=== PATIENT | male | born 1960 | race Caucasian/White ===

== ENCOUNTER 2021-02-23 13:30 | Inpatient (IN) ==
[2021-02-23] MEDS ORDERED: ONDANSETRON INJ 2 MG/ML 2 ML VIAL IV STA (16:53)
[2021-02-23] MEDS ORDERED: SODIUM CHLORIDE 0.9% 1000ML 2,000 ML IV ONE (16:53)
[2021-02-23] MEDS ORDERED: SODIUM CHLORIDE 0.9% 1000ML 1,000 ML IV STA (16:53)
--- NOTE | 2021-02-23 17:09 | Emergency Department Note ---
Impression & Plan SOB (shortness of breath), Acute dehydration, Metastatic renal cell carcinoma ED Provider Note INFORMANT: Patient and family ED PROVIDER(S): Enrike Longo MD CHIEF COMPLAINT: Back pain and shortness of breath PLAN: Disposition: Admitted Condition: Good Outpatient prescription management: none Referral: None MEDICAL DECISION MAKING: Patient presented because of back pain, feeling short of breath, and feeling dehydrated. He has had poor p.o. intake and no urine output for the last 2 days. Clinically he looks ill. He had his port accessed and an IV established. He was given saline fluid boluses as he was mildly hypotensive. He was placed on supplemental oxygen. His pain which he rated an 8 out of 10 was treated with Dilaudid and Zofran. Chest imaging was concerning for metastatic disease in the ribs. The patient had a CT scan of the chest abdomen and pelvis performed. This revealed findings concerning for possible metastatic disease versus cavitary lesion versus pulmonary infarct versus fungal infection. I did discuss this with the radiologist. The patient was started on cefepime and vancomycin. We did make attempts to get imaging from his outside facility. Unfortunately imaging is not available this evening but the reports were received. It appears that the mass seen especially in the right lower lobe is increased. Radiology recommended a CT PE study. The patient's creatinine is stable. He was hydrated. CT PE study was performed. No pulmonary midline were noted however it is still difficult to assess the exact etiology of the findings. The patient will need further management in the hospital. Consultation was made with the [facility] service. Patient was evaluated in the ER for further management. Triage Nursing notes reviewed and agree them. Vital Signs: reviewed and remarkable for mild hypotension Differential diagnosis: Metastatic cancer, infection, dehydration, metabolic abnormality, hypo/hyperglycemia, electrolyte disturbance, anemia, hypoxia, cardiac sources, intracerebral event, toxicologic, neurologic, as well as other pathologies. Diagnostics interpreted by me: ECG: Sinus rhythm with occasional PVCs at 99 bpm. Poor baseline data. Septal Q waves. No ST elevation. Nonspecific ST. Cardiac Monitoring: Cardiac monitoring ordered by me: The patient was placed on continuous cardiac monitoring and observed. It revealed a sinus rhythm at 76 beats per minute with PVCs noted. Imaging studies: Chest x-ray and CT scans as above. HPI: The patient is a 60 year old male who presents to the Emergency Room with complaints of mid back pain and shortness of breath. This started over the last 2 days and is worsening. The patient also notes the following associated symptoms, feeling dehydrated, poor p.o. intake, no urine output in 2 days, 20 pound weight loss this month. The patient has found no relieving factors. Current pain is rated as 8/10. Patient states that he has metastatic renal cell carcinoma. His primary doctor and oncologist are located in [place]. He is staying with family in [place] and came to the hospital here for evaluation. Pt denies LOC, headache, fevers, chills, diaphoresis, visual changes, neck pain, chest pain, nausea, vomiting, abdominal pain,melena, hematochezia, numbness, focal weakness, lymphadenopathy, rash, or other complaints. ROS: See above HPI for pertinent positives & negatives. A total of 10 systems reviewed and were otherwise negative. PAST MEDICAL HISTORY:See Below , laryngeal cancer. Metastatic renal cell cancer PAST SURGICAL HISTORY:See Below, Mediport, tumor resection of mets to the brain FAMILY HISTORY:See Below SOCIAL HISTORY:See Below, former smoker. Uses medical marijuana. HOME MEDICATIONS:See Below ALLERGIES:See Below VITALS:See Below PHYSICAL EXAMINATION: GENERAL: Awake, alert, dyspneic and very uncomfortable-appearing, in mild distress HENT: Normocephalic, atraumatic. Oropharynx unremarkable except for dry mucous membranes. Cyanotic appearance to the nose. EYES: Normal conjunctiva. Sclera non-icteric. NECK: Inspection normal. Non-tender. Supple. No nuchal rigidity. FROM. No m asses. RESPIRATORY: Sounds diminished but equal bilaterally. Clear to auscultation. No wheezes. No rales. Mildly increased respiratory effort. CARDIAC: Normal rate. Normal rhythm. No murmurs. No rubs. Extremities warm and well perfused. Pulses equal. No JVD. GI: Soft, non-distended. No tenderness to palpation. No rebound or guarding. No masses. RECTAL: Deferred. MUSCULOSKELETAL: Atraumatic. Generalized muscular atrophy. Chest examination reveals no tenderness. The back is symmetrical on inspection without obvious abnormality. There is no CVA tenderness to palpation. There is midline low thoracic tenderness. No joint edema. LOWER EXTREMITIES: Calves are equal size bilaterally and non-tender. No edema. No discoloration. NEURO: Normal sensorium. No focal sensory or motor deficits noted. SKIN: No rash or jaundice noted. Enrike Longo MD Past Med/Surg History Social History Smoking Status: Never smoker Feels Safe at Home: Yes Allergies Allergies Allergy/AdvReac Type Severity Reaction Status Date / Time No Known Allergies Allergy Verified 02/23/21 17:06 Home Meds Home Medications Medication Instructions Recorded Confirmed Magic Mouth 1 dose PO DIRECTED PRN 02/23/21 02/23/21 apixaban 5 mg tablet (Eliquis) 5 mg PO BID 02/23/21 02/23/21 cabozantinib 40 mg tablet 40 mg PO .HS @ 2230 02/23/21 02/23/21 (Cabometyx) colchicine 0.6 mg tablet 0.6 mg PO DIRECTED PRN 02/23/21 02/23/21 diphenhydramine HCl 25 mg capsule 25 mg PO DIRECTED PRN 02/23/21 02/23/21 (Benadryl) famotidine 20 mg tablet (Pepcid) 20 mg PO DIRECTED PRN 02/23/21 02/23/21 famotidine 40 mg tablet 40 mg PO DAILYBB 02/23/21 02/23/21 levothyroxine 100 mcg tablet See Rx Instructions .ROUTE .COMPLEX 02/23/21 02/23/21 (Synthroid) prednisone 10 mg tablet 0 mg PO DIRECTED 02/23/21 02/23/21 propranolol 20 mg tablet 20 mg PO BID 02/23/21 02/23/21 Results & Data (ED) Vital Signs Vital Signs - 24 hr 02/23/21 13:39 02/23/21 18:30 02/23/21 19:00 Temperature 37.0 C 36.8 C Temperature Source Skin Oral Pulse Rate 76 72 Pulse Rate [Finger] 73 Pulse Rate from SpO2 Sensor 70 Pulse Rhythm [Finger] Regular Pulse Strength [Finger] Normal Respiratory Rate 18 20 16 Respiratory Depth Normal Blood Pressure 95/70 L 96/67 L Blood Pressure [Left Arm] 103/67 Blood Pressure Mean 78 76 Blood Pressure Mean [Left Arm] 79 Pulse Oximetry 100 97 100 Oxygen Delivery Method Room Air Nasal Cannula Oxygen Flow Rate 4 Sepsis Recent Fever Within 48 Hours No Sepsis New/Unexplained Change in Mental Status No Sepsis Action Taken by Nursing No Action Required 02/23/21 19:30 02/23/21 20:00 02/23/21 21:01 Temperature Temperature Source Pulse Rate 73 72 Pulse Rate [Finger] 73 Pulse Rate from SpO2 Sensor 76 73 Pulse Rhythm [Finger] Pulse Strength [Finger] Respiratory Rate 12 17 19 Respiratory Depth Blood Pressure 103/71 Blood Pressure [Left Arm] 93/63 L Blood Pressure Mean 81 Blood Pressure Mean [Left Arm] 73 Pulse Oximetry 89 L 100 100 Oxygen Delivery Method Nasal Cannula Oxygen Flow Rate 4 Sepsis Recent Fever Within 48 Hours Sepsis New/Unexplained Change in Mental Status Sepsis Action Taken by Nursing 02/23/21 21:30 02/23/21 22:00 Temperature Temperature Source Pulse Rate 75 68 Pulse Rate [Finger] Pulse Rate from SpO2 Sensor 74 68 Pulse Rhythm [Finger] Pulse Strength [Finger] Respiratory Rate 18 14 Respiratory Depth Blood Pressure 121/80 98/69 L Blood Pressure [Left Arm] Blood Pressure Mean 93 78 Blood Pressure Mean [Left Arm] Pulse Oximetry 93 99 Oxygen Delivery Method Oxygen Flow Rate Sepsis Recent Fever Within 48 Hours Sepsis New/Unexplained Change in Mental Status Sepsis Action Taken by Nursing Laboratory Data Result diagrams: 02/23/21 17:08 02/23/21 17:08 Lab Results 02/23/21 02/23/21 02/23/21 Range/Units 17:08 17:08 17:08 WBC 9.43 (4.8-10.8) K/uL RBC 4.14 L (4.7-6.1) M/uL Hgb 13.3 L (14.0-18.0) g/dL Hct 40.0 L (42-52) % MCV 96.6 (80-100) fL MCH 32.1 (25-34) pg MCHC 33.3 (32-36) g/dL RDW Std Deviation 55.1 H (36.4-46.3) fL RDW Coeff of Delphine 15.6 H (11.5-14.5) % Plt Count 107 L (130-400) K/uL MPV 10.1 (7.4-10.4) fL Immature Gran % (Auto) 0.2 % Neut % (Auto) 88.0 % Lymph % (Auto) 5.2 % Gaines % (Auto) 6.2 % Eos % (Auto) 0.3 % Baso % (Auto) 0.1 % Neut # (Auto) 8.30 H (1.4-6.5) K/uL Lymph # (Auto) 0.49 L (1.2-3.4) K/uL Gaines # (Auto) 0.58 (0.11-0.59) K/uL Eos # (Auto) 0.03 (0-0.5) K/uL Baso # (Auto) 0.01 (0-0.2) K/uL Immature Gran # (Auto) 0.02 (0.00-0.02) K/uL ESR 47 H (0-20) mm/hr Sodium 135 L (136-145) mmol/L Potassium 3.4 L (3.5-5.1) mmol/L Chloride 101 (98-107) mmol/L Carbon Dioxide 22 (21-32) mmol/L Anion Gap 12.0 H (3-11) BUN 18 (7-18) mg/dl Creatinine 1.02 (0.6-1.4) mg/dl Est Cr Clr Drug Dosing Not Reportable Est GFR ( Amer) 91.5 ml/min Est GFR (Non-Af Amer) 79.0 ml/min BUN/Creatinine Ratio 17.3 (10-20) Glucose 101 H (70-99) mg/dl Lactate (0.4-2.0) mmol/L Calcium 8.4 L (8.5-10.1) mg/dl Total Bilirubin 1.6 H (0.2-1) mg/dl AST 20 (15-37) U/L ALT 25 (12-78) U/L Alkaline Phosphatase 104 (45-117) U/L Troponin I < 0.015 (0-0.045) ng/ml C-Reactive Protein 17.30 H (0-0.29) mg/dl Total Protein 6.6 (6.4-8.2) gm/dl Albumin 3.2 L (3.4-5.0) gm/dl Globulin 3.4 (2.5-4.0) gm/dl Albumin/Globulin Ratio 0.9 (0.9-2) Lipase 107 (73-393) U/L COVID-19 Eval Order Blood Type Antibody Screen 02/23/21 02/23/21 02/23/21 Range/Units 17:08 17:22 22:19 WBC (4.8-10.8) K/uL RBC (4.7-6.1) M/uL Hgb (14.0-18.0) g/dL Hct (42-52) % MCV (80-100) fL MCH (25-34) pg MCHC (32-36) g/dL RDW Std Deviation (36.4-46.3) fL RDW Coeff of Delphine (11.5-14.5) % Plt Count (130-400) K/uL MPV (7.4-10.4) fL Immature Gran % (Auto) % Neut % (Auto) % Lymph % (Auto) % Gaines % (Auto) % Eos % (Auto) % Baso % (Auto) % Neut # (Auto) (1.4-6.5) K/uL Lymph # (Auto) (1.2-3.4) K/uL Gaines # (Auto) (0.11-0.59) K/uL Eos # (Auto) (0-0.5) K/uL Baso # (Auto) (0-0.2) K/uL Immature Gran # (Auto) (0.00-0.02) K/uL ESR (0-20) mm/hr Sodium (136-145) mmol/L Potassium (3.5-5.1) mmol/L Chloride (98-107) mmol/L Carbon Dioxide (21-32) mmol/L Anion Gap (3-11) BUN (7-18) mg/dl Creatinine (0.6-1.4) mg/dl Est Cr Clr Drug Dosing Est GFR ( Amer) ml/min Est GFR (Non-Af Amer) ml/min BUN/Creatinine Ratio (10-20) Glucose (70-99) mg/dl Lactate 1.5 (0.4-2.0) mmol/L Calcium (8.5-10.1) mg/dl Total Bilirubin (0.2-1) mg/dl AST (15-37) U/L ALT (12-78) U/L Alkaline Phosphatase (45-117) U/L Troponin I (0-0.045) ng/ml C-Reactive Protein (0-0.29) mg/dl Total Protein (6.4-8.2) gm/dl Albumin (3.4-5.0) gm/dl Globulin (2.5-4.0) gm/dl Albumin/Globulin Ratio (0.9-2) Lipase (73-393) U/L COVID-19 Eval Order Covid19 at [facility] Blood Type A Positive Antibody Screen NEGATIVE Administered Medications Hydromorphone HCl (Hydromorphone Inj 0.5 Mg/0.5 Ml Syr) 0.5 mg IV Q15M PRN PRN Reason: Pain Stop: 03/09/21 16:52 Last Admin: 02/23/21 17:21 Dose: 0.5 mg Documented by: [id number] Sodium Chloride (Nss 1000ml) 1,000 mls @ 125 mls/hr IV .Q8H STA Stop: 02/24/21 00:52 Last Admin: 02/23/21 19:18 Dose: 125 mls/hr Documented by: [id number] Discontinued Medications Sodium Chloride (Nss 1000ml) 2,000 mls @ 999 mls/hr IV .Q2H1M ONE Stop: 02/23/21 18:53 Last Infusion: 02/23/21 19:19 Dose: 0 mls/hr Documented by: [id number] Admin: 02/23/21 17:23 Dose: 999 mls/hr Documented by: [id number] Cefepime HCl (Maxipime) 2,000 mg in 20 mls @ 5 mls/min IV NOW STA; Protocol Stop: 02/23/21 18:46 Last Admin: 02/23/21 18:50 Dose: 5 mls/min Documented by: [id number] Vancomycin HCl 1,500 mg/ (Sodium Chloride) 530 mls @ 200 mls/hr IV NOW ONE Stop: 02/23/21 21:21 Last Infusion: 02/23/21 22:21 Dose: 0 mls/hr Documented by: [id number] Admin: 02/23/21 19:19 Dose: 200 mls/hr Documented by: [id number] Ioversol (Optiray 320 125ml) 116 ml IV ONCE ONE Stop: 02/23/21 19:54 Last Admin: 02/23/21 19:53 Dose: 116 ml Documented by: [id number] Ondansetron HCl (Ondansetron Inj 2 Mg/Ml 2 Ml Vial) 4 mg IV NOW STA Stop: 02/23/21 16:54 Last Admin: 02/23/21 17:18 Dose: 4 mg Documented by: [id number] Imaging Data Radiologist's Impression: Abdomen/Pelvis CT 02/23/21 16:56 CT OF THE ABDOMEN AND PELVIS WITHOUT CONTRAST CLINICAL HISTORY: mid back pain, SOB, renal cell CA COMPARISON STUDY: No previous studies for comparison. TECHNIQUE: Axial images of the abdomen and pelvis were obtained without IV contrast. Images were reviewed in the axial, sagittal, and coronal planes. Automated exposure control was utilized for the study. A dose lowering technique was utilized adhering to the principles of ALARA. FINDINGS: Please note that the chest CT will be reported separately. Evaluation of the abdomen and pelvis is suboptimal on this unenhanced examination. No pneumatosis, free air or portal venous gas is present. Unenhanced images of liver, spleen, right adrenal gland and pancreas are unremarkable. Left adrenal gland may have been resected. There is no abnormality within the left nephrectomy bed. There is no right hydronephrosis. There is no evidence for bowel obstruction. No lymphadenopathy is present. There may be trace fluid within the pelvis. There is moderate plaque of the abdominal aorta. No suspicious lesions are identified within visualized skeletal structures. Appendix is normal. The small large bowel are mildly fluid-filled. IMPRESSION: 1. No bowel obstruction. Mildly fluid-filled small and large bowel. Trace fluid within the pelvis. 2. No evidence for metastatic disease within the abdomen or pelvis on unenhanced exam. 3. Status post left nephrectomy. ACT 112: Negative or not required by law. Electronically signed by: Yogesh Cabrera M.D. 02/23/2021 6:[address] 02/23/21 16:56 CT OF THE CHEST WITHOUT IV CONTRAST CLINICAL HISTORY: mid back pain, SOB, renal cell CA COMPARISON STUDY: Chest radiograph performed earlier today. TECHNIQUE: Axial images of the chest were obtained without IV contrast. Images were reviewed in the axial, sagittal, and coronal planes. IV contrast was not administered for this examination. Automated exposure control was utilized for the study. A dose lowering technique was utilized adhering to the principles of ALARA. FINDINGS: Right internal jugular Crwplq-b-Pgmy is in place. No enlarged axillary, mediastinal or hilar lymph nodes are present. The size the heart is normal. There is no pericardial effusion. There is a trace right pleural effusion. There is no pneumothorax. Note is made of multiple ill-defined pulmonary nodules. The largest is a 2.7 cm subpleural right lower lobe lesion on image 170 of 306. This has central groundglass opacity and a few foci of cavitation (reverse halo). Multiple healing left-sided rib fractures are noted. These do not appear to be pathologic. Multiple right rib fractures are noted. Note is made of mild shaped scoliosis of the thoracic spine with multilevel disc space narrowing and osteophytosis. No suspicious lesions within the thoracic spine are noted by CT. Abdomen and pelvis will be reported separately. IMPRESSION: 1. Multiple ill-defined pulmonary nodules, the largest of which is a 2.7 cm subpleural right lower lobe lesion with central groundglass opacity and a few foci of cavitation. The appearance is nonspecific although this may reflect metastatic disease, possibly treated, given the clinical history. An infectious process, such as fungal infection or septic emboli, could appear similar. Correlation with prior chest CT, if available, is recommended. 2. Trace right pleural effusion. 3. Multiple healing left-sided rib fractures. These do not appear to be pathologic. 4. Mild S-shaped scoliosis of the thoracic spine with multilevel disc space narrowing and osteophytosis. No suspicious lesions within the thoracic spine by CT. ACT 112: Negative or not required by law. Electronically signed by: Yogesh Cabrera M.D. 02/23/2021 5:56 PM Chest X-Ray 02/23/21 16:56 XR chest 1V portable CLINICAL HISTORY: SOB, dehydration, metastatic renal cell COMPARISON STUDY: No previous studies for comparison. FINDINGS: Right internal jugular Wnamhp-v-Jvsp is in place. There is no p neumothorax or pleural effusion. Cardiac size is normal. Mediastinal contours are normal. Several healing left-sided rib fractures are present. There is also deformity of the left 11th rib with abnormal lucency. There is no evidence for pulmonary edema. No consolidation is present. IMPRESSION: 1. Lucency and cortical irregularity of several left-sided ribs with at least one associated healing fracture. These could reflect lytic lesions. 2. No consolidation to suggest pneumonia. 3. No pneumothorax. ACT 112: Negative or not required by law. Electronically signed by: Yogesh Cabrera M.D. 02/23/2021 5:27 PM Chest CTA 02/23/21 18:43 CT ANGIOGRAPHY OF THE CHEST, PULMONARY EMBOLUS PROTOCOL CLINICAL HISTORY: ?PE. Shortness of breath. Metastatic renal cell carcinoma. COMPARISON STUDY: Chest CT performed earlier today. TECHNIQUE: Following IV administration of 116 mL of Optiray, helical axial images of the chest were obtained utilizing the pulmonary embolus protocol. Maximal intensity projections and sagittal and coronal reformats were viewed on an independent 3D workstation. IV contrast was administered without complication. Automated exposure control was utilized for the study. A dose lowering technique was utilized adhering to the principles of ALARA. CT DOSE: 278.31 mGy.cm FINDINGS: No pulmonary emboli are identified. There is no thoracic aortic dissection. Right internal jugular Ornpcf-y-Asia is in place. There is no pericardial effusion. A trace right pleural effusion is noted. There is no pneumothorax. Mild emphysema is present. Note is made of multiple ill-defined pulmonary nodules, including a 3 cm subpleural right lower lobe lesion which contains central groundglass opacity and a few cavitary foci. A 7 mm left lower lobe nodule on image 98 of 278 also appears cavitary. Right lower lobe subpleural opacity favors atelectasis. There is mucus at the level of the jai. No central obstructing mass is present. Multiple healing left-sided rib fractures are noted. There are multiple additional old bilateral rib fractures. IMPRESSION: 1. No pulmonary emboli identified. 2. Multiple ill-defined pulmonary nodules, including a 3 cm subpleural right lower lobe lesion which contains central groundglass opacity in a few cavitary foci. This remains indeterminate. Given the clinical history, metastatic disease, possibly treated, is within the differential. However, an infectious process, including fungal infection or septic emboli could also have this imaging appearance. Although less likely, a resolving pulmonary infarct cannot be excluded. Correlation with prior outside CT, if available, is recommended. 3. Trace right pleural effusion. 4. Mild emphysema. ACT 112: Negative or not required by law. Electronically signed by: Yogesh Cabrera M.D. 02/23/2021 8:17 PM Discharge Plan Visit Data Chief Complaint: Back Injury/Pain Stated Complaint: BACK PAIN ED Provider: nErike Longo Discharge Problem: SOB (shortness of breath), Acute dehydration, Metastatic renal cell carcinoma Forms Stand Alone Forms: My [facility] Prescriptions Prescriptions: No Action prednisone 10 mg tablet 0 mg PO DIRECTED RF: 0 famotidine 40 mg tablet 40 mg PO DAILYBB RF: 0 levothyroxine [Synthroid] 100 mcg tablet See Rx Instructions .ROUTE .COMPLEX RF: 0 famotidine [Pepcid] 20 mg Tablet 20 mg PO DIRECTED PRN (Reason: HEARTBURN/INDIGESTION) RF: 0 diphenhydramine HCl [Benadryl] 25 mg Capsule 25 mg PO DIRECTED PRN (Reason: Sleep) RF: 0 colchicine 0.6 mg Tablet 0.6 mg PO DIRECTED PRN (Reason: FLARE UPS) RF: 0 propranolol 20 mg tablet 20 mg PO BID RF: 0 Eliquis 5 mg tablet 5 mg PO BID RF: 0 Cabometyx 40 mg tablet 40 mg PO .HS @ 2230 RF: 0 Magic Mouth 1 dose PO DIRECTED PRN (Reason: THRUSH) RF: 0 Referrals Referrals: Pineda Heck DO [Primary Care Provider] -
[2021-02-23 17:19] LABS: Basophils # (auto) 0.01 K/uL (0-0.2); Basophils % (auto) 0.1 %; Eosinophils # (auto) 0.03 K/uL (0-0.5); Eosinophils % (auto) 0.3 %; Hemoglobin 13.3 g/dL (14.0-18.0); Immature Granulocytes # (auto) 0.02 K/uL (0.00-0.02); Immature Granulocytes % (auto) 0.2 %; Lymphocytes # (auto) 0.49 K/uL (1.2-3.4); Lymphocytes % (auto) 5.2 %; Mean Corpuscular Hemoglobin 32.1 pg (25-34); Mean Corpuscular Hgb Conc 33.3 g/dL (32-36); Mean Corpuscular Volume 96.6 fL (80-100); Mean Platelet Volume 10.1 fL (7.4-10.4); Monocytes # (auto) 0.58 K/uL (0.11-0.59); Monocytes % (auto) 6.2 %; Platelet Count 107 K/uL (130-400); RDW Coefficient of Variation 15.6 % (11.5-14.5); RDW Standard Deviation 55.1 fL (36.4-46.3); Red Blood Count 4.14 M/uL (4.7-6.1); White Blood Count 9.43 K/uL (4.8-10.8)
[2021-02-23] MEDS: HYDROmorphone INJ 0.5 MG/0.5 ML SYR IV PRN (17:21)
--- NOTE | 2021-02-23 17:28 | XRay Report ---
XR chest 1V portable CLINICAL HISTORY: SOB, dehydration, metastatic renal cell COMPARISON STUDY: No previous studies for comparison. FINDINGS: Right internal jugular Sshyfz-r-Cbza is in place. There is no pneumothorax or pleural effus ion. Cardiac size is normal. Mediastinal contours are normal. Several healing left-sided rib fracture s are present. There is also deformity of the left 11th rib with abnormal lucency. There is no eviden ce for pulmonary edema. No consolidation is present. IMPRESSION: 1. Lucency and cortical irregularity of several left-sided ribs with at least one associated healing fracture. These could reflect lytic lesions. 2. No consolidation to suggest pneumonia. 3. No pneumothorax. ACT 112: Negative or not required by law. Electronically signed by: Yogesh Cabrera M.D. 02/23/2021 5:27 PM
[2021-02-23 17:35] LABS: Alanine Aminotransferase 25 U/L (12-78); Albumin Level 3.2 gm/dl (3.4-5.0); Aspartate Aminotransferase 20 U/L (15-37); BUN Creatinine Ratio 17.3 (10-20); Blood Urea Nitrogen 18 mg/dl (7-18); Calcium 8.4 mg/dl (8.5-10.1); Carbon Dioxide 22 mmol/L (21-32); Chloride 101 mmol/L (98-107); Est GFR (African American) 91.5 ml/min; Glucose 101 mg/dl (70-99); Lipase 107 U/L (73-393); Potassium 3.4 mmol/L (3.5-5.1); Sodium 135 mmol/L (136-145)
[2021-02-23 17:40] LABS: Albumin Globulin Ratio 0.9 (0.9-2); Alkaline Phosphatase 104 U/L (45-117); Bilirubin,Total 1.6 mg/dl (0.2-1); Globulin 3.4 gm/dl (2.5-4.0); Total Protein 6.6 gm/dl (6.4-8.2); Troponin I < 0.015 ng/ml (0-0.045)
--- NOTE | 2021-02-23 17:57 | CT Scan Report ---
CT OF THE CHEST WITHOUT IV CONTRAST CLINICAL HISTORY: mid back pain, SOB, renal cell CA COMPARISON STUDY: Chest radiograph performed earlier today. TECHNIQUE: Axial images of the chest were obtained without IV contrast. Images were reviewed in the axial, sagittal, and coronal planes. IV contrast was not administered for this examination. Automat ed exposure control was utilized for the study. A dose lowering technique was utilized adhering to t he principles of ALARA. FINDINGS: Right internal jugular Zffqku-a-Cach is in place. No enlarged axillary, mediastinal or hil ar lymph nodes are present. The size the heart is normal. There is no pericardial effusion. There is a trace right pleural effusion. There is no pneumothorax. Note is made of multiple ill-defined pulmon yonis nodules. The largest is a 2.7 cm subpleural right lower lobe lesion on image 170 of 306. This has central groundglass opacity and a few foci of cavitation (reverse halo). Multiple healing left-sided rib fractures are noted. These do not appear to be pathologic. Multiple right rib fractures are note d. Note is made of mild shaped scoliosis of the thoracic spine with multilevel disc space narrowing a nd osteophytosis. No suspicious lesions within the thoracic spine are noted by CT. Abdomen and pelvis will be reported separately. IMPRESSION: 1. Multiple ill-defined pulmonary nodules, the largest of which is a 2.7 cm subpleural right lower lo be lesion with central groundglass opacity and a few foci of cavitation. The appearance is nonspecifi c although this may reflect metastatic disease, possibly treated, given the clinical history. An infe ctious process, such as fungal infection or septic emboli, could appear similar. Correlation with caitlin or chest CT, if available, is recommended. 2. Trace right pleural effusion. 3. Multiple healing left-sided rib fractures. These do not appear to be pathologic. 4. Mild S-shaped scoliosis of the thoracic spine with multilevel disc space narrowing and osteophytos is. No suspicious lesions within the thoracic spine by CT. ACT 112: Negative or not required by law. Electronically signed by: Yogesh Cabrera M.D. 02/23/2021 5:56 PM
--- NOTE | 2021-02-23 18:08 | CT Scan Report ---
CT OF THE ABDOMEN AND PELVIS WITHOUT CONTRAST CLINICAL HISTORY: mid back pain, SOB, renal cell CA COMPARISON STUDY: No previous studies for comparison. TECHNIQUE: Axial images of the abdomen and pelvis were obtained without IV contrast. Images were revi ewed in the axial, sagittal, and coronal planes. Automated exposure control was utilized for the luis dy. A dose lowering technique was utilized adhering to the principles of ALARA. FINDINGS: Please note that the chest CT will be reported separately. Evaluation of the abdomen and pe lvis is suboptimal on this unenhanced examination. No pneumatosis, free air or portal venous gas is p resent. Unenhanced images of liver, spleen, right adrenal gland and pancreas are unremarkable. Left a drenal gland may have been resected. There is no abnormality within the left nephrectomy bed. There i s no right hydronephrosis. There is no evidence for bowel obstruction. No lymphadenopathy is present. There may be trace fluid within the pelvis. There is moderate plaque of the abdominal aorta. No susp icious lesions are identified within visualized skeletal structures. Appendix is normal. The small la rge bowel are mildly fluid-filled. IMPRESSION: 1. No bowel obstruction. Mildly fluid-filled small and large bowel. Trace fluid within the pelvis. 2. No evidence for metastatic disease within the abdomen or pelvis on unenhanced exam. 3. Status post left nephrectomy. ACT 112: Negative or not required by law. Electronically signed by: Yogesh Cabrera M.D. 02/23/2021 6:06 PM
[2021-02-23] MEDS ORDERED: VANCOMYCIN CONSULT ACTIVE PRN (18:43)
[2021-02-23] MEDS ORDERED: CEFEPIME 2,000 MG/20 ML VIAL IV STA (18:43)
[2021-02-23] MEDS ORDERED: VANCOMYCIN HCL 1,500 MG in SODIUM CHLORIDE 0.9% 500 ML IV ONE (18:43)
[2021-02-23] MEDS ORDERED: OPTIRAY 320 125ml IV ONE (19:53)
--- NOTE | 2021-02-23 20:18 | CT Scan Report ---
CT ANGIOGRAPHY OF THE CHEST, PULMONARY EMBOLUS PROTOCOL CLINICAL HISTORY: ?PE. Shortness of breath. Metastatic renal cell carcinoma. COMPARISON STUDY: Chest CT performed earlier today. TECHNIQUE: Following IV administration of 116 mL of Optiray, helical axial images of the chest were o btained utilizing the pulmonary embolus protocol. Maximal intensity projections and sagittal and cor onal reformats were viewed on an independent 3D workstation. IV contrast was administered without co mplication. Automated exposure control was utilized for the study. A dose lowering technique was ut ilized adhering to the principles of ALARA. CT DOSE: 278.31 mGy.cm FINDINGS: No pulmonary emboli are identified. There is no thoracic aortic dissection. Right internal jugular [id number]-f-[id number] is in place. There is no pericardial effusion. A trace right pleural effusion is noted. There is no pneumothorax. Mild emphysema is present. Note is made of multiple ill-defined p ulmonary nodules, including a 3 cm subpleural right lower lobe lesion which contains central groundgl ass opacity and a few cavitary foci. A 7 mm left lower lobe nodule on image 98 of 278 also appears ca vitary. Right lower lobe subpleural opacity favors atelectasis. There is mucus at the level of the ca nicholas. No central obstructing mass is present. Multiple healing left-sided rib fractures are noted. Th ere are multiple additional old bilateral rib fractures. IMPRESSION: 1. No pulmonary emboli identified. 2. Multiple ill-defined pulmonary nodules, including a 3 cm subpleural right lower lobe lesion which contains central groundglass opacity in a few cavitary foci. This remains indeterminate. Given the cl inical history, metastatic disease, possibly treated, is within the differential. However, an infecti ous process, including fungal infection or septic emboli could also have this imaging appearance. Alt shirin less likely, a resolving pulmonary infarct cannot be excluded. Correlation with prior outside C T, if available, is recommended. 3. Trace right pleural effusion. 4. Mild emphysema. ACT 112: Negative or not required by law. Electronically signed by: Yogesh Cabrera M.D. 02/23/2021 8:17 PM
[2021-02-23] MEDS ORDERED: HYDROCODONE/ACETAMOPHEN 5/325MG TAB PO PRN (22:04)
[2021-02-23] MEDS ORDERED: HYDROmorphone INJ 0.5 MG/0.5 ML SYR IV PRN (22:04)
--- NOTE | 2021-02-23 22:09 | History & Physical Report ---
Date of Service February 23, 2021 Assessment & Plan (1) Metastatic renal cell carcinoma: Plan: Metastatic renal cell carcinoma/laryngeal cancer- Following with oncology in [place]. Her multiple ill-defined pulmonary nodules, with apparent increase in size of a right lower lobe lesion from 1.9 to 3 cm as noted from printout of most recent CT scan performed in [place] Will work with his cancer doctors in [place] tomorrow, to determine an appropriate course of action (2) Laryngeal cancer: Plan: See above Family reports that he is able to drink liquids and food should be pured, and that will be his diet ordered (3) SOB (shortness of breath): Plan: CT angiography negative for PE No signs of active infection History of smoking Duonebs every 4 hours while awake and every 2 hours when necessary. Nasal cannula oxygen, titrate to keep pulse ox around 95% Patient did receive vancomycin IV and cefepime IV from the ED, and will hold on any further antibiotics at this time until reassessed in the a.m. (4) Left rib fracture: Plan: Most of these are healed or healing. Patient has history of falling in the bathtub in August, which is the likely time interval of initial fracture. He denies any left-sided rib cage pain at this time (5) Acute dehydration: Plan: Continue IV fluid rehydration NSS + KCl 20 mEq at 100 mils per hour History of Present Illness Chief Complaint: The patient presents to the emergency department with complaint of low back pain, shortness of breath and decreased oral intake over the past several days Primary Care Provider: Pineda Heck DO The patient is a 60-year-old male with a past medical history including met astatic renal cell carcinoma, laryngeal cancer, pulmonary embolism, gout, GERD, hypothyroidism and hypertension. He presents with symptoms as noted above, in addition reports a 30 pound weight loss since his diagnosis of cancer. Allergies Allergy/AdvReac Type Severity Reaction Status Date / Time No Known Allergies Allergy Verified 02/23/21 17:06 Home Medications Medication Instructions Recorded Confirmed Type Magic Mouth 1 dose PO DIRECTED PRN 02/23/21 02/23/21 History apixaban 5 mg tablet (Eliquis) 5 mg PO BID 02/23/21 02/23/21 History cabozantinib 40 mg tablet 40 mg PO .HS @ 2230 02/23/21 02/23/21 History (Cabometyx) colchicine 0.6 mg tablet 0.6 mg PO DIRECTED PRN 02/23/21 02/23/21 History diphenhydramine HCl 25 mg capsule 25 mg PO DIRECTED PRN 02/23/21 02/23/21 History (Benadryl) famotidine 20 mg tablet (Pepcid) 20 mg PO DIRECTED PRN 02/23/21 02/23/21 History famotidine 40 mg tablet 40 mg PO DAILYBB 02/23/21 02/23/21 History levothyroxine 100 mcg tablet See Rx Instructions .ROUTE .COMPLEX 02/23/21 02/23/21 History (Synthroid) prednisone 10 mg tablet 0 mg PO DIRECTED 02/23/21 02/23/21 History propranolol 20 mg tablet 20 mg PO BID 02/23/21 02/23/21 History Past Med/Surg History Social History Smoking Status: Never smoker Feels Safe at Home: Yes Review of Systems Review of Systems: The patient denies chest pain, palpitations, cough, lower extremity swelling, fevers, chills, sweats, nausea, vomiting, diarrhea , constipation, abdominal pain, pelvic pain, blood in urine or stool, dysuria, urinary frequency or urgency, lightheadedness, dizziness, headache, memory loss, loss of consciousness, focal weakness, numbness or tingling in arms or legs, generalized arthralgias or myalgias, back or neck pain, or night sweats. The review of systems is otherwise negative other than for that already noted above, and at least 10 systems have been reviewed. Physical Exam Physical Exam: The patient is awake, alert and oriented 3, looks emaciated, normocephalic and atraumatic, lying in bed and in no acute distress. HEENT--PERRL, EOMI, mucous membranes and oropharynx dry. Neck--supple. No JVD. No bruits. Thyroid normal, trachea midline, no adenopathy. Heart--normal S1 and S2. No murmurs, rubs or gallops. Lungs--clear bilaterally, no respiratory distress, no accessory muscle use. Abdomen--normal bowel sounds and soft. Nontender. Nondistended, no hernias or masses, no organomegaly. Extremities--no cyanosis or clubbing. No edema. Dermatologic--scattered ecchymoses upper and lower extremities Neurologic--cranial nerves II through XII grossly intact. Rheumatologic--normal range of motion. Psychiatric--normal affect. Results & Data Results & Data ([facility]) Vital Signs (Past 12 Hours) Vital Signs Temp Pulse Pulse Resp BP BP Pulse Ox 02/23/21 22:00 68 14 98/69 L 99 02/23/21 21:30 75 18 121/80 93 02/23/21 21:01 73 19 93/63 L 100 02/23/21 20:00 72 17 103/71 100 02/23/21 19:30 73 12 89 L 02/23/21 19:00 72 16 96/67 L 100 02/23/21 18:30 98.2 F 73 20 103/67 97 02/23/21 13:39 98.6 F 76 18 95/70 L 100 Laboratory Results Laboratory Results WBC 9.43 K/uL (4.8-10.8) 02/23/21 17:08 RBC 4.14 M/uL (4.7-6.1) L 02/23/21 17:08 Hgb 13.3 g/dL (14.0-18.0) L 02/23/21 17:08 Hct 40.0 % (42-52) L 02/23/21 17:08 MCV 96.6 fL (80-100) 02/23/21 17:08 MCH 32.1 pg (25-34) 02/23/21 17:08 MCHC 33.3 g/dL (32-36) 02/23/21 17:08 RDW Std Deviation 55.1 fL (36.4-46.3) H 02/23/21 17:08 RDW Coeff of Delphine 15.6 % (11.5-14.5) H 02/23/21 17:08 Plt Count 107 K/uL (130-400) L 02/23/21 17:08 MPV 10.1 fL (7.4-10.4) 02/23/21 17:08 Immature Gran % (Auto) 0.2 % 02/23/21 17:08 Neut % (Auto) 88.0 % 02/23/21 17:08 Lymph % (Auto) 5.2 % 02/23/21 17:08 Daggett % (Auto) 6.2 % 02/23/21 17:08 Eos % (Auto) 0.3 % 02/23/21 17:08 Baso % (Auto) 0.1 % 02/23/21 17:08 Neut # (Auto) 8.30 K/uL (1.4-6.5) H 02/23/21 17:08 Lymph # (Auto) 0.49 K/uL (1.2-3.4) L 02/23/21 17:08 Daggett # (Auto) 0.58 K/uL (0.11-0.59) 02/23/21 17:08 Eos # (Auto) 0.03 K/uL (0-0.5) 02/23/21 17:08 Baso # (Auto) 0.01 K/uL (0-0.2) 02/23/21 17:08 Immature Gran # (Auto) 0.02 K/uL (0.00-0.02) 02/23/21 17:08 ESR 47 mm/hr (0-20) H 02/23/21 17:08 Sodium 135 mmol/L (136-145) L 02/23/21 17:08 Potassium 3.4 mmol/L (3.5-5.1) L 02/23/21 17:08 Chloride 101 mmol/L (98-107) 02/23/21 17:08 Carbon Dioxide 22 mmol/L (21-32) 02/23/21 17:08 Anion Gap 12.0 (3-11) H 02/23/21 17:08 BUN 18 mg/dl (7-18) 02/23/21 17:08 Creatinine 1.02 mg/dl (0.6-1.4) 02/23/21 17:08 Est Cr Clr Drug Dosing Not Reportable 02/23/21 17:08 Est GFR ( Amer) 91.5 ml/min 02/23/21 17:08 Est GFR (Non-Af Amer) 79.0 ml/min 02/23/21 17:08 BUN/Creatinine Ratio 17.3 (10-20) 02/23/21 17:08 Glucose 101 mg/dl (70-99) H 02/23/21 17:08 Lactate 1.5 mmol/L (0.4-2.0) 02/23/21 17:08 Calcium 8.4 mg/dl (8.5-10.1) L 02/23/21 17:08 Total Bilirubin 1.6 mg/dl (0.2-1) H 02/23/21 17:08 AST 20 U/L (15-37) 02/23/21 17:08 ALT 25 U/L (12-78) 02/23/21 17:08 Alkaline Phosphatase 104 U/L (45-117) 02/23/21 17:08 Troponin I < 0.015 ng/ml (0-0.045) 02/23/21 17:08 C-Reactive Protein 17.30 mg/dl (0-0.29) H 02/23/21 17:08 Total Protein 6.6 gm/dl (6.4-8.2) 02/23/21 17:08 Albumin 3.2 gm/dl (3.4-5.0) L 02/23/21 17:08 Globulin 3.4 gm/dl (2.5-4.0) 02/23/21 17:08 Albumin/Globulin Ratio 0.9 (0.9-2) 02/23/21 17:08 Lipase 107 U/L (73-393) 02/23/21 17:08 COVID-19 Eval Order Covid19 at [facility] 02/23/21 22:19 SARS-CoV-2 (PCR) NEGATIVE (Negative) 02/23/21 22:19 Blood Type A Positive 02/23/21 17:22 Antibody Screen NEGATIVE 02/23/21 17:22 Impressions Abdomen/Pelvis CT 02/23/21 16:56 CT OF THE ABDOMEN AND PELVIS WITHOUT CONTRAST CLINICAL HISTORY: mid back pain, SOB, renal cell CA COMPARISON STUDY: No previous studies for comparison. TECHNIQUE: Axial images of the abdomen and pelvis were obtained without IV contrast. Images were reviewed in the axial, sagittal, and coronal planes. Automated exposure control was utilized for the study. A dose lowering technique was utilized adhering to the principles of ALARA. FINDINGS: Please note that the chest CT will be reported separately. Evaluation of the abdomen and pelvis is suboptimal on this unenhanced examination. No pneumatosis, free air or portal venous gas is present. Unenhanced images of liver, spleen, right adrenal gland and pancreas are unremarkable. Left adrenal gland may have been resected. There is no abnormality within the left nephrectomy bed. There is no right hydronephrosis. There is no evidence for bowel obstruction. No lymphadenopathy is present. There may be trace fluid within the pelvis. There is moderate plaque of the abdominal aorta. No suspicious lesions are identified within visualized skeletal structures. Appendix is normal. The small large bowel are mildly fluid-filled. IMPRESSION: 1. No bowel obstruction. Mildly fluid-filled small and large bowel. Trace fluid within the pelvis. 2. No evidence for metastatic disease within the abdomen or pelvis on unenhanced exam. 3. Status post left nephrectomy. ACT 112: Negative or not required by law. Electronically signed by: Yogesh Cabrera M.D. 02/23/2021 6:[address] 02/23/21 16:56 CT OF THE CHEST WITHOUT IV CONTRAST CLINICAL HISTORY: mid back pain, SOB, renal cell CA COMPARISON STUDY: Chest radiograph performed earlier today. TECHNIQUE: Axial images of the chest were obtained without IV contrast. Images were reviewed in the axial, sagittal, and coronal planes. IV contrast was not administered for this examination. Automated exposure control was utilized for the study. A dose lowering technique was utilized adhering to the principles of ALARA. FINDINGS: Right internal jugular [id number] is in place. No enlarged axillary, mediastinal or hilar lymph nodes are present. The size the heart is normal. There is no pericardial effusion. There is a trace right pleural effusion. There is no pneumothorax. Note is made of multiple ill-defined pulmonary nodules. The largest is a 2.7 cm subpleural right lower lobe lesion on image 170 of 306. This has central groundglass opacity and a few foci of cavitation (reverse halo). Multiple healing left-sided rib fractures are noted. These do not appear to be pathologic. Multiple right rib fractures are noted. Note is made of mild shaped scoliosis of the thoracic spine with multilevel disc space narrowing and osteophytosis. No suspicious lesions within the thoracic spine are noted by CT. Abdomen and pelvis will be reported separately. IMPRESSION: 1. Multiple ill-defined pulmonary nodules, the largest of which is a 2.7 cm subpleural right lower lobe lesion with central groundglass opacity and a few foci of cavitation. The appearance is nonspecific although this may reflect metastatic disease, possibly treated, given the clinical history. An infectious process, such as fungal infection or septic emboli, could appear similar. Correlation with prior chest CT, if available, is recommended. 2. Trace right pleural effusion. 3. Multiple healing left-sided rib fractures. These do not appear to be pathologic. 4. Mild S-shaped scoliosis of the thoracic spine with multilevel disc space narrowing and osteophytosis. No suspicious lesions within the thoracic spine by CT. ACT 112: Negative or not required by law. Electronically signed by: Yogesh Caberra M.D. 02/23/2021 5:56 PM Chest X-Ray 02/23/21 16:56 XR chest 1V portable CLINICAL HISTORY: SOB, dehydration, metastatic renal cell COMPARISON STUDY: No previous studies for comparison. FINDINGS: Right internal jugular [id number]-[id number] is in place. There is no pneumothorax or pleural effusion. Cardiac size is normal. Mediastinal contours are normal. Several healing left-sided rib fractures are present. There is also deformity of the left 11th rib with abnormal lucency. There is no evidence for pulmonary edema. No consolidation is present. IMPRESSION: 1. Lucency and cortical irregularity of several left-sided ribs with at least o ne associated healing fracture. These could reflect lytic lesions. 2. No consolidation to suggest pneumonia. 3. No pneumothorax. ACT 112: Negative or not required by law. Electronically signed by: Yogesh Cabrera M.D. 02/23/2021 5:27 PM Chest CTA 02/23/21 18:43 CT ANGIOGRAPHY OF THE CHEST, PULMONARY EMBOLUS PROTOCOL CLINICAL HISTORY: ?PE. Shortness of breath. Metastatic renal cell carcinoma. COMPARISON STUDY: Chest CT performed earlier today. TECHNIQUE: Following IV administration of 116 mL of Optiray, helical axial images of the chest were obtained utilizing the pulmonary embolus protocol. Maximal intensity projections and sagittal and coronal reformats were viewed on an independent 3D workstation. IV contrast was administered without complication. Automated exposure control was utilized for the study. A dose lowering technique was utilized adhering to the principles of ALARA. CT DOSE: 278.31 mGy.cm FINDINGS: No pulmonary emboli are identified. There is no thoracic aortic dissection. Right internal jugular Dcrahx-o-Xayf is in place. There is no pericardial effusion. A trace right pleural effusion is noted. There is no pneumothorax. Mild emphysema is present. Note is made of multiple ill-defined pulmonary nodules, including a 3 cm subpleural right lower lobe lesion which contains central groundglass opacity and a few cavitary foci. A 7 mm left lower lobe nodule on image 98 of 278 also appears cavitary. Right lower lobe subpleural opacity favors atelectasis. There is mucus at the level of the jai. No central obstructing mass is present. Multiple healing left-sided rib fractures are noted. There are multiple additional old bilateral rib fractures. IMPRESSION: 1. No pulmonary emboli identified. 2. Multiple ill-defined pulmonary nodules, including a 3 cm subpleural right lower lobe lesion which contains central groundglass opacity in a few cavitary foci. This remains indeterminate. Given the clinical history, metastatic disease, possibly treated, is within the differential. However, an infectious process, including fungal infection or septic emboli could also have this imaging appearance. Although less likely, a resolving pulmonary infarct cannot be excluded. Correlation with prior outside CT, if available, is recommended. 3. Trace right pleural effusion. 4. Mild emphysema. ACT 112: Negative or not required by law. Electronically signed by: Yogesh Cabrera M.D. 02/23/2021 8:17 PM Code Status & VTE Plan Code Status Full code VTE Prophylaxis Plan VTE Prophylaxis will be ordered: Yes PG Care Time/CCT Total # of Minutes Spent Total Time Spent with Patient: Total time spent is greater than 50% in coordination of care (as documented) at patient's floor/unit and/or counseling patient: Coding Level of Care Code INT OBSERVATION CARE 70M LVL 3 Diagnoses Laryngeal cancer C32.9 Metastatic renal cell carcinoma C64.9 Left rib fracture S22.32XA SOB (shortness of breath) R06.02 Acute dehydration E86.0
[2021-02-24] MEDS: HYDROmorphone INJ 0.5 MG/0.5 ML SYR IV PRN (00:08)
[2021-02-24] MEDS ORDERED: diphenhydrAMINE Capsule 25 MG CAP PO PRN (03:13)
[2021-02-24] MEDS ORDERED: ONDANSETRON INJ 2 MG/ML 2 ML VIAL IV PRN (03:13)
[2021-02-24] MEDS ORDERED: ACETAMINOPHEN 325 MG TAB PO PRN (03:13)
[2021-02-24] MEDS ORDERED: NSS + 20MEQ KCL 20 MEQ/1,000 ML BAG IV SCH (03:30)
[2021-02-24] MEDS: HYDROCODONE/ACETAMOPHEN 5/325MG TAB PO PRN (03:41)
[2021-02-24] MEDS: APIXABAN 5 MG TABLET PO SCH ×3 (03:43→22:50)
[2021-02-24] MEDS: FAMOTIDINE 20 MG TAB PO SCH ×3 (03:44→22:00)
[2021-02-24] MEDS: LEVOTHYROXINE SODIUM 100 MCG TABLET PO SCH (05:12)
[2021-02-24 06:35] LABS: BUN Creatinine Ratio 17.9 (10-20); Calcium 7.4 mg/dl (8.5-10.1); Creatinine Clr Calc Pharmacy 100.9 ml/min; Est GFR (African American) 113.5 ml/min; Est GFR (Non-African American) 97.9 ml/min; Magnesium 1.7 mg/dl (1.8-2.4); Potassium 3.4 mmol/L (3.5-5.1)
[2021-02-24 06:39] LABS: Albumin Globulin Ratio 0.7 (0.9-2); Bilirubin,Total 0.9 mg/dl (0.2-1); Globulin 2.7 gm/dl (2.5-4.0); Total Protein 4.7 gm/dl (6.4-8.2)
[2021-02-24 06:45] LABS: Hemoglobin 9.4 g/dL (14.0-18.0); Mean Corpuscular Hemoglobin 31.2 pg (25-34); Mean Corpuscular Hgb Conc 32.4 g/dL (32-36); Mean Corpuscular Volume 96.3 fL (80-100); Mean Platelet Volume 10.2 fL (7.4-10.4); Platelet Count 75 K/uL (130-400); RDW Coefficient of Variation 15.9 % (11.5-14.5); RDW Standard Deviation 55.6 fL (36.4-46.3); Red Blood Count 3.01 M/uL (4.7-6.1); White Blood Count 4.24 K/uL (4.8-10.8)
[2021-02-24 06:46] LABS: Echinocytes 1+; Eosinophils # (auto) 0.02 K/uL (0-0.5); Eosinophils % (auto) 0.5 %; Lymphocytes # (auto) 0.32 K/uL (1.2-3.4); Lymphocytes % (auto) 7.5 %; Monocytes % (auto) 7.1 %; Neutrophils % (auto) 84.9 %; Ovalocytes 1+; Platelet Estimate Decreased (Normal)
[2021-02-24] MEDS: ALBUT/IPRATROP 3MG/0.5MG NEB 3 ML VIAL NEB SCH ×4 (07:20→19:16)
[2021-02-24] MEDS: PROPRANOLOL HCL 20 MG TAB PO SCH ×2 (08:25→22:00)
--- NOTE | 2021-02-24 09:01 | Ultrasound Report ---
ULTRASOUND BILATERAL LOWER EXTREMITY VENOUS CLINICAL HISTORY: Leg pain and swelling. Possible pulmonary embolus. COMPARISON STUDY: No priors. TECHNIQUE: Real-time, grayscale, and color Doppler sonography of the deep veins of the right and left lower extremity was performed from the inguinal crease to the calf. Compression and augmentation wer e utilized. FINDINGS: There is no sonographic evidence of deep venous thrombosis identified in the right or left lower extremity. The common femoral, superficial femoral, and popliteal veins are patent and normally compressible bilaterally. The greater saphenous vein and the profunda femoris vein at the junction w ith the common femoral vein are clear in both legs. The visualized calf veins are patent bilaterally. IMPRESSION: There is no sonographic evidence of deep venous thrombosis identified in the right or lef t lower extremity. ACT 112: Negative or not required by law. Electronically signed by: Jakob Hay M.D. 02/24/2021 9:00 AM
[2021-02-24] MEDS ORDERED: FLUARIX QUADRIVALENT 0.5 ML SYR IM ONE (12:00)
--- NOTE | 2021-02-24 15:14 | Electrocardiogram Report ---
Test Reason : Blood Pressure : / mmHG Vent. Rate : 099 BPM Atrial Rate : 099 BPM P-R Int : 164 ms QRS Dur : 072 ms QT Int : 528 ms P-R-T Axes : 075 034 071 degrees QTc Int : 677 ms Poor data quality, interpretation may be adversely affected Sinus rhythm with occasional Premature ventricular complexes Septal infarct , age undetermined Abnormal ECG No previous ECGs available Confirmed by Fitz Ibarra ([id number]) on 02/24/2021 3:13:47 PM Referred By: REFERRED SELF Confirmed By:Fitz Ibarra
[2021-02-24] MEDS ORDERED: PIPERACILLIN/TAZOBACTAM 3.375 GM in DEXTROSE 5% 100 ML IV ONE (16:00)
[2021-02-24] MEDS ORDERED: PIPERACILL/TAZOBAC CONSULT ACTIVE PRN (16:00)
[2021-02-24] MEDS ORDERED: AZITHROMYCIN 500 MG in DEXTROSE 5% 250 ML IV ONE (17:30)
--- NOTE | 2021-02-24 18:27 | Hospitalist Progress Note ---
Date of Service February 24, 2021 Assessment & Plan (1) Metastatic renal cell carcinoma: Plan: Metastatic renal cell carcinoma/laryngeal cancer - undergoing active oral chemotherapy Following with oncology in [place] - Follows with Dr. Machuca -- Sister was able to obtain a CD with imaging from [place] - will make sure this gets to radiology for upload and possible review between previous imaging and CT performed here - CT - multiple ill-defined pulmonary nodules, with apparent increase in size of a right lower lobe lesion from 1.9 to 3 cm as noted from printout of most recent CT scan performed in [place] -- Lesion contains central groundglass in a few cavitary foci - metastatic disease vs infectious vs fungal vs septic emboli vs resolving pulmonary infarct - Will cover with Zosyn and Zithro currently; MRSA swab to determine need for coverage (2) Laryngeal cancer: Plan: See above Family reports that he is able to drink liquids and food should be pured, and that will be his diet ordered (3) SOB (shortness of breath): Plan: - CT angiography negative for PE - No signs of active infection; mild emphysema (history of smoking) - Duonebs every 4 hours while awake and every 2 hours when necessary. - Abx as above - given immunocompromised may need broader coverage - Procalcitonin in AM (4) Left rib fracture: Plan: - Most of these are healed or healing. - Patient has history of falling in the bathtub in August, which is the likely time interval of initial fracture. - He denies any left-sided rib cage pain at this time (5) Acute dehydration: Plan: - Continue gentle IV hydration (6) Pulmonary embolism: Plan: - Continue Eliquis 5 mg BID Plan: - Will ask radiology to see if they can compare imaging to help determine etiology of this CT finding; will cover as infectious currently Admission and Anticipated Discharge Date Admission Date: February 23, 2021 Subjective Reports his back pain is completely resolved at this time and feels his breathing is back to baseline. Pulse ox reading intermittently was low on O2 but may be inaccurate at times but will monitor. Was able to get CD rom and documents from [place] for comparison with imaging completed here. Patient follows with Dr. Machuca from [facility]. Review of Systems Review of Systems: REVIEW OF SYSTEMS General/Constitutional: Denies fever/chills, fatigue, weakness, weight gain/loss ENT: Denies sore throat, trouble swallowing Cardiovascular: Denies chest pain, palpitations, edema Respiratory: Denies cough, sputum, SOB, wheezing, orthopnea GI: Denies nausea, vomiting, abdominal pain, constipation, diarrhea : Denies dysuria Musculoskeletal: Denies joint/muscle aches, weakness, swelling Neurologic: Denies dizziness/lightheadedness Skin: Denies rash, itch Physical Exam Physical Exam: PHYSICAL EXAM General Appearance: WDWN in NAD who is A&O x 3 HEENT: Head is normocephalic/atraumatic; Hearing grossly intact; Mucous membranes moist; voice is hoarse Neck: Supple; Trachea midline; Neg JVD Heart: RRR with no M/G/R Lungs: CTA in all lung solorzano bilaterally; Respirations unlabored; Neg accessory muscle use Abdomen: Soft, non-tender, non-distended; Positive BS x 4 quadrants Extremities: Neg cyanosis or edema Neurological: Speech clear but soft hoarse voice; Gross motor/sensory function intact; Neg focal neurologic deficits Psychiatric: Appropriate mood/affect Skin: Normal Color; Warm/Dry Results & Data Results & Data ([facility]) Vital Signs (Past 12 Hours) Vital Signs Temp Pulse Pulse Resp BP BP Pulse Ox 02/24/21 18:12 84 02/24/21 17:54 36.9 C 89 18 132/85 98 02/24/21 15:00 68 10 L 100 02/24/21 14:44 64 18 98 02/24/21 14:30 68 14 100 02/24/21 14:00 75 18 100 02/24/21 13:30 72 15 100 02/24/21 13:00 61 15 100 02/24/21 12:30 61 5 L 98/65 L 100 02/24/21 12:00 67 15 99 02/24/21 11:30 64 13 100 02/24/21 11:00 65 13 100 02/24/21 10:30 56 L 11 L 100 02/24/21 10:17 56 L 16 100 02/24/21 10:00 52 L 12 100 02/24/21 09:30 55 L 12 100 02/24/21 09:05 74 16 96 02/24/21 08:00 63 9 L 100 02/24/21 07:30 53 L 11 L 100 02/24/21 07:20 55 L 18 99 02/24/21 07:00 53 L 8 L 98 02/24/21 06:30 55 L 10 L 100 PG Care Time/CCT Total # of Minutes Spent Total Time Spent with Patient: Total time spent is greater than 50% in coordination of care (as documented) at patient's floor/unit and/or counseling patient: Coding Level of Care Code 94022 Subseq Hosp Care Lvl 3 Diagnoses Metastatic renal cell carcinoma C64.9 Laryngeal cancer C32.9 SOB (shortness of breath) R06.02 Left rib fracture S22.32XA Acute dehydration E86.0 Pulmonary embolism I26.99
[2021-02-24] MEDS: [UNRECOGNIZED DRUG - OTHER] PO SCH (22:00)
[2021-02-24] MEDS: PIPERACILLIN/TAZOBACTAM 3.375 GM in DEXTROSE 5% 100 ML IV SCH (22:16)
[2021-02-25] MEDS: HYDROCODONE/ACETAMOPHEN 5/325MG TAB PO PRN (02:26)
[2021-02-25] MEDS: PIPERACILLIN/TAZOBACTAM 3.375 GM in DEXTROSE 5% 100 ML IV SCH ×3 (06:03→22:05)
[2021-02-25] MEDS: LEVOTHYROXINE SODIUM 100 MCG TABLET PO SCH (06:04)
[2021-02-25 07:21] LABS: Hematocrit (blood only) 28.8 % (42-52); Hemoglobin 9.4 g/dL (14.0-18.0); Mean Corpuscular Hemoglobin 31.3 pg (25-34); Mean Corpuscular Hgb Conc 32.6 g/dL (32-36); RDW Coefficient of Variation 15.7 % (11.5-14.5); RDW Standard Deviation 54.7 fL (36.4-46.3); White Blood Count 3.74 K/uL (4.8-10.8)
[2021-02-25 07:22] LABS: Mean Platelet Volume 9.6 fL (7.4-10.4); Platelet Count 80 K/uL (130-400)
[2021-02-25] MEDS: ALBUT/IPRATROP 3MG/0.5MG NEB 3 ML VIAL NEB SCH (07:28)
[2021-02-25 07:49] LABS: Albumin Level 1.9 gm/dl (3.4-5.0); BUN Creatinine Ratio 10.2 (10-20); Calcium 7.9 mg/dl (8.5-10.1); Creatinine Clr Calc Pharmacy 76.1 ml/min; Est GFR (African American) 105.1 ml/min; Est GFR (Non-African American) 90.6 ml/min; Magnesium 1.8 mg/dl (1.8-2.4); Potassium 3.2 mmol/L (3.5-5.1)
[2021-02-25 07:51] LABS: Eosinophils # (auto) 0.02 K/uL (0-0.5); Eosinophils % (auto) 0.5 %; Immature Granulocytes # (auto) 0.01 K/uL (0.00-0.02); Immature Granulocytes % (auto) 0.3 %; Lymphocytes # (auto) 0.33 K/uL (1.2-3.4); Lymphocytes % (auto) 8.8 %; Monocytes # (auto) 0.27 K/uL (0.11-0.59); Monocytes % (auto) 7.2 %; Neutrophils # (auto) 3.11 K/uL (1.4-6.5); Neutrophils % (auto) 83.2 %
[2021-02-25 07:52] LABS: Albumin Globulin Ratio 0.7 (0.9-2); Bilirubin,Total 0.6 mg/dl (0.2-1); Globulin 2.8 gm/dl (2.5-4.0); Total Protein 4.7 gm/dl (6.4-8.2)
[2021-02-25] MEDS ORDERED: ALBUT/IPRATROP 3MG/0.5MG NEB 3 ML VIAL NEB PRN (08:02)
[2021-02-25] MEDS: PROPRANOLOL HCL 20 MG TAB PO SCH ×2 (08:48→22:01)
[2021-02-25] MEDS: FAMOTIDINE 20 MG TAB PO SCH ×2 (08:48→22:02)
[2021-02-25] MEDS: HEPARIN 100 UNIT/ML 5ML FLUSH FLUSH PRN ×2 (10:36→12:04)
[2021-02-25] MEDS: HYDROmorphone INJ 0.5 MG/0.5 ML SYR IV PRN ×2 (12:00→22:04)
[2021-02-25] MEDS: APIXABAN 5 MG TABLET PO SCH ×2 (12:04→22:01)
[2021-02-25] MEDS: AZITHROMYCIN 250 MG in DEXTROSE 5% 250 ML IV SCH (12:59)
--- NOTE | 2021-02-25 16:48 | Hospitalist Progress Note ---
Date of Service February 25, 2021 Assessment & Plan (1) Metastatic renal cell carcinoma: Plan: Metastatic renal cell carcinoma/laryngeal cancer - undergoing active oral chemotherapy Following with oncology in [place] - Follows with Dr. Machuca -- Sister was able to obtain a CD with imaging from [place] - and discussed with radiology for comparison. There was a metastatic lesion that could be possibly treated in that area but it has significantly grown in-size so unlikely this is resolving pulmonary infarct. Possibly this is infectious and will treat with Abx. Discussed with patient the consideration for possibly bronchoscopy to obtain sampling as it looks like their may be a branch they can utilize to access this but he would prefer going through his oncologist/typical providers which seems reasonable - Procalcitonin is negative; will need F/U CT to assess for changes/reduction - CT - multiple ill-defined pulmonary nodules, with apparent increase in size of a right lower lobe lesion from 1.9 to 3 cm as noted from printout of most recent CT scan performed in [place] -- Lesion contains central groundglass in a few cavitary foci - metastatic disease vs infectious vs fungal vs septic emboli vs resolving pulmonary infarct - Will cover with Zosyn and Zithro currently; MRSA swab to determine need for coverage (2) Laryngeal cancer: Plan: See above Family reports that he is able to drink liquids and food should be pured, and that will be his diet ordered (3) SOB (shortness of breath): Plan: - CT angiography negative for PE - Possibly this area is infectious; mild emphysema (history of smoking) - Duonebs every 4 hours while awake and every 2 hours when necessary. - Abx as above - Procalcitonin WNL (4) Left rib fracture: Plan: - Most of these are healed or healing. - Patient has history of falling in the bathtub in August, which is the likely time interval of initial fracture. - He denies any left-sided rib cage pain at this time (5) Acute dehydration: Plan: - Continue gentle IV hydration (6) Pulmonary embolism: Plan: - Continue Eliquis 5 mg BID Plan: - Continue IV Abx; do not anticipate home needs; will need PCP follow-up and oncology F/U with repeat imaging in near future - believes he has an appointment next week with Oncologist Admission and Anticipated Discharge Date Admission Date: February 23, 2021 Subjective Reports feeling okay today. Still with back pain. It is reproducible and just right of the spine. No spiney tenderness. Possibly the mass is causing some inflammatory pain? Reports the pain medicaiton is helping. Tolerating a diet for his baseline as he has chronic issues with swallowing and painful swallowing. Review of Systems Review of Systems: REVIEW OF SYSTEMS General/Constitutional: +fatigue; Denies fever/chills ENT: +chronic difficulty swallowing Cardiovascular: Denies chest pain, palpitations, edema Respiratory: Denies cough, sputum, SOB, wheezing, orthopnea GI: Denies nausea, vomiting, abdominal pain, constipation, diarrhea : Denies dysuria Musculoskeletal: pinpoint pain justright of spine at base of lung Neurologic: Denies dizziness/lightheadedness Skin: Denies rash, itch Physical Exam Physical Exam: PHYSICAL EXAM General Appearance: WDWN in NAD who is A&O x 3 HEENT: Head is normocephalic/atraumatic; Hearing grossly intact; Mucous membranes moist; voice is hoarse Neck: Supple; Trachea midline; Neg JVD Heart: RRR with no M/G/R Lungs: CTA in all lung solorzano bilaterally; Respirations unlabored; Neg accessory muscle use Abdomen: Soft, non-tender, non-distended; Positive BS x 4 quadrants Extremities: Neg cyanosis or edema Neurological: Speech clear but soft hoarse voice; Gross motor/sensory function intact; Neg focal neurologic deficits MS: pinpoint tenderness just right to the spine around the base of the lungs; no bony tenderness along ribs/spine Psychiatric: Appropriate mood/affect Skin: Normal Color; Warm/Dry Results & Data Results & Data ([facility]) Vital Signs (Past 12 Hours) Vital Signs Temp Pulse Pulse Resp BP BP Pulse Ox 02/25/21 15:13 36.3 C L 64 16 110/75 96 02/25/21 14:18 58 L 02/25/21 11:24 36.6 C 64 16 96/61 L 95 02/25/21 07:41 58 L 18 99/64 L 98 02/25/21 07:28 58 L 16 96 02/25/21 06:16 75 PG Care Time/CCT Total # of Minutes Spent Total Time Spent with Patient: Total time spent is greater than 50% in coordination of care (as documented) at patient's floor/unit and/or counseling patient: Coding Level of Care Code 38890 Subseq Hosp Care Lvl 3 Diagnoses Metastatic renal cell carcinoma C64.9 Laryngeal cancer C32.9 SOB (shortness of breath) R06.02 Left rib fracture S22.32XA Acute dehydration E86.0 Pulmonary embolism I26.99
[2021-02-25] MEDS: [UNRECOGNIZED DRUG - OTHER] PO SCH (22:03)
[2021-02-26] MEDS: HYDROmorphone INJ 0.5 MG/0.5 ML SYR IV PRN ×2 (02:34→11:20)
[2021-02-26] MEDS: PIPERACILLIN/TAZOBACTAM 3.375 GM in DEXTROSE 5% 100 ML IV SCH ×3 (05:42→21:41)
[2021-02-26] MEDS: LEVOTHYROXINE SODIUM 100 MCG TABLET PO SCH (05:44)
[2021-02-26 05:56] LABS: Hematocrit (blood only) 28.3 % (42-52); Hemoglobin 9.5 g/dL (14.0-18.0); Mean Corpuscular Hemoglobin 31.8 pg (25-34); Mean Corpuscular Hgb Conc 33.6 g/dL (32-36); Mean Corpuscular Volume 94.6 fL (80-100); RDW Coefficient of Variation 15.3 % (11.5-14.5); Red Blood Count 2.99 M/uL (4.7-6.1); White Blood Count 2.72 K/uL (4.8-10.8)
[2021-02-26 06:06] LABS: Mean Platelet Volume 9.3 fL (7.4-10.4); Platelet Count 77 K/uL (130-400)
[2021-02-26 06:22] LABS: Albumin Level 1.9 gm/dl (3.4-5.0); BUN Creatinine Ratio 10.4 (10-20); Calcium 7.7 mg/dl (8.5-10.1); Creatinine Clr Calc Pharmacy 96.2 ml/min; Est GFR (African American) 116.7 ml/min; Est GFR (Non-African American) 100.7 ml/min; Magnesium 1.7 mg/dl (1.8-2.4); Potassium 2.9 mmol/L (3.5-5.1)
[2021-02-26 06:24] LABS: Albumin Globulin Ratio 0.7 (0.9-2); Bilirubin,Total 0.7 mg/dl (0.2-1); Globulin 2.9 gm/dl (2.5-4.0); Total Protein 4.8 gm/dl (6.4-8.2)
[2021-02-26 06:40] LABS: Eosinophils # (auto) 0.04 K/uL (0-0.5); Eosinophils % (auto) 1.5 %; Lymphocytes # (auto) 0.36 K/uL (1.2-3.4); Lymphocytes % (auto) 13.2 %; Monocytes # (auto) 0.29 K/uL (0.11-0.59); Monocytes % (auto) 10.7 %; Neutrophils # (auto) 2.03 K/uL (1.4-6.5); Neutrophils % (auto) 74.6 %; RBC Morphology Unremarkable
[2021-02-26] MEDS: APIXABAN 5 MG TABLET PO SCH ×2 (09:14→21:39)
[2021-02-26] MEDS: FAMOTIDINE 20 MG TAB PO SCH ×2 (09:14→21:39)
[2021-02-26] MEDS: POTASSIUM CHLORIDE / WTR 10 MEQ/100 ML PLCT IV SCH ×4 (09:15→12:46)
[2021-02-26] MEDS: PROPRANOLOL HCL 20 MG TAB PO SCH ×2 (09:15→21:40)
[2021-02-26] MEDS ORDERED: MAGIC MOUTH PO PRN (09:43)
[2021-02-26] MEDS ORDERED: Magic Mouthwash 240mL PO PRN (10:05)
[2021-02-26] MEDS: AZITHROMYCIN 250 MG in DEXTROSE 5% 250 ML IV SCH (10:16)
[2021-02-26] MEDS: ALUMINUM/MAGNESIUM SUSP 50 ML, diphenhydrAMINE Syrup 125 MG, LIDOCAINE VISCOUS 2% SOLN ... PO PRN ×3 (12:47→21:41)
[2021-02-26] MEDS: HEPARIN 100 UNIT/ML 5ML FLUSH FLUSH PRN (18:30)
--- NOTE | 2021-02-26 19:34 | Hospitalist Progress Note ---
Date of Service February 26, 2021 Assessment & Plan (1) Metastatic renal cell carcinoma: Plan: Metastatic renal cell carcinoma/laryngeal cancer - undergoing active oral chemotherapy; * renal cell carcinoma with possible mets to the lungs Following with oncology in [place] - Follows with Dr. Machuca -- Sister was able to obtain a CD with imaging from [place] - and discussed with radiology for comparison. There was a metastatic lesion that could be possibly treated in that area but it has significantly grown in-size so unlikely this is resolving pulmonary infarct. Possibly this is infectious and will treat with Abx. Discussed with patient the consideration for possibly bronchoscopy to obtain sampling as it looks like there may be a branch they can utilize to access this but he would prefer going through his oncologist/typical providers which seems reasonable - Procalcitonin is negative; will need F/U CT to assess for changes/reduction - CT - multiple ill-defined pulmonary nodules, with apparent increase in size of a right lower lobe lesion from 1.9 to 3 cm as noted from printout of most recent CT scan performed in [place] -- Lesion contains central groundglass in a few cavitary foci - metastatic disease vs infectious vs fungal vs septic emboli vs resolving pulmonary infarct (2) Laryngeal cancer: Plan: See above Family reports that he is able to drink liquids and food should be pured, and that will be his diet ordered (3) SOB (shortness of breath): Plan: - * Possible Pneumonia - CT angiography negative for PE - Possibly this area is infectious; mild emphysema (history of smoking) - Will cover with Zosyn and Zithro currently; MRSA swab negative - Duonebs every 4 hours while awake and every 2 hours when necessary. - Procalcitonin WNL (4) Left rib fracture: Plan: - Most of these are healed or healing. - Patient has history of falling in the bathtub in August, which is the likely time interval of initial fracture. - He denies any left-sided rib cage pain at this time (5) Acute dehydration: Plan: - Given gentle IVF - no D/Cd (6) Pulmonary embolism: Plan: - Continue Eliquis 5 mg BID (7) Antineoplastic chemotherapy induced pancytopenia: Plan: - STABLE - Undergoing active chemotherapy Plan: - Continue IV Abx; do not anticipate home needs; will need PCP follow-up and oncology F/U with repeat imaging in near future - believes he has an appointment next week with Oncologist Admission and Anticipated Discharge Date Admission Date: February 25, 2021 Subjective Reports having severe pain last night that did respond to pain medication. States his back pain feels more like a pinch during my visit and thinks its from laying in bed for the past few days. He does reporting mouth and throat soreness and will trial some lidocaine mouthwash to see if this will help. Review of Systems Review of Systems: REVIEW OF SYSTEMS General/Constitutional: +fatigue; Denies fever/chills ENT: +chronic difficulty swallowing; + mouth and throat soreness Cardiovascular: Denies chest pain, palpitations, edema Respiratory: Denies cough, sputum, SOB, wheezing, orthopnea GI: Denies nausea, vomiting, abdominal pain, constipation, diarrhea : Denies dysuria Musculoskeletal: pinpoint pain just right of spine at base of lung Neurologic: Denies dizziness/lightheadedness Skin: Denies rash, itch Physical Exam Physical Exam: PHYSICAL EXAM General Appearance: WDWN in NAD who is A&O x 3 HEENT: Head is normocephalic/atraumatic; Hearing grossly intact; Mucous membranes moist; voice is hoarse; two small sores of the right side of tongue Neck: Supple; Trachea midline; Neg JVD Heart: RRR with no M/G/R Lungs: CTA in all lung solorzano bilaterally; Respirations unlabored; Neg accessory muscle use Abdomen: Soft, non-tender, non-distended; Positive BS x 4 quadrants Extremities: Neg cyanosis or edema Neurological: Speech clear but soft hoarse voice; Gross motor/sensory function intact; Neg focal neurologic deficits MS: pinpoint tenderness just right to the spine around the base of the lungs; no bony tenderness along ribs/spine Psychiatric: Appropriate mood/affect Skin: Normal Color; Warm/Dry Results & Data Results & Data ([facility]) Vital Signs (Past 12 Hours) Vital Signs Temp Pulse Pulse Resp BP BP Pulse Ox 02/26/21 15:43 36.6 C 69 16 118/76 96 02/26/21 14:20 52 L 02/26/21 11:23 36.6 C 67 18 121/80 94 02/26/21 07:41 36.7 C 63 18 124/74 97 PG Care Time/CCT Total # of Minutes Spent Total Time Spent with Patient: Total time spent is greater than 50% in coordination of care (as documented) at patient's floor/unit and/or counseling patient: Coding Level of Care Code 98335 Subseq Hosp Care Lvl 3 Diagnoses Metastatic renal cell carcinoma C64.9 Laryngeal cancer C32.9 SOB (shortness of breath) R06.02 Left rib fracture S22.32XA Acute dehydration E86.0 Pulmonary embolism I26.99 Antineoplastic chemotherapy induced pancytopenia D61.810; T45.1X5A
[2021-02-26] MEDS: [UNRECOGNIZED DRUG - OTHER] PO SCH (22:54)
[2021-02-27] MEDS: HEPARIN 100 UNIT/ML 5ML FLUSH FLUSH PRN ×3 (02:33→17:42)
[2021-02-27] MEDS: ALUMINUM/MAGNESIUM SUSP 50 ML, diphenhydrAMINE Syrup 125 MG, LIDOCAINE VISCOUS 2% SOLN ... PO PRN (05:28)
[2021-02-27] MEDS: LEVOTHYROXINE SODIUM 100 MCG TABLET PO SCH (05:29)
[2021-02-27] MEDS: PIPERACILLIN/TAZOBACTAM 3.375 GM in DEXTROSE 5% 100 ML IV SCH ×3 (05:29→22:14)
[2021-02-27] MEDS: APIXABAN 5 MG TABLET PO SCH ×2 (09:01→20:00)
[2021-02-27] MEDS: PROPRANOLOL HCL 20 MG TAB PO SCH ×2 (09:02→20:00)
[2021-02-27] MEDS: FAMOTIDINE 20 MG TAB PO SCH ×2 (09:02→20:00)
[2021-02-27] MEDS: AZITHROMYCIN 250 MG in DEXTROSE 5% 250 ML IV SCH (09:04)
[2021-02-27 09:30] LABS: BUN Creatinine Ratio 10.6 (10-20); Creatinine Clr Calc Pharmacy 100.2 ml/min; Est GFR (African American) 118.8 ml/min; Est GFR (Non-African American) 102.5 ml/min; Potassium 3.1 mmol/L (3.5-5.1)
[2021-02-27] MEDS: HYDROCODONE/ACETAMOPHEN 5/325MG TAB PO PRN ×2 (12:05→19:59)
--- NOTE | 2021-02-27 17:08 | Hospitalist Progress Note ---
Date of Service February 27, 2021 Assessment & Plan (1) Metastatic renal cell carcinoma: Plan: - Metastatic renal cell carcinoma/laryngeal cancer - undergoing active oral chemotherapy; * renal cell carcinoma with possible mets to the lungs - Following with oncology in [place] - Follows with Dr. Machuca -- Sister was able to obtain a CD with imaging from [place] - and discussed with radiology for comparison. There was a metastatic lesion that could be possibly treated in that area but this structure has significantly grown in-size so unlikely this is resolving pulmonary infarct. Possibly this is infectious and will treat with Abx. Discussed with patient the consideration for possibly bronchoscopy to obtain sampling as it looks like there may be a branch they can utilize to access this but he would prefer going through his oncologist/typical providers which seems reasonable -- Could consider fungal coverage as well but seems to be clinically improving - Procalcitonin is negative; will need F/U CT to assess for changes/reduction - CT - multiple ill-defined pulmonary nodules, with apparent increase in size of a right lower lobe lesion from 1.9 to 3 cm as noted from printout of most recent CT scan performed in [place] -- Lesion contains central groundglass in a few cavitary foci - metastatic disease vs infectious vs fungal vs septic emboli vs resolving pulmonary infarct (2) Laryngeal cancer: Plan: - See above - Family reports that he is able to drink liquids and food should be pured, and this is diet ordered - Has some sores on R side of tongue - magic swizzle seems to help (3) SOB (shortness of breath): Plan: - * Possible Pneumonia - CT angiography negative for PE - Possibly this area is infectious; mild emphysema (history of smoking) - Will cover with Zosyn and Zithro currently; MRSA swab negative -- Can convert to Augmentin and finish Zithro - will need F/U CT in maybe 4-6 weeks to see if improvement or sooner if worsening - Duonebs PRN - Procalcitonin WNL (4) Left rib fracture: Plan: - Most of these are healed or healing. - Patient has history of falling in the bathtub in August, which is the likely time interval of initial fracture. - He denies any left-sided rib cage pain at this time (5) Acute dehydration: Plan: - Given gentle IVF - now D/Cd (6) Pulmonary embolism: Plan: - Continue Eliquis 5 mg BID (7) Antineoplastic chemotherapy induced pancytopenia: Plan: - STABLE - Undergoing active chemotherapy Plan: - Can convert to oral Abx tomorrow; do not anticipate home needs; will need PCP follow-up and oncology F/U with repeat imaging in near future - believes he has an appointment next week with Oncologist - Recommend Augmentin/Zithro; MRSA neg so may be able to hold on MRSA coverage; will need F/U CT in 4-6 weeks to monitor lesion - Reports the [place] does cover his pain just doesnt like to use narcs - can prescribe on D/C Admission and Anticipated Discharge Date Admission Date: February 25, 2021 Review of Systems Review of Systems: REVIEW OF SYSTEMS General/Constitutional: +fatigue; Denies fever/chills ENT: +chronic difficulty swallowing; + mouth and throat soreness Cardiovascular: Denies chest pain, palpitations, edema Respiratory: Denies cough, sputum, SOB, wheezing, orthopnea GI: Denies nausea, vomiting, abdominal pain, constipation, diarrhea : Denies dysuria Musculoskeletal: pinpoint pain just right of spine at base of lung Neurologic: Denies dizziness/lightheadedness Skin: Denies rash, itch Physical Exam Physical Exam: PHYSICAL EXAM General Appearance: WDWN in NAD who is A&O x 3 HEENT: Head is normocephalic/atraumatic; Hearing grossly intact; Mucous membranes moist; voice is hoarse; two small sores of the right side of tongue Neck: Supple; Trachea midline; Neg JVD Heart: RRR with no M/G/R Lungs: CTA in all lung solorzano bilaterally; Respirations unlabored; Neg accessory muscle use Abdomen: Soft, non-tender, non-distended; Positive BS x 4 quadrants Extremities: Neg cyanosis or edema Neurological: Speech clear but soft hoarse voice; Gross motor/sensory function intact; Neg focal neurologic deficits MS: pinpoint tenderness just right to the spine around the base of the lungs; no bony tenderness along ribs/spine Psychiatric: Appropriate mood/affect Skin: Normal Color; Warm/Dry Results & Data Results & Data ([facility]) Vital Signs (Past 12 Hours) Vital Signs Temp Pulse Pulse Resp BP BP Pulse Ox 02/27/21 15:54 64 02/27/21 15:53 36.7 C 76 16 96/69 L 93 02/27/21 11:15 60 10/15/21 10:56 36.6 C 63 18 132/90 95 02/27/21 07:00 36.7 C 62 18 132/82 93 PG Care Time/CCT Total # of Minutes Spent Total Time Spent with Patient: Total time spent is greater than 50% in coordination of care (as documented) at patient's floor/unit and/or counseling patient: Coding Level of Care Code 97433 Subseq Hosp Care Lvl 3 Diagnoses Metastatic renal cell carcinoma C64.9 Laryngeal cancer C32.9 SOB (shortness of breath) R06.02 Left rib fracture S22.32XA Acute dehydration E86.0 Pulmonary embolism I26.99 Antineoplastic chemotherapy induced pancytopenia D61.810; T45.1X5A
[2021-02-27] MEDS: [UNRECOGNIZED DRUG - OTHER] PO SCH (22:17)
[2021-02-28] MEDS: HYDROCODONE/ACETAMOPHEN 5/325MG TAB PO PRN ×2 (06:27→14:22)
[2021-02-28] MEDS: LEVOTHYROXINE SODIUM 100 MCG TABLET PO SCH (06:27)
[2021-02-28] MEDS: PIPERACILLIN/TAZOBACTAM 3.375 GM in DEXTROSE 5% 100 ML IV SCH ×2 (06:28→14:21)
[2021-02-28] MEDS: ALUMINUM/MAGNESIUM SUSP 50 ML, diphenhydrAMINE Syrup 125 MG, LIDOCAINE VISCOUS 2% SOLN ... PO PRN ×2 (06:36→14:56)
[2021-02-28] MEDS: APIXABAN 5 MG TABLET PO SCH (08:15)
[2021-02-28] MEDS: FAMOTIDINE 20 MG TAB PO SCH (08:15)
[2021-02-28] MEDS: PROPRANOLOL HCL 20 MG TAB PO SCH (08:15)
[2021-02-28] MEDS: AZITHROMYCIN 250 MG in DEXTROSE 5% 250 ML IV SCH (09:31)
--- NOTE | 2021-02-28 14:51 | Discharge Summary ---
Date of Service February 28, 2021 Admission HPI Per Admitting Provider The patient is a 60-year-old male with a past medical history including metastatic renal cell carcinoma, laryngeal cancer, pulmonary embolism, gout, GERD, hypothyroidism and hypertension. He presents with symptoms as noted above, in addition reports a 30 pound weight loss since his diagnosis of cancer. Principal Diagnosis Posterior chest pain, metastatic disease to the lung Possible pulmonary infection Discharge Exam General: well developed, thin, frail appearing, no acute distress, comfortable Neck: supple, trachea midline, normal thyroid Lungs: clear to auscultation bilaterally, normal respiratory effort, no accessory muscle use, no distress Heart: regular S1 and S2, no murmur, peripheral pulses normal, capillary refill normal, no edema Abdomen: soft, NT, ND, + BS, no hepatomegaly, normal to percussion Extremities: some degree of muscle atrophy, no cyanosis, no petechiae, strength about 4/5 bilaterally, can stand up independently Neuro: awake, cooperative, moves all extremities, no focal motor deficits, CN II-XII intact, sensation in extremities intact, normal speech Skin: warm, dry, no rash, normal turgor Psych: Awake, alert oriented x 3, euthymic affect Discharge Data Allergies Allergy/AdvReac Type Severity Reaction Status Date / Time No Known Allergies Allergy Verified 02/23/21 17:06 Consultations 02/23/21 18:43 ED Decision to Admit Stat Ordered Studies 02/23/21 16:56 CT abd pelvis wo con Stat CT chest diagnostic wo con Stat 02/23/21 18:43 CT angio chest PE protocol Stat 02/24/21 07:55 US venous doppler [facility] Urgent Hospital Course (1) Metastatic renal cell carcinoma: - Metastatic renal cell carcinoma/laryngeal cancer - undergoing active oral chemotherapy; * renal cell carcinoma with possible mets to the lungs - Following with oncology in [place] - Follows with Dr. Machuca -- Sister was able to obtain a CD with imaging from [place] - and discussed with radiology for comparison. There was a metastatic lesion that could be possibly treated in that area but this structure has significantly grown in-size so unlikely this is resolving pulmonary infarct. Possibly this is infectious and will treat with Abx. Discussed with patient the consideration for possibly bronchoscopy to obtain sampling as it looks like there may be a branch they can utilize to access this but he would prefer going through his oncologist/typical providers which seems reasonable -- Could consider fungal coverage as well but seems to be clinically improving - Procalcitonin is negative; will need F/U CT to assess for changes/reduction - CT - multiple ill-defined pulmonary nodules, with apparent increase in size of a right lower lobe lesion from 1.9 to 3 cm as noted from printout of most recent CT scan performed in [place] -- Lesion contains central ground glass in a few cavitary foci - metastatic disease vs infectious vs fungal vs septic emboli vs resolving pulmonary infarct finish course of Augmentin at home (2) Laryngeal cancer: - See above - Family reports that he is able to drink liquids and food should be pured, and this is diet ordered - Has some sores on R side of tongue - magic swizzle seems to help, no longer complaining of discomfort follow up with oncology (3) SOB (shortness of breath): - * Possible Pneumonia - CT angiography negative for PE - Possibly this area is infectious; mild emphysema (history of smoking) - Will cover with Zosyn and Zithro currently; MRSA swab negative -- Can convert to Augmentin and finish Zithro - will need F/U CT in maybe 4-6 weeks to see if improvement or sooner if worsening - Duonebs PRN - Procalcitonin WNL (4) Left rib fracture: - Most of these are healed or healing. - Patient has history of falling in the bathtub in August, which is the likely time interval of initial fracture. - He denies any left-sided rib cage pain at this time (5) Acute dehydration: - Given gentle IVF - now D/Cd (6) Pulmonary embolism: - Continue Eliquis 5 mg BID (7) Antineoplastic chemotherapy induced pancytopenia: - STABLE - Undergoing active chemotherapy Total Time Total Time Spent Total Time Spent (In Minutes): 31 minutes Discharge Plan Discharge Items Patient Disposition: Home - Home Health Services Reason For Visit: HYPOXIA, BACK PAIN Discharge Diagnosis: Pain due to metastatic lesion Possible pulmonary infection Condition on Discharge: Fair Goals: complete course of Augmentin improve strength and mobility follow up with PCP and with oncologist Activity: Resume your previous activity Weightbearing: Full weightbearing Non-emergency contact: Primary Care Provider and Oncologist Call non-emergency contact if: you have any medication questions, your symptoms worsen and you have a fever Follow-up/Referrals: Umang,Pineda B., DO [Primary Care Provider] - (one week) Diet: Regular Addtl Attending Provider Instructions: Medications: - HYDROCODONE: take 1-2 tablets every 6 hours as needed for pain, do not take more than prescribed - AUGMENTIN: take twice a day, next dose due this evening Chest wall and back pain: likely related to site of metastatic lesion, could have infection in that area compared to prior CT chest the area is a little larger recommend follow up with oncologist and get a repeat CT chest in 4-6 weeks started on Zosyn IV while here, change to Augmentin on discharge, this is twice a day for 8 doses use Hydrocodone as needed for pain continue to try to eat and drink what you can, gradually increase activity and improve strength Pending Studies at Discharge: No Stand-Alone Forms: My [employer] - Smartphone RFID, Smoking Cessation Medications and DC Order Prescriptions: New hydrocodone-acetaminophen 5-325 mg Tablet 1 - 2 tab PO Q6H PRN (Reason: pain) Qty: 30 RF: 0 amoxicillin-pot clavulanate [Augmentin] 875-125 mg tablet 1 tab PO BID Qty: 8 RF: 0 Continued prednisone 10 mg tablet 0 mg PO DIRECTED RF: 0 famotidine 40 mg tablet 40 mg PO DAILYBB RF: 0 levothyroxine [Synthroid] 100 mcg tablet See Rx Instructions .ROUTE .COMPLEX RF: 0 famotidine [Pepcid] 20 mg Tablet 20 mg PO DIRECTED PRN (Reason: HEARTBURN/INDIGESTION) RF: 0 diphenhydramine HCl [Benadryl] 25 mg Capsule 25 mg PO DIRECTED PRN (Reason: Sleep) RF: 0 colchicine 0.6 mg Tablet 0.6 mg PO DIRECTED PRN (Reason: FLARE UPS) RF: 0 propranolol 20 mg tablet 20 mg PO BID RF: 0 Eliquis 5 mg tablet 5 mg PO BID RF: 0 Cabometyx 40 mg tablet 40 mg PO .HS @ 2230 RF: 0 Magic Mouth 1 dose PO DIRECTED PRN (Reason: THRUSH) RF: 0 Discharge Orders: Discharge Order (Routine); Ordered 02/28/21 Ordered By: Sascha Galicia Admission Data Admit Date/Time: 02/25/21 11:56 Attending Provider: Sascha Galicia Admit Provider: Miguel A Barnes Primary Care Provider: Pineda Heck Other Providers: Manoj Paniagua ; [facility] Other Interventions: Discharge Summary Assessment (RN) Last Done: 02/28/21 14:50 Coding Level of Care Code D/C DAY MANAGEMENT >30 MINS Diagnoses Metastatic renal cell carcinoma C64.9 Laryngeal cancer C32.9 SOB (shortness of breath) R06.02 Left rib fracture S22.32XA Acute dehydration E86.0 Pulmonary embolism I26.99 Antineoplastic chemotherapy induced pancytopenia D61.810; T45.1X5A
[2021-03-03 08:01] LABS: Quantiferon NIL 0.04 IU/mL; Quantiferon TB Gold Plus NEGATIVE (NEGATIVE); Quantiferon TB1-NIL 0.01 IU/mL; Quantiferon TB2-NIL 0.02 IU/mL
== END 2021-02-28 15:36 | disposition home health service (06) | DRG 193 ==
LOC: ED 13:30 → EDINP 13:30 → SUATTDRO 22:03 → EDINP 02-24 00:45 → 2W 02-24 17:50

== ENCOUNTER 2021-03-11 17:58 | Inpatient (IN) ==
[2021-03-11] MEDS ORDERED: SODIUM CHLORIDE 0.9% 1000ML 1,000 ML IV STA (18:29)
--- NOTE | 2021-03-11 18:34 | Emergency Department Note ---
Impression & Plan SOB (shortness of breath), Acute dehydration, Metastatic renal cell carcinoma, Pneumonia, Hypoxia ED Provider Note NAME: ARIAN VERNON AGE: 60 SEX: M : 1960 ARRIVES VIA: Walk-In INFORMANT: Patient and sister ED PROVIDER(S): Trung Garcia DO CHIEF COMPLAINT: Weak HPI: Patient is a 60-year-old male with metastatic renal cell carcinoma, laryngeal cancer, pulmonary embolism, no longer on chemo or radiation who had hospice present to their house for the first time today to possibly establish care. He has not been able to eat or drink anything for the past 4 days. He is barely able to get up and move around. He has persistent coughing. He admits to no headache or change in vision. No new chest pain or shortness of breath. No belly pain, nausea, vomiting, or diarrhea. No dysuria, urgency, or frequency. He would like to proceed with hospice and be made comfortable. He does not feel comfortable or stable at home. He does admit to a slightly worsening cough and mucus which is been present for the past week. He cannot drink anything as this starts causing him to cough. ROS: See above HPI for pertinent positives & negatives. A total of 10 systems reviewed and were otherwise negative. PAST MEDICAL HISTORY:See Below PAST SURGICAL HISTORY:See Below FAMILY HISTORY:See Below SOCIAL HISTORY:See Below HOME MEDICATIONS:See Below ALLERGIES:See Below VITALS:See Below PHYSICAL EXAMINATION: GENERAL: Sitting up in bed, alert, ill-appearing, malnourished and disheveled EYE EXAM: normal conjunctiva. OROPHARYNX: dry NECK: supple, no nuchal rigidity, no adenopathy, non-tender LUNGS: Clear to auscultation. Normal chest wall mechanics HEART: no murmurs, S1 normal and S2 normal ABDOMEN: abdomen soft, non-tender, normo-active bowel sounds, no masses, no rebound or guarding. BACK: Back is symmetrical on inspection and there is no deformity, no midline tenderness, no CVA tenderness. UPPER EXTREMITIES: upper extremities are grossly normal. LOWER EXTREMITIES: No pitting edema. NEURO EXAM: Normal sensorium, cranial nerves II-XII grossly intact, normal speech, no gross weakness of arms, no gross weakness of legs. MEDICAL DECISION MAKING: Patient is a 60-year-old male who presents the ER with a past medical history of metastatic renal carcinoma as well as laryngeal carcinoma. IV was established blood was obtained. Patient was hypoxic at 86% on room air. Placed on nasal cannula 2 L throughout the entire stay in the ER. Labs show leukopenia 3.7 thousand. Mild anemia 10. INR 1.2. BMP with potassium 3.2. LFTs bilirubin and lipase was unremarkable. Covid was negative. Chest x-ray shows a right lower lobe infiltrate. Prolonged procedure with patient and sister at bedside. They do not want any treatment at this time and he wants to be placed on hospice. Agreeable to nasal cannula. Held on antibiotics. Discussed with hospitalist and after their discussion did elect to place on antibiotics. Patient was admitted for further work-up and palliative care. Triage Nursing notes reviewed. Limited review of prior medical records performed Vital Signs: reviewed and remarkable for hypotensive, tachycardic and hypoxic Differential diagnosis: Infection, dehydration, metabolic abnormality, hypo/hyperglycemia, electrolyte disturbance, anemia, hypoxia, cardiac sources, intracerebral event, toxicologic, neurologic, as well as other pathologies. ER treatment provided: See below Diagnostics interpreted by me: ECG: Sinus rhythm rate 69 Low voltage Normal axis No PVCs Nonspecific ST wave changes in the lateral leads Cardiac Monitoring: An order was placed for continuous cardiac monitoring. The monitor shows a rate of 70 with sinus rhythm. Laboratory studies: As stated above and show below. Imaging studies: Portable AP upright 1 view of the chest shows right lower lobe infiltrate Consultation(s): Discussed with Miguel A Barnes for further evaluation Procedures: none Critical Care: I have personally spent 31 minutes of critical care time in the direct management of this patient. This includes bedside care, interpretation of diagnostic studies, and testing, discussion with consultants, patient, and family members, and other required patient management activities. This 31 minutes is in excess of all separately billable procedures. Past Med/Surg History Social History Smoking Status: Former smoker Smoking End Date: 09/09/20 (pt states quit 6 months ago); Hx Alcohol Use: Yes Alcohol type: beer and wine Hx Substance Use: Yes Preferred Language: Kyrgyz Communication Ability: Effective News Broadcaster Required: No Beliefs That Will Affect Care: None marital status: Current Living Situation: Alone Current Living Situation Comment: Home alone in [place], sister in [place] Feels Safe at Home: Yes Assistive Devices: Oxygen - at Night and Walker Assistive Devices Comment: 2L O2 HS Allergies Allergies Allergy/AdvReac Type Severity Reaction Status Date / Time No Known Allergies Allergy Verified 03/11/21 20:58 Home Meds Home Medications Medication Instructions Recorded Confirmed Magic Mouth 1 dose PO DIRECTED PRN 02/23/21 03/11/21 apixaban 5 mg tablet (Eliquis) 5 mg PO BID 02/23/21 03/11/21 cabozantinib 40 mg tablet 40 mg PO .HS @ 2230 02/23/21 03/11/21 (Cabometyx) colchicine 0.6 mg tablet 0.6 mg PO DIRECTED PRN 02/23/21 03/11/21 diphenhydramine HCl 25 mg capsule 25 mg PO DIRECTED PRN 02/23/21 03/11/21 (Benadryl) famotidine 20 mg tablet (Pepcid) 20 mg PO DIRECTED PRN 02/23/21 03/11/21 famotidine 40 mg tablet 40 mg PO DAILYBB 02/23/21 03/11/21 levothyroxine 100 mcg tablet See Rx Instructions .ROUTE .COMPLEX 02/23/21 03/11/21 (Synthroid) propranolol 20 mg tablet 20 mg PO BID 02/23/21 03/11/21 Previous Rx's Medication Instructions Recorded amoxicillin 875 mg-potassium 1 tab PO BID #8 tab 02/28/21 clavulanate 125 mg tablet (Augmentin) hydrocodone 5 mg-acetaminophen 325 1 - 2 tab PO Q6H PRN #30 tab 02/28/21 mg tablet Results & Data (ED) Vital Signs Vital Signs - 24 hr 03/11/21 18:12 03/11/21 18:18 03/11/21 18:29 Temperature 36.2 C L Temperature Source Temporal Artery Scan Pulse Rate 97 H Respiratory Rate 22 Respiratory Effort / Characteristics Non-Labored Spontaneous Respiratory Depth Normal Respiratory Pattern Regular Blood Pressure 94/64 L Blood Pressure Mean 74 Blood Pressure Position Sitting Pulse Oximetry 91 89 L 86 L Oxygen Delivery Method Room Air Room Air Room Air Oxygen Flow Rate Sepsis Recent Fever Within 48 Hours No Sepsis New/Unexplained Change in Mental Status No Sepsis Action Taken by Nursing No Action Required 03/11/21 19:00 03/11/21 19:30 03/11/21 20:00 Temperature Temperature Source Pulse Rate 73 73 67 Respiratory Rate 20 18 20 Respiratory Effort / Characteristics Respiratory Depth Respiratory Pattern Blood Pressure 136/81 130/78 123/79 Blood Pressure Mean 99 95 93 Blood Pressure Position Pulse Oximetry 94 Oxygen Delivery Method Nasal Cannula Nasal Cannula Oxygen Flow Rate 2 2 Sepsis Recent Fever Within 48 Hours Sepsis New/Unexplained Change in Mental Status Sepsis Action Taken by Nursing 03/11/21 20:30 03/11/21 21:00 03/11/21 21:30 Temperature Temperature Source Pulse Rate 66 76 70 Respiratory Rate 20 16 16 Respiratory Effort / Characteristics Respiratory Depth Respiratory Pattern Blood Pressure 124/82 115/78 Blood Pressure Mean 96 90 Blood Pressure Position Pulse Oximetry Oxygen Delivery Method Nasal Cannula Oxygen Flow Rate 2 Sepsis Recent Fever Within 48 Hours Sepsis New/Unexplained Change in Mental Status Sepsis Action Taken by Nursing Laboratory Data Result diagrams: 03/11/21 18:47 03/11/21 18:47 Lab Results 03/11/21 03/11/21 03/11/21 Range/Units 18:47 18:47 19:04 WBC 3.75 L (4.8-10.8) K/uL RBC 3.47 L (4.7-6.1) M/uL Hgb 10.7 L (14.0-18.0) g/dL Hct 32.1 L (42-52) % MCV 92.5 (80-100) fL MCH 30.8 (25-34) pg MCHC 33.3 (32-36) g/dL RDW Std Deviation 53.0 H (36.4-46.3) fL RDW Coeff of Delphine 15.6 H (11.5-14.5) % Plt Count 155 (130-400) K/uL MPV 8.9 (7.4-10.4) fL Immature Gran % (Auto) 0.0 % Neut % (Auto) 82.4 % Lymph % (Auto) 10.4 % Charlotte % (Auto) 6.1 % Eos % (Auto) 0.8 % Baso % (Auto) 0.3 % Neut # (Auto) 3.09 (1.4-6.5) K/uL Lymph # (Auto) 0.39 L (1.2-3.4) K/uL Charlotte # (Auto) 0.23 (0.11-0.59) K/uL Eos # (Auto) 0.03 (0-0.5) K/uL Baso # (Auto) 0.01 (0-0.2) K/uL Immature Gran # (Auto) 0.00 (0.00-0.02) K/uL PT (9.0-12.0) Seconds INR (0.9-1.1) APTT (21.0-31.0) Seconds PTT Ratio Sodium 132 L (136-145) mmol/L Potassium 3.2 L (3.5-5.1) mmol/L Chloride 100 (98-107) mmol/L Carbon Dioxide 22 (21-32) mmol/L Anion Gap 10.0 (3-11) BUN 10 (7-18) mg/dl Creatinine 0.92 (0.6-1.4) mg/dl Est Cr Clr Drug Dosing Not Reportable Est GFR ( Amer) 103.7 ml/min Est GFR (Non-Af Amer) 89.5 ml/min BUN/Creatinine Ratio 10.4 (10-20) Glucose 91 (70-99) mg/dl Calcium 8.4 L (8.5-10.1) mg/dl Total Bilirubin 0.9 (0.2-1) mg/dl AST 24 (15-37) U/L ALT 10 L (12-78) U/L Alkaline Phosphatase 123 H (45-117) U/L Troponin I < 0.015 (0-0.045) ng/ml Total Protein 5.6 L (6.4-8.2) gm/dl Albumin 1.9 L (3.4-5.0) gm/dl Globulin 3.7 (2.5-4.0) gm/dl Albumin/Globulin Ratio 0.5 L (0.9-2) Lipase 92 (73-393) U/L COVID-19 Eval Order Covid19 at [facility] SARS-CoV-2 (PCR) (Negative) 03/11/21 03/11/21 Range/Units 19:04 19:11 WBC (4.8-10.8) K/uL RBC (4.7-6.1) M/uL Hgb (14.0-18.0) g/dL Hct (42-52) % MCV (80-100) fL MCH (25-34) pg MCHC (32-36) g/dL RDW Std Deviation (36.4-46.3) fL RDW Coeff of Delphine (11.5-14.5) % Plt Count (130-400) K/uL MPV (7.4-10.4) fL Immature Gran % (Auto) % Neut % (Auto) % Lymph % (Auto) % Charlotte % (Auto) % Eos % (Auto) % Baso % (Auto) % Neut # (Auto) (1.4-6.5) K/uL Lymph # (Auto) (1.2-3.4) K/uL Charlotte # (Auto) (0.11-0.59) K/uL Eos # (Auto) (0-0.5) K/uL Baso # (Auto) (0-0.2) K/uL Immature Gran # (Auto) (0.00-0.02) K/uL PT 12.1 H (9.0-12.0) Seconds INR 1.2 H (0.9-1.1) APTT 41.9 H (21.0-31.0) Seconds PTT Ratio 1.6 Sodium (136-145) mmol/L Potassium (3.5-5.1) mmol/L Chloride (98-107) mmol/L Carbon Dioxide (21-32) mmol/L Anion Gap (3-11) BUN (7-18) mg/dl Creatinine (0.6-1.4) mg/dl Est Cr Clr Drug Dosing Est GFR ( Amer) ml/min Est GFR (Non-Af Amer) ml/min BUN/Creatinine Ratio (10-20) Glucose (70-99) mg/dl Calcium (8.5-10.1) mg/dl Total Bilirubin (0.2-1) mg/dl AST (15-37) U/L ALT (12-78) U/L Alkaline Phosphatase (45-117) U/L Troponin I (0-0.045) ng/ml Total Protein (6.4-8.2) gm/dl Albumin (3.4-5.0) gm/dl Globulin (2.5-4.0) gm/dl Albumin/Globulin Ratio (0.9-2) Lipase (73-393) U/L COVID-19 Eval Order SARS-CoV-2 (PCR) NEGATIVE (Negative) Administered Medications Discontinued Medications Sodium Chloride (Nss 1000ml) 1,000 mls @ 999 mls/hr IV .Q1H1M STA Stop: 03/11/21 19:29 Last Infusion: 03/11/21 20:35 Dose: 0 mls/hr Documented by: [id number] Admin: 03/11/21 18:55 Dose: 999 mls/hr Documented by: [id number] Morphine Sulfate (Morphine Sulfate 4 Mg/Ml 1 Ml Carp\Vial) 3 mg IV NOW STA Stop: 03/11/21 20:27 Last Admin: 03/11/21 21:09 Dose: Not Given Documented by: [id number] Imaging Data Radiologist's Impression: Chest X-Ray 03/11/21 18:29 XR chest 1V portable HISTORY: Atypical Chest Pain COMPARISON: Chest 02/23/2021. FINDINGS: No pneumothorax. There is a small right pleural effusion and right basilar airspace opacity which have developed in the interval. The heart is normal in size. A right jugular Port-A-Cath terminates at the right atrium. This remains unchanged. Old, healed left-sided rib fractures. IMPRESSION: Progressive right lower lobe consolidation with a small right pleural effusion. ACT 112: Negative or not required by law. Electronically signed by: Brant Mendiola M.D. 03/11/2021 7:39 PM Discharge Plan Visit Data Chief Complaint: Respiratory Problems Stated Complaint: TROUBLE BREATHING, PAIN ALL OVER BODY, WEAKNESS ED Provider: Trung Garcia Discharge Problem: SOB (shortness of breath), Acute dehydration, Metastatic renal cell carcinoma, Pneumonia, Hypoxia Patient Disposition: Admitted As Inpatient Discharge Instructions Interventions: ED Discharge Assessment Last Done: 03/11/21 22:18
[2021-03-11 18:56] LABS: Basophils # (auto) 0.01 K/uL (0-0.2); Basophils % (auto) 0.3 %; Eosinophils # (auto) 0.03 K/uL (0-0.5); Eosinophils % (auto) 0.8 %; Hematocrit (blood only) 32.1 % (42-52); Hemoglobin 10.7 g/dL (14.0-18.0); Lymphocytes # (auto) 0.39 K/uL (1.2-3.4); Lymphocytes % (auto) 10.4 %; Mean Corpuscular Hemoglobin 30.8 pg (25-34); Mean Corpuscular Hgb Conc 33.3 g/dL (32-36); Mean Corpuscular Volume 92.5 fL (80-100); Mean Platelet Volume 8.9 fL (7.4-10.4); Monocytes # (auto) 0.23 K/uL (0.11-0.59); Monocytes % (auto) 6.1 %; Neutrophils # (auto) 3.09 K/uL (1.4-6.5); Neutrophils % (auto) 82.4 %; Platelet Count 155 K/uL (130-400); RDW Coefficient of Variation 15.6 % (11.5-14.5); Red Blood Count 3.47 M/uL (4.7-6.1); White Blood Count 3.75 K/uL (4.8-10.8)
[2021-03-11 19:18] LABS: Alanine Aminotransferase 10 U/L (12-78); Albumin Level 1.9 gm/dl (3.4-5.0); Aspartate Aminotransferase 24 U/L (15-37); BUN Creatinine Ratio 10.4 (10-20); Blood Urea Nitrogen 10 mg/dl (7-18); Calcium 8.4 mg/dl (8.5-10.1); Carbon Dioxide 22 mmol/L (21-32); Chloride 100 mmol/L (98-107); Est GFR (African American) 103.7 ml/min; Est GFR (Non-African American) 89.5 ml/min; Glucose 91 mg/dl (70-99); Lipase 92 U/L (73-393); Potassium 3.2 mmol/L (3.5-5.1); Sodium 132 mmol/L (136-145)
[2021-03-11 19:22] LABS: Albumin Globulin Ratio 0.5 (0.9-2); Alkaline Phosphatase 123 U/L (45-117); Bilirubin,Total 0.9 mg/dl (0.2-1); Globulin 3.7 gm/dl (2.5-4.0); Total Protein 5.6 gm/dl (6.4-8.2); Troponin I < 0.015 ng/ml (0-0.045)
[2021-03-11 19:33] LABS: INR 1.2 (0.9-1.1); Partial Thromboplastin Ratio 1.6; Partial Thromboplastin Time 41.9 Seconds (21.0-31.0); Prothrombin Time 12.1 Seconds (9.0-12.0)
--- NOTE | 2021-03-11 19:40 | XRay Report ---
XR chest 1V portable HISTORY: Atypical Chest Pain COMPARISON: Chest 02/23/2021. FINDINGS: No pneumothorax. There is a small right pleural effusion and right basilar airspace opacity which have developed in the interval. The heart is normal in size. A right jugular Port-A-Cath termi nates at the right atrium. This remains unchanged. Old, healed left-sided rib fractures. IMPRESSION: Progressive right lower lobe consolidation with a small right pleural effusion. ACT 112: Negative or not required by law. Electronically signed by: Brant Mendiola M.D. 03/11/2021 7:39 PM
[2021-03-11] MEDS ORDERED: MoRPHine SULFATE 4 MG/ML 1 ML CARP\\VIAL IV STA (20:26)
[2021-03-11] MEDS ORDERED: VANCOMYCIN CONSULT ACTIVE PRN (21:29)
[2021-03-11] MEDS ORDERED: PIPERACILL/TAZOBAC CONSULT ACTIVE PRN (21:29)
--- NOTE | 2021-03-11 21:31 | History & Physical Report ---
Date of Service March 11, 2021 Assessment & Plan (1) Pneumonia: Plan: likely due to aspiration Vancomycin IV and Zosyn IV Robitussin-DM liquid as needed Duonebs every 4 hours while awake and every 2 hours when necessary. Full liquid diet with aspiration precautions (2) Hypoxia: Plan: NC O2. titrate to keep pulse ox > or = to 94% (3) Antineoplastic chemotherapy induced pancytopenia: Plan: Laboratories in acceptable range (4) Pulmonary embolism: Plan: Continue Eliquis (5) Metastatic renal cell carcinoma: Plan: Will discuss with palliative care short and long-term goals and plans of care Patient this evening, after discussion, would like to be treated for his right lower lobe pneumonia, and will discuss any further care options tomorrow (6) Acute dehydration: Plan: Gentle rehydration with IV fluids (7) Debilitated patient: Plan: Palliative care consult as discussion above Patient is DNR/DNI (8) Hypokalemia: Plan: Placed on NSS + KCl 20 mEq at 80 mils per hour Repeat laboratories in a.m. History of Present Illness Chief Complaint: The patient presents to the emergency department with complaint of worsening shortness of breath, decreased oral intake for liquids and solids over the past 4 days, increased lethargy and ambulatory dysfunction due to severe fatigue and weakness Primary Care Provider: Pineda Heck DO The patient is a 60-year-old male with a past medical history including antineoplastic chemotherapy induced pancytopenia, pulmonary embolism, laryngeal cancer, metastatic renal cell carcinoma, gout, GERD, hypothyroidism and hypertension. He presents to the emergency department with symptoms as noted above. The subject of comfort care was brought up by the ED physician with the patient, and I continued this discussion on a palliative basis. The patient was given the option of treating his right lower lobe pneumonia as if it were related to aspiration, which is likely the cause, and will consult palliative care to talk with them tomorrow about long-term directions. He has opted to be treated for his right lower lobe pneumonia, and will see palliative care tomorrow. Allergies Allergy/AdvReac Type Severity Reaction Status Date / Time No Known Allergies Allergy Verified 03/11/21 20:58 Home Medications Medication Instructions Recorded Confirmed Type Magic Mouth 1 dose PO DIRECTED PRN 02/23/21 03/11/21 History apixaban 5 mg tablet (Eliquis) 5 mg PO BID 02/23/21 03/11/21 History cabozantinib 40 mg tablet 40 mg PO .HS @ 2230 02/23/21 03/11/21 History (Cabometyx) colchicine 0.6 mg tablet 0.6 mg PO DIRECTED PRN 02/23/21 03/11/21 History diphenhydramine HCl 25 mg capsule 25 mg PO DIRECTED PRN 02/23/21 03/11/21 History (Benadryl) famotidine 20 mg tablet (Pepcid) 20 mg PO DIRECTED PRN 02/23/21 03/11/21 History famotidine 40 mg tablet 40 mg PO DAILYBB 02/23/21 03/11/21 History levothyroxine 100 mcg tablet See Rx Instructions .ROUTE .COMPLEX 02/23/21 03/11/21 History (Synthroid) propranolol 20 mg tablet 20 mg PO BID 02/23/21 03/11/21 History amoxicillin 875 mg-potassium 1 tab PO BID #8 tab 02/28/21 03/11/21 Rx clavulanate 125 mg tablet (Augmentin) hydrocodone 5 mg-acetaminophen 325 1 - 2 tab PO Q6H PRN #30 tab 02/28/21 03/11/21 Rx mg tablet Past Med/Surg History Social History Smoking Status: Former smoker Smoking End Date: 09/09/20 (pt states quit 6 months ago); Hx Alcohol Use: Yes Alcohol type: beer and wine Hx Substance Use: Yes Preferred Language: Czech Communication Ability: Effective Incubator Machine Operator Required: No Beliefs That Will Affect Care: None marital status: Current Living Situation: Alone Current Living Situation Comment: Home alone in [place], sister in [place] Feels Safe at Home: Yes Assistive Devices: Oxygen - at Night and Walker Assistive Devices Comment: 2L O2 HS Review of Systems Review of Systems: The patient denies palpitations, lower extremity swelling, sore throat, fevers, chills, sweats, vomiting, diarrhea , constipation, abdominal pain, pelvic pain, blood in urine or stool, dysuria, urinary frequency or urgency, loss of consciousness, rash, abnormal bruising or bleeding, imbalance, focal weakness, numbness or tingling in arms or legs, generalized arthralgias or myalgias, back or neck pain, or night sweats. The review of systems is otherwise negative other than for that already noted above, and at least 10 systems have been reviewed. Physical Exam Physical Exam: The patient is awake, alert and oriented 3, looks fatigued, has a hoarse voice, normocephalic and atraumatic, lying in bed and in no acute distress. HEENT--PERRL, EOMI, mucous membranes and oropharynx dry. Few scattered mucosal lesions on tongue primarily Neck--supple. No JVD. No bruits. Thyroid normal, trachea midline, no adeno pooja. Heart--normal S1 and S2. No murmurs, rubs or gallops. Lungs--decreased breath sounds right base. No respiratory distress, no accessory muscle use. Abdomen--normal bowel sounds and soft. Nontender. Nondistended. Extremities--no cyanosis or clubbing. No edema. Dermatologic--normal skin turgor, normal color, no abnormal lymph nodes, no rash. Neurologic--cranial nerves II through XII grossly intact. Rheumatologic--normal range of motion. Psychiatric--normal affect. Results & Data Results & Data ([facility]) Vital Signs (Past 12 Hours) Vital Signs Temp Pulse Resp BP Pulse Ox 03/11/21 18:29 86 L 03/11/21 18:18 89 L 03/11/21 18:12 97.2 F L 97 H 22 94/64 L 91 Laboratory Results Laboratory Results WBC 3.75 K/uL (4.8-10.8) L 03/11/21 18:47 RBC 3.47 M/uL (4.7-6.1) L 03/11/21 18:47 Hgb 10.7 g/dL (14.0-18.0) L 03/11/21 18:47 Hct 32.1 % (42-52) L 03/11/21 18:47 MCV 92.5 fL (80-100) 03/11/21 18:47 MCH 30.8 pg (25-34) 03/11/21 18:47 MCHC 33.3 g/dL (32-36) 03/11/21 18:47 RDW Std Deviation 53.0 fL (36.4-46.3) H 03/11/21 18:47 RDW Coeff of Delphine 15.6 % (11.5-14.5) H 03/11/21 18:47 Plt Count 155 K/uL (130-400) 03/11/21 18:47 MPV 8.9 fL (7.4-10.4) 03/11/21 18:47 Immature Gran % (Auto) 0.0 % 03/11/21 18:47 Neut % (Auto) 82.4 % 03/11/21 18:47 Lymph % (Auto) 10.4 % 03/11/21 18:47 [place] % (Auto) 6.1 % 03/11/21 18:47 Eos % (Auto) 0.8 % 03/11/21 18:47 Baso % (Auto) 0.3 % 03/11/21 18:47 Neut # (Auto) 3.09 K/uL (1.4-6.5) 03/11/21 18:47 Lymph # (Auto) 0.39 K/uL (1.2-3.4) L 03/11/21 18:47 [place] # (Auto) 0.23 K/uL (0.11-0.59) 03/11/21 18:47 Eos # (Auto) 0.03 K/uL (0-0.5) 03/11/21 18:47 Baso # (Auto) 0.01 K/uL (0-0.2) 03/11/21 18:47 Immature Gran # (Auto) 0.00 K/uL (0.00-0.02) 03/11/21 18:47 PT 12.1 Seconds (9.0-12.0) H 03/11/21 19:11 INR 1.2 (0.9-1.1) H 03/11/21 19:11 APTT 41.9 Seconds (21.0-31.0) H 03/11/21 19:11 PTT Ratio 1.6 03/11/21 19:11 Sodium 132 mmol/L (136-145) L 03/11/21 18:47 Potassium 3.2 mmol/L (3.5-5.1) L 03/11/21 18:47 Chloride 100 mmol/L (98-107) 03/11/21 18:47 Carbon Dioxide 22 mmol/L (21-32) 03/11/21 18:47 Anion Gap 10.0 (3-11) 03/11/21 18:47 BUN 10 mg/dl (7-18) 03/11/21 18:47 Creatinine 0.92 mg/dl (0.6-1.4) 03/11/21 18:47 Est Cr Clr Drug Dosing Not Reportable 03/11/21 18:47 Est GFR ( Amer) 103.7 ml/min 03/11/21 18:47 Est GFR (Non-Af Amer) 89.5 ml/min 03/11/21 18:47 BUN/Creatinine Ratio 10.4 (10-20) 03/11/21 18:47 Glucose 91 mg/dl (70-99) 03/11/21 18:47 Calcium 8.4 mg/dl (8.5-10.1) L 03/11/21 18:47 Total Bilirubin 0.9 mg/dl (0.2-1) 03/11/21 18:47 AST 24 U/L (15-37) 03/11/21 18:47 ALT 10 U/L (12-78) L 03/11/21 18:47 Alkaline Phosphatase 123 U/L (45-117) H 03/11/21 18:47 Troponin I < 0.015 ng/ml (0-0.045) 03/11/21 18:47 Total Protein 5.6 gm/dl (6.4-8.2) L 03/11/21 18:47 Albumin 1.9 gm/dl (3.4-5.0) L 03/11/21 18:47 Globulin 3.7 gm/dl (2.5-4.0) 03/11/21 18:47 Albumin/Globulin Ratio 0.5 (0.9-2) L 03/11/21 18:47 Lipase 92 U/L (73-393) 03/11/21 18:47 COVID-19 Eval Order Covid19 at [facility] 03/11/21 19:04 SARS-CoV-2 (PCR) NEGATIVE (Negative) 03/11/21 19:04 Impressions Chest X-Ray 03/11/21 18:29 XR chest 1V portable HISTORY: Atypical Chest Pain COMPARISON: Chest 02/23/2021. FINDINGS: No pneumothorax. There is a small right pleural effusion and right basilar airspace opacity which have developed in the interval. The heart is normal in size. A right jugular Port-A-Cath terminates at the right atrium. This remains unchanged. Old, healed left-sided rib fractures. IMPRESSION: Progressive right lower lobe consolidation with a small right pleural effusion. ACT 112: Negative or not required by law. Electronically signed by: Brant Mendiola M.D. 03/11/2021 7:39 PM Code Status & VTE Plan Code Status full code VTE Prophylaxis Plan VTE Prophylaxis will be ordered: Yes PG Care Time/CCT Total # of Minutes Spent Total Time Spent with Patient: Total time spent is greater than 50% in coordination of care (as documented) at patient's floor/unit and/or counseling patient: Coding Level of Care Code 76701 Initial Inpt Care Lvl 3 Diagnoses Pneumonia J18.9 Laterality: right Lung location: lower lobe of lung Pneumonia type: due to unspecified organism Hypoxia R09.02 Antineoplastic chemotherapy induced pancytopenia D61.810; T45.1X5A Pulmonary embolism I26.99 Metastatic renal cell carcinoma C64.9 Laterality: unspecified laterality Acute dehydration E86.0 Debilitated patient R53.81 Hypokalemia E87.6 (1) Pneumonia Laterality: right Lung location: lower lobe of lung Pneumonia type: due to unspecified organism Qualified Code(s): J18.9 - Pneumonia, unspecified organism (2) Metastatic renal cell carcinoma Laterality: unspecified laterality Qualified Code(s): C64.9 - Malignant neoplasm of unspecified kidney, except renal pelvis
[2021-03-11] MEDS ORDERED: PATIENT'S HEIGHT AND/OR WEIGHT NEEDED STA (22:24)
[2021-03-11] MEDS ORDERED: ACETAMINOPHEN 325 MG TAB PO PRN (22:46)
[2021-03-11] MEDS ORDERED: guaiFENesin/DEXTROM SYRUP 200MG/20MG 10ML UDC PO PRN (22:46)
[2021-03-12] MEDS ORDERED: VANCOMYCIN HCL 1,250 MG in SODIUM CHLORIDE 0.9% 250 ML IV ONE
[2021-03-12] MEDS ORDERED: PIPERACILLIN/TAZOBACTAM 3.375 GM in DEXTROSE 5% 100 ML IV ONE
[2021-03-12] MEDS: NSS + 20MEQ KCL 20 MEQ/1,000 ML BAG IV SCH ×2 (00:10→16:55)
[2021-03-12] MEDS: PIPERACILLIN/TAZOBACTAM 3.375 GM in DEXTROSE 5% 100 ML IV SCH ×3 (05:42→22:13)
[2021-03-12 07:48] LABS: Eosinophils # (auto) 0.04 K/uL (0-0.5); Immature Granulocytes # (auto) 0.01 K/uL (0.00-0.02); Immature Granulocytes % (auto) 0.3 %; Lymphocytes # (auto) 0.36 K/uL (1.2-3.4); Mean Corpuscular Hemoglobin 30.5 pg (25-34); Mean Corpuscular Hgb Conc 33.3 g/dL (32-36); Mean Corpuscular Volume 91.5 fL (80-100); Mean Platelet Volume 8.8 fL (7.4-10.4); Monocytes % (auto) 7.5 %; Neutrophils # (auto) 3.28 K/uL (1.4-6.5); Neutrophils % (auto) 82.2 %; Platelet Count 126 K/uL (130-400); RDW Coefficient of Variation 15.9 % (11.5-14.5); RDW Standard Deviation 53.1 fL (36.4-46.3); Red Blood Count 2.95 M/uL (4.7-6.1); White Blood Count 3.99 K/uL (4.8-10.8)
[2021-03-12] MEDS: ALBUT/IPRATROP 3MG/0.5MG NEB 3 ML VIAL NEB SCH ×4 (07:48→19:13)
[2021-03-12 08:16] LABS: Albumin Level 1.6 gm/dl (3.4-5.0); BUN Creatinine Ratio 10.4 (10-20); Calcium 7.7 mg/dl (8.5-10.1); Creatinine Clr Calc Pharmacy 82.1 ml/min; Est GFR (African American) 110.1 ml/min; Potassium 3.4 mmol/L (3.5-5.1)
[2021-03-12 08:19] LABS: Albumin Globulin Ratio 0.5 (0.9-2); Bilirubin,Total 0.9 mg/dl (0.2-1); Globulin 3.3 gm/dl (2.5-4.0); Total Protein 4.9 gm/dl (6.4-8.2)
--- NOTE | 2021-03-12 09:16 | Pharmacy Report ---
Pharmacy Vanc AUC Short Note - Date of Service March 12, 2021 - Assessment & Plan Assessment 60 year old M with PMHx of laryngeal cancer, metastatic renal carcinoma presenting to ER with possible RL lobe pneumonia/aspiration. Started empirically on vancomycin and zosyn. Palliative consult ordered. Plan Vancomycin * AUC/BERNARDO is the preferred PK/PD target for vancomycin * AUC guided dosing is effective and associated with decreased risk of nephrotoxicity compared to traditional trough targets * Patient given loading dose of 1250 mg x 1 last evening and started on maintenance dose of vancomycin 750 mg iv q 12 hr * Trough level of ~15 mcg/mL is predicted to achieve target AUC/BERNARDO of 400-600 mg/L.hr and may be associated with a 9 % risk of nephrotoxicity * Plan to order trough if vancomycin is to be continued >48 hrs Zosyn * 3.375 gm iv q 8 hr - appropriate for CrCl >20 ml/min Pharmacy will continue to follow and will adjust dose/frequency as necessary. Thank you.
[2021-03-12] MEDS: APIXABAN 5 MG TABLET PO SCH ×2 (09:56→19:57)
[2021-03-12] MEDS ORDERED: VANCOMYCIN HCL 750 MG in SODIUM CHLORIDE 0.9% 250 ML IV SCH (10:00)
--- NOTE | 2021-03-12 10:14 | Palliative Care Consultation ---
Date of Consultation March 12, 2021 Assessment & Plan (1) Dyspnea: He appears short of breath but denies feeling air hunger. He does express concern about feeling short of breath and asked about what we would do to help him with that. We discussed opioids for relief of air hunger. Order placed for IV morphine prn. (2) Odynophagia: Per report from RN. Advised that morphine would be effective for this. Will also add magic mouthwash. (3) Anxiety: with worries of dying process. Reassured him that we can control symptoms and help him focus on comfort for his dying time. (4) Palliative care encounter: After discussion with Mr. Carreno, it is not clear to me that he truly wants to focus on comfort care at this time. He has agreed to antibiotics and talks more about not being able to be at home anymore that actually shifting focus of care. His voice is weak and sometimes difficult to hear and he gets frustrated with difficulty in conversation. He asked to defer conversation and discuss with his sister. I did call her twice with no answer. Will continue to reach out to her and establish goals of care. (5) Pneumonia: Laterality: right Lung location: lower lobe of lung Pneumonia type: due to unspecified organism Qualified Code(s): J18.9 - Pneumonia, unspecified organism (6) Metastatic renal cell carcinoma: Laterality: unspecified laterality Qualified Code(s): C64.9 - Malignant neoplasm of unspecified kidney, except renal pelvis (7) Laryngeal cancer: (8) Pulmonary embolism: History of Present Illness Reason for Consultation: goals of care Requesting Physician: Dr. Barnes Attending Physician: Connor Beard MD History of Present Illness 60 yo gentleman with laryngeal cancer and renal cell carcinoma metastatic to the lung. He lives at home with is sister and tells me that he has been having falls at home. He has had rib fractures from a fall in August of this year. He was hospitalized earlier this month with shortness of breath and chest pain and was treated for pneumonia. He is also on eliquis for PE. He contines to have shortness of breath with RLL pneumonia on chest xray, presumably aspiration pneumonia. He tells me that he has difficulty talking and eating. He is visibly uncomfortable with labored breathing. Allergies Allergy/AdvReac Type Severity Reaction Status Date / Time No Known Allergies Allergy Verified 03/11/21 20:58 Home Medications Medication Instructions Recorded Confirmed Type Magic Mouth 1 dose PO DIRECTED PRN 02/23/21 03/11/21 History apixaban 5 mg tablet (Eliquis) 5 mg PO BID 02/23/21 03/11/21 History cabozantinib 40 mg tablet 40 mg PO .HS @ 2230 02/23/21 03/11/21 History (Cabometyx) colchicine 0.6 mg tablet 0.6 mg PO DIRECTED PRN 02/23/21 03/11/21 History diphenhydramine HCl 25 mg capsule 25 mg PO DIRECTED PRN 02/23/21 03/11/21 History (Benadryl) famotidine 20 mg tablet (Pepcid) 20 mg PO DIRECTED PRN 02/23/21 03/11/21 History famotidine 40 mg tablet 40 mg PO DAILYBB 02/23/21 03/11/21 History levothyroxine 100 mcg tablet See Rx Instructions .ROUTE .COMPLEX 02/23/21 03/11/21 History (Synthroid) propranolol 20 mg tablet 20 mg PO BID 02/23/21 03/11/21 History amoxicillin 875 mg-potassium 1 tab PO BID #8 tab 02/28/21 03/11/21 Rx clavulanate 125 mg tablet (Augmentin) hydrocodone 5 mg-acetaminophen 325 1 - 2 tab PO Q6H PRN #30 tab 02/28/21 03/11/21 Rx mg tablet Patient History Social History Smoking Status: Former smoker Smoking End Date: 09/09/20 (pt states quit 6 months ago); Hx Alcohol Use: Yes Alcohol type: beer and wine Hx Substance Use: Yes Preferred Language: Hong [place]er Communication Ability: Effective Nailer Operator Required: No Beliefs That Will Affect Care: None marital status: Current Living Situation: Alone Current Living Situation Comment: Home alone in [place], sister in [place] Feels Safe at Home: Yes Assistive Devices: Oxygen - at Night and Walker Assistive Devices Comment: 2L O2 HS Review of Systems Review of Systems: [place] Symptom Assessment Scale Pain 0/3 Dyspnea 2/3 Nausea 0/3 Anxiety 2/3 Fatigue 2/3 Drowsiness 0/3 Palliative Performance Score 50% Physical Exam Constitutional: + ill appearing; + uncomfortable Respiratory: + labored breathing; does not use accessory muscles Cardiovascular: Rate/Rhythm: regular rate and regular rhythm Extremities: no edema Gastrointestinal (Abdomen): nontender Musculoskeletal: Extremities: + muscle atrophy Skin: warm and dry Neurologic: moves all extremities and awake Results & Data ([facility]) Vital Signs (Past 12 Hours) Vital Signs Temp Pulse Pulse Resp BP BP Pulse Ox 03/12/21 07:49 70 71 18 91 03/12/21 07:27 98.2 F 68 18 116/76 93 03/12/21 03:35 98.1 F 67 16 105/72 92 03/12/21 00:38 68 03/11/21 23:28 97.3 F L 90 24 126/88 94 PG Care Time/CCT Total # of Minutes Spent Total Time Spent: 603 Total Time Spent with Patient: Total time spent is greater than 50% in coordination of care (as documented) at patient's floor/unit and/or counseling patient: symptom management, goals of care Coding Level of Care Code 42749 Initial Inpt Care Lvl 2 Diagnoses Dyspnea R06.00 Anxiety F41.9 Palliative care encounter Z51.5 Pneumonia J18.9 Laterality: right Lung location: lower lobe of lung Pneumonia type: due to unspecified organism Metastatic renal cell carcinoma C64.9 Laterality: unspecified laterality Laryngeal cancer C32.9 Pulmonary embolism I26.99 Odynophagia R13.10
--- NOTE | 2021-03-12 11:59 | CT Scan Report ---
CT chest diagnostic wo con CT DOSE: 233.55 mGy.cm CLINICAL HISTORY: 60 years-old Male with Cancer, progressive PNA. Acute shortness of breath with pne umonia and history of renal cell carcinoma. TECHNIQUE: Multiaxial CT images of the chest were performed without contrast. A dose lowering techni que was utilized adhering to the principles of ALARA. COMPARISON: CTA chest 02/23/2021, chest radiograph 03/11/2021, outside chest CT 12/28/2020. FINDINGS: No thyroid nodule. The heart is mildly enlarged. Moderate coronary artery calcifications. A therosclerotic plaque of the thoracic aorta without aneurysm. Right IJ central venous catheter distal tip terminates within the right atrium. Trace left and small right pleural effusions have increased in size from comparison. There is no pneu mothorax. Emphysema. Numerous bilateral pulmonary nodules, many of which are cavitary redemonstrated. This includes a 7 mm cavitary nodule of the superior segment left lower lobe on image 142 and a 7 mm cavitary nodule of the right upper lobe on image 121. Thick-walled cavitary nodule of the right lowe r lobe on image 184 measures 2.6 cm which previously measured 3.0 cm with peripheral groundglass and consolidative opacities. There is decreased adjacent bronchial wall thickening. Progressive consolida tion of the right greater than left basal lower lobes. Mild tracheobronchial secretions. Abnormal carlos earance of the larynx is unchanged. Left nephrectomy changes. Distended gallbladder. Unremarkable soft tissues. No acute fracture. No ricardo picious bone lesion. Numerous chronic bilateral rib fractures. IMPRESSION: 1. Progressive right greater than left bibasilar consolidative opacities are suggestive of pneumonia versus aspiration pneumonitis. 2. Trace left and small right pleural effusions have increased in size from comparison. 3. Numerous bilateral pulmonary nodules are redemonstrated, several of which are cavitary and are sug gestive of pulmonary metastasis. 4. 2.6 cm thick-walled cavitary nodule of the right lower lobe has decreased in size from 02/23/2021 and demonstrates decreased amount of surrounding groundglass and consolidative opacity suggestive of resolving superimposed infection versus pulmonary infarct. 5. Additional findings as above. ACT 112: Negative or not required by law. Dictated: 03/12/2021 11:00 AM Transcribed: 03/12/2021 11:53 AM Fani [id number] Dago Electronically signed by: Basilio Sandoval M.D. 03/12/2021 11:57 AM
--- NOTE | 2021-03-12 13:54 | Hospitalist Progress Note ---
Date of Service March 12, 2021 Assessment & Plan (1) Pneumonia: Plan: Likely due to aspiration. Per prior note, family reports "drink liquids and food should be pured." - Continue vancomycin IV and Zosyn IV - Robitussin-DM liquid as needed - Duonebs - Full liquid diet with aspiration precautions - Will repeat MRSA swab (2) Metastatic renal cell carcinoma: Plan: Patient presently requesting treatment for his right lower lobe pneumonia. Per CM, he had hospice nurses visit him on 03/10/2021, and at that time had switched his mind and refused hospice. - Palliative and CM following (3) Hypoxia: Plan: Acute hypoxic respiratory failure. NC O2. titrate to keep pulse ox > or = to 94%. - Resolving. (4) Antineoplastic chemotherapy induced pancytopenia: Plan: Patient is unclear on whether he is undergoing treatment in [place] or not. - Laboratories in acceptable range. (5) Pulmonary embolism: Plan: CTA chest on 02/23 showed possible small PE. Not his initial diagnosis of PE to my understanding, so I don't think it was acute then. - Continue Eliquis Admission and Anticipated Discharge Date Admission Date: March 11, 2021 Subjective Reports sore throat. Otherwise, quite gruff and short with me. Reports he does not know if he is pursuing further treatment or not. Reports no fevers/chills, chest pain, shortness of breath, abdominal pain, nausea, or vomiting. Physical Exam Constitutional: + malnourished; + uncooperative and not in distress Eyes: EOM intact bilaterally; no conjunctival abnormality ENMT: external ear and nose normal, oropharynx normal Neck: trachea midline, no thyromegaly normal visual inspection Respiratory: normal respiratory effort, lungs clear to auscultation no respiratory distress Cardiovascular: RRR, no murmur, no edema Gastrointestinal (Abdomen): Inspection/Auscultation: abdomen normal to inspection; abdomen not distended Musculoskeletal: no cyanosis or clubbing, extremities motor strength 5/5 Skin: no rashes, warm and dry Neurologic: moves all extremities and awake Psychiatric: Orientation: alert and oriented to person Results & Data Results & Data ([facility]) Vital Signs (Past 12 Hours) Vital Signs Temp Pulse Pulse Resp BP Pulse Ox 03/12/21 11:15 36.6 C 71 17 101/70 96 03/12/21 10:59 81 18 95 03/12/21 07:49 70 71 18 91 03/12/21 07:27 36.8 C 68 18 116/76 93 03/12/21 03:35 36.7 C 67 16 105/72 92 PG Care Time/CCT Total # of Minutes Spent Total Time Spent with Patient: Total time spent is greater than 50% in coordination of care (as documented) at patient's floor/unit and/or counseling patient: Coding Level of Care Code 58907 Subseq Hosp Care Lvl 2 Diagnoses Pneumonia J18.9 Laterality: right Lung location: lower lobe of lung Pneumonia type: due to unspecified organism Hypoxia R09.02 Antineoplastic chemotherapy induced pancytopenia D61.810; T45.1X5A Pulmonary embolism I26.99 Metastatic renal cell carcinoma C64.9 Laterality: unspecified laterality (1) Pneumonia Laterality: right Lung location: lower lobe of lung Pneumonia type: due to unspecified organism Qualified Code(s): J18.9 - Pneumonia, unspecified organism (2) Metastatic renal cell carcinoma Laterality: unspecified laterality Qualified Code(s): C64.9 - Malignant neoplasm of unspecified kidney, except renal pelvis
[2021-03-12] MEDS: ORA SWEET PO PRN ×2 (14:00→19:55)
[2021-03-12] MEDS: DEXAMETHASONE PO PRN ×2 (14:00→19:55)
[2021-03-12] MEDS: DIPHENHYDRAMINE PO PRN ×2 (14:00→19:55)
[2021-03-12] MEDS: [UNRECOGNIZED DRUG - OTHER] PO PRN ×2 (14:00→19:55)
[2021-03-12] MEDS: MoRPHine SULFATE 2 MG/ML CARP IV PRN (19:56)
--- NOTE | 2021-03-13 05:54 | Electrocardiogram Report ---
Test Reason : Blood Pressure : / mmHG Vent. Rate : 069 BPM Atrial Rate : 069 BPM P-R Int : 168 ms QRS Dur : 100 ms QT Int : 442 ms P-R-T Axes : 050 031 062 degrees QTc Int : 473 ms Poor data quality, interpretation may be adversely affected Normal sinus rhythm Low voltage QRS Nonspecific ST and T wave abnormality Abnormal ECG When compared with ECG of 23-FEB-2021 16:44, Premature ventricular complexes are no longer Present Criteria for Septal infarct are no longer Present Nonspecific T wave abnormality, worse in Lateral leads QT has shortened Confirmed by Rick Way ([id number]) on 03/13/2021 5:54:11 AM Referred By: REFERRED SELF Confirmed By:Rick Way
[2021-03-13 06:09] LABS: Eosinophils # (auto) 0.02 K/uL (0-0.5); Eosinophils % (auto) 0.6 %; Hematocrit (blood only) 25.4 % (42-52); Hemoglobin 8.5 g/dL (14.0-18.0); Immature Granulocytes # (auto) 0.02 K/uL (0.00-0.02); Immature Granulocytes % (auto) 0.6 %; Lymphocytes # (auto) 0.42 K/uL (1.2-3.4); Lymphocytes % (auto) 12.4 %; Mean Corpuscular Hemoglobin 31.1 pg (25-34); Mean Corpuscular Hgb Conc 33.5 g/dL (32-36); Mean Platelet Volume 9.2 fL (7.4-10.4); Monocytes # (auto) 0.23 K/uL (0.11-0.59); Monocytes % (auto) 6.8 %; Neutrophils % (auto) 79.6 %; Platelet Count 112 K/uL (130-400); RDW Coefficient of Variation 16.2 % (11.5-14.5); RDW Standard Deviation 55.4 fL (36.4-46.3); Red Blood Count 2.73 M/uL (4.7-6.1); White Blood Count 3.39 K/uL (4.8-10.8)
[2021-03-13] MEDS: PIPERACILLIN/TAZOBACTAM 3.375 GM in DEXTROSE 5% 100 ML IV SCH ×3 (06:11→22:28)
[2021-03-13 06:49] LABS: Albumin Level 1.7 gm/dl (3.4-5.0); BUN Creatinine Ratio 8.7 (10-20); Calcium 7.9 mg/dl (8.5-10.1); Creatinine Clr Calc Pharmacy 86.4 ml/min; Est GFR (African American) 111.7 ml/min; Est GFR (Non-African American) 96.4 ml/min; Magnesium 1.7 mg/dl (1.8-2.4); Potassium 3.7 mmol/L (3.5-5.1)
[2021-03-13 06:51] LABS: Albumin Globulin Ratio 0.5 (0.9-2); Bilirubin,Total 0.8 mg/dl (0.2-1); Globulin 3.1 gm/dl (2.5-4.0); Phosphorus 2.5 mg/dl (2.5-4.9); Total Protein 4.8 gm/dl (6.4-8.2)
[2021-03-13] MEDS: ALBUT/IPRATROP 3MG/0.5MG NEB 3 ML VIAL NEB SCH (07:35)
[2021-03-13] MEDS: APIXABAN 5 MG TABLET PO SCH ×2 (09:03→21:15)
[2021-03-13] MEDS: ORA SWEET PO PRN ×2 (09:05→15:19)
[2021-03-13] MEDS: DEXAMETHASONE PO PRN ×2 (09:05→15:19)
[2021-03-13] MEDS: [UNRECOGNIZED DRUG - OTHER] PO PRN ×2 (09:05→15:19)
[2021-03-13] MEDS: DIPHENHYDRAMINE PO PRN ×2 (09:05→15:19)
[2021-03-13] MEDS: MAGNESIUM SULFATE / D5W 1 GM/100 ML BAG IV SCH ×3 (10:13→14:57)
[2021-03-13] MEDS ORDERED: ALBUT/IPRATROP 3MG/0.5MG NEB 3 ML VIAL NEB PRN (10:41)
--- NOTE | 2021-03-13 13:25 | Hospitalist Progress Note ---
Date of Service March 13, 2021 Assessment & Plan (1) Pneumonia: Plan: Likely due to aspiration. Per prior note, family reports "drink liquids and food should be pured." MRSA swab negative on 03/12. - Continue Zosyn IV - Robitussin-DM liquid as needed - Duonebs - Full liquid diet with aspiration precautions (2) Metastatic renal cell carcinoma: Plan: Patient presently requesting treatment for his right lower lobe pneumonia. Per CM, he had hospice nurses visit him on 03/10/2021, and at that time had switched his mind and refused hospice. - Palliative and CM following -> Patient and sister both indicate he would like hospice. However, his symptoms he reported to me that brought him to the hospital were cough, memory issues, and discoordination which I explained were unlikely to be fixed. (3) Hypoxia: Plan: Acute hypoxic respiratory failure. NC O2. titrate to keep pulse ox > or = to 94%. - Resolved. (4) Antineoplastic chemotherapy induced pancytopenia: Plan: Patient is unclear on whether he is undergoing treatment in [place] or not. - Laboratories in acceptable range. (5) Pulmonary embolism: Plan: CTA chest on 02/23 showed possible small PE. Not his initial diagnosis of PE to my understanding, so I don't think it was acute then. - Continue Eliquis Admission and Anticipated Discharge Date Admission Date: March 11, 2021 Subjective Much better mood today. Reports the sore throat is improved. However, he reports that he came to the hospital for his cough, memory issues, and some dyscoordination. Physical Exam Constitutional: + malnourished; + uncooperative and not in distress Eyes: EOM intact bilaterally; no conjunctival abnormality ENMT: external ear and nose normal, oropharynx normal Neck: trachea midline, no thyromegaly normal visual inspection Respiratory: normal respiratory effort, lungs clear to auscultation no respiratory distress Cardiovascular: RRR, no murmur, no edema Gastrointestinal (Abdomen): Inspection/Auscultation: abdomen normal to inspection; abdomen not distended Musculoskeletal: no cyanosis or clubbing, extremities motor strength 5/5 Skin: no rashes, warm and dry Neurologic: moves all extremities and awake Psychiatric: Orientation: alert and oriented to person Results & Data Results & Data ([facility]) Vital Signs (Past 12 Hours) Vital Signs Temp Pulse Pulse Resp BP Pulse Ox 03/13/21 11:08 36.5 C 66 15 141/84 H 94 03/13/21 10:38 84 03/13/21 08:30 36.4 C L 66 16 136/82 95 03/13/21 04:00 36.8 C 70 18 149/86 H 96 PG Care Time/CCT Total # of Minutes Spent Total Time Spent with Patient: Total time spent is greater than 50% in coordination of care (as documented) at patient's floor/unit and/or counseling patient: Coding Level of Care Code 58032 Subseq Hosp Care Lvl 2 Diagnoses Pneumonia J18.9 Laterality: right Lung location: lower lobe of lung Pneumonia type: due to unspecified organism Metastatic renal cell carcinoma C64.9 Laterality: unspecified laterality Hypoxia R09.02 Antineoplastic chemotherapy induced pancytopenia D61.810; T45.1X5A Pulmonary embolism I26.99 (1) Pneumonia Laterality: right Lung location: lower lobe of lung Pneumonia type: due to unspecified organism Qualified Code(s): J18.9 - Pneumonia, unspecified organism (2) Metastatic renal cell carcinoma Laterality: unspecified laterality Qualified Code(s): C64.9 - Malignant neoplasm of unspecified kidney, except renal pelvis
--- NOTE | 2021-03-13 16:11 | Palliative Care Progress Note ---
Date of Service March 13, 2021 Assessment & Plan (1) Odynophagia: Plan: Improved. Continue magic mouthwash and prn morphine (2) Palliative care encounter: Plan: I met with Mr. Carreno and his sister, Christine, at bedside. They had been asking about hospice and had been planning to speak with hospice prior to admission. We talked about his goals for care. He tells me that his hope is to move to a new apartment and live independently. He would want to consider additional treatment if able and has a f/u appointment with Dr. Machuca in about two weeks. He is not wanting to pursue comfort directed care at this time. While I do not think that he has full insight into the severity of his illness, his sister is aware that his prognosis is poor. She supports his current decision to pursue treatment here at the hospital with a goal toward SNF for rehab after discharge. His hope is to return to his apartment and we did discuss being cautious in expectation to return to his prior functional status. She feels strongly that he would not be safe to return home alone and he does not want to stay with her so she would consider longwall headgate operator placement depending on how he progresses. (3) Pneumonia: (4) Hypoxia: (5) Pulmonary embolism: (6) Laryngeal cancer: (7) Metastatic renal cell carcinoma: Admission and Anticipated Discharge Date Admission Date: March 11, 2021 Subjective Denies pain today, getting relief with magic mouthwash and has had one dose of morphine. Continues to have cough. Review of Systems Review of Systems: [place] Symptom Assessment Scale Pain 0/3 Dyspnea 0/3 Anxiety 1/3 Nausea 0/3 Fatigue 2/3 Palliative Performance Score 40% Physical Exam Constitutional: no acute distress Respiratory: normal respiratory effort; no labored breathing Neurologic: awake; not confused Results & Data ([facility]) Vital Signs (Past 12 Hours) Vital Signs Temp Pulse Pulse Resp BP BP Pulse Ox 03/13/21 15:55 97.5 F L 64 16 144/81 H 97 03/13/21 11:08 97.7 F 66 15 141/84 H 94 03/13/21 10:38 84 03/13/21 08:30 97.5 F L 66 16 136/82 95 PG Care Time/CCT Total # of Minutes Spent Total Time Spent: 27 Total Time Spent with Patient: Total time spent is greater than 50% in coordination of care (as documented) at patient's floor/unit and/or counseling patient: symptom management, goals of care, family and patient education and support Coding Level of Care Code 51985 Subseq Hosp Care Lvl 2 Diagnoses Palliative care encounter Z51.5 Odynophagia R13.10 Pneumonia J18.9 Laterality: right Lung location: lower lobe of lung Pneumonia type: due to unspecified organism Hypoxia R09.02 Pulmonary embolism I26.99 Laryngeal cancer C32.9 Metastatic renal cell carcinoma C64.9 Laterality: unspecified laterality (1) Pneumonia Laterality: right Lung location: lower lobe of lung Pneumonia type: due to unspecified organism Qualified Code(s): J18.9 - Pneumonia, unspecified organism (2) Metastatic renal cell carcinoma Laterality: unspecified laterality Qualified Code(s): C64.9 - Malignant neoplasm of unspecified kidney, except renal pelvis
[2021-03-14] MEDS: PIPERACILLIN/TAZOBACTAM 3.375 GM in DEXTROSE 5% 100 ML IV SCH ×3 (06:14→21:07)
[2021-03-14] MEDS: APIXABAN 5 MG TABLET PO SCH ×2 (07:44→21:07)
[2021-03-14 08:10] LABS: Basophils # (auto) 0.01 K/uL (0-0.2); Basophils % (auto) 0.3 %; Eosinophils # (auto) 0.07 K/uL (0-0.5); Eosinophils % (auto) 1.8 %; Hematocrit (blood only) 27.6 % (42-52); Hemoglobin 9.2 g/dL (14.0-18.0); Immature Granulocytes # (auto) 0.03 K/uL (0.00-0.02); Immature Granulocytes % (auto) 0.8 %; Lymphocytes # (auto) 0.54 K/uL (1.2-3.4); Lymphocytes % (auto) 13.8 %; Mean Corpuscular Hemoglobin 31.2 pg (25-34); Mean Corpuscular Hgb Conc 33.3 g/dL (32-36); Mean Corpuscular Volume 93.6 fL (80-100); Mean Platelet Volume 8.9 fL (7.4-10.4); Monocytes # (auto) 0.25 K/uL (0.11-0.59); Monocytes % (auto) 6.4 %; Neutrophils # (auto) 3.01 K/uL (1.4-6.5); Neutrophils % (auto) 76.9 %; Platelet Count 144 K/uL (130-400); RDW Coefficient of Variation 16.2 % (11.5-14.5); RDW Standard Deviation 54.9 fL (36.4-46.3); Red Blood Count 2.95 M/uL (4.7-6.1); White Blood Count 3.91 K/uL (4.8-10.8)
[2021-03-14 08:31] LABS: Est GFR (African American) 110.6 ml/min; Est GFR (Non-African American) 95.4 ml/min; Potassium 3.6 mmol/L (3.5-5.1)
[2021-03-14 08:32] LABS: Albumin Level 1.9 gm/dl (3.4-5.0); BUN Creatinine Ratio 5.4 (10-20); Calcium 8.3 mg/dl (8.5-10.1); Creatinine Clr Calc Pharmacy 82.2 ml/min; Magnesium 2.1 mg/dl (1.8-2.4)
[2021-03-14 08:34] LABS: Albumin Globulin Ratio 0.6 (0.9-2); Bilirubin,Total 0.8 mg/dl (0.2-1); Globulin 3.4 gm/dl (2.5-4.0); Total Protein 5.3 gm/dl (6.4-8.2)
--- NOTE | 2021-03-14 17:07 | Hospitalist Progress Note ---
Date of Service March 14, 2021 Assessment & Plan (1) Pneumonia: Plan: Likely due to aspiration. Per prior note, family reports "drink liquids and food should be pured." MRSA swab negative on 03/12. - Robitussin-DM liquid as needed - Duonebs - Full liquid diet with aspiration precautions - On 03/14, switched Zosyn to Augmentin. - Given desire to continue with treatment; will get [facility] involved for official recs. (2) Metastatic renal cell carcinoma: Plan: Patient presently requesting treatment for his right lower lobe pneumonia. Per CM, he had hospice nurses visit him on 03/10/2021, and at that time had switched his mind and refused hospice. - Palliative and CM following -> Patient and sister both indicated he would like hospice on admission. However, he now wants rehab as he has a new apartment he would like to move into. - PT/OT consulted. (3) Hypoxia: Plan: Acute hypoxic respiratory failure. NC O2. titrate to keep pulse ox > or = to 94%. - Resolved. (4) Hypothyroid: Plan: TSH of 26 in 01/2021. Unclear if he has been taking his levothyroxine or not. Dose instructions from med rec are 100 mcg every day but Tuesday when he takes 15 mcg? - Repeat TSH/FT4 in AM - Will ask patient in AM about his regimen. (5) Antineoplastic chemotherapy induced pancytopenia: Plan: Patient is unclear on whether he is undergoing treatment in [place] or not. - Laboratories in acceptable range. (6) Pulmonary embolism: Plan: CTA chest on 02/23 showed possible small PE. Not his initial diagnosis of PE to my understanding, so I don't think it was acute then. - Continue [facility] Admission and Anticipated Discharge Date Admission Date: March 11, 2021 Subjective Better spirits today. No major issues. No more sore throat. Is having some coughing still. Reports no fevers/chills, chest pain, shortness of breath, abdominal pain, nausea, or vomiting. Physical Exam Constitutional: cooperative and + malnourished; not in distress Eyes: EOM intact bilaterally; no conjunctival abnormality ENMT: external ear and nose normal, oropharynx normal Neck: trachea midline, no thyromegaly normal visual inspection Respiratory: normal respiratory effort, lungs clear to auscultation no respiratory distress Cardiovascular: RRR, no murmur, no edema Chest (Breasts): Chest: + vascular access device or port Gastrointestinal (Abdomen): Inspection/Auscultation: abdomen normal to inspection; abdomen not distended Musculoskeletal: no cyanosis or clubbing, extremities motor strength 5/5 Skin: no rashes, warm and dry Neurologic: moves all extremities and awake Psychiatric: Orientation: alert and oriented to person Results & Data Results & Data ([facility]) Vital Signs (Past 12 Hours) Vital Signs Temp Pulse Resp BP Pulse Ox 03/14/21 08:09 36.8 C 93 H 19 121/84 93 PG Care Time/CCT Total # of Minutes Spent Total Time Spent with Patient: Total time spent is greater than 50% in coordination of care (as documented) at patient's floor/unit and/or counseling patient: Coding Level of Care Code 03997 Subseq Hosp Care Lvl 2 Diagnoses Pneumonia J18.9 Laterality: right Lung location: lower lobe of lung Pneumonia type: due to unspecified organism Metastatic renal cell carcinoma C64.9 Laterality: unspecified laterality Hypoxia R09.02 Antineoplastic chemotherapy induced pancytopenia D61.810; T45.1X5A Pulmonary embolism I26.99 Hypothyroid E03.9 (1) Pneumonia Laterality: right Lung location: lower lobe of lung Pneumonia type: due to unspecified organism Qualified Code(s): J18.9 - Pneumonia, unspecified organism (2) Metastatic renal cell carcinoma Laterality: unspecified laterality Qualified Code(s): C64.9 - Malignant neoplasm of unspecified kidney, except renal pelvis
[2021-03-14] MEDS: MoRPHine SULFATE 2 MG/ML CARP IV PRN (22:43)
[2021-03-15] MEDS: [UNRECOGNIZED DRUG - OTHER] PO PRN ×3 (03:28→16:08)
[2021-03-15] MEDS: DIPHENHYDRAMINE PO PRN ×3 (03:28→16:08)
[2021-03-15] MEDS: ORA SWEET PO PRN ×3 (03:28→16:08)
[2021-03-15] MEDS: DEXAMETHASONE PO PRN ×3 (03:28→16:08)
[2021-03-15] MEDS: MoRPHine SULFATE 2 MG/ML CARP IV PRN ×4 (03:28→20:00)
[2021-03-15] MEDS: PIPERACILLIN/TAZOBACTAM 3.375 GM in DEXTROSE 5% 100 ML IV SCH (06:21)
[2021-03-15 08:05] LABS: Hematocrit (blood only) 28.9 % (42-52); Hemoglobin 9.4 g/dL (14.0-18.0); Mean Corpuscular Hemoglobin 30.6 pg (25-34); Mean Corpuscular Hgb Conc 32.5 g/dL (32-36); Mean Corpuscular Volume 94.1 fL (80-100); Mean Platelet Volume 8.5 fL (7.4-10.4); Platelet Count 131 K/uL (130-400); RDW Coefficient of Variation 16.2 % (11.5-14.5); RDW Standard Deviation 55.4 fL (36.4-46.3); Red Blood Count 3.07 M/uL (4.7-6.1); White Blood Count 3.29 K/uL (4.8-10.8)
[2021-03-15 08:44] LABS: BUN Creatinine Ratio 6.9 (10-20); Calcium 8.2 mg/dl (8.5-10.1); Creatinine Clr Calc Pharmacy 75.3 ml/min; Est GFR (Non-African American) 93.2 ml/min; Potassium 3.6 mmol/L (3.5-5.1)
[2021-03-15 08:48] LABS: Phosphorus 3.1 mg/dl (2.5-4.9)
[2021-03-15] MEDS: APIXABAN 5 MG TABLET PO SCH ×2 (09:09→20:46)
[2021-03-15] MEDS: HEPARIN 100 UNIT/ML 5ML FLUSH FLUSH PRN ×2 (10:36→16:09)
[2021-03-15] MEDS: AMOXICILLIN/CLAVULANATE 875 MG TAB PO SCH ×2 (13:58→20:46)
--- NOTE | 2021-03-15 15:07 | Hospitalist Progress Note ---
Date of Service March 15, 2021 Assessment & Plan (1) Pneumonia: Plan: Pneumonia vs. chronic cough from cancer. Leaning toward this just being from his cancer given he has been on/off abx for weeks per sister. If infectious likely due to aspiration. Per prior note, family reports "drink liquids and food should be pured." MRSA swab negative on 03/12. - Robitussin-DM liquid as needed - Duonebs - Full liquid diet with aspiration precautions - On 03/15, switched Zosyn to Augmentin. - Given desire to continue with treatment; VENDING MACHINE MECHANIC ordered. Plan for instrumental assessment with VENDING MACHINE MECHANIC tomorrow. - Will get sputum cx & procalcitonin to see if this provides any additional insight. (2) Metastatic renal cell carcinoma: Plan: Patient presently requesting treatment for his right lower lobe pneumonia. Per CM, he had hospice nurses visit him on 03/10/2021, and at that time had switched his mind and refused hospice. - Palliative and CM following -> Patient and sister both indicated he would like hospice on admission. However, he now wants rehab as he has a new apartment he would like to move into. - PT/OT consulted. (3) Hypoxia: Plan: Acute hypoxic respiratory failure. NC O2. titrate to keep pulse ox > or = to 94%. - Resolved. (4) Hypothyroid: Plan: TSH of 26 in 01/2021. Unclear if he has been taking his levothyroxine or not. Dose instructions from med rec are 100 mcg every day but Tuesday when he takes 15 mcg? - Repeat TSH/FT4 in AM (5) Antineoplastic chemotherapy induced pancytopenia: Plan: Patient is unclear on whether he is undergoing treatment in [place] or not. - Laboratories in acceptable range. (6) Pulmonary embolism: Plan: CTA chest on 02/23 showed possible small PE. Not his initial diagnosis of PE to my understanding, so I don't think it was acute then. - Continue [facility] Admission and Anticipated Discharge Date Admission Date: March 11, 2021 Subjective Good spirits today. He asked me questions about when he could restart his cancer treatments which I frankly told him I did not know, but did emphasize that his functional status may likely play a role. No other major issues. No more sore throat. Is having some productive coughing still. Reports no fevers/chills, chest pain, shortness of breath, abdominal pain, nausea, or vomiting. Physical Exam Constitutional: cooperative and + malnourished; not in distress Eyes: EOM intact bilaterally; no conjunctival abnormality ENMT: external ear and nose normal, oropharynx normal Neck: trachea midline, no thyromegaly normal visual inspection Respiratory: normal respiratory effort and + cough (Productive); no respiratory distress Cardiovascular: RRR, no murmur, no edema Chest (Breasts): Chest: + vascular access device or port Gastrointestinal (Abdomen): Inspection/Auscultation: abdomen normal to inspection; abdomen not distended Musculoskeletal: no cyanosis or clubbing, extremities motor strength 5/5 Skin: no rashes, warm and dry Neurologic: moves all extremities and awake Psychiatric: Orientation: alert and oriented to person Results & Data Results & Data ([facility]) Vital Signs (Past 12 Hours) Vital Signs Temp Pulse Pulse Resp BP BP Pulse Ox 03/15/21 11:07 36.7 C 64 20 122/83 95 03/15/21 10:44 60 03/15/21 07:41 36.5 C 75 18 138/85 97 03/15/21 03:21 36.8 C 76 18 113/82 92 PG Care Time/CCT Total # of Minutes Spent Total Time Spent with Patient: Total time spent is greater than 50% in coordination of care (as documented) at patient's floor/unit and/or counseling patient: Coding Level of Care Code 57639 Subseq Hosp Care Lvl 2 Diagnoses Pneumonia J18.9 Laterality: right Lung location: lower lobe of lung Pneumonia type: due to unspecified organism Metastatic renal cell carcinoma C64.9 Laterality: unspecified laterality Hypoxia R09.02 Hypothyroid E03.9 Antineoplastic chemotherapy induced pancytopenia D61.810; T45.1X5A Pulmonary embolism I26.99 (1) Pneumonia Laterality: right Lung location: lower lobe of lung Pneumonia type: due to unspecified organism Qualified Code(s): J18.9 - Pneumonia, unspecified organism (2) Metastatic renal cell carcinoma Laterality: unspecified laterality Qualified Code(s): C64.9 - Malignant neoplasm of unspecified kidney, except renal pelvis
[2021-03-16] MEDS: MoRPHine SULFATE 2 MG/ML CARP IV PRN ×3 (01:03→14:04)
[2021-03-16] MEDS: DIPHENHYDRAMINE PO PRN ×3 (01:07→23:59)
[2021-03-16] MEDS: DEXAMETHASONE PO PRN ×3 (01:07→23:59)
[2021-03-16] MEDS: [UNRECOGNIZED DRUG - OTHER] PO PRN ×3 (01:07→23:59)
[2021-03-16] MEDS: ORA SWEET PO PRN ×3 (01:07→23:59)
[2021-03-16 05:56] LABS: Hematocrit (blood only) 30.4 % (42-52); Hemoglobin 9.8 g/dL (14.0-18.0); Mean Corpuscular Hemoglobin 30.6 pg (25-34); Mean Corpuscular Hgb Conc 32.2 g/dL (32-36); Mean Platelet Volume 9.1 fL (7.4-10.4); Platelet Count 148 K/uL (130-400); RDW Coefficient of Variation 16.3 % (11.5-14.5); RDW Standard Deviation 55.8 fL (36.4-46.3); White Blood Count 5.61 K/uL (4.8-10.8)
[2021-03-16 06:28] LABS: BUN Creatinine Ratio 9.6 (10-20); Calcium 8.4 mg/dl (8.5-10.1); Creatinine Clr Calc Pharmacy 76.2 ml/min
[2021-03-16 06:38] LABS: Thyroid Stimulating Hormone 41.9 uIu/ml (0.300-4.500)
[2021-03-16 06:53] LABS: T4 Free Thyroxine 0.9 ng/dl (0.8-1.6)
[2021-03-16] MEDS: APIXABAN 5 MG TABLET PO SCH (08:28)
[2021-03-16] MEDS: AMOXICILLIN/CLAVULANATE 875 MG TAB PO SCH (08:28)
[2021-03-16] MEDS ORDERED: LEVOTHYROXINE SODIUM 100 MCG TABLET PO SCH (09:15)
--- NOTE | 2021-03-16 13:58 | Fluoroscopy Report ---
FL video swallow CLINICAL HISTORY: 60 years-old Male with r/o aspiration; laryngeal CA. Dysphasia with aspiration TECHNIQUE: Video fluoroscopic evaluation of swallowing was performed in the AP and lateral projection s by the speech pathology staff. The patient is fed thin liquid barium. FLUOROSCOPY TIME: 0.6 minutes. COMPARISON STUDY: Chest CT 03/12/2021 FINDINGS: There is decreased hyoid excursion and epiglottic deflection. There is a significant amount of aspiration with thin liquid barium. The study was then terminated. IMPRESSION: 1. Significant aspiration with thin liquid barium. 2. Please see the speech pathologist report for detailed findings and recommendations. ACT 112: Negative or not required by law. Electronically signed by: Basilio Sandoval M.D. 03/16/2021 1:55 PM
[2021-03-16] MEDS: HEPARIN 100 UNIT/ML 5ML FLUSH FLUSH PRN ×2 (14:04→17:28)
--- NOTE | 2021-03-16 14:26 | Gastrointestinal Consultation ---
Date of Consultation March 16, 2021 Assessment & Plan (1) Aspiration into airway: 60 year old male with history of head and neck cancer, metastatic renal cell CA admitted w/ suspected aspiration PNA, failed video swallow Hold anticoagulation in anticipation of PEG placement on .Thank you for allowing us to participate in the care of this patient. Please call with any acute changes, questions or concerns. Please see addendum below with additional recommendation from my supervising physician. Supervising Physician Co-Signing Physician Notes I performed a history and physical examination of the patient today, including specifically on physical exam - soft abdomen. I have discussed the patient's management with the advanced practitioner. Please refer to the nurse practitioner's note for the documented findings and plan of care. Currently on Eliquis. Plan for PEG on if we hold Eliquis today. History of Present Illness Reason for Consultation: PEG Requesting Physician: Nimo Attending Physician: Conchis Suero MD History of Present Illness 60 year old male with history of laryngeal cancer and renal cell carcinoma metastatic to the lung admitted w/ suspected aspiration PNA GI asked to discuss PEG tube with pt due to failed video swallow w/ significant aspiration. Pt was seen and evaluated, chart reviewed. Notes significant issues with coughing after PO intake over the past 1-2 months. He had PEG tube placed about 2/3 years ago, removed about 1 year ago. Tract is healed. No leaking from PEG tract for about 6 or so months. Video swallow 2020: Significant aspiration with thin liquid barium. Allergies Allergy/AdvReac Type Severity Reaction Status Date / Time No Known Allergies Allergy Verified 03/11/21 20:58 Home Medications Medication Instructions Recorded Confirmed Type Magic Mouth 1 dose PO DIRECTED PRN 02/23/21 03/11/21 History apixaban 5 mg tablet (Eliquis) 5 mg PO BID 02/23/21 03/11/21 History cabozantinib 40 mg tablet 40 mg PO .HS @ 2230 02/23/21 03/11/21 History (Cabometyx) colchicine 0.6 mg tablet 0.6 mg PO DIRECTED PRN 02/23/21 03/11/21 History diphenhydramine HCl 25 mg capsule 25 mg PO DIRECTED PRN 02/23/21 03/11/21 History (Benadryl) famotidine 20 mg tablet (Pepcid) 20 mg PO DIRECTED PRN 02/23/21 03/11/21 History famotidine 40 mg tablet 40 mg PO DAILYBB 02/23/21 03/11/21 History levothyroxine 100 mcg tablet See Rx Instructions .ROUTE .COMPLEX 02/23/21 03/11/21 History (Synthroid) propranolol 20 mg tablet 20 mg PO BID 02/23/21 03/11/21 History amoxicillin 875 mg-potassium 1 tab PO BID #8 tab 02/28/21 03/11/21 Rx clavulanate 125 mg tablet (Augmentin) hydrocodone 5 mg-acetaminophen 325 1 - 2 tab PO Q6H PRN #30 tab 02/28/21 03/11/21 Rx mg tablet Patient History Medical History (Updated 03/16/21 @ 14:24 by PAMELA Vitale) Hypothyroid Social History Smoking Status: Former smoker Smoking End Date: 09/09/20 (pt states quit 6 months ago); Hx Alcohol Use: Yes Alcohol type: beer and wine Hx Substance Use: Yes Preferred Language: Bengali Communication Ability: Impaired Fruit Distributor Required: No Beliefs That Will Affect Care: None marital status: Single Current Living Situation: Alone Current Living Situation Comment: Home alone in [place], sister in [place] How many Children do You have: 0 Feels Safe at Home: Yes Assistive Devices: Oxygen - Continuous Assistive Devices Comment: 2L O2 HS Review of Systems Review of Systems: All systems reviewed & are unremarkable except as noted in HPI & below Physical Exam Constitutional: WD/WN, vitals as above Eyes: PERRL, conjunctivae normal, anicteric sclerae Neck: trachea midline Respiratory: normal respiratory effort; no respiratory distress and no labored breathing Cardiovascular: Rate/Rhythm: regular rate and regular rhythm Gastrointestinal (Abdomen): normal bowel sounds, soft, nontender, no hepatosplenomegaly + healed PEG tract Skin: no rashes, warm and dry Results & Data ([facility]) Vital Signs (Past 12 Hours) Vital Signs Temp Pulse Pulse Resp BP Pulse Ox 03/16/21 11:20 36.7 C 78 18 117/81 97 03/16/21 08:16 36.6 C 70 18 100/71 96 03/16/21 08:00 66 03/16/21 03:06 78 03/16/21 02:59 36.8 C 79 18 116/80 95 Laboratory Results 03/16/21 03/16/21 03/16/21 Range/Units 05:26 05:26 05:26 WBC 5.61 (4.8-10.8) K/uL RBC 3.20 L (4.7-6.1) M/uL Hgb 9.8 L (14.0-18.0) g/dL Hct 30.4 L (42-52) % MCV 95.0 (80-100) fL MCH 30.6 (25-34) pg MCHC 32.2 (32-36) g/dL RDW Std Deviation 55.8 H (36.4-46.3) fL RDW Coeff of Delphine 16.3 H (11.5-14.5) % Plt Count 148 (130-400) K/uL MPV 9.1 (7.4-10.4) fL Sodium 131 L (136-145) mmol/L Potassium 4.0 (3.5-5.1) mmol/L Chloride 100 (98-107) mmol/L Carbon Dioxide 24 (21-32) mmol/L Anion Gap 7.0 (3-11) BUN 8 (7-18) mg/dl Creatinine 0.85 (0.6-1.4) mg/dl Est Cr Clr Drug Dosing 76.2 ml/min Est GFR ( Amer) 109.0 ml/min Est GFR (Non-Af Amer) 94.0 ml/min BUN/Creatinine Ratio 9.6 L (10-20) Glucose 88 (70-99) mg/dl Calcium 8.4 L (8.5-10.1) mg/dl Procalcitonin 0.17 (0-0.5) ng/ml TSH 41.900 H (0.300-4.500) uIu/ml Free T4 0.90 (0.8-1.6) ng/dl
--- NOTE | 2021-03-16 14:32 | XRay Report ---
XR chest 1V portable HISTORY: 60 years-old Male aspiration acute shortness of breath with aspiration COMPARISON: Chest CT 03/12/2021, as well as study 03/16/2021, chest radiograph 03/11/2021 TECHNIQUE: Portable AP view the chest FINDINGS: Cardiac mediastinal and hilar silhouettes are unchanged. Right IJ central venous catheter distal tip overlies the superior aspect of the right atrium. Mild right hemidiaphragmatic elevation. Emphysema. Ill-defined nodular densities of the right upper lung redemonstrated. Small right pleural effusion wi th persistent right lung base consolidation, which appears generally stable. Degenerative changes of the shoulders and spine. IMPRESSION: 1. Small right pleural effusion with persistent right lung base consolidation compatible with pneumon ia versus aspiration pneumonitis. 2. Ill-defined bilateral nodular densities are better characterized on the comparison chest CT. ACT 112: Negative or not required by law. The above report was generated using voice recognition software. It may contain grammatical, syntax o r spelling errors. Electronically signed by: Basilio Sandoval M.D. 03/16/2021 2:30 PM
--- NOTE | 2021-03-16 17:16 | Hospitalist Progress Note ---
Date of Service March 16, 2021 Assessment & Plan (1) Pneumonia: Plan: Secondary to aspiration pneumonia CT chest with progressive right greater than left bibasilar consolidative opacities also with trace left and small right pleural effusions CT chest also with numerous bilateral pulmonary nodules redemonstrated, several which are cavitary and suggestive of pulmonary metastases. Also with 2.6 cm thick-walled cavitary nodule the right lower lobe which has decreased in size from 02/23/2021 suggestive of resolving superimposed infection versus pulmonary infarct Appreciate speech therapy consultation-had video swallow study on 03/16 which showed severe aspiration with all consistencies-patient was presented with options for moving forward and he would like to have a PEG tube placed. He understands that this will not necessarily prevent all aspiration but is hopeful that it will provide him with nutrition as he has had significant weight loss and has very poor nutritional status. Wean off oxygen to keep pulse ox greater than 90% -Continue Duonebs as needed -Made n.p.o. -Now that he is n.p.o., discontinue all p.o. meds and transition IV when necessary-DC Augmentin and convert to IV Unasyn to complete 7-day course of aspiration pneumonia -Given multiple pulmonary nodules that could be metastases versus infection recommend repeat imaging and follow-up with pulmonology as an outpatient-he is already established with pulmonology in [place] (2) Back pain: Plan: With some tenderness to palpation-question if this is from recent falls with pain from rib fractures versus muscle spasm? Doubtful that this is from his pulmonary nodules -Add lidocaine patch -Increase morphine to 4 mg IV every 2 hours as needed -Appreciate palliative care consultation (3) Aspiration into respiratory tract: Plan: As above Plan for PEG tube placement on after holding Eliquis Appreciate GI consultation -We will then need dietary consultation for tube feed recommendations -Start maintenance fluids of D5 LR at 80 mL's per hour until has adequate tube feeds (4) Metastatic renal cell carcinoma: Plan: Patient presently requesting treatment for his right lower lobe pneumonia. Per CM, he had hospice nurses visit him on 03/10/2021, and at that time had switched his mind and refused hospice. - Palliative and CM following -> Patient and sister both indicated he would like hospice on admission. However, he now wants rehab as he has a new apartment he would like to move into. - PT/OT consulted. -Follow-up with oncology in the near future as scheduled -Reports that he has been receiving oral chemotherapy With possible metastases to the lungs (5) Hyponatremia: Plan: Sodium lower today at 131 Could be secondary to pulmonary process with pneumonia and pulmonary nodules/SIADH Could also be some component of dehydration is really not had much p.o. intake -Start D5 LR at 80 mL's per hour Follow BMP in the morning (6) Severe protein-calorie malnutrition: Plan: BMI low at 18.1, albumin severely low at 1.6 Has had weight loss over the last several months due to cancer treatments With significant aspiration and no longer can take p.o. Plan for PEG tube (7) Pulmonary nodules: Plan: As above Follow-up with pulmonary and with repeat imaging as an outpatient (8) Hypoxia: Plan: Acute hypoxic respiratory failure. NC O2. titrate to keep pulse ox > or = to 94%. - Resolved. (9) Hypothyroid: Plan: TSH of 26 in 01/2021. Unclear if he has been taking his levothyroxine or not. Dose instructions from med [employer] are 100 mcg every day but Tuesday when he takes 15 mcg? - Repeat TSH here now even worse with TSH being 41 -Continue levothyroxine 50 mcg IV once daily until PEG tube placed and then restart levothyroxine at 100 mcg-suspect there is some component of either noncompliance or poor absorption Repeat TSH in 4 weeks (10) Antineoplastic chemotherapy induced pancytopenia: Plan: With WBC count and platelets borderline low and with anemia as below Unclear what baseline is or what chemotherapy agents he is receiving to see if this could be causing this Follow CBC Follow-up with oncology (11) Pulmonary embolism: Plan: CTA chest on 02/23 showed possible small PE. He reports his first VTE was 4 years ago after having his nephrectomy He has been on Eliquis for 4 years Hold Eliquis for PEG tube placement and restart when okay with GI (12) Anemia: Plan: Hemoglobin low at 9.8, MCV normal at 95 Likely anemia of chronic disease and possibly from chemotherapy Follow CBC Plan: Disposition-continued stay for PEG tube placement Admission and Anticipated Discharge Date Admission Date: March 11, 2021 Subjective Patient reports that he is trying to work on coughing things out but not really able to yet. He had sathish aspiration that was significant and severe during his video swallow study today as per my discussion with speech therapy. He would like to pursue PEG tube placement. I discussed his care with the patient and his [id number] at the bedside. He does tend to be confused at times, initially telling me that he has had his first blood clot in 1997 but his nvliffz-[id number] corrected him and said it was 2007. He has been on Eliquis for the last 4 years which his aioipuh-[id number] did confirm. When I asked him about his thyroid medication, the patient started telling me that everything checked out with his gallbladder and its fine. His [id number] clarified that initially, the patient's mid back pain was thought to possibly be due to gallbladder issue. It is still not clear if the patient is taking his levothyroxine separate from other medications. He was unable to answer this. The patient's biggest complaint is continued mid back pain which is off to the left of his spine not relieved with 2 mg of IV morphine. Telemetry with normal sinus rhythm with rates in the 60s 80s and PVCs Review of Systems Review of Systems: All systems reviewed & are unremarkable except as noted in HPI & below Physical Exam Constitutional: + thin, + cachectic, + frail appearing and cooperative; no acute distress and not lethargic Eyes: + anicteric sclerae ENMT: external ear and nose normal, oropharynx normal Neck: trachea midline, no thyromegaly Respiratory: normal respiratory effort and + cough Auscultation: + crackles (At right base) and + rhonchi (Right middle and lower lung solorzano); no wheezes Cardiovascular: RRR, no murmur, no edema Chest (Breasts): Chest: normal inspection of chest Gastrointestinal (Abdomen): normal bowel sounds, soft, nontender, no hepatosplenomegaly Musculoskeletal: Extremities: extremities normal to inspection; no cyanosis and no clubbing Positive tenderness to palpation of the thoracic ribs posteriorly on the left side in the thoracic paraspinous muscles on the left, no masses or crepitus Skin: no rashes, warm and dry Neurologic: moves all extremities and awake; no focal motor deficits Psychiatric: Orientation: alert, oriented x 3 and cooperative Lymphatic: no lymphedema Results & Data Results & Data ([facility]) Vital Signs (Past 12 Hours) Vital Signs Temp Pulse Pulse Resp BP Pulse Ox 03/16/21 16:00 36.4 C L 87 18 116/84 92 03/16/21 11:20 36.7 C 78 18 117/81 97 03/16/21 08:16 36.6 C 70 18 100/71 96 03/16/21 08:00 66 Laboratory Results 03/16/21 03/16/21 03/16/21 Range/Units 05:26 05:26 05:26 WBC 5.61 (4.8-10.8) K/uL RBC 3.20 L (4.7-6.1) M/uL Hgb 9.8 L (14.0-18.0) g/dL Hct 30.4 L (42-52) % MCV 95.0 (80-100) fL MCH 30.6 (25-34) pg MCHC 32.2 (32-36) g/dL RDW Std Deviation 55.8 H (36.4-46.3) fL RDW Coeff of Delphine 16.3 H (11.5-14.5) % Plt Count 148 (130-400) K/uL MPV 9.1 (7.4-10.4) fL Sodium 131 L (136-145) mmol/L Potassium 4.0 (3.5-5.1) mmol/L Chloride 100 (98-107) mmol/L Carbon Dioxide 24 (21-32) mmol/L Anion Gap 7.0 (3-11) BUN 8 (7-18) mg/dl Creatinine 0.85 (0.6-1.4) mg/dl Est Cr Clr Drug Dosing 76.2 ml/min Est GFR ( Amer) 109.0 ml/min Est GFR (Non-Af Amer) 94.0 ml/min BUN/Creatinine Ratio 9.6 L (10-20) Glucose 88 (70-99) mg/dl Calcium 8.4 L (8.5-10.1) mg/dl Procalcitonin 0.17 (0-0.5) ng/ml TSH 41.900 H (0.300-4.500) uIu/ml Free T4 0.90 (0.8-1.6) ng/dl PG Care Time/CCT Total # of Minutes Spent Total Time Spent with Patient: Total time spent is greater than 50% in coordination of care (as documented) at patient's floor/unit and/or counseling patient: Coding Level of Care Code 38962 Subseq Hosp Care Lvl 3 Diagnoses Pneumonia J18.9 Laterality: right Lung location: lower lobe of lung Pneumonia type: due to unspecified organism Metastatic renal cell carcinoma C64.9 Laterality: unspecified laterality Hypoxia R09.02 Hypothyroid E03.9 Antineoplastic chemotherapy induced pancytopenia D61.810; T45.1X5A Pulmonary embolism I26.99 Aspiration into respiratory tract T17.908A Anemia D64.9 Severe protein-calorie malnutrition E43 Hyponatremia E87.1 Pulmonary nodules R91.8 Back pain M54.9 (1) Metastatic renal cell carcinoma Laterality: unspecified laterality Qualified Code(s): C64.9 - Malignant neoplasm of unspecified kidney, except renal pelvis (2) Pneumonia Laterality: right Lung location: lower lobe of lung Pneumonia type: due to unspecified organism Qualified Code(s): J18.9 - Pneumonia, unspecified organism
[2021-03-16] MEDS: MoRPHine SULFATE 4 MG/ML 1 ML CARP\\VIAL IV PRN (17:28)
[2021-03-16] MEDS: LIDOCAINE 5% 1 PATCH TD SCH (18:15)
[2021-03-16] MEDS: AMPICILLIN/SULBACTAM SOD 1,500 MG in 0.9 % SODIUM CHLORIDE 100 ML IV SCH ×2 (18:43→23:59)
[2021-03-16] MEDS ORDERED: ENOXAPARIN INJ 60 MG/0.6 ML SYR SQ SCH (21:00)
[2021-03-17] MEDS: D5W AND LACTATED RINGERS 1,000 ML IV SCH ×2 (00:09→14:11)
[2021-03-17] MEDS: MoRPHine SULFATE 4 MG/ML 1 ML CARP\\VIAL IV PRN ×2 (03:04→08:52)
[2021-03-17] MEDS: AMPICILLIN/SULBACTAM SOD 1,500 MG in 0.9 % SODIUM CHLORIDE 100 ML IV SCH ×3 (05:57→17:49)
[2021-03-17 08:11] LABS: Basophils # (auto) 0.01 K/uL (0-0.2); Basophils % (auto) 0.3 %; Eosinophils # (auto) 0.04 K/uL (0-0.5); Eosinophils % (auto) 1.1 %; Hematocrit (blood only) 27.5 % (42-52); Hemoglobin 9.2 g/dL (14.0-18.0); Immature Granulocytes # (auto) 0.01 K/uL (0.00-0.02); Immature Granulocytes % (auto) 0.3 %; Lymphocytes # (auto) 0.45 K/uL (1.2-3.4); Lymphocytes % (auto) 12.7 %; Mean Corpuscular Hemoglobin 31.4 pg (25-34); Mean Corpuscular Hgb Conc 33.5 g/dL (32-36); Mean Corpuscular Volume 93.9 fL (80-100); Mean Platelet Volume 8.7 fL (7.4-10.4); Monocytes # (auto) 0.33 K/uL (0.11-0.59); Monocytes % (auto) 9.3 %; Neutrophils # (auto) 2.71 K/uL (1.4-6.5); Neutrophils % (auto) 76.3 %; Platelet Count 131 K/uL (130-400); RDW Coefficient of Variation 16.7 % (11.5-14.5); Red Blood Count 2.93 M/uL (4.7-6.1); White Blood Count 3.55 K/uL (4.8-10.8)
[2021-03-17 08:42] LABS: BUN Creatinine Ratio 13.8 (10-20); Calcium 8.6 mg/dl (8.5-10.1); Creatinine Clr Calc Pharmacy 92.8 ml/min; Est GFR (African American) 119.5 ml/min; Est GFR (Non-African American) 103.1 ml/min; Magnesium 1.9 mg/dl (1.8-2.4); Phosphorus 2.7 mg/dl (2.5-4.9); Potassium 3.7 mmol/L (3.5-5.1)
[2021-03-17] MEDS: LIDOCAINE 5% 1 PATCH TD SCH (08:52)
[2021-03-17] MEDS: LEVOTHYROXINE SODIUM 50 MCG in SYRINGE 0 ML IV SCH (08:52)
--- NOTE | 2021-03-17 15:13 | Hospitalist Progress Note ---
Date of Service March 17, 2021 Assessment & Plan (1) Pneumonia: Plan: Secondary to aspiration pneumonia CT chest with progressive right greater than left bibasilar consolidative opacities also with trace left and small right pleural effusions CT chest also with numerous bilateral pulmonary nodules re-demonstrated, several which are cavitary and suggestive of pulmonary metastases. Also with 2.6 cm thick-walled cavitary nodule the right lower lobe which has decreased in size from 02/23/2021 suggestive of resolving superimposed infection versus pulmonary infarct Appreciate speech therapy consultation-had video swallow study on 03/16 which showed severe aspiration with all consistencies-patient was presented with options for moving forward and he would like to have a PEG tube placed. He understands that this will not necessarily prevent all aspiration but is hopeful that it will provide him with nutrition as he has had significant weight loss and has very poor nutritional status. Wean off oxygen to keep pulse ox greater than 90% -Continue Duonebs as needed -Made n.p.o. -Now that he is n.p.o., discontinued all p.o. meds and transitioned to IV -continue IV Unasyn to complete 7-day course of aspiration pneumonia -Given multiple pulmonary nodules that could be metastases versus infection recommend repeat imaging and follow-up with pulmonology as an outpatient-he is already established with pulmonology in [place] (2) Back pain: Plan: With some tenderness to palpation-question if this is from recent falls with pain from rib fractures versus muscle spasm? Doubtful that this is from his pulmonary nodules Improved somewhat with increased dose of morphine -continue lidocaine patch -continue morphine 4 mg IV every 2 hours as needed -can convert to enteral pain meds once PEG placed -Appreciate palliative care consultation (3) Aspiration into respiratory tract: Plan: As above Plan for PEG tube placement on after holding Eliquis Appreciate GI consultation - dietary consultation for tube feed recommendations appreciated -cont maintenance fluids of D5 LR at 80 mL's per hour until has adequate tube feeds (4) Metastatic renal cell carcinoma: Plan: Initially was considering hospice per CM, he had hospice nurses visit him on 03/10/2021, and at that time had switched his mind and refused hospice. - Palliative and CM following -> Patient and sister both indicated he would like hospice on admission. However, he now wants rehab as he has a new apartment he would like to move into. - PT/OT consulted. -Follow-up with oncology in the near future as scheduled -Reports that he has been receiving oral chemotherapy With possible metastases to the lungs (5) Hyponatremia: Plan: Sodium improved today at 134 after starting IVF hydration Could be secondary to pulmonary process with pneumonia and pulmonary nodules/SIADH Could also be some component of dehydration is really not had much p.o. intake- has improved with IVFs -continue D5 LR at 80 mL's per hour Follow BMP in the morning (6) Severe protein-calorie malnutrition: Plan: BMI low at 18.1, albumin severely low at 1.6 Has had weight loss over the last several months due to cancer treatments With significant aspiration and no longer can take p.o. Plan for PEG tube lytes are replete at this time, follow CMP, Mag, Phos (7) Pulmonary nodules: Plan: As above Follow-up with pulmonary and with repeat imaging as an outpatient (8) Hypoxia: Plan: Acute hypoxic respiratory failure. NC O2. titrate to keep pulse ox > or = to 94%. continues intermittently (9) Hypothyroid: Plan: TSH of 26 in 01/2021. Unclear if he has been taking his levothyroxine or not. Dose instructions from med rec are 100 mcg every day but Tuesday when he takes 15 mcg? - Repeat TSH here now even worse with TSH being 41 -Continue levothyroxine 50 mcg IV once daily until PEG tube placed and then restart levothyroxine at 100 mcg-suspect there is some component of either noncompliance or poor absorption Repeat TSH in 4 weeks (10) Antineoplastic chemotherapy induced pancytopenia: Plan: With WBC count and platelets borderline low and with anemia as below Unclear what baseline is or what chemotherapy agents he is receiving to see if this could be causing this Follow CBC Follow-up with oncology (11) Pulmonary embolism: Plan: CTA chest on 02/23 showed possible small PE. He reports his first VTE was 4 years ago after having his nephrectomy He has been on Eliquis for 4 years Hold Eliquis for PEG tube placement and restart when okay with GI (12) Anemia: Plan: Hemoglobin low at 9.2, MCV normal at 95 Likely anemia of chronic disease and possibly from chemotherapy Follow CBC Plan: Disposition-continued stay for PEG tube placement Admission and Anticipated Discharge Date Admission Date: March 11, 2021 Subjective Pt feels well, has been ambulating in the halls at times. Jokes that he is ready to get his PEG tube and "start my false diet." Pain in back is a little better, says the morphine helps more than the lidocaine patch. Also had some pain in right ribs as well. Tele with NSR, normal rates Review of Systems Review of Systems: All systems reviewed & are unremarkable except as noted in HPI & below Physical Exam Constitutional: + thin, + cachectic, + frail appearing and cooperative; no acute distress and not lethargic Eyes: + anicteric sclerae Neck: trachea midline, no thyromegaly Respiratory: normal respiratory effort and + cough Auscultation: + crackles (At right base) and + rhonchi (Right middle and lower lung solorzano); no wheezes Cardiovascular: RRR, no murmur, no edema Chest (Breasts): Chest: normal inspection of chest Gastrointestinal (Abdomen): normal bowel sounds, soft, nontender, no hepatosplenomegaly Musculoskeletal: Extremities: extremities normal to inspection; no cyanosis and no clubbing Skin: no rashes, warm and dry Neurologic: moves all extremities and awake; no focal motor deficits Psychiatric: Orientation: alert, oriented x 3 and cooperative Lymphatic: no lymphedema Results & Data Results & Data ([facility]) Vital Signs (Past 12 Hours) Vital Signs Temp Pulse Resp BP BP Pulse Ox 03/17/21 09:31 36.7 C 82 12 108/74 98 03/17/21 07:28 36.8 C 76 11 L 100/71 97 03/17/21 04:18 36.7 C 84 16 104/73 93 Laboratory Results 03/17/21 03/17/21 Range/Units 07:36 07:36 WBC 3.55 L (4.8-10.8) K/uL RBC 2.93 L (4.7-6.1) M/uL Hgb 9.2 L (14.0-18.0) g/dL Hct 27.5 L (42-52) % MCV 93.9 (80-100) fL MCH 31.4 (25-34) pg MCHC 33.5 (32-36) g/dL RDW Std Deviation 57.0 H (36.4-46.3) fL RDW Coeff of Delphine 16.7 H (11.5-14.5) % Plt Count 131 (130-400) K/uL MPV 8.7 (7.4-10.4) fL Immature Gran % (Auto) 0.3 % Neut % (Auto) 76.3 % Lymph % (Auto) 12.7 % Teller % (Auto) 9.3 % Eos % (Auto) 1.1 % Baso % (Auto) 0.3 % Neut # (Auto) 2.71 (1.4-6.5) K/uL Lymph # (Auto) 0.45 L (1.2-3.4) K/uL Teller # (Auto) 0.33 (0.11-0.59) K/uL Eos # (Auto) 0.04 (0-0.5) K/uL Baso # (Auto) 0.01 (0-0.2) K/uL Immature Gran # (Auto) 0.01 (0.00-0.02) K/uL Sodium 134 L (136-145) mmol/L Potassium 3.7 (3.5-5.1) mmol/L Chloride 102 (98-107) mmol/L Carbon Dioxide 23 (21-32) mmol/L Anion Gap 9.0 (3-11) BUN 9 (7-18) mg/dl Creatinine 0.68 (0.6-1.4) mg/dl Est Cr Clr Drug Dosing 92.8 ml/min Est GFR ( Amer) 119.5 ml/min Est GFR (Non-Af Amer) 103.1 ml/min BUN/Creatinine Ratio 13.8 (10-20) Glucose 102 H (70-99) mg/dl Calcium 8.6 (8.5-10.1) mg/dl Phosphorus 2.7 (2.5-4.9) mg/dl Magnesium 1.9 (1.8-2.4) mg/dl PG Care Time/CCT Total # of Minutes Spent Total Time Spent with Patient: Total time spent is greater than 50% in coordination of care (as documented) at patient's floor/unit and/or counseling patient: Coding Level of Care Code 55181 Subseq Hosp Care Lvl 2 Diagnoses Pneumonia J18.9 Laterality: right Lung location: lower lobe of lung Pneumonia type: due to unspecified organism Back pain M54.9 Aspiration into respiratory tract T17.908A Metastatic renal cell carcinoma C64.9 Laterality: unspecified laterality Hyponatremia E87.1 Severe protein-calorie malnutrition E43 Pulmonary nodules R91.8 Hypoxia R09.02 Hypothyroid E03.9 Antineoplastic chemotherapy induced pancytopenia D61.810; T45.1X5A Pulmonary embolism I26.99 Anemia D64.9 (1) Pneumonia Laterality: right Lung location: lower lobe of lung Pneumonia type: due to unspecified organism Qualified Code(s): J18.9 - Pneumonia, unspecified organism (2) Metastatic renal cell carcinoma Laterality: unspecified laterality Qualified Code(s): C64.9 - Malignant neoplasm of unspecified kidney, except renal pelvis
[2021-03-17] MEDS: DIPHENHYDRAMINE PO PRN (16:05)
[2021-03-17] MEDS: ORA SWEET PO PRN (16:05)
[2021-03-17] MEDS: DEXAMETHASONE PO PRN (16:05)
[2021-03-17] MEDS: [UNRECOGNIZED DRUG - OTHER] PO PRN (16:05)
[2021-03-18] MEDS: D5W AND LACTATED RINGERS 1,000 ML IV SCH ×2 (00:02→14:38)
[2021-03-18] MEDS: AMPICILLIN/SULBACTAM SOD 1,500 MG in 0.9 % SODIUM CHLORIDE 100 ML IV SCH ×5 (05:59→23:45)
[2021-03-18] MEDS: MoRPHine SULFATE 4 MG/ML 1 ML CARP\\VIAL IV PRN ×4 (06:16→23:45)
[2021-03-18] MEDS: LIDOCAINE 5% 1 PATCH TD SCH (07:18)
[2021-03-18] MEDS: LEVOTHYROXINE SODIUM 50 MCG in SYRINGE 0 ML IV SCH (08:30)
--- NOTE | 2021-03-18 09:44 | Communication Note ---
Date of Service: March 18, 2021 Pt was seen and evaluated, no change clinically. AC held in anticipation of PEG tomorrow. Please arrange 1 gram IV ancef to be given one hour before PEG. NPO aftern midnight.
[2021-03-18] MEDS: DEXAMETHASONE PO PRN ×3 (10:04→23:45)
[2021-03-18] MEDS: ORA SWEET PO PRN ×3 (10:04→23:45)
[2021-03-18] MEDS: [UNRECOGNIZED DRUG - OTHER] PO PRN ×3 (10:04→23:45)
[2021-03-18] MEDS: DIPHENHYDRAMINE PO PRN ×3 (10:04→23:45)
--- NOTE | 2021-03-18 11:59 | Hospitalist Progress Note ---
Date of Service March 18, 2021 Assessment & Plan (1) Pneumonia: Plan: Secondary to aspiration pneumonia CT chest with progressive right greater than left bibasilar consolidative opacities also with trace left and small right pleural effusions CT chest also with numerous bilateral pulmonary nodules re-demonstrated, several which are cavitary and suggestive of pulmonary metastases. Also with 2.6 cm thick-walled cavitary nodule the right lower lobe which has decreased in size from 02/23/2021 suggestive of resolving superimposed infection versus pulmonary infarct Appreciate speech therapy consultation-had video swallow study on 03/16 which showed severe aspiration with all consistencies-patient was presented with options for moving forward and he would like to have a PEG tube placed. He understands that this will not necessarily prevent all aspiration but is hopeful that it will provide him with nutrition as he has had significant weight loss and has very poor nutritional status. Wean off oxygen to keep pulse ox greater than 90% -Continue Duonebs as needed -Made n.p.o. -Now that he is n.p.o., discontinued all p.o. meds and transitioned to IV -continue IV Unasyn to complete 7-day course of aspiration pneumonia-today last day -Given multiple pulmonary nodules that could be metastases versus infection recommend repeat imaging and follow-up with pulmonology as an outpatient-he is already established with pulmonology in [place] -plan for PEG tube (2) Back pain: Plan: With some tenderness to palpation-question if this is from recent falls with pain from rib fractures versus muscle spasm? Doubtful that this is from his pulmonary nodules Improved with increased dose of morphine -continue lidocaine patch -continue morphine 4 mg IV every 2 hours as needed -can convert to enteral pain meds once PEG placed-plan for liquid morphine per PEG -Appreciate palliative care consultation (3) Aspiration into respiratory tract: Plan: As above Plan for PEG tube placement on after holding Eliquis Appreciate GI consultation - dietary consultation for tube feed recommendations appreciated-plan to start Fibersource HN 120mL 6x/day x 1 day then increase to 180mL 6x/day x 1 day then 250mL 6x/day bolus feeds with 60mL H2O flushes before and after -cont maintenance fluids of D5 LR at 80 mL's per hour until has adequate tube feeds -child welfare caseworker setting up home tube feeds (4) Metastatic renal cell carcinoma: Plan: Initially was considering hospice per CM, he had hospice nurses visit him on 03/10/2021, and at that time had switched his mind and refused hospice. - Palliative and CM following -> Patient and sister both indicated he would like hospice on admission. However, he now wants rehab as he has a new apartment he would like to move into. - PT/OT consulted. -Follow-up with oncology in the near future as scheduled -Reports that he has been receiving oral chemotherapy With possible metastases to the lungs (5) Hyponatremia: Plan: Sodium improved to 134 after starting IVF hydration Could be secondary to pulmonary process with pneumonia and pulmonary nodules/SIADH Could also be some component of dehydration is really not had much p.o. intake- has improved with IVFs -continue D5 LR at 80 mL's per hour Follow BMP in the morning (6) Severe protein-calorie malnutrition: Plan: BMI low at 18.1, albumin severely low at 1.6 Has had weight loss over the last several months due to cancer treatments With significant aspiration and no longer can take p.o. Plan for PEG tube lytes are replete at this time, follow CMP, Mag, Phos (7) Pulmonary nodules: Plan: As above Follow-up with pulmonary and with repeat imaging as an outpatient (8) Hypoxia: Plan: Acute hypoxic respiratory failure. NC O2. titrate to keep pulse ox > or = to 94%. continues intermittently (9) Hypothyroid: Plan: TSH of 26 in 01/2021. Unclear if he has been taking his levothyroxine or not. Dose instructions from med rec are 100 mcg every day but Tuesday when he takes 15 mcg? - Repeat TSH here now even worse with TSH being 41 -Continue levothyroxine 50 mcg IV once daily until PEG tube placed and then restart levothyroxine at 100 mcg-suspect there is some component of either noncompliance or poor absorption Repeat TSH in 4 weeks (10) Antineoplastic chemotherapy induced pancytopenia: Plan: With WBC count and platelets borderline low and with anemia as below Unclear what baseline is or what chemotherapy agents he is receiving to see if this could be causing this Follow CBC Follow-up with oncology (11) Pulmonary embolism: Plan: CTA chest on 02/23 showed possible small PE. He reports his first VTE was 4 years ago after having his nephrectomy He has been on Eliquis for 4 years Hold Eliquis for PEG tube placement and restart when okay with GI (12) Anemia: Plan: Hemoglobin low at 9.2, MCV normal at 95 Likely anemia of chronic disease and possibly from chemotherapy Follow CBC Plan: Disposition-continued stay for PEG tube placement and then likely dc to home the day after that Admission and Anticipated Discharge Date Admission Date: March 11, 2021 Subjective Pt has no complaints, back pain is better controlled. Awaiting PEG tube tomorrow Review of Systems Review of Systems: All systems reviewed & are unremarkable except as noted in HPI & below Physical Exam Constitutional: + thin, + cachectic, + frail appearing and cooperative; no acute distress Eyes: + anicteric sclerae Neck: trachea midline, no thyromegaly Respiratory: normal respiratory effort and + cough Auscultation: + crackles (At right base) and + rhonchi (Right middle and lower lung solorzano); no wheezes Cardiovascular: RRR, no murmur, no edema Chest (Breasts): Chest: normal inspection of chest Gastrointestinal (Abdomen): normal bowel sounds, soft, nontender, no hepatosplenomegaly Musculoskeletal: Extremities: extremities normal to inspection; no cyanosis and no clubbing Skin: no rashes, warm and dry Neurologic: moves all extremities and awake; no focal motor deficits Psychiatric: Orientation: alert, oriented x 3 and cooperative Lymphatic: no lymphedema Results & Data Results & Data ([facility]) Vital Signs (Past 12 Hours) Vital Signs Temp Pulse Resp BP Pulse Ox 03/18/21 11:00 36.8 C 73 18 106/72 99 03/18/21 07:56 36.7 C 74 18 114/74 94 PG Care Time/CCT Total # of Minutes Spent Total Time Spent with Patient: Total time spent is greater than 50% in coordination of care (as documented) at patient's floor/unit and/or counseling patient: Coding Level of Care Code 50639 Subseq Hosp Care Lvl 2 Diagnoses Pneumonia J18.9 Laterality: right Lung location: lower lobe of lung Pneumonia type: due to unspecified organism Back pain M54.9 Aspiration into respiratory tract T17.908A Metastatic renal cell carcinoma C64.9 Laterality: unspecified laterality Hyponatremia E87.1 Severe protein-calorie malnutrition E43 Pulmonary nodules R91.8 Hypoxia R09.02 Hypothyroid E03.9 Antineoplastic chemotherapy induced pancytopenia D61.810; T45.1X5A Pulmonary embolism I26.99 Anemia D64.9 (1) Pneumonia Laterality: right Lung location: lower lobe of lung Pneumonia type: due to unspecified organism Qualified Code(s): J18.9 - Pneumonia, unspecified organism (2) Metastatic renal cell carcinoma Laterality: unspecified laterality Qualified Code(s): C64.9 - Malignant neoplasm of unspecified kidney, except renal pelvis
[2021-03-19] MEDS: D5W AND LACTATED RINGERS 1,000 ML IV SCH ×2 (03:27→17:20)
[2021-03-19] MEDS: AMPICILLIN/SULBACTAM SOD 1,500 MG in 0.9 % SODIUM CHLORIDE 100 ML IV SCH ×2 (06:00→12:37)
[2021-03-19 06:06] LABS: Basophils # (auto) 0.01 K/uL (0-0.2); Basophils % (auto) 0.3 %; Eosinophils # (auto) 0.03 K/uL (0-0.5); Eosinophils % (auto) 0.9 %; Hematocrit (blood only) 26.3 % (42-52); Hemoglobin 8.4 g/dL (14.0-18.0); Immature Granulocytes # (auto) 0.01 K/uL (0.00-0.02); Immature Granulocytes % (auto) 0.3 %; Lymphocytes # (auto) 0.45 K/uL (1.2-3.4); Mean Corpuscular Hemoglobin 30.7 pg (25-34); Mean Corpuscular Hgb Conc 31.9 g/dL (32-36); Monocytes # (auto) 0.25 K/uL (0.11-0.59); Monocytes % (auto) 7.8 %; Neutrophils # (auto) 2.46 K/uL (1.4-6.5); Neutrophils % (auto) 76.7 %; Platelet Count 138 K/uL (130-400); RDW Coefficient of Variation 16.4 % (11.5-14.5); RDW Standard Deviation 57.1 fL (36.4-46.3); Red Blood Count 2.74 M/uL (4.7-6.1); White Blood Count 3.21 K/uL (4.8-10.8)
[2021-03-19 06:45] LABS: Albumin Globulin Ratio 0.5 (0.9-2); Albumin Level 1.7 gm/dl (3.4-5.0); BUN Creatinine Ratio 4.3 (10-20); Bilirubin,Total 0.4 mg/dl (0.2-1); Calcium 8.1 mg/dl (8.5-10.1); Creatinine Clr Calc Pharmacy 108.8 ml/min; Est GFR (African American) 127.5 ml/min; Globulin 3.3 gm/dl (2.5-4.0); Magnesium 1.7 mg/dl (1.8-2.4); Phosphorus 2.5 mg/dl (2.5-4.9); Potassium 3.6 mmol/L (3.5-5.1)
--- NOTE | 2021-03-19 09:30 | Palliative Care Progress Note ---
Date of Service March 19, 2021 Assessment & Plan (1) Back pain: Plan: Current dosing of IV morphine is effective for his pain. The oral equivalent would be 10mg which can be given by PEG. However, given high concentration, low volume, careful flushing will be important for med delivery. Would dose prn as with IV morphine and monitor. He may need routine dosing at some point. (2) Palliative care encounter: Plan: Plan for PEG tube today due to severe aspiration. His hope is to improve nutrition and get rehab to get stronger and possibly return to his apartment. His sister has been very supportive and respects his wishes. (3) Severe protein-calorie malnutrition: (4) Aspiration into respiratory tract: (5) Metastatic renal cell carcinoma: Admission and Anticipated Discharge Date Admission Date: March 11, 2021 Subjective Going for PEG this morning. Continues to have pain in midback which he rates as 5/10. It is relieved to 2-3/10 with IV morphine which he considers to be a tolerable level. He has had three doses in last 24 hours. Review of Systems Review of Systems: [place] Symptom Assessment Scale Pain 2/3 Dyspnea 0/3 at rest Nausea 0/3 Fatigue 2/3 Drowsiness 0/3 Palliative Performance Score 50% Physical Exam Constitutional: no acute distress Respiratory: normal respiratory effort; no labored breathing Gastrointestinal (Abdomen): Inspection/Auscultation: abdomen not distended Percussion/Palpation: abdomen soft; abdomen nontender Skin: warm and dry Neurologic: awake; not confused Speech / Cognition: normal cognition Results & [facility] ([facility]) Vital Signs (Past 12 Hours) Vital Signs Temp Pulse Resp BP Pulse Ox 03/19/21 08:07 98.2 F 65 18 122/79 96 03/19/21 06:22 98.4 F 67 18 109/71 96 03/18/21 22:25 98.6 F 72 18 107/74 95 PG Care Time/CCT Total # of Minutes Spent Total Time Spent with Patient: Total time spent is greater than 50% in coordination of care (as documented) at patient's floor/unit and/or counseling patient: Coding Level of Care Code 92113 Subseq Hosp Care Lvl 2 Diagnoses Back pain M54.9 Palliative care encounter Z51.5 Severe protein-calorie malnutrition E43 Aspiration into respiratory tract T17.908A Metastatic renal cell carcinoma C64.9 Laterality: unspecified laterality (1) Metastatic renal cell carcinoma Laterality: unspecified laterality Qualified Code(s): C64.9 - Malignant neoplasm of unspecified kidney, except renal pelvis
--- NOTE | 2021-03-19 09:58 | Anesthesiology Consultation ---
Date of Service March 19, 2021 Assessment & Plan Chart Review Chart Review: Acceptable Risk for Surgery and Patient NOT seen in Pre Admission Testing Consults Requested none ASA ASA5 Proposed Anesthesia Anesthesia Type: MAC Risk / Benefits Reviewed With: PT / POA / Parent / Guardian, Accepts Plan and Informed Consent Obtained Additional Comments: covid test negative History Surgery Operation Date: 03/19/21 16:30 Proposed Procedures p EGD Gastric Tube Placement - Wing Canada MD Height/Weight Height: 5 ft 11 in Weight: 57.5 kg Allergies Allergy/AdvReac Type Severity Reaction Status Date / Time No Known Allergies Allergy Verified 03/11/21 20:58 Medications Home Medications Medication Instructions Recorded Confirmed Last Taken Magic Mouth 1 dose PO DIRECTED PRN 02/23/21 03/11/21 Unknown apixaban 5 mg tablet (Eliquis) 5 mg PO BID 02/23/21 03/11/21 02/23/21 cabozantinib 40 mg tablet 40 mg PO .HS @ 2230 02/23/21 03/11/21 02/22/21 22:30 (Cabometyx) colchicine 0.6 mg tablet 0.6 mg PO DIRECTED PRN 02/23/21 03/11/21 Unknown diphenhydramine HCl 25 mg capsule 25 mg PO DIRECTED PRN 02/23/21 03/11/21 Unknown (Benadryl) famotidine 20 mg tablet (Pepcid) 20 mg PO DIRECTED PRN 02/23/21 03/11/21 Unknown famotidine 40 mg tablet 40 mg PO DAILYBB 02/23/21 03/11/21 02/23/21 levothyroxine 100 mcg tablet See Rx Instructions .ROUTE .COMPLEX 02/23/2102/23/21 (Synthroid) propranolol 20 mg tablet 20 mg PO BID 02/23/21 03/11/21 02/23/21 amoxicillin 875 mg-potassium 1 tab PO BID #8 tab 02/28/21 03/11/21 Unknown clavulanate 125 mg tablet (Augmentin) hydrocodone 5 mg-acetaminophen 325 1 - 2 tab PO Q6H PRN #30 tab 02/28/21 03/11/21 Unknown mg tablet Active Medications Generic Name Dose Route Start Last Admin Trade Name Freq PRN Reason Stop Dose Admin Apixaban 5 mg 03/12/21 09:00 03/16/21 08:28 Apixaban 5 Mg Tablet PO 04/11/21 08:59 5 mg BID MIGNON Administration Dexamethasone 3.75 mg/ 0 mg 03/12/21 12:20 03/18/21 23:45 Diphenhydramine HCl 300 mg/ PO 04/11/21 12:19 5 ml Sucrose 45 ml/ Q4H PRN Administration Microcrystalline Cellulose 45 Pain ml/ BARCODE IDENTIFIER 1 ea/ Lidocaine HCl 45 ml Heparin Sodium (Porcine) 5 ml 03/14/21 03:28 03/16/21 17:28 Heparin 100 Unit/Ml 5ml Flush FLUSH 04/13/21 03:27 5 ml PRN PRN Administration Flush Ampicillin Sodium/Sulbactam 104 mls @ 200 mls/hr 03/16/21 18:00 03/19/21 06: 32 Sodium 1,500 mg/ Sodium IV 03/23/21 17:59 Infused Chloride Q6H MIGNON Infusion Protocol Levothyroxine Sodium 50 mcg/ 2.5 mls @ 2 mls/min 03/17/21 09:00 03/18/21 08:30 Syringe IV 04/16/21 08:59 2 mls/min DAILY@0900 MIGNON Administration Protocol Dextrose/Lactated Ringer's 1,000 mls @ 80 mls/hr 03/16/21 22:00 03/19/21 03:27 D5w And Lactated Ringers IV 04/15/21 21:59 80 mls/hr .[id number] MIGNON Administration Lidocaine 1 patch 03/16/21 17:15 03/18/21 07:18 Lidocaine 5% 1 Patch TD 04/15/21 17:14 1 patch QAM MIGNON Administration Miscellaneous 1 ea 03/16/21 21:00 03/18/21 21:31 Remove Lidoderm Patch N/A 04/15/21 20:59 1 ea DAILY@2100 MIGNON Administration Morphine Sulfate 4 mg 03/16/21 16:45 03/18/21 23:45 Morphine Sulfate 4 Mg/Ml 1 Ml Carp\Vial IV 03/26/21 10:30 4 mg Q2H PRN Administration Pain or dyspnea NPO Date Last Intake of Fluids: 03/17/21 Time Last Intake of Fluids: 20:00 Date Last Intake of Solids: 03/16/21 Time Last Intake of Solids: 18:00 Past Medical History Medical History (Updated 03/16/21 @ 21:39 by Conchis Suero MD) Aspiration into respiratory tract Hypothyroid Exercise / Class Metabolic Activity IV < 2 Limit ADL/Bedbound Past Anesthesia History No Hx of Anesthesia Complications and No Family Hx of Anesthesia Complications History of PONV No Hx of PONV and No Hx of Motion Sickness Social History Smoking Status: Former smoker tobacco type: cigarettes Smoking End Date: 09/09/20 (pt states quit 6 months ago) Hx Alcohol Use: Yes Alcohol type: beer and wine alcohol intake frequency: a few times a week Alcohol Intake Frequency Comment: 3-5 drinks Hx Substance Use: Yes substance use type: marijuana Physical Exam Vital Signs Last Vital Signs Temp 36.6 C 03/19/21 09:47 Pulse 67 03/19/21 09:47 Resp 18 03/19/21 09:47 BP 130/82 03/19/21 09:47 Pulse Ox 93 03/19/21 09:47 Constitutional + cachectic ENMT Mouth: no dentition abnormality Thyromental Distance: > or= 3.5 Finger Breadths Mallampati Class: II Neck normal visual inspection, trachea midline and + facial hair Respiratory + uses accessory muscles Auscultation: + diminished lung sounds and + crackles Cardiovascular Rate/Rhythm: regular rate and regular rhythm Heart Sounds: no murmur Vessels: no carotid bruit Chest (Breasts) Chest: + vascular access device or port (right chest) Musculoskeletal Spine: normal cervical ROM Extremities: extremities normal to inspection Neurologic moves all extremities Motor/Sensory: no sensory deficit Psychiatric Orientation: alert and oriented x 3 Testing Laboratory Results 03/19/21 05:22 03/19/21 05:22 PT 12.1 Seconds (9.0-12.0) H 03/11/21 19:11 INR 1.2 (0.9-1.1) H 03/11/21 19:11 APTT 41.9 Seconds (21.0-31.0) H 03/11/21 19:11 Electrocardiogram Date: 03/11/21 Findings: + NSR @ (at 67;low voltage QRS) and + NSST changes Chest X-Ray Date: 03/11/21 Findings: + infiltrate (right lung base), + pleural effusion (small right), + atherosclerosis of thoracic aorta and + other (emphysema)
[2021-03-19] MEDS ORDERED: ePHEDrine sulfate 50 MG/ML AMP IV PRN (10:06)
[2021-03-19] MEDS ORDERED: ATROPINE SULFATE 0.1 MG/ML 10ML SYR IV PRN (10:06)
[2021-03-19] MEDS ORDERED: LIDOCAINE 2% 2 ML VIAL/AMP(20MG/ML) INFIL ONE (10:10)
[2021-03-19] MEDS ORDERED: PROPOFOL IV EMULSION 10 MG/ML 20 ML VIAL IV ONE (10:10)
[2021-03-19] MEDS ORDERED: KETAMINE 50 MG/5 ML SYRINGE ONE (10:10)
--- NOTE | 2021-03-19 10:10 | History & Physical Bridge Note ---
Date of Service March 19, 2021 History & Physical Bridge Note I have examined the patient, reviewed the History & Physical and in the interval since the performance of the History & Physical I have noted the following changes of clinical significance: no changes noted EGD with PEG tube today. Patient was explained in detail regarding risks, benefits, limitations and alternatives of the above endoscopic procedure. Risks of intravenous sedation used for procedure were also explained. Risks include, but not limited to perforation, bleeding, infection, respiratory distress, cardiac arrest and . Patient is also aware about the possibility of missed lesion. Patient's questions were answered. The patient verbalized understanding the information and agreed to undergo the procedure.
[2021-03-19] MEDS ORDERED: ceFAZolin 1000MG 1,000 MG/7.5 ML SYR IV ONE (10:11)
[2021-03-19] MEDS ORDERED: PHENYLEPHRINE 100MCG/ML 5ML SYR ONE (10:55)
[2021-03-19] MEDS ORDERED: GLYCOPYRROLATE 0.2 MG/ML VIAL ONE (10:55)
--- NOTE | 2021-03-19 11:26 | GI REPORT ---
Patient Name: Bean Carreno Procedure Date: 03/19/2021 10:14 AM Date of : 1960 Admit Type: Inpatient Age: 60 Gender: Male Attending MD: Wing Canada MD Procedure: Upper GI endoscopy Providers: Wing Canada MD Referring MD: Conchis Suero Md Indications: Place PEG due to impaired swallowing Medicines: Propofol per Anesthesia, Ancef 1000 mg IV Complications: No immediate complications. Estimated Blood Loss: Estimated blood loss: none. Procedure: Pre-Anesthesia Assessment: - Prior to the procedure, a History and Physical was performed, and patient medications, allergies and sensitivities were reviewed. The patient's tolerance of previous anesthesia was reviewed. - The risks and benefits of the procedure and the sedation options and risks were discussed with the patient. All questions were answered and informed consent was obtained. - Patient identification and proposed procedure were verified prior to the procedure by the physician and the nurse. The procedure was verified in the procedure room. - Pre-procedure physical examination revealed no contraindications to sedation. After obtaining informed consent, the endoscope was passed under direct vision. Throughout the procedure, the patient's blood pressure, pulse, and oxygen saturations were monitored continuously. The Endoscope was introduced through the mouth, and advanced to the second part of duodenum. The upper GI endoscopy was accomplished without difficulty. The patient tolerated the procedure well. Findings: The examined esophagus was normal. There was evidence of a closed previous gastrostomy present in the gastric body. This was characterized by healthy appearing mucosa. The patient was placed in the supine position for PEG placement. The stomach was insufflated to appose gastric and abdominal chen. A site was located in the body of the stomach with excellent transillumination and manual external pressure for placement. The abdominal wall was marked and prepped in a sterile manner. The area was anesthetized with 2 mL of 1% lidocaine. The trocar needle was introduced through the abdominal wall and into the stomach under direct endoscopic view. A snare was introduced through the endoscope and opened in the gastric lumen. The guide wire was passed through the trocar and into the open snare. The snare was closed around the guide wire. The endoscope and snare were removed, pulling the wire out through the mouth. A skin incision was made at the site of needle insertion. The externally removable 20 Fr [employer] gastrostomy tube was lubricated. The G-tube was tied to the guide wire and pulled through the mouth and into the stomach. The trocar needle was removed, and the gastrostomy tube was pulled out from the stomach through the skin. The external bumper was attached to the gastrostomy tube, and the tube was cut to remove the guide wire. The final position of the gastrostomy tube was confirmed by relook endoscopy, and skin marking noted to be 1.5 cm at the external bumper. The final tension and compression of the abdominal wall by the PEG tube and external bumper were checked and revealed that the bumper was moderately tight and mildly deforming the skin. The feeding tube was capped, and the tube site cleaned and dressed. The duodenal bulb and second portion of the duodenum were normal. Impression: - Normal esophagus. - Closed previous gastrostomy. - Normal duodenal bulb and second portion of the duodenum. - An externally removable PEG placement was successfully completed. - No specimens collected. Recommendation: - [facility]. - Please follow the post-PEG recommendations including: Nutrition consult for formula and volume, dry dressing only, NPO x4 hrs then water today and may use PEG tomorrow for feedings. Wing Canada MD 03/19/2021 11:26:18 AM This report has been signed electronically. Note Initiated On: 03/19/2021 10:14 AM Number of Addenda: 0 I attest to the content of the Intraoperative Record and orders documented therein, exceptions below {[id number]}
--- NOTE | 2021-03-19 11:47 | Communication Note ---
Date of Service: March 19, 2021 PEG placed. Can use PEG tomorrow. Hold AC 48 additional hours. Consult nutrition.
[2021-03-19] MEDS: LEVOTHYROXINE SODIUM 50 MCG in SYRINGE 0 ML IV SCH (11:49)
[2021-03-19] MEDS: LIDOCAINE 5% 1 PATCH TD SCH (11:50)
--- NOTE | 2021-03-19 12:51 | Hospitalist Progress Note ---
Date of Service March 19, 2021 Assessment & Plan (1) Pneumonia: Plan: Secondary to aspiration pneumonia CT chest with progressive right greater than left bibasilar consolidative opacities also with trace left and small right pleural effusions CT chest also with numerous bilateral pulmonary nodules re-demonstrated, several which are cavitary and suggestive of pulmonary metastases. Also with 2.6 cm thick-walled cavitary nodule the right lower lobe which has decreased in size from 02/23/2021 suggestive of resolving superimposed infection versus pulmonary infarct Appreciate speech therapy consultation-had video swallow study on 03/16 which showed severe aspiration with all consistencies-patient was presented with options for moving forward and he would like to have a PEG tube placed. He understands that this will not necessarily prevent all aspiration but is hopeful that it will provide him with nutrition as he has had significant weight loss and has very poor nutritional status. Weaned off oxygen -Continue Duonebs as needed -continue strict n.p.o. -Now that he is n.p.o., discontinued all p.o. meds and transitioned to IV until can use PEG -compelted 8 days of antibiotics for aspiration pneumonia -Given multiple pulmonary nodules that could be metastases versus infection recommend repeat imaging and follow-up with pulmonology as an outpatient-he is already established with pulmonology in [place] -now s/p PEG tube on 03/19 (2) Back pain: Plan: With some tenderness to palpation-question if this is from recent falls with pain from rib fractures versus muscle spasm? Doubtful that this is from his pulmonary nodules Improved with increased dose of morphine -continue lidocaine patch -continue morphine 4 mg IV every 2 hours as needed -can convert to enteral pain meds once PEG placed-plan for liquid morphine per PEG -Appreciate palliative care consultation (3) Aspiration into respiratory tract: Plan: now s/p PEG tube placement 03/19 Appreciate GI consultation - dietary consultation for tube feed recommendations appreciated-plan to start Fibersource HN 120mL 6x/day x 1 day then increase to 180mL 6x/day x 1 day then 250mL 6x/day bolus feeds with 60mL H2O flushes before and after -cont maintenance fluids of D5 LR at 80 mL's per hour until has adequate tube feeds -case resolution specialist setting up home tube feeds -GI says ok to start using PEG on 03/20-tube feeds ordered for then -continue to HOLD Eliquis s/p PEG until 03/21 (4) Metastatic renal cell carcinoma: Plan: Initially was considering hospice per CM, he had hospice nurses visit him on 03/10/2021, and at that time had switched his mind and refused hospice. - Palliative and CM following -> Patient and sister both indicated he would like hospice on admission. However, he now wants rehab as he has a new apartment he would like to move into. - PT/OT consulted. -Follow-up with oncology in the near future as scheduled -Reports that he has been receiving oral chemotherapy With possible metastases to the lungs (5) Hyponatremia: Plan: Sodium improved to 135 after starting IVF hydration Could be secondary to pulmonary process with pneumonia and pulmonary nodules/SIADH Could also be some component of dehydration is really not had much p.o. intake- has improved with IVFs -continue D5 LR at 80 mL's per hour Follow BMP in the morning (6) Severe protein-calorie malnutrition: Plan: BMI low at 18.1, albumin severely low at 1.6 Has had weight loss over the last several months due to cancer treatments With significant aspiration and no longer can take p.o. Plan for PEG tube lytes are replete at this time except mildly low K+--> give 20meq KCl IV - follow CMP, Mag, Phos (7) Pulmonary nodules: Plan: As above Follow-up with pulmonary and with repeat imaging as an outpatient (8) Hypoxia: Plan: Acute hypoxic respiratory failure. NC O2. titrate to keep pulse ox > or = to 94%. continues intermittently (9) Hypothyroid: Plan: TSH of 26 in 01/2021. Unclear if he has been taking his levothyroxine or not. Dose instructions from med rec are 100 mcg every day but Tuesday when he takes 15 mcg? - Repeat TSH here now even worse with TSH being 41 -Continue levothyroxine 50 mcg IV once daily until PEG tube placed and then restart levothyroxine at 100 mcg-suspect there is some component of either noncompliance or poor absorption Repeat TSH in 4 weeks (10) Antineoplastic chemotherapy induced pancytopenia: Plan: With WBC count and platelets borderline low and with anemia as below Unclear what baseline is or what chemotherapy agents he is receiving to see if this could be causing this Follow CBC Follow-up with oncology (11) Pulmonary embolism: Plan: CTA chest on 02/23 showed possible small PE. He reports his first VTE was 4 years ago after having his nephrectomy He has been on Eliquis for 4 years Hold Eliquis for PEG tube placement and restart 03/21 as per GI (12) Anemia: Plan: Hemoglobin lower slightly today due to hemodilution at 8.4, MCV normal at 95 Likely anemia of chronic disease and possibly from chemotherapy Follow CBC Plan: Disposition-continued stay until can start tube feeds and ensure tolerating, make sure pain controlled with Roxanol per GT, likely discharge on Sat to home with home health Admission and Anticipated Discharge Date Admission Date: March 11, 2021 Subjective Pt sleepy as just returned from EGD with anesthesia. Has some mild discomfort at PEG tube site. Otherwise doing ok. Review of Systems Review of Systems: All systems reviewed & are unremarkable except as noted in HPI & below Physical Exam Constitutional: + thin, + cachectic, + frail appearing and cooperative; no acute distress Eyes: + anicteric sclerae Neck: trachea midline, no thyromegaly Respiratory: normal respiratory effort Auscultation: + crackles (At right base) and + rhonchi (Right middle and lower lung solorzano); no wheezes Cardiovascular: RRR, no murmur, no edema Chest (Breasts): Chest: normal inspection of chest Gastrointestinal (Abdomen): normal bowel sounds, soft, nontender, no hepatosplenomegaly (with dressing over PEG c/d/i) Musculoskeletal: Extremities: extremities normal to inspection; no cyanosis and no clubbing Skin: no rashes, warm and dry Neurologic: moves all extremities and awake; no focal motor deficits Psychiatric: Orientation: alert, oriented x 3 and cooperative Lymphatic: no lymphedema Results & Data Results & Data ([facility]) Vital Signs (Past 12 Hours) Vital Signs Temp Pulse Resp BP Pulse Ox 03/19/21 11:28 80 18 114/81 98 03/19/21 11:15 87 18 105/76 98 03/19/21 11:00 95 H 18 111/82 97 03/19/21 09:47 36.6 C 67 18 130/82 93 03/19/21 08:07 36.8 C 65 18 122/79 96 03/19/21 06:22 36.9 C 67 18 109/71 96 Laboratory Results 03/19/21 05:22 03/19/21 05:22 PG Care Time/CCT Total # of Minutes Spent Total Time Spent with Patient: Total time spent is greater than 50% in coordination of care (as documented) at patient's floor/unit and/or counseling patient: Coding Level of Care Code 08637 Subseq Hosp Care Lvl 3 Diagnoses Pneumonia J18.9 Laterality: right Lung location: lower lobe of lung Pneumonia type: due to unspecified organism Back pain M54.9 Aspiration into respiratory tract T17.908A Metastatic renal cell carcinoma C64.9 Laterality: unspecified laterality Hyponatremia E87.1 Severe protein-calorie malnutrition E43 Pulmonary nodules R91.8 Hypoxia R09.02 Hypothyroid E03.9 Antineoplastic chemotherapy induced pancytopenia D61.810; T45.1X5A Pulmonary embolism I26.99 Anemia D64.9 (1) Pneumonia Laterality: right Lung location: lower lobe of lung Pneumonia type: due to unspecified organism Qualified Code(s): J18.9 - Pneumonia, unspecified organism (2) Metastatic renal cell carcinoma Laterality: unspecified laterality Qualified Code(s): C64.9 - Malignant neoplasm of unspecified kidney, except renal pelvis
[2021-03-19] MEDS ORDERED: POTASSIUM CHLORIDE / WTR 20 MEQ/100 ML PLCT IV ONE (13:30)
--- NOTE | 2021-03-19 15:10 | Anesthesiology Progress Note ---
Date of Service March 19, 2021 Anesthesia Post Procedure Vital Signs Vital Signs: Temp Pulse Resp BP BP Pulse Ox 03/19/21 14:49 36.7 C 71 16 116/84 94 03/19/21 11:28 80 18 114/81 98 03/19/21 11:15 87 18 105/76 98 03/19/21 11:00 95 H 18 111/82 97 03/19/21 09:47 36.6 C 67 18 130/82 93 03/19/21 08:07 36.8 C 65 18 122/79 96 03/19/21 06:22 36.9 C 67 18 109/71 96 03/18/21 22:25 37.0 C 72 18 107/74 95 03/18/21 15:13 37.0 C 74 18 108/72 95 Pain Intensity Throat: Pain Intensity: 7 Transfer of Care Handoff Completed per policy Notes Mental Status: alert / awake / arousable Patient Amnestic to Procedure: Yes Nausea / Vomiting: adequately controlled Pain: adequately controlled Airway Patency, RR, SpO2: stable & adequate BP & HR: stable & adequate Hydration State: stable & adequate Anesthetic Complications: no major complications apparent
[2021-03-19] MEDS: MoRPHine SULFATE 4 MG/ML 1 ML CARP\\VIAL IV PRN ×3 (17:19→23:42)
[2021-03-19] MEDS: HEPARIN 100 UNIT/ML 5ML FLUSH FLUSH PRN (17:19)
[2021-03-19] MEDS: ORA SWEET PO PRN (23:42)
[2021-03-19] MEDS: [UNRECOGNIZED DRUG - OTHER] PO PRN (23:42)
[2021-03-19] MEDS: DIPHENHYDRAMINE PO PRN (23:42)
[2021-03-19] MEDS: DEXAMETHASONE PO PRN (23:42)
[2021-03-20] MEDS: D5W AND LACTATED RINGERS 1,000 ML IV SCH ×2 (01:42→13:48)
[2021-03-20] MEDS: MoRPHine SULFATE 4 MG/ML 1 ML CARP\\VIAL IV PRN ×2 (05:47→08:09)
[2021-03-20 05:49] LABS: Basophils # (auto) 0.01 K/uL (0-0.2); Basophils % (auto) 0.3 %; Eosinophils # (auto) 0.05 K/uL (0-0.5); Eosinophils % (auto) 1.5 %; Hematocrit (blood only) 26.1 % (42-52); Hemoglobin 8.4 g/dL (14.0-18.0); Lymphocytes # (auto) 0.45 K/uL (1.2-3.4); Lymphocytes % (auto) 13.2 %; Mean Corpuscular Hemoglobin 30.9 pg (25-34); Mean Corpuscular Hgb Conc 32.2 g/dL (32-36); Mean Platelet Volume 8.5 fL (7.4-10.4); Monocytes # (auto) 0.25 K/uL (0.11-0.59); Monocytes % (auto) 7.3 %; Neutrophils # (auto) 2.66 K/uL (1.4-6.5); Neutrophils % (auto) 77.7 %; Platelet Count 135 K/uL (130-400); RDW Coefficient of Variation 16.2 % (11.5-14.5); RDW Standard Deviation 56.5 fL (36.4-46.3); Red Blood Count 2.72 M/uL (4.7-6.1); White Blood Count 3.42 K/uL (4.8-10.8)
[2021-03-20 06:25] LABS: Alanine Aminotransferase < 6 U/L (12-78); Albumin Level 1.6 gm/dl (3.4-5.0); Aspartate Aminotransferase 11 U/L (15-37); BUN Creatinine Ratio 2.7 (10-20); Blood Urea Nitrogen 2 mg/dl (7-18); Carbon Dioxide 25 mmol/L (21-32); Chloride 105 mmol/L (98-107); Creatinine Clr Calc Pharmacy 100.1 ml/min; Est GFR (African American) 123.3 ml/min; Est GFR (Non-African American) 106.4 ml/min; Glucose 129 mg/dl (70-99); Magnesium 1.6 mg/dl (1.8-2.4); Potassium 3.5 mmol/L (3.5-5.1); Sodium 135 mmol/L (136-145)
[2021-03-20 06:27] LABS: Albumin Globulin Ratio 0.5 (0.9-2); Alkaline Phosphatase 82 U/L (45-117); Bilirubin,Total 0.4 mg/dl (0.2-1); Globulin 3.2 gm/dl (2.5-4.0); Phosphorus 2.5 mg/dl (2.5-4.9); Total Protein 4.8 gm/dl (6.4-8.2)
[2021-03-20] MEDS: DEXAMETHASONE PO PRN (06:48)
[2021-03-20] MEDS: [UNRECOGNIZED DRUG - OTHER] PO PRN (06:48)
[2021-03-20] MEDS: DIPHENHYDRAMINE PO PRN (06:48)
[2021-03-20] MEDS: ORA SWEET PO PRN (06:48)
[2021-03-20] MEDS: FIBERSOURCE HN 1.2 CAL 1000 ML BAG GT SCH ×7 (07:54→22:15)
[2021-03-20] MEDS: TUBE FEEDING WATER FLUSH GT SCH ×7 (07:55→22:16)
--- NOTE | 2021-03-20 09:10 | Communication Note ---
Date of Service: March 20, 2021 Feeling well. No abd pain. No nausea, vomiting. Pt notes PEG was used for tube feed this AM. No issues reported. GI will sign off. Recall for any questions or concerns.
[2021-03-20] MEDS: LIDOCAINE 5% 1 PATCH TD SCH (09:38)
[2021-03-20] MEDS: LEVOTHYROXINE SODIUM 50 MCG in SYRINGE 0 ML IV SCH (09:38)
[2021-03-20] MEDS: MAGNESIUM SULFATE / D5W 1 GM/100 ML BAG IV SCH ×2 (10:30→12:30)
--- NOTE | 2021-03-20 13:58 | Palliative Care Progress Note ---
Date of Service March 20, 2021 Assessment & Plan (1) Back pain: Plan: While discomfort from PEG is improving, he continues to have upper to mid back pain. We discussed trial of medication through tube in anticipation of discharge. Would prefer less concentrated morphine solution as low volume will be difficult to deliver effectively. However, there is not an available lower concentration. Discussed with pharmacist. Will use morphine ir dissolved in water and monitor. Continue IV morphine for relief if enteral dose is not effective. (2) Palliative care encounter: (3) Aspiration into respiratory tract: (4) Severe protein-calorie malnutrition: (5) Pulmonary embolism: (6) Laryngeal cancer: (7) Metastatic renal cell carcinoma: Admission and Anticipated Discharge Date Admission Date: March 11, 2021 Subjective Sleeping but easily arousable. Had a lot of discomfort with PEG tube yesterday. He had 80mg OME since procedure. He reports that is is better this morning. He did have successful feeding via tube this morning and says that it feels good to have something in his stomach. Still no BM. No nausea. Review of Systems Review of Systems: [place] Symptom Assessment Scale Pain 1/3 Dyspnea 0/3 Anxiety 0/3 Fatigue 2/3 Nausea 0/3 Drowsiness 1/3 Palliative Performance Score 30% Physical Exam Constitutional: no acute distress Respiratory: normal respiratory effort; no labored breathing Cardiovascular: Rate/Rhythm: regular rate and regular rhythm Gastrointestinal (Abdomen): PEG tube, mild erythema Neurologic: awake; not confused Results & Data ([facility]) Vital Signs (Past 12 Hours) Vital Signs Temp Pulse Resp BP Pulse Ox 03/20/21 07:42 98.1 F 76 20 118/79 93 PG Care Time/CCT Total # of Minutes Spent Total Time Spent: 28 Total Time Spent with Patient: Total time spent is greater than 50% in coordination of care (as documented) at patient's floor/unit and/or counseling patient: symptom management Coding Level of Care Code 80399 Subseq Hosp Care Lvl 2 Diagnoses Back pain M54.9 Palliative care encounter Z51.5 Aspiration into respiratory tract T17.908A Severe protein-calorie malnutrition E43 Pulmonary embolism I26.99 Laryngeal cancer C32.9 Metastatic renal cell carcinoma C64.9 Laterality: unspecified laterality (1) Metastatic renal cell carcinoma Laterality: unspecified laterality Qualified Code(s): C64.9 - Malignant neoplasm of unspecified kidney, except renal pelvis
[2021-03-20] MEDS: MoRPHine SULFATE IR 15 MG TAB (IMMEDIATE RELEASE) PO PRN ×2 (15:15→23:25)
--- NOTE | 2021-03-20 22:03 | Hospitalist Progress Note ---
Date of Service March 20, 2021 Assessment & Plan (1) Pneumonia: Plan: Secondary to aspiration pneumonia CT chest with progressive right greater than left bibasilar consolidative opacities also with trace left and small right pleural effusions CT chest also with numerous bilateral pulmonary nodules re-demonstrated, several which are cavitary and suggestive of pulmonary metastases. Also with 2.6 cm thick-walled cavitary nodule the right lower lobe which has decreased in size from 02/23/2021 suggestive of resolving superimposed infection versus pulmonary infarct Appreciate speech therapy consultation-had video swallow study on 03/16 which showed severe aspiration with all consistencies-patient was presented with options for moving forward and he would like to have a PEG tube placed. He understands that this will not necessarily prevent all aspiration but is hopeful that it will provide him with nutrition as he has had significant weight loss and has very poor nutritional status. Does feel that he is aspirated a bit since starting tube feeds-recommended to him and nursing to always have the head of the bed at least up at 30 degrees Needs a hospital bed at home: The beneficiary requires the head of the bed be elevated more than 30 degrees most of the time due to having aspiration problems and feeding tube. Weaned off oxygen -Continue Duonebs as needed -continue strict n.p.o. except allow ice chips for comfort -completed 8 days of antibiotics for aspiration pneumonia -Given multiple pulmonary nodules that could be metastases versus infection recommend repeat imaging and follow-up with pulmonology as an outpatient-he is already established with pulmonology in [place] -now s/p PEG tube on 03/19 (2) Back pain: Plan: With some tenderness to palpation-question if this is from recent falls with pain from rib fractures versus muscle spasm? Doubtful that this is from his pulmonary nodules Improved with increased dose of morphine -continue lidocaine patch -continue morphine 4 mg IV every 2 hours as needed for breakthrough pain, but will now trial morphine IR 7.5 mg per G-tube crush and mix with water -Appreciate palliative care consultation (3) Aspiration into respiratory tract: Plan: now s/p PEG tube placement 03/19 Appreciate GI consultation - dietary consultation for tube feed recommendations appreciated-plan to start Fibersource HN 120mL 6x/day x 1 day then increase to 180mL 6x/day x 1 day then 250mL 6x/day bolus feeds with 60mL H2O flushes before and after -cont maintenance fluids of D5 LR at 80 mL's per hour until has adequate tube feeds -case management director setting up home tube feeds -continue to HOLD Eliquis s/p PEG until 03/21 as per GI recommendation (4) Metastatic renal cell carcinoma: Plan: Initially was considering hospice per CM, he had hospice nurses visit him on 03/10/2021, and at that time had switched his mind and refused hospice. - Palliative and CM following -> Patient and sister both indicated he would like hospice on admission. However, he now wants rehab as he has a new apartment he would like to move into. - PT/OT consulted. -Follow-up with oncology in the near future as scheduled -Reports that he has been receiving oral chemotherapy With possible metastases to the lungs (5) Hyponatremia: Plan: Sodium improved to 135 after starting IVF hydration Could be secondary to pulmonary process with pneumonia and pulmonary nodules/SIADH Could also be some component of dehydration is really not had much p.o. intake- has improved with IVFs -continue D5 LR at 80 mL's per hour Follow BMP in the morning (6) Severe protein-calorie malnutrition: Plan: BMI low at 18.1, albumin severely low at 1.6 Has had weight loss over the last several months due to cancer treatments With significant aspiration and no longer can take p.o. Plan for PEG tube lytes are replete at this time except hypomagnesemia today-give 2 g IV magnesium sulfate - follow CMP, Mag, Phos in the morning (7) Pulmonary nodules: Plan: As above Follow-up with pulmonary and with repeat imaging as an outpatient (8) Hypoxia: Plan: Acute hypoxic respiratory failure. NC O2. titrate to keep pulse ox > or = to 94%. continues intermittently (9) Hypothyroid: Plan: TSH of 26 in 01/2021. Unclear if he has been taking his levothyroxine or not. Dose instructions from med rec are 100 mcg every day but Tuesday when he takes 15 mcg? - Repeat TSH here now even worse with TSH being 41 -Continue levothyroxine 50 mcg IV once daily until PEG tube placed and now will restart levothyroxine at 112 mcg daily -there is some component of either noncompliance or poor absorption Repeat TSH in 4 weeks (10) Antineoplastic chemotherapy induced pancytopenia: Plan: With WBC count and platelets borderline low and with anemia as below Unclear what baseline is or what chemotherapy agents he is receiving to see if this could be causing this Follow CBC Follow-up with oncology (11) Pulmonary embolism: Plan: CTA chest on 02/23 showed possible small PE. He reports his first VTE was 4 years ago after having his nephrectomy He has been on Eliquis for 4 years Hold Eliquis for PEG tube placement and restart 03/21 as per GI (12) Anemia: Plan: Hemoglobin stable today at 8.4, MCV normal at 95 Likely anemia of chronic disease and possibly from chemotherapy Follow CBC Plan: Disposition-continued stay until can start tube feeds and ensure tolerating, make sure pain controlled with morphine per GT, likely discharge on Sat to home with home health Admission and Anticipated Discharge Date Admission Date: March 11, 2021 Subjective Patient started with tube feeds this morning and feels that since then, some of it has refluxed and gone down into his lungs. He feels he is coughing a bit more. Having soreness at the site of the PEG tube as well as in the usual spots of pain in his back. He does feel like he has to have a bowel movement fairly soon Discussed his care with the palliative medicine physician. Review of Systems Review of Systems: All systems reviewed & are unremarkable except as noted in HPI & below Physical Exam Constitutional: + thin, + cachectic, + frail appearing and cooperative; no acute distress Eyes: + anicteric sclerae ENMT: external ear and nose normal, oropharynx normal Neck: trachea midline, no thyromegaly Respiratory: normal respiratory effort Auscultation: + crackles (At right base) and + rhonchi (Right middle and lower lung solorzano increased from yesterday); no wheezes Cardiovascular: RRR, no murmur, no edema Chest (Breasts): Chest: normal inspection of chest Gastrointestinal (Abdomen): normal bowel sounds, soft, nontender, no hepatosplenomegaly (PEG tube in place without any drainage or erythema around it) Musculoskeletal: Extremities: extremities normal to inspection; no cyanosis and no clubbing Skin: no rashes, warm and dry Neurologic: moves all extremities and awake; no focal motor deficits Psychiatric: Orientation: alert, oriented x 3 and cooperative Lymphatic: no lymphedema Results & Data Results & Data ([facility]) Vital Signs (Past 12 Hours) Vital Signs Temp Pulse Resp BP BP Pulse Ox 03/20/21 16:30 36.5 C 87 18 121/85 95 03/20/21 14:37 36.4 C L 75 18 107/73 90 Laboratory Results 03/20/21 03/20/21 Range/Units 05:20 05:20 WBC 3.42 L (4.8-10.8) K/uL RBC 2.72 L (4.7-6.1) M/uL Hgb 8.4 L (14.0-18.0) g/dL Hct 26.1 L (42-52) % MCV 96.0 (80-100) fL MCH 30.9 (25-34) pg MCHC 32.2 (32-36) g/dL RDW Std Deviation 56.5 H (36.4-46.3) fL RDW Coeff of Delphine 16.2 H (11.5-14.5) % Plt Count 135 (130-400) K/uL MPV 8.5 (7.4-10.4) fL Immature Gran % (Auto) 0.0 % Neut % (Auto) 77.7 % Lymph % (Auto) 13.2 % Long % (Auto) 7.3 % Eos % (Auto) 1.5 % Baso % (Auto) 0.3 % Neut # (Auto) 2.66 (1.4-6.5) K/uL Lymph # (Auto) 0.45 L (1.2-3.4) K/uL Long # (Auto) 0.25 (0.11-0.59) K/uL Eos # (Auto) 0.05 (0-0.5) K/uL Baso # (Auto) 0.01 (0-0.2) K/uL Immature Gran # (Auto) 0.00 (0.00-0.02) K/uL Sodium 135 L (136-145) mmol/L Potassium 3.5 (3.5-5.1) mmol/L Chloride 105 (98-107) mmol/L Carbon Dioxide 25 (21-32) mmol/L Anion Gap 5.0 (3-11) BUN 2 L (7-18) mg/dl Creatinine 0.63 (0.6-1.4) mg/dl Est Cr Clr Drug Dosing 100.1 ml/min Est GFR ( Amer) 123.3 ml/min Est GFR (Non-Af Amer) 106.4 ml/min BUN/Creatinine Ratio 2.7 L (10-20) Glucose 129 H (70-99) mg/dl Calcium 8.0 L (8.5-10.1) mg/dl Phosphorus 2.5 (2.5-4.9) mg/dl Magnesium 1.6 L (1.8-2.4) mg/dl Total Bilirubin 0.4 (0.2-1) mg/dl AST 11 L (15-37) U/L ALT < 6 L (12-78) U/L Alkaline Phosphatase 82 (45-117) U/L Total Protein 4.8 L (6.4-8.2) gm/dl Albumin 1.6 L (3.4-5.0) gm/dl Globulin 3.2 (2.5-4.0) gm/dl Albumin/Globulin Ratio 0.5 L (0.9-2) PG Care Time/CCT Total # of Minutes Spent Total Time Spent with Patient: Total time spent is greater than 50% in coordination of care (as documented) at patient's floor/unit and/or counseling patient: Coding Level of Care Code 42990 Subseq Hosp Care Lvl 3 Diagnoses Pneumonia J18.9 Laterality: right Lung location: lower lobe of lung Pneumonia type: due to unspecified organism Back pain M54.9 Aspiration into respiratory tract T17.908A Metastatic renal cell carcinoma C64.9 Laterality: unspecified laterality Hyponatremia E87.1 Severe protein-calorie malnutrition E43 Pulmonary nodules R91.8 Hypoxia R09.02 Hypothyroid E03.9 Antineoplastic chemotherapy induced pancytopenia D61.810; T45.1X5A Pulmonary embolism I26.99 Anemia D64.9 (1) Pneumonia Laterality: right Lung location: lower lobe of lung Pneumonia type: due to unspecified organism Qualified Code(s): J18.9 - Pneumonia, unspecified organism (2) Metastatic renal cell carcinoma Laterality: unspecified laterality Qualified Code(s): C64.9 - Malignant neoplasm of unspecified kidney, except renal pelvis
[2021-03-21] MEDS: D5W AND LACTATED RINGERS 1,000 ML IV SCH ×2 (01:29→19:12)
[2021-03-21] MEDS: MoRPHine SULFATE IR 15 MG TAB (IMMEDIATE RELEASE) PO PRN ×4 (06:11→20:42)
[2021-03-21] MEDS: TUBE FEEDING WATER FLUSH GT SCH ×6 (06:12→22:20)
[2021-03-21] MEDS: FIBERSOURCE HN 1.2 CAL 1000 ML BAG GT SCH ×6 (06:12→22:20)
[2021-03-21] MEDS: LEVOTHYROXINE SODIUM 112 MCG TABLET GT SCH (06:12)
[2021-03-21] MEDS ORDERED: LEVOTHYROXINE SODIUM 100 MCG TABLET GT SCH (06:30)
[2021-03-21 06:32] LABS: Basophils # (auto) 0.01 K/uL (0-0.2); Basophils % (auto) 0.2 %; Eosinophils # (auto) 0.05 K/uL (0-0.5); Eosinophils % (auto) 0.9 %; Hematocrit (blood only) 27.7 % (42-52); Hemoglobin 8.9 g/dL (14.0-18.0); Immature Granulocytes # (auto) 0.01 K/uL (0.00-0.02); Immature Granulocytes % (auto) 0.2 %; Lymphocytes # (auto) 0.52 K/uL (1.2-3.4); Mean Corpuscular Hemoglobin 30.7 pg (25-34); Mean Corpuscular Hgb Conc 32.1 g/dL (32-36); Mean Corpuscular Volume 95.5 fL (80-100); Mean Platelet Volume 8.7 fL (7.4-10.4); Monocytes # (auto) 0.34 K/uL (0.11-0.59); Monocytes % (auto) 5.9 %; Neutrophils # (auto) 4.88 K/uL (1.4-6.5); Neutrophils % (auto) 83.8 %; Platelet Count 155 K/uL (130-400); RDW Coefficient of Variation 16.4 % (11.5-14.5); RDW Standard Deviation 57.5 fL (36.4-46.3); White Blood Count 5.81 K/uL (4.8-10.8)
[2021-03-21 07:04] LABS: Alanine Aminotransferase 7 U/L (12-78); Albumin Level 1.6 gm/dl (3.4-5.0); Aspartate Aminotransferase 12 U/L (15-37); BUN Creatinine Ratio 7.5 (10-20); Bilirubin Direct < 0.1 mg/dl (0-0.2); Blood Urea Nitrogen 5 mg/dl (7-18); Carbon Dioxide 23 mmol/L (21-32); Chloride 104 mmol/L (98-107); Creatinine Clr Calc Pharmacy 95.6 ml/min; Est GFR (African American) 120.9 ml/min; Est GFR (Non-African American) 104.3 ml/min; Glucose 126 mg/dl (70-99); Magnesium 1.8 mg/dl (1.8-2.4); Potassium 3.7 mmol/L (3.5-5.1); Sodium 136 mmol/L (136-145)
[2021-03-21 07:07] LABS: Alkaline Phosphatase 90 U/L (45-117); Bilirubin,Total 0.4 mg/dl (0.2-1); Phosphorus 2.3 mg/dl (2.5-4.9); Total Protein 5.1 gm/dl (6.4-8.2)
[2021-03-21] MEDS: LIDOCAINE 5% 1 PATCH TD SCH (07:32)
[2021-03-21] MEDS: APIXABAN 5 MG TABLET PO SCH ×2 (09:11→20:27)
[2021-03-21] MEDS ORDERED: POTASSIUM PHOS 3 MMOL/1 ML INFUSION IV STA (09:18)
[2021-03-21] MEDS ORDERED: MAGNESIUM SULFATE / D5W 1 GM/100 ML BAG IV ONE (09:18)
[2021-03-21] MEDS ORDERED: POTASSIUM PHOSPHATE 15 MMOL in SODIUM CHLORIDE 0.9% 250 ML IV ONE (09:45)
--- NOTE | 2021-03-21 10:59 | Hospitalist Progress Note ---
Date of Service March 21, 2021 Assessment & Plan (1) Pneumonia: Plan: Secondary to aspiration pneumonia CT chest with progressive right greater than left bibasilar consolidative opacities also with trace left and small right pleural effusions CT chest also with numerous bilateral pulmonary nodules re-demonstrated, several which are cavitary and suggestive of pulmonary metastases. Also with 2.6 cm thick-walled cavitary nodule the right lower lobe which has decreased in size from 02/23/2021 suggestive of resolving superimposed infection versus pulmonary infarct Appreciate speech therapy consultation-had video swallow study on 03/16 which showed severe aspiration with all consistencies-patient was presented with options for moving forward and he would like to have a PEG tube placed. He understands that this will not necessarily prevent all aspiration but is hopeful that it will provide him with nutrition as he has had significant weight loss and has very poor nutritional status. Does feel that he is aspirated a bit since starting tube feeds-recommended to him and nursing to always have the head of the bed at least up at 30 degrees Lungs sound clearer today Needs a hospital bed at home: The beneficiary requires the head of the bed be elevated more than 30 degrees most of the time due to having aspiration problems and feeding tube. Weaned off oxygen intermittently-may need 2 step prior to discharge -Continue Duonebs as needed -continue strict n.p.o. except allow ice chips for comfort at pt's request -completed 8 days of antibiotics for aspiration pneumonia -Given multiple pulmonary nodules that could be metastases versus infection recommend repeat imaging and follow-up with pulmonology as an outpatient-he is already established with pulmonology in [place] -now s/p PEG tube on 03/19 (2) Back pain: Plan: With some tenderness to palpation at the site-question if this is from recent falls with pain from rib fractures versus muscle spasm? Doubtful that this is from his pulmonary nodules Improved with increased dose of morphine IV, however now converted to enteral morphine per GT and titrating for pain control -continue lidocaine patch -continue morphine IR 7.5 mg per G-tube crush and mix with water--> if not helping, will increase to 15mg -Appreciate palliative care consultation (3) Aspiration into respiratory tract: Plan: now s/p PEG tube placement 03/19 Appreciate GI consultation - dietary consultation for tube feed recommendations appreciated-plan to start Fibersource HN 120mL 6x/day x 1 day then increase to 180mL 6x/day x 1 day then 250mL 6x/day bolus feeds with 60mL H2O flushes before and after----> having some residuals intermittently and sensation of fullness with 120mL -continue TFs only at 120mL 6x/day for now -cont maintenance fluids but decrease to D5 LR at 50 mL's per hour until has adequate tube feeds -geriatric case manager setting up home tube feeds -follow daily labs (4) Metastatic renal cell carcinoma: Plan: Initially was considering hospice per CM, he had hospice nurses visit him on 03/10/2021, and at that time had switched his mind and refused hospice. - Palliative and CM following -> Patient and sister both indicated he would like hospice on admission. However, he now wants rehab as he has a new apartment he would like to move into. - PT/OT consulted. -Follow-up with oncology on 03/[address] Machuca in [place] -Reports that he has been receiving oral chemotherapy With possible metastases to the lungs (5) Hyponatremia: Plan: Sodium improved to 136 after starting IVF hydration and TFs Could be secondary to pulmonary process with pneumonia and pulmonary nodules/SIADH Could also be some component of dehydration is really not had much p.o. intake- has improved with IVFs -continue IVFs until TFs at goal Follow BMP in the morning (6) Severe protein-calorie malnutrition: Plan: BMI low at 18.1, albumin severely low at 1.6 Has had weight loss over the last several months due to cancer treatments With significant aspiration and no longer can take p.o. Now s/p PEG tube -replace lytes as needed -as above, TFs slowly titrating up to goal - follow CMP, Mag, Phos in the morning -replace phos today This is his limiting factor in discharge now is getting to and tolerating goal TFs and weaning off IVFs (7) Pulmonary nodules: Plan: As above Follow-up with pulmonary and with repeat imaging as an outpatient (8) Hypoxia: Plan: Acute hypoxic respiratory failure. NC O2. titrate to keep pulse ox > or = to 94%. continues intermittently -may need 2 step prior to dc (9) Hypothyroid: Plan: TSH of 26 in 01/2021. Unclear if he has been taking his levothyroxine or not. Dose instructions from med rec are 100 mcg every day but Tuesday when he takes 15 mcg - Repeat TSH here now even worse with TSH being 41 -received levothyroxine 50 mcg IV once daily and now s/p PEG tube--> restarted levothyroxine at increased dose of 112 mcg daily -there is some component of either noncompliance or poor absorption Repeat TSH in 4 weeks (10) Antineoplastic chemotherapy induced pancytopenia: Plan: With WBC count and platelets borderline low and with anemia as below Unclear what baseline is or what chemotherapy agents he is receiving to see if this could be causing this Follow CBC Follow-up with oncology (11) Pulmonary embolism: Plan: CTA chest on 02/23 showed possible small PE. He reports his first VTE was 4 years ago after having his nephrectomy He has been on Eliquis for 4 years have since restarted Eliquis s/p PEG tube placement (12) Anemia: Plan: Hemoglobin stable/improved at 8.9, MCV normal at 95 Likely anemia of chronic disease and possibly from chemotherapy Follow CBC -continue to improve nutritional status (13) Hypophosphatemia: Plan: replace with IV Kphos as above follow Phos level in AM Plan: Disposition-continued stay until can start tube feeds and ensure tolerating, make sure pain controlled with morphine per GT, home health and home tube feeds set up already Admission and Anticipated Discharge Date Admission Date: March 11, 2021 Subjective Feels a little better today. Still no BM in a long time, abd pain today at site of GT is improved after GI loosened the bumper. No nausea. Still feels like he is aspirating a bit but lungs sound clearer today. Pain in back is not quite adequately controlled with morphine IR per GT yet SPoke with sister on phone. She has concerns that his expectations for after discharge are unrealistic as he is now wanting to live in assisted living and be more independent Review of Systems Review of Systems: All systems reviewed & are unremarkable except as noted in HPI & below Physical Exam Constitutional: + thin, + cachectic, + frail appearing and cooperative; no acute distress Eyes: + anicteric sclerae Neck: trachea midline, no thyromegaly Respiratory: normal respiratory effort Auscultation: + crackles (At right base,rhonchi now resolved); no rhonchi and no wheezes Cardiovascular: RRR, no murmur, no edema Chest (Breasts): Chest: normal inspection of chest Gastrointestinal (Abdomen): normal bowel sounds, soft, nontender, no hepatosplenomegaly (PEG tube in place without any drainage or erythema around it) Musculoskeletal: Extremities: extremities normal to inspection; no cyanosis and no clubbing Skin: no rashes, warm and dry Neurologic: moves all extremities and awake; no focal motor deficits Psychiatric: Orientation: alert, oriented x 3 and cooperative Lymphatic: no lymphedema Results & Data Results & Data ([facility]) Vital Signs (Past 12 Hours) Vital Signs Temp Pulse Resp BP Pulse Ox 03/21/21 06:59 37 C 85 16 117/81 96 03/20/21 23:06 36.5 C 89 14 109/81 97 Laboratory Results 03/21/21 03/21/21 Range/Units 06:12 06:12 WBC 5.81 (4.8-10.8) K/uL RBC 2.90 L (4.7-6.1) M/uL Hgb 8.9 L (14.0-18.0) g/dL Hct 27.7 L (42-52) % MCV 95.5 (80-100) fL MCH 30.7 (25-34) pg MCHC 32.1 (32-36) g/dL RDW Std Deviation 57.5 H (36.4-46.3) fL RDW Coeff of Delphine 16.4 H (11.5-14.5) % Plt Count 155 (130-400) K/uL MPV 8.7 (7.4-10.4) fL Immature Gran % (Auto) 0.2 % Neut % (Auto) 83.8 % Lymph % (Auto) 9.0 % [place] % (Auto) 5.9 % Eos % (Auto) 0.9 % Baso % (Auto) 0.2 % Neut # (Auto) 4.88 (1.4-6.5) K/uL Lymph # (Auto) 0.52 L (1.2-3.4) K/uL [place] # (Auto) 0.34 (0.11-0.59) K/uL Eos # (Auto) 0.05 (0-0.5) K/uL Baso # (Auto) 0.01 (0-0.2) K/uL Immature Gran # (Auto) 0.01 (0.00-0.02) K/uL Sodium 136 (136-145) mmol/L Potassium 3.7 (3.5-5.1) mmol/L Chloride 104 (98-107) mmol/L Carbon Dioxide 23 (21-32) mmol/L Anion Gap 9.0 (3-11) BUN 5 L (7-18) mg/dl Creatinine 0.66 (0.6-1.4) mg/dl Est Cr Clr Drug Dosing 95.6 ml/min Est GFR ( Amer) 120.9 ml/min Est GFR (Non-Af Amer) 104.3 ml/min BUN/Creatinine Ratio 7.5 L (10-20) Glucose 126 H (70-99) mg/dl Calcium 8.0 L (8.5-10.1) mg/dl Phosphorus 2.3 L (2.5-4.9) mg/dl Magnesium 1.8 (1.8-2.4) mg/dl Total Bilirubin 0.4 (0.2-1) mg/dl Direct Bilirubin < 0.1 (0-0.2) mg/dl AST 12 L (15-37) U/L ALT 7 L (12-78) U/L Alkaline Phosphatase 90 (45-117) U/L Total Protein 5.1 L (6.4-8.2) gm/dl Albumin 1.6 L (3.4-5.0) gm/dl PG Care Time/CCT Total # of Minutes Spent Total Time Spent with Patient: Total time spent is greater than 50% in coordination of care (as documented) at patient's floor/unit and/or counseling patient: Coding Level of Care Code 15681 Subseq Hosp Care Lvl 3 Diagnoses Pneumonia J18.9 Laterality: right Lung location: lower lobe of lung Pneumonia type: due to unspecified organism Back pain M54.9 Aspiration into respiratory tract T17.908A Metastatic renal cell carcinoma C64.9 Laterality: unspecified laterality Hyponatremia E87.1 Severe protein-calorie malnutrition E43 Pulmonary nodules R91.8 Hypoxia R09.02 Hypothyroid E03.9 Antineoplastic chemotherapy induced pancytopenia D61.810; T45.1X5A Pulmonary embolism I26.99 Anemia D64.9 Hypophosphatemia E83.39 (1) Metastatic renal cell carcinoma Laterality: unspecified laterality Qualified Code(s): C64.9 - Malignant neoplasm of unspecified kidney, except renal pelvis (2) Pneumonia Laterality: right Lung location: lower lobe of lung Pneumonia type: due to unspecified organism Qualified Code(s): J18.9 - Pneumonia, unspecified organism
[2021-03-21] MEDS ORDERED: bisacodyL 10 MG SUPP PR STA (11:00)
[2021-03-21] MEDS: DOCUSATE SODIUM SYRUP 100 MG/10 ML UDC GT SCH ×2 (11:42→20:27)
[2021-03-22] MEDS: MoRPHine SULFATE IR 15 MG TAB (IMMEDIATE RELEASE) PO PRN ×4 (00:55→20:28)
[2021-03-22] MEDS: LEVOTHYROXINE SODIUM 112 MCG TABLET GT SCH (06:39)
[2021-03-22 06:41] LABS: BUN Creatinine Ratio 9.5 (10-20); Calcium 7.6 mg/dl (8.5-10.1); Creatinine Clr Calc Pharmacy 95.6 ml/min; Est GFR (African American) 120.9 ml/min; Est GFR (Non-African American) 104.3 ml/min; Magnesium 1.8 mg/dl (1.8-2.4)
[2021-03-22] MEDS: TUBE FEEDING WATER FLUSH GT SCH ×6 (07:24→23:06)
[2021-03-22] MEDS: FIBERSOURCE HN 1.2 CAL 1000 ML BAG GT SCH ×6 (07:24→23:06)
[2021-03-22] MEDS ORDERED: POTASSIUM PHOS 3 MMOL/1 ML INFUSION IV STA (08:33)
[2021-03-22] MEDS: LIDOCAINE 5% 1 PATCH TD SCH (08:54)
[2021-03-22] MEDS: DOCUSATE SODIUM SYRUP 100 MG/10 ML UDC GT SCH ×2 (08:55→20:27)
[2021-03-22] MEDS: APIXABAN 5 MG TABLET PO SCH ×2 (08:55→20:27)
[2021-03-22] MEDS ORDERED: POTASSIUM PHOSPHATE 15 MMOL in SODIUM CHLORIDE 0.9% 250 ML IV ONE (09:00)
[2021-03-22] MEDS ORDERED: MAGNESIUM SULFATE / D5W 1 GM/100 ML BAG IV ONE (09:00)
--- NOTE | 2021-03-22 11:34 | Hospitalist Progress Note ---
Date of Service March 22, 2021 Assessment & Plan (1) Pneumonia: Plan: Secondary to aspiration pneumonia on admission CT chest with progressive right greater than left bibasilar consolidative opacities also with trace left and small right pleural effusions CT chest also with numerous bilateral pulmonary nodules re-demonstrated, several which are cavitary and suggestive of pulmonary metastases. Also with 2.6 cm thick-walled cavitary nodule the right lower lobe which has decreased in size from 02/23/2021 suggestive of resolving superimposed infection versus pulmonary infarct Appreciate speech therapy consultation-had video swallow study on 03/16 which showed severe aspiration with all consistencies-patient was presented with options for moving forward and he would like to have a PEG tube placed. He understands that this will not necessarily prevent all aspiration but is hopeful that it will provide him with nutrition as he has had significant weight loss and has very poor nutritional status. Does feel that he continues to aspirate a bit since starting tube feeds- recommended to him and nursing to always have the head of the bed at least up at 30 degrees Needs a hospital bed at home: The beneficiary requires the head of the bed be elevated more than 30 degrees most of the time due to having aspiration problems and feeding tube. Weaned off oxygen but still requires intermittently-may need 2 step prior to discharge -Continue Duonebs as needed -continue strict n.p.o. except allow ice chips for comfort at pt's request -completed 8 days of antibiotics for aspiration pneumonia -had green sputum production on 03/22 but remains afebrile--> sputum cx sent and pending -Given multiple pulmonary nodules that could be metastases versus infection recommend repeat imaging and follow-up with pulmonology as an outpatient-he is already established with pulmonology in [place] -now s/p PEG tube on 03/19 (2) Back pain: Plan: With some tenderness to palpation at the site on back, likely MSK in nature Improved with morphine IV--> now converted to enteral morphine per GT and titrating for pain control -continue lidocaine patch -continue morphine IR 15 mg q4h prn per G-tube crush and mix with water -Appreciate palliative care consultation (3) Aspiration into respiratory tract: Plan: now s/p PEG tube placement 03/19 Appreciate GI consultation - dietary consultation for tube feed recommendations appreciated- started Fibersource HN 120mL 6x/day pm 11/5--> now tolerating--> increase to 180mL 6x/day on 03/22 with GOAL of 250mL 6x/day bolus feeds with 60mL H2O flushes before and after -dc maintenance fluids -case folder setting up home tube feeds and sister will help manage as pt has some intermittent confusion while on opioids -follow daily labs (4) Hyponatremia: Plan: Sodium was improved to 136 after starting IVF hydration and TFs, now back down to 132 Could be secondary to pulmonary process with pneumonia and pulmonary nodules/SIADH Could also be some component of dehydration is really not had much p.o. intake -dc IVFs -continue to increase TFs as above Follow BMP in the morning (5) Severe protein-calorie malnutrition: Plan: BMI low at 18.1, albumin severely low at 1.5 Has had weight loss over the last several months due to cancer treatments With significant aspiration and no longer can take p.o. Now s/p PEG tube -replace lytes as needed-today giving K-phos and Mag -as above, TFs slowly titrating up to goal - follow CMP, Mag, Phos in the morning This is his limiting factor in discharge now is getting to and tolerating goal TFs and not having lyte abnormalities (6) Metastatic renal cell carcinoma: Plan: Initially was considering hospice per CM, he had hospice nurses visit him on 03/10/2021, and at that time had switched his mind and refused hospice. - Palliative and CM following - However, he now has a goal of eventually moving into a Nursing Home type apartment once stronger with functional status -PT/OT consulted-does not need rehab -Follow-up with oncology on 03/[address] Machuca in [place] -Reports that he has been receiving oral chemotherapy With possible metastases to the lungs (7) Hypothyroid: Plan: TSH of 26 in 01/2021. Unclear if he has been taking his levothyroxine or not. Dose instructions from med rec are 100 mcg every day but Tuesday when he takes 15 mcg - Repeat TSH here now even worse with TSH being 41 -received levothyroxine 50 mcg IV once daily and now s/p PEG tube--> restarted levothyroxine at increased dose of 112 mcg daily -there is some component of either noncompliance or poor absorption Repeat TSH in 4 weeks (8) Pulmonary nodules: Plan: As above Follow-up with pulmonary and with repeat imaging as an outpatient (9) Hypophosphatemia: Plan: replace with IV Kphos as above follow Phos level in AM (10) Hypoxia: Plan: Acute hypoxic respiratory failure. NC O2. titrate to keep pulse ox > or = to 94%. continues intermittently -may need 2 step prior to dc (11) Anemia: Plan: Hemoglobin stable/improved at 8.9, MCV normal at 95 Likely anemia of chronic disease and possibly from chemotherapy Follow CBC -continue to improve nutritional status (12) Antineoplastic chemotherapy induced pancytopenia: Plan: With WBC count and platelets borderline low and with anemia as below Unclear what baseline is or what chemotherapy agents he is receiving to see if this could be causing this Follow CBC Follow-up with oncology (13) Pulmonary embolism: Plan: CTA chest on 02/23 showed possible small PE during previous hospitalization. He reports his first VTE was 4 years ago after having his nephrectomy He has been on Eliquis for 4 years have since restarted Eliquis s/p PEG tube placement (14) Constipation: Plan: Still no BM since 03/11 Give another bisacodyl MA x 1 today continue docusate 100mg per GT bid Plan: Disposition-continued stay until tolerating tube feeds closer to goal, make sure pain controlled with morphine per GT, home health and home tube feeds set up already May be ready for discharge on Tuesday Admission and Anticipated Discharge Date Admission Date: March 11, 2021 Subjective Pt feels he is tolerating TFs better today, abdomen not distended. Pain is better controlled with increased dose of morphine.Still having some reflux of tube feeds into his lungs and this improves with increasing the angle of his bed. He is able to cough out some sputum and he sent a sample down to the lab Review of Systems Review of Systems: All systems reviewed & are unremarkable except as noted in HPI & below Physical Exam Constitutional: + thin, + cachectic, + frail appearing and cooperative; no acute distress Eyes: + anicteric sclerae ENMT: external ear and nose normal, oropharynx normal Neck: trachea midline, no thyromegaly Respiratory: normal respiratory effort Auscultation: + crackles (At right base,rhonchi now resolved) and + rhonchi (left base); no wheezes Cardiovascular: RRR, no murmur, no edema Chest (Breasts): Chest: normal inspection of chest Gastrointestinal (Abdomen): normal bowel sounds, soft, nontender, no hepatosplenomegaly (PEG tube in place without any drainage or erythema around it) Musculoskeletal: Extremities: extremities normal to inspection; no cyanosis and no clubbing Skin: no rashes, warm and dry Neurologic: moves all extremities and awake; no focal motor deficits Psychiatric: Orientation: alert, oriented x 3 and cooperative Lymphatic: no lymphedema Results & Data Results & Data ([facility]) Vital Signs (Past 12 Hours) Vital Signs Temp Pulse Resp BP Pulse Ox 03/22/21 07:17 36.5 C 95 H 18 102/71 93 Laboratory Results 03/22/21 Range/Units 06:07 Sodium 132 L (136-145) mmol/L Potassium 4.0 (3.5-5.1) mmol/L Chloride 101 (98-107) mmol/L Carbon Dioxide 26 (21-32) mmol/L Anion Gap 5.0 (3-11) BUN 6 L (7-18) mg/dl Creatinine 0.66 (0.6-1.4) mg/dl Est Cr Clr Drug Dosing 95.6 ml/min Est GFR ( Amer) 120.9 ml/min Est GFR (Non-Af Amer) 104.3 ml/min BUN/Creatinine Ratio 9.5 L (10-20) Glucose 109 H (70-99) mg/dl Calcium 7.6 L (8.5-10.1) mg/dl Phosphorus 2.0 L (2.5-4.9) mg/dl Magnesium 1.8 (1.8-2.4) mg/dl PG Care Time/CCT Total # of Minutes Spent Total Time Spent with Patient: Total time spent is greater than 50% in coordination of care (as documented) at patient's floor/unit and/or counseling patient: Coding Level of Care Code 83081 Subseq Hosp Care Lvl 3 Diagnoses Pneumonia J18.9 Laterality: right Lung location: lower lobe of lung Pneumonia type: due to unspecified organism Back pain M54.9 Aspiration into respiratory tract T17.908A Metastatic renal cell carcinoma C64.9 Laterality: unspecified laterality Hyponatremia E87.1 Severe protein-calorie malnutrition E43 Pulmonary nodules R91.8 Hypoxia R09.02 Hypothyroid E03.9 Antineoplastic chemotherapy induced pancytopenia D61.810; T45.1X5A Pulmonary embolism I26.99 Anemia D64.9 Hypophosphatemia E83.39 Constipation K59.00 (1) Pneumonia Laterality: right Lung location: lower lobe of lung Pneumonia type: due to unspecified organism Qualified Code(s): J18.9 - Pneumonia, unspecified organism (2) Metastatic renal cell carcinoma Laterality: unspecified laterality Qualified Code(s): C64.9 - Malignant neoplasm of unspecified kidney, except renal pelvis
[2021-03-22] MEDS ORDERED: bisacodyL 10 MG SUPP PR STA (11:38)
[2021-03-22] MEDS: HEPARIN 100 UNIT/ML 5ML FLUSH FLUSH PRN ×2 (13:02→15:15)
[2021-03-22] MEDS: ONDANSETRON INJ 2 MG/ML 2 ML VIAL IV PRN (15:15)
[2021-03-23] MEDS: MoRPHine SULFATE IR 15 MG TAB (IMMEDIATE RELEASE) PO PRN ×4 (04:03→23:46)
[2021-03-23 05:47] LABS: Basophils # (auto) 0.01 K/uL (0-0.2); Basophils % (auto) 0.2 %; Eosinophils # (auto) 0.05 K/uL (0-0.5); Eosinophils % (auto) 1.1 %; Hematocrit (blood only) 25.2 % (42-52); Hemoglobin 8.1 g/dL (14.0-18.0); Immature Granulocytes # (auto) 0.01 K/uL (0.00-0.02); Immature Granulocytes % (auto) 0.2 %; Lymphocytes # (auto) 0.36 K/uL (1.2-3.4); Lymphocytes % (auto) 7.7 %; Mean Corpuscular Hemoglobin 30.9 pg (25-34); Mean Corpuscular Hgb Conc 32.1 g/dL (32-36); Mean Corpuscular Volume 96.2 fL (80-100); Mean Platelet Volume 8.5 fL (7.4-10.4); Monocytes # (auto) 0.33 K/uL (0.11-0.59); Monocytes % (auto) 7.1 %; Neutrophils % (auto) 83.7 %; Platelet Count 139 K/uL (130-400); RDW Coefficient of Variation 16.8 % (11.5-14.5); RDW Standard Deviation 58.6 fL (36.4-46.3); Red Blood Count 2.62 M/uL (4.7-6.1); White Blood Count 4.66 K/uL (4.8-10.8)
[2021-03-23] MEDS: LEVOTHYROXINE SODIUM 112 MCG TABLET GT SCH (05:47)
[2021-03-23 06:13] LABS: Albumin Level 1.6 gm/dl (3.4-5.0); BUN Creatinine Ratio 13.2 (10-20); Calcium 7.9 mg/dl (8.5-10.1); Creatinine Clr Calc Pharmacy 97.1 ml/min; Est GFR (African American) 121.7 ml/min; Potassium 4.6 mmol/L (3.5-5.1)
[2021-03-23 06:28] LABS: Albumin Globulin Ratio 0.5 (0.9-2); Bilirubin,Total 0.5 mg/dl (0.2-1); Globulin 3.4 gm/dl (2.5-4.0); Phosphorus 2.8 mg/dl (2.5-4.9)
[2021-03-23] MEDS: TUBE FEEDING WATER FLUSH GT SCH ×6 (07:30→22:30)
[2021-03-23] MEDS: FIBERSOURCE HN 1.2 CAL 1000 ML BAG GT SCH ×6 (07:35→22:30)
[2021-03-23] MEDS: DOCUSATE SODIUM SYRUP 100 MG/10 ML UDC GT SCH ×2 (08:46→20:36)
[2021-03-23] MEDS: APIXABAN 5 MG TABLET PO SCH ×2 (08:46→20:36)
[2021-03-23] MEDS: LIDOCAINE 5% 1 PATCH TD SCH (08:47)
[2021-03-23] MEDS: MoRPHine SULFATE 4 MG/ML 1 ML CARP\\VIAL IV PRN (15:53)
[2021-03-23] MEDS ORDERED: bisacodyL 10 MG SUPP PR PRN (17:10)
[2021-03-23] MEDS: FAMOTIDINE SUSP 40 MG/5 ML UDP PO SCH (17:17)
--- NOTE | 2021-03-23 19:22 | Hospitalist Progress Note ---
Date of Service March 23, 2021 Assessment & Plan (1) Pneumonia: Plan: Secondary to aspiration pneumonia on admission CT chest with progressive right greater than left bibasilar consolidative opacities also with trace left and small right pleural effusions CT chest also with numerous bilateral pulmonary nodules re-demonstrated, several which are cavitary and suggestive of pulmonary metastases. Also with 2.6 cm thick-walled cavitary nodule the right lower lobe which has decreased in size from 02/23/2021 suggestive of resolving superimposed infection versus pulmonary infarct Appreciate speech therapy consultation-had video swallow study on 03/16 which showed severe aspiration with all consistencies-patient was presented with options for moving forward and he would like to have a PEG tube placed. He understands that this will not necessarily prevent all aspiration but is hopeful that it will provide him with nutrition as he has had significant weight loss and has very poor nutritional status. Does feel that he continues to aspirate a bit since starting tube feeds- recommended to him and nursing to always have the head of the bed at least up at 30 degrees Needs a hospital bed at home: The beneficiary requires the head of the bed be elevated more than 30 degrees most of the time due to having aspiration problems and feeding tube. Weaned off oxygen but still requires intermittently-may need 2 step prior to discharge -Continue Duonebs as needed -continue strict n.p.o. except allow ice chips for comfort at pt's request -completed 8 days of antibiotics for aspiration pneumonia -had green sputum production on 03/22 but remains afebrile--> sputum cx with gram negative bacilli - may consider further abx treatment? -Given multiple pulmonary nodules that could be metastases versus infection recommend repeat imaging and follow-up with pulmonology as an outpatient-he is already established with pulmonology in [place] -now s/p PEG tube on 03/19 (2) Back pain: Plan: With some tenderness to palpation at the site on back, likely MSK in nature Improved with morphine IV--> now converted to enteral morphine per GT and titrating for pain control -continue lidocaine patch -continue morphine IR 15 mg q4h prn per G-tube crush and mix with water -Appreciate palliative care consultation (3) Aspiration into respiratory tract: Plan: now s/p PEG tube placement 03/19 Appreciate GI consultation - dietary consultation for tube feed recommendations appreciated- started Fibersource HN 120mL 6x/day pm 03/20--> now tolerating--> increase to 180mL 6x/day on 03/22 with GOAL of 250mL 6x/day bolus feeds with 60mL H2O flushes before and after -dc maintenance fluids - Given no BM will keep at current feed rate and if can move bowels then will further titrate feeds; consider KUB in AM if no BM today -case briefer setting up home tube feeds and sister will help manage as pt has some intermittent confusion while on opioids -follow daily labs (4) Hyponatremia: Plan: Sodium was improved to 136 after starting IVF hydration and TFs, now at 133 Could be secondary to pulmonary process with pneumonia and pulmonary nodules/SIADH Could also be some component of dehydration is really not had much p.o. intake -dc IVFs -continue to increase TFs as above Follow BMP in the morning (5) Severe protein-calorie malnutrition: Plan: BMI low at 18.1, albumin severely low at 1.5 Has had weight loss over the last several months due to cancer treatments With significant aspiration and no longer can take p.o. Now s/p PEG tube -replace lytes as needed -as above, TFs slowly titrating up to goal - follow CMP, Mag, Phos in the morning This is his limiting factor in discharge now is getting to and tolerating goal TFs and not having lyte abnormalities (6) Metastatic renal cell carcinoma: Plan: Initially was considering hospice per CM, he had hospice nurses visit him on 03/10/2021, and at that time had switched his mind and refused hospice. - Palliative and CM following - However, he now has a goal of eventually moving into a Longterm type apartment once stronger with functional status -PT/OT consulted-does not need rehab -Follow-up with oncology on 03/[address] Sven siddiqi [place] -Reports that he has been receiving oral chemotherapy With possible metastases to the lungs (7) Hypothyroid: Plan: TSH of 26 in 01/2021. Unclear if he has been taking his levothyroxine or not. Dose instructions from med rec are 100 mcg every day but Tuesday when he takes 15 mcg - Repeat TSH here now even worse with TSH being 41 -received levothyroxine 50 mcg IV once daily and now s/p PEG tube--> restarted levothyroxine at increased dose of 112 mcg daily -there is some component of either noncompliance or poor absorption Repeat TSH in 4 weeks (8) Pulmonary nodules: Plan: As above Follow-up with pulmonary and with repeat imaging as an outpatient (9) Hypophosphatemia: Plan: replace with IV Kphos as above follow Phos level (10) Hypoxia: Plan: Acute hypoxic respiratory failure. NC O2. titrate to keep pulse ox > or = to 94%. continues intermittently -may need 2 step prior to dc - does have O2 at home (11) Anemia: Plan: Hemoglobin stable/improved Likely anemia of chronic disease and possibly from chemotherapy Follow CBC -continue to improve nutritional status (12) Antineoplastic chemotherapy induced pancytopenia: Plan: With WBC count and platelets borderline low and with anemia as below Unclear what baseline is or what chemotherapy agents he is receiving to see if this could be causing this Follow CBC Follow-up with oncology (13) Pulmonary embolism: Plan: CTA chest on 02/23 showed possible small PE during previous hospitalization. He reports his first VTE was 4 years ago after having his nephrectomy He has been on Eliquis for 4 years have since restarted Eliquis s/p PEG tube placement (14) Constipation: Plan: Still no BM since 03/11 continue docusate 100mg per GT bid; PRN Dulcolax suppository Plan: Disposition-continued stay until tolerating tube feeds closer to goal, make sure pain controlled with morphine per GT, home health and home tube feeds set up already Hopeful for D/C in 2-3 days Admission and Anticipated Discharge Date Admission Date: March 11, 2021 Subjective Reports doing a bit better today. Looks much better than previous admission when I saw him. Tolerating tube feeds but not at goal yet. Still no BM. Review of Systems Review of Systems: REVIEW OF SYSTEMS General/Constitutional: Denies fever/chills Cardiovascular: Denies chest pain, palpitations, edema Respiratory: + cough; Denies SOB GI: + reflux; + constipation; Denies nausea, vomiting, abdominal pain : Denies dysuria Musculoskeletal: Denies joint/muscle aches Physical Exam Physical Exam: PHYSICAL EXAM General Appearance: frail appearing but nontoxic; looks better this admission compared to last; A&O x 3 HEENT: Head is normocephalic/atraumatic; Hearing grossly intact; Mucous membranes moist; voice hoarse Neck: Supple; Trachea midline; Neg JVD; Neg lymphadenopathy Heart: RRR with no M/G/R Lungs: Crackles at bases bilat some rhonchi of L lung solorzano; Respirations unlabored; Neg accessory muscle use Abdomen: Soft, non-tender, non-distended; Positive BS x 4 quadrants; +PEG placement with dried blood but no drainage or erythema Extremities: Neg cyanosis or edema Neurological: Speech clear; Gross motor/sensory function intact; Neg focal neurologic deficits Psychiatric: Appropriate mood/affect Skin: Normal Color; Warm/Dry Results & Data Results & Data ([facility]) Vital Signs (Past 12 Hours) Vital Signs Temp Pulse Resp BP Pulse Ox 03/23/21 16:40 36.8 C 83 18 102/70 91 03/23/21 08:33 36.9 C 78 18 96/68 L 94 PG Care Time/CCT Total # of Minutes Spent Total Time Spent with Patient: Total time spent is greater than 50% in coordination of care (as documented) at patient's floor/unit and/or counseling patient: Coding Level of Care Code 06906 Subseq Hosp Care Lvl 3 Diagnoses Pneumonia J18.9 Laterality: right Lung location: lower lobe of lung Pneumonia type: due to unspecified organism Back pain M54.9 Aspiration into respiratory tract T17.908A Hyponatremia E87.1 Severe protein-calorie malnutrition E43 Metastatic renal cell carcinoma C64.9 Laterality: unspecified laterality Hypothyroid E03.9 Pulmonary nodules R91.8 Hypophosphatemia E83.39 Hypoxia R09.02 Anemia D64.9 Antineoplastic chemotherapy induced pancytopenia D61.810; T45.1X5A Pulmonary embolism I26.99 Constipation K59.00 (1) Pneumonia Laterality: right Lung location: lower lobe of lung Pneumonia type: due to unspecified organism Qualified Code(s): J18.9 - Pneumonia, unspecified organism (2) Metastatic renal cell carcinoma Laterality: unspecified laterality Qualified Code(s): C64.9 - Malignant neoplasm of unspecified kidney, except renal pelvis
[2021-03-24] MEDS: TUBE FEEDING WATER FLUSH GT SCH ×6 (06:25→22:45)
[2021-03-24] MEDS: FIBERSOURCE HN 1.2 CAL 1000 ML BAG GT SCH ×6 (06:25→21:46)
[2021-03-24] MEDS: LEVOTHYROXINE SODIUM 112 MCG TABLET GT SCH (06:25)
[2021-03-24] MEDS: MoRPHine SULFATE IR 15 MG TAB (IMMEDIATE RELEASE) PO PRN ×2 (07:44→21:23)
[2021-03-24] MEDS: HEPARIN 100 UNIT/ML 5ML FLUSH FLUSH PRN ×2 (08:22→23:09)
[2021-03-24] MEDS: DOCUSATE SODIUM SYRUP 100 MG/10 ML UDC GT SCH ×2 (09:53→21:14)
[2021-03-24] MEDS: LIDOCAINE 5% 1 PATCH TD SCH (09:53)
[2021-03-24] MEDS: APIXABAN 5 MG TABLET PO SCH ×2 (09:53→21:14)
[2021-03-24] MEDS: SENNA 8.6 MG TAB PO SCH (09:54)
[2021-03-24] MEDS: FAMOTIDINE SUSP 40 MG/5 ML UDP PO SCH (09:54)
--- NOTE | 2021-03-24 11:53 | Hospitalist Progress Note ---
Date of Service March 24, 2021 Assessment & Plan (1) Pneumonia: Plan: Secondary to aspiration pneumonia on admission CT chest with progressive right greater than left bibasilar consolidative opacities also with trace left and small right pleural effusions CT chest also with numerous bilateral pulmonary nodules re-demonstrated, several which are cavitary and suggestive of pulmonary metastases. Also with 2.6 cm thick-walled cavitary nodule the right lower lobe which has decreased in size from 02/23/2021 suggestive of resolving superimposed infection versus pulmonary infarct Appreciate speech therapy consultation-had video swallow study on 03/16 which showed severe aspiration with all consistencies-patient was presented with options for moving forward and he had a PEG tube placed. He understands that this will not necessarily prevent all aspiration but is hopeful that it will provide him with nutrition as he has had significant weight loss and has very poor nutritional status. Does feel that he continues to aspirate a bit since starting tube feeds-re commended to him and nursing to always have the head of the bed at least up at 30 degrees Needs a hospital bed at home: The beneficiary requires the head of the bed be elevated more than 30 degrees most of the time due to having aspiration problems and feeding tube. Weaned off oxygen but still requires intermittently-will perform 2 step prior to discharge -Continue Duonebs as needed -continue strict n.p.o. except allow ice chips for comfort at pt's request -completed 8 days of antibiotics for aspiration pneumonia -had green sputum production on 03/22 but remains afebrile--> sputum cx with pseudomonas - will add additional Abx coverage as initial treatment would not have covered pseudomonas -Given multiple pulmonary nodules that could be metastases versus infection recommend repeat imaging and follow-up with pulmonology as an outpatient-he is already established with pulmonology in [place] -now s/p PEG tube on 03/19 (2) Back pain: Plan: With some tenderness to palpation at the site on back, likely MSK in nature Improved with morphine IV--> now converted to enteral morphine per GT and titrating for pain control -continue lidocaine patch -continue morphine IR 15 mg q4h prn per G-tube crush and mix with water -Appreciate palliative care consultation (3) Aspiration into respiratory tract: Plan: now s/p PEG tube placement 03/19 Appreciate GI consultation - dietary consultation for tube feed recommendations appreciated- started Fibersource HN 120mL 6x/day pm 03/20--> now tolerating--> increase to 180mL 6x/day on 03/22 and tolerating with GOAL of 250mL 6x/day bolus feeds with 60mL H2O flushes before and after - Given no BM will keep at current feed rate and if can move bowels then will further titrate feeds; ordered KUB and can consider more aggressive bowel regimen -outsole caser setting up home tube feeds and sister will help manage as pt has some intermittent confusion while on opioids -follow daily labs (4) Hyponatremia: Plan: - STABLE Could be secondary to pulmonary process with pneumonia and pulmonary nodules/SIADH Could also be some component of dehydration as really not had much p.o. intake prior to admission -dc IVFs -continue to increase TFs as above Follow BMP in the morning (5) Severe protein-calorie malnutrition: Plan: BMI low at 18.1, albumin severely low at 1.5 Has had weight loss over the last several months due to cancer treatments With significant aspiration and no longer can take p.o. Now s/p PEG tube -replace lytes as needed -as above, TFs slowly titrating up to goal - follow CMP, Mag, Phos in the morning This is his limiting factor in discharge now is getting to and tolerating goal TFs and not having lyte abnormalities; plus ability to have BM (6) Metastatic renal cell carcinoma: Plan: Initially was considering hospice per CM, he had hospice nurses visit him on 03/10/2021, and at that time had switched his mind and refused hospice. - Palliative and CM following - However, he now has a goal of eventually moving into a [place]-Way type apartment once stronger with functional status -PT/OT consulted-does not need rehab -Follow-up with oncology on 03/[address] Sven siddiqi [place] -Reports that he has been receiving oral chemotherapy With possible metastases to the lungs (7) Hypothyroid: Plan: TSH of 26 in 01/2021. Unclear if he has been taking his levothyroxine or not. Dose instructions from med rec are 100 mcg every day but Tuesday when he takes 15 mcg - Repeat TSH here now even worse with TSH being 41 -received levothyroxine 50 mcg IV once daily and now s/p PEG tube--> restarted levothyroxine at increased dose of 112 mcg daily -there is some component of either noncompliance or poor absorption Repeat TSH in 4 weeks (8) Pulmonary nodules: Plan: As above Follow-up with pulmonary and with repeat imaging as an outpatient (9) Hypophosphatemia: Plan: replace with IV Kphos as above follow Phos level (10) Hypoxia: Plan: Acute hypoxic respiratory failure. NC O2. titrate to keep pulse ox > or = to 94%. continues intermittently -Will perform 2 step prior to dc - does have O2 at home (11) Anemia: Plan: Hemoglobin stable/improved Likely anemia of chronic disease and possibly from chemotherapy Follow CBC -continue to improve nutritional status (12) Antineoplastic chemotherapy induced pancytopenia: Plan: With WBC count and platelets borderline low and with anemia as below Unclear what baseline is or what chemotherapy agents he is receiving to see if this could be causing this Follow CBC Follow-up with oncology (13) Pulmonary embolism: Plan: CTA chest on 02/23 showed possible small PE during previous hospitalization. He reports his first VTE was 4 years ago after having his nephrectomy He has been on Eliquis for 4 years have since restarted Eliquis s/p PEG tube placement (14) Constipation: Plan: Still no BM since 03/11 continue docusate 100mg per GT bid; PRN Dulcolax suppository; Senna - Consider Relistor Plan: Disposition-continued stay until tolerating tube feeds closer to goal, make sure pain controlled with morphine per GT, home health and home tube feeds set up already Hopeful for D/C in 2-3 days Admission and Anticipated Discharge Date Admission Date: March 11, 2021 Subjective Reports feeling well today. Still no BM. States he was passing gas yesterday but not today. However tolerating bolus feeds. States his breathing is stable. Verbalizes no new complaints Review of Systems Review of Systems: REVIEW OF SYSTEMS General/Constitutional: Denies fever/chills Cardiovascular: Denies chest pain, palpitations, edema Respiratory: + cough; Denies SOB GI: + reflux (improving); + constipation; Denies nausea, vomiting, abdominal pain : Denies dysuria Musculoskeletal: Denies joint/muscle aches Physical Exam Physical Exam: PHYSICAL EXAM General Appearance: frail appearing but nontoxic; looks better this admission compared to last; A&O x 3 HEENT: Head is normocephalic/atraumatic; Hearing grossly intact; Mucous membranes moist; voice hoarse Neck: Supple; Trachea midline; Neg JVD Heart: RRR with no M/G/R Lungs: Crackles at bases bilat some rhonchi of L lung solorzano; Respirations unlabored; Neg accessory muscle use Abdomen: Soft, non-tender, non-distended; Positive BS x 4 quadrants but quite; +PEG placement with dried blood but no drainage or erythema Extremities: Neg cyanosis or edema Neurological: Speech clear; Gross motor/sensory function intact; Neg focal neurologic deficits Psychiatric: Appropriate mood/affect Skin: Normal Color; Warm/Dry Results & Data Results & Data ([facility]) Vital Signs (Past 12 Hours) Vital Signs Temp Pulse Resp BP Pulse Ox 03/24/21 07:12 36.7 C 91 H 16 104/71 90 PG Care Time/CCT Total # of Minutes Spent Total Time Spent with Patient: Total time spent is greater than 50% in coordination of care (as documented) at patient's floor/unit and/or counseling patient: Coding Level of Care Code 00136 Subseq Hosp Care Lvl 3 Diagnoses Pneumonia J18.9 Laterality: right Lung location: lower lobe of lung Pneumonia type: due to unspecified organism Back pain M54.9 Aspiration into respiratory tract T17.908A Hyponatremia E87.1 Severe protein-calorie malnutrition E43 Metastatic renal cell carcinoma C64.9 Laterality: unspecified laterality Hypothyroid E03.9 Pulmonary nodules R91.8 Hypophosphatemia E83.39 Hypoxia R09.02 Anemia D64.9 Antineoplastic chemotherapy induced pancytopenia D61.810; T45.1X5A Pulmonary embolism I26.99 Constipation K59.00 (1) Pneumonia Laterality: right Lung location: lower lobe of lung Pneumonia type: due to unspecified organism Qualified Code(s): J18.9 - Pneumonia, unspecified organism (2) Metastatic renal cell carcinoma Laterality: unspecified laterality Qualified Code(s): C64.9 - Malignant neoplasm of unspecified kidney, except renal pelvis
[2021-03-24] MEDS ORDERED: levoFLOXacin ORAL SOLN 25MG/ML BTL PEG ONE (14:30)
--- NOTE | 2021-03-24 15:41 | XRay Report ---
XR KUB/Abdomen 1 view CLINICAL HISTORY: Assess for SBO TECHNIQUE: 1 view of the abdomen was obtained. Comparison: None available at the time of this dictation. FINDINGS: Lung bases are unremarkable. The osseous structures are grossly unremarkable. The bowel gas pattern i s nonobstructive. A moderate amount of stool is noted within the large bowel. IMPRESSION: Nonobstructive bowel gas pattern. ACT 112: Negative or not required by law. Electronically signed by: Sascha Bear M.D. 03/24/2021 3:40 PM
[2021-03-24] MEDS: MoRPHine SULFATE 4 MG/ML 1 ML CARP\\VIAL IV PRN (23:08)
[2021-03-25] MEDS: LEVOTHYROXINE SODIUM 112 MCG TABLET GT SCH (06:56)
[2021-03-25] MEDS: TUBE FEEDING WATER FLUSH GT SCH ×6 (07:50→23:22)
[2021-03-25] MEDS: FIBERSOURCE HN 1.2 CAL 1000 ML BAG GT SCH ×6 (07:50→23:21)
[2021-03-25] MEDS: MoRPHine SULFATE 4 MG/ML 1 ML CARP\\VIAL IV PRN ×3 (07:53→16:45)
[2021-03-25] MEDS: HEPARIN 100 UNIT/ML 5ML FLUSH FLUSH PRN ×4 (07:54→16:46)
[2021-03-25] MEDS: FAMOTIDINE SUSP 40 MG/5 ML UDP PO SCH (08:54)
[2021-03-25] MEDS: APIXABAN 5 MG TABLET PO SCH ×2 (08:54→21:57)
[2021-03-25] MEDS: DOCUSATE SODIUM SYRUP 100 MG/10 ML UDC GT SCH ×2 (08:54→21:58)
[2021-03-25] MEDS: levoFLOXacin ORAL SOLN 25MG/ML BTL PEG SCH (08:56)
[2021-03-25] MEDS: LIDOCAINE 5% 1 PATCH TD SCH (08:56)
[2021-03-25] MEDS: SENNA 8.6 MG TAB PO SCH (08:57)
[2021-03-25] MEDS ORDERED: METHYLNALTREXONE BROMIDE 12 MG/0.6 ML VIAL SQ ONE (10:09)
--- NOTE | 2021-03-25 10:47 | Hospitalist Progress Note ---
Date of Service March 25, 2021 Assessment & Plan (1) Pneumonia: Plan: Secondary to aspiration pneumonia on admission CT chest with progressive right greater than left bibasilar consolidative opacities also with trace left and small right pleural effusions CT chest also with numerous bilateral pulmonary nodules re-demonstrated, several which are cavitary and suggestive of pulmonary metastases. Also with 2.6 cm thick-walled cavitary nodule the right lower lobe which has decreased in size from 02/23/2021 suggestive of resolving superimposed infection versus pulmonary infarct Appreciate speech therapy consultation-had video swallow study on 03/16 which showed severe aspiration with all consistencies-patient was presented with options for moving forward and he had a PEG tube placed. He understands that this will not necessarily prevent all aspiration but is hopeful that it will provide him with nutrition as he has had significant weight loss and has very poor nutritional status. Does feel that he continues to aspirate a bit since starting tube feeds-r ecommended to him and nursing to always have the head of the bed at least up at 30 degrees Needs a hospital bed at home: The beneficiary requires the head of the bed be elevated more than 30 degrees most of the time due to having aspiration problems and feeding tube. Weaned off oxygen but still requires intermittently-will perform 2 step prior to discharge -Continue Duonebs as needed -continue strict n.p.o. except allow ice chips for comfort at pt's request -completed 8 days of antibiotics for aspiration pneumonia -had green sputum production on 03/22 but remains afebrile--> sputum cx with pseudomonas - added Levaquin via PEG as initial treatment would not have covered pseudomonas -Given multiple pulmonary nodules that could be metastases versus infection recommend repeat imaging and follow-up with pulmonology as an outpatient-he is already established with pulmonology in [place] -now s/p PEG tube on 03/19 (2) Back pain: Plan: With some tenderness to palpation at the site on back, likely MSK in nature; maybe worsened with constipation Improved with morphine IV--> now converted to enteral morphine per GT and titrating for pain control -continue lidocaine patch -continue morphine IR 15 mg q4h prn per G-tube crush and mix with water -Appreciate palliative care consultation (3) Aspiration into respiratory tract: Plan: now s/p PEG tube placement 03/19 Appreciate GI consultation - dietary consultation for tube feed recommendations appreciated- started Fibersource HN 120mL 6x/day pm 03/20--> now tolerating--> increase to 180mL 6x/day on 03/22 and tolerating with GOAL of 250mL 6x/day bolus feeds with 60mL H2O flushes before and after - Given no BM will keep at current feed rate and if can move bowels then will further titrate feeds; KUB without obstruction but significant stool burden; given Relistor x 1 -rn case management setting up home tube feeds and sister will help manage as pt has some intermittent confusion while on opioids -follow daily labs (4) Hyponatremia: Plan: - STABLE Could be secondary to pulmonary process with pneumonia and pulmonary nodules/SIADH Could also be some component of dehydration as really not had much p.o. intake prior to admission -dc IVFs -continue to increase TFs as above Follow BMP in the morning (5) Severe protein-calorie malnutrition: Plan: BMI low at 18.1, albumin severely low at 1.5 Has had weight loss over the last several months due to cancer treatments With significant aspiration and no longer can take p.o. Now s/p PEG tube -replace lytes as needed -as above, TFs slowly titrating up to goal - follow CMP, Mag, Phos in the morning This is his limiting factor in discharge now is getting to and tolerating goal TFs and not having lyte abnormalities; plus ability to have BM (6) Metastatic renal cell carcinoma: Plan: Initially was considering hospice per CM, he had hospice nurses visit him on 03/10/2021, and at that time had switched his mind and refused hospice. - Palliative and CM following - However, he now has a goal of eventually moving into a Residential type apartment once stronger with functional status -PT/OT consulted-does not need rehab -Follow-up with oncology on 03/[address] Machuca in [place] -Reports that he has been receiving oral chemotherapy With possible metastases to the lungs (7) Hypothyroid: Plan: TSH of 26 in 01/2021. Unclear if he has been taking his levothyroxine or not. Dose instructions from med rec are 100 mcg every day but Tuesday when he takes 15 mcg - Repeat TSH here now even worse with TSH being 41 -received levothyroxine 50 mcg IV once daily and now s/p PEG tube--> restarted levothyroxine at increased dose of 112 mcg daily -there is some component of either noncompliance or poor absorption Repeat TSH in 4 weeks (8) Pulmonary nodules: Plan: As above Follow-up with pulmonary and with repeat imaging as an outpatient (9) Hypophosphatemia: Plan: replace with IV Kphos as above follow Phos level (10) Hypoxia: Plan: Acute hypoxic respiratory failure. NC O2. titrate to keep pulse ox > or = to 94%. continues intermittently -Will perform 2 step prior to dc - does have O2 at home (11) Anemia: Plan: Hemoglobin stable/improved Likely anemia of chronic disease and possibly from chemotherapy Follow CBC -continue to improve nutritional status (12) Antineoplastic chemotherapy induced pancytopenia: Plan: With WBC count and platelets borderline low and with anemia as below Unclear what baseline is or what chemotherapy agents he is receiving to see if this could be causing this Follow CBC Follow-up with oncology (13) Pulmonary embolism: Plan: CTA chest on 02/23 showed possible small PE during previous hospitalization. He reports his first VTE was 4 years ago after having his nephrectomy He has been on Eliquis for 4 years have since restarted Eliquis s/p PEG tube placement (14) Constipation: Plan: Still no BM since 03/11 continue docusate 100mg per GT bid; PRN Dulcolax suppository; Senna - Give Relistor x 1 Plan: Disposition-continued stay until tolerating tube feeds closer to goal, make sure pain controlled with morphine per GT, home health and home tube feeds/hospital bed set up already Hopeful for D/C in 2-3 days Admission and Anticipated Discharge Date Admission Date: March 11, 2021 Subjective Reports having R low back pain and pain medication given. Also showed his KUB with the stool that is present. Some pain may be constipation related. Will try Relistor to see if that will promote bowel movements. Discussing with nursing the pain seemed to be worsened after bolus feeds - possibly due to no bowel movements it can be causing some discomfort. No current nausea/vomiting Review of Systems Review of Systems: All systems reviewed & are unremarkable except as noted in Subjective Physical Exam Physical Exam: PHYSICAL EXAM General Appearance: frail appearing but nontoxic; looks better this admission compared to last; A&O x 3 HEENT: Head is normocephalic/atraumatic; Hearing grossly intact; Mucous membranes moist; voice hoarse Neck: Supple; Trachea midline; Neg JVD Heart: RRR with no M/G/R Lungs: Crackles at bases bilat some rhonchi of L lung solorzano; Respirations unlabored; Neg accessory muscle use Abdomen: Soft, non-tender, non-distended; Positive BS x 4 quadrants but quite; +PEG placement no drainage or erythema Extremities: Neg cyanosis or edema Neurological: Speech clear; Gross motor/sensory function intact; Neg focal neurologic deficits Psychiatric: Appropriate mood/affect Skin: Normal Color; Warm/Dry Results & Data Results & Data ([facility]) Vital Signs (Past 12 Hours) Vital Signs Temp Pulse Resp BP Pulse Ox 03/25/21 07:02 37.1 C 107 H 22 104/77 92 PG Care Time/CCT Total # of Minutes Spent Total Time Spent with Patient: Total time spent is greater than 50% in coordination of care (as documented) at patient's floor/unit and/or counseling patient: Coding Level of Care Code 38249 Subseq Hosp Care Lvl 3 Diagnoses Pneumonia J18.9 Laterality: right Lung location: lower lobe of lung Pneumonia type: due to unspecified organism Back pain M54.9 Aspiration into respiratory tract T17.908A Hyponatremia E87.1 Severe protein-calorie malnutrition E43 Metastatic renal cell carcinoma C64.9 Laterality: unspecified laterality Hypothyroid E03.9 Pulmonary nodules R91.8 Hypophosphatemia E83.39 Hypoxia R09.02 Anemia D64.9 Antineoplastic chemotherapy induced pancytopenia D61.810; T45.1X5A Pulmonary embolism I26.99 Constipation K59.00 (1) Pneumonia Laterality: right Lung location: lower lobe of lung Pneumonia type: due to unspecified organism Qualified Code(s): J18.9 - Pneumonia, unspecified organism (2) Metastatic renal cell carcinoma Laterality: unspecified laterality Qualified Code(s): C64.9 - Malignant neoplasm of unspecified kidney, except renal pelvis
[2021-03-25] MEDS: ONDANSETRON INJ 2 MG/ML 2 ML VIAL IV PRN (11:39)
--- NOTE | 2021-03-25 12:33 | Palliative Care Progress Note ---
Date of Service March 25, 2021 Assessment & Plan (1) Pain: Plan: Now predominately abdominal. Likely exacerbated by constipated. He did receive relistor today. He has pain which he rates as severe despite 45-60mg OME daily. Would consider rotation to hydromorphone if pain persists after BM. He would not be an ideal candidate for fentanyl patch with his low BMI. (2) Constipation: Plan: Monitor after relistor. He is on senna 17.2 mg/day. May need to increase dose with chronic opioids. (3) Palliative care encounter: (4) Metastatic renal cell carcinoma: (5) Severe protein-calorie malnutrition: (6) Left rib fracture: Admission and Anticipated Discharge Date Admission Date: March 11, 2021 Subjective Complains of abdominal pain. Not able to describe what it feels like. Appears intermittent and not movement related. No BM yet. KUB shows moderate amount of stool with no obstruction. He has been getting morphine IR with 45-60 mg OME daily. He did get IV morphine a few times as well. Review of Systems Review of Systems: [place] Symptom Assessment Scale Pain 2/3 Dyspnea 0/3 Anxiety 1/3 Fatigue 2/3 Nausea 0/3 Drowsiness 1/3 Palliative Performance Score 40% Physical Exam Constitutional: facial grimace Respiratory: normal respiratory effort; no labored breathing Gastrointestinal (Abdomen): tender to palpation, nondistended, PEG tube Musculoskeletal: Extremities: + muscle atrophy Neurologic: awake; not confused Results & Data ([facility]) Vital Signs (Past 12 Hours) Vital Signs Temp Pulse Resp BP Pulse Ox 03/25/21 07:02 98.8 F 107 H 22 104/77 92 PG Care Time/CCT Total # of Minutes Spent Total Time Spent with Patient: Total time spent is greater than 50% in coordination of care (as documented) at patient's floor/unit and/or counseling patient: Coding Level of Care Code 05667 Subseq Hosp Care Lvl 2 Diagnoses Pain R52 Constipation K59.00 Palliative care encounter Z51.5 Metastatic renal cell carcinoma C64.9 Laterality: unspecified laterality Severe protein-calorie malnutrition E43 Left rib fracture S22.32XA (1) Metastatic renal cell carcinoma Laterality: unspecified laterality Qualified Code(s): C64.9 - Malignant neoplasm of unspecified kidney, except renal pelvis
[2021-03-25] MEDS: MoRPHine SULFATE IR 15 MG TAB (IMMEDIATE RELEASE) PO PRN (14:38)
[2021-03-26 05:21] LABS: Hematocrit (blood only) 22.7 % (42-52); Hemoglobin 7.5 g/dL (14.0-18.0); Mean Corpuscular Hemoglobin 31.1 pg (25-34); Mean Corpuscular Volume 94.2 fL (80-100); Mean Platelet Volume 8.1 fL (7.4-10.4); Platelet Count 210 K/uL (130-400); RDW Standard Deviation 58.2 fL (36.4-46.3); Red Blood Count 2.41 M/uL (4.7-6.1); White Blood Count 6.04 K/uL (4.8-10.8)
[2021-03-26 05:49] LABS: BUN Creatinine Ratio 15.6 (10-20); Calcium 8.3 mg/dl (8.5-10.1); Creatinine Clr Calc Pharmacy 88.9 ml/min; Est GFR (African American) 117.4 ml/min; Est GFR (Non-African American) 101.3 ml/min; Potassium 4.3 mmol/L (3.5-5.1)
[2021-03-26] MEDS: LEVOTHYROXINE SODIUM 112 MCG TABLET GT SCH (06:01)
[2021-03-26] MEDS: TUBE FEEDING WATER FLUSH GT SCH ×7 (07:21→19:46)
[2021-03-26] MEDS: FIBERSOURCE HN 1.2 CAL 1000 ML BAG GT SCH ×6 (07:21→19:46)
[2021-03-26] MEDS ORDERED: LACTULOSE SYRUP 30 GM/45 ML UDP PEG STA (08:29)
[2021-03-26] MEDS: APIXABAN 5 MG TABLET PO SCH (08:36)
[2021-03-26] MEDS: levoFLOXacin ORAL SOLN 25MG/ML BTL PEG SCH (08:37)
[2021-03-26] MEDS: FAMOTIDINE SUSP 40 MG/5 ML UDP PO SCH (08:37)
[2021-03-26] MEDS: DOCUSATE SODIUM SYRUP 100 MG/10 ML UDC GT SCH ×2 (08:37→21:56)
[2021-03-26] MEDS: LIDOCAINE 5% 1 PATCH TD SCH (08:38)
[2021-03-26] MEDS: SENNA 8.6 MG TAB PO SCH ×2 (08:38→21:56)
[2021-03-26] MEDS ORDERED: SIMETHICONE 80 MG CHEW PO PRN (12:26)
[2021-03-26] MEDS: MoRPHine SULFATE IR 15 MG TAB (IMMEDIATE RELEASE) PO PRN (15:44)
--- NOTE | 2021-03-26 18:12 | Hospitalist Progress Note ---
Date of Service March 26, 2021 Assessment & Plan (1) Pneumonia: Plan: Secondary to aspiration pneumonia on admission CT chest with progressive right greater than left bibasilar consolidative opacities also with trace left and small right pleural effusions CT chest also with numerous bilateral pulmonary nodules re-demonstrated, several which are cavitary and suggestive of pulmonary metastases. Also with 2.6 cm thick-walled cavitary nodule the right lower lobe which has decreased in size from 02/23/2021 suggestive of resolving superimposed infection versus pulmonary infarct Appreciate speech therapy consultation-had video swallow study on 03/16 which showed severe aspiration with all consistencies-patient was presented with options for moving forward and he had a PEG tube placed. He understands that this will not necessarily prevent all aspiration but is hopeful that it will provide him with nutrition as he has had significant weight loss and has very poor nutritional status. Does feel that he continues to aspirate a bit since starting tube feeds-r ecommended to him and nursing to always have the head of the bed at least up at 30 degrees Needs a hospital bed at home: The beneficiary requires the head of the bed be elevated more than 30 degrees most of the time due to having aspiration problems and feeding tube. Weaned off oxygen but still requires intermittently-will perform 2 step prior to discharge -Continue Duonebs as needed -continue strict n.p.o. except allow ice chips for comfort at pt's request -completed 8 days of antibiotics for aspiration pneumonia -had green sputum production on 03/22 but remains afebrile--> sputum cx with pseudomonas - added Levaquin via PEG as initial treatment would not have covered pseudomonas -Given multiple pulmonary nodules that could be metastases versus infection recommend repeat imaging and follow-up with pulmonology as an outpatient-he is already established with pulmonology in [place] -now s/p PEG tube on 03/19 (2) Back pain: Plan: With some tenderness to palpation at the site on back, likely MSK in nature; maybe worsened with constipation Improved with morphine IV--> now converted to enteral morphine per GT and titrating for pain control -continue lidocaine patch -continue morphine IR 15 mg q4h prn per G-tube crush and mix with water -Appreciate palliative care consultation (3) Aspiration into respiratory tract: Plan: now s/p PEG tube placement 03/19 Appreciate GI consultation - dietary consultation for tube feed recommendations appreciated- started Fibersource HN 120mL 6x/day pm 03/20--> now tolerating--> increase to 180mL 6x/day on 03/22 and tolerating with GOAL of 250mL 6x/day bolus feeds with 60mL H2O flushes before and after - Given no BM will keep at current feed rate and if can move bowels then will further titrate feeds; KUB without obstruction but significant stool burden; given Relistor x 1 -- Added MIGNON Lactulose and will do additional Relistor tomorrow -window caser setting up home tube feeds and sister will help manage as pt has some intermittent confusion while on opioids -follow daily labs (4) Hyponatremia: Plan: - STABLE - a little lower today Could be secondary to pulmonary process with pneumonia and pulmonary nodules/SIADH Could also be some component of dehydration as really not had much p.o. intake prior to admission -dc IVFs -continue to increase TFs as above Follow BMP in the morning (5) Severe protein-calorie malnutrition: Plan: BMI low at 18.1, albumin severely low at 1.5 Has had weight loss over the last several months due to cancer treatments With significant aspiration and no longer can take p.o. Now s/p PEG tube -replace lytes as needed -as above, TFs slowly titrating up to goal - follow CMP, Mag, Phos in the morning This is his limiting factor in discharge now is getting to and tolerating goal TFs and not having lyte abnormalities; plus ability to have BM (6) Metastatic renal cell carcinoma: Plan: Initially was considering hospice per CM, he had hospice nurses visit him on 03/10/2021, and at that time had switched his mind and refused hospice. - Palliative and CM following - However, he now has a goal of eventually moving into a [facility] type apartment once stronger with functional status -PT/OT consulted-does not need rehab -Follow-up with oncology on 03/[address] Sven Ferreira -Reports that he has been receiving oral chemotherapy With possible metastases to the lungs (7) Hypothyroid: Plan: TSH of 26 in 01/2021. Unclear if he has been taking his levothyroxine or not. Dose instructions from med rec are 100 mcg every day but Tuesday when he takes 15 mcg - Repeat TSH here now even worse with TSH being 41 -received levothyroxine 50 mcg IV once daily and now s/p PEG tube--> restarted levothyroxine at increased dose of 112 mcg daily -there is some component of either noncompliance or poor absorption Repeat TSH in 4 weeks (8) Pulmonary nodules: Plan: As above Follow-up with pulmonary and with repeat imaging as an outpatient (9) Hypophosphatemia: Plan: replace with IV Kphos as above follow Phos level (10) Hypoxia: Plan: Acute hypoxic respiratory failure. NC O2. titrate to keep pulse ox > or = to 94%. continues intermittently -Will perform 2 step prior to dc - does have O2 at home (11) Anemia: Plan: Hemoglobin did drop some today but no dizziness and will recheck and monitor Likely anemia of chronic disease and possibly from chemotherapy Follow CBC -continue to improve nutritional status (12) Antineoplastic chemotherapy induced pancytopenia: Plan: With WBC count and platelets borderline low and with anemia as below Unclear what baseline is or what chemotherapy agents he is receiving to see if this could be causing this Follow CBC Follow-up with oncology (13) Pulmonary embolism: Plan: CTA chest on 02/23 showed possible small PE during previous hospitalization. He reports his first VTE was 4 years ago after having his nephrectomy He has been on Eliquis for 4 years Hold Eliquis to monitor blood counts (14) Constipation: Plan: Still no BM since 03/11 continue docusate 100mg per GT bid; PRN Dulcolax suppository; Senna - Give Relistor x 1 will repeat tomorrow; added MIGNON Lactulose Plan: Disposition-continued stay until tolerating tube feeds closer to goal, make sure pain controlled with morphine per GT, home health and home tube feeds/hospital bed set up already Hopeful for D/C in 2-3 days Admission and Anticipated Discharge Date Admission Date: March 11, 2021 Subjective Sleeping most of the day. Reports less pain today/more managemeble. Still no bowel movement. Discussed with RD to increase free water to assist with bowel movement. Review of Systems Review of Systems: All systems reviewed & are unremarkable except as noted in Subjective Physical Exam Physical Exam: PHYSICAL EXAM General Appearance: frail appearing but nontoxic; looks better this admission compared to last; A&O x 3 HEENT: Head is normocephalic/atraumatic; Hearing grossly intact; Mucous membranes moist; voice hoarse Neck: Supple; Trachea midline; Neg JVD Heart: RRR with no M/G/R Lungs: Crackles at bases bilat some rhonchi of L lung solorzano; Respirations unlabored; Neg accessory muscle use Abdomen: Soft, non-tender, non-distended; Positive BS x 4 quadrants but quite; +PEG placement no drainage or erythema Extremities: Neg cyanosis or edema Neurological: Speech clear; Gross motor/sensory function intact; Neg focal neurologic deficits Psychiatric: Appropriate mood/affect Skin: Normal Color; Warm/Dry Results & Data Results & Data ([facility]) Vital Signs (Past 12 Hours) Vital Signs Temp Pulse Pulse Resp BP BP Pulse Ox 03/26/21 14:43 36.8 C 101 H 16 94/63 L 91 03/26/21 12:08 36.6 C 106 H 22 98/65 L 92 03/26/21 07:52 36.7 C 100 H 22 99/62 L 92 PG Care Time/CCT Total # of Minutes Spent Total Time Spent with Patient: Total time spent is greater than 50% in coordination of care (as documented) at patient's floor/unit and/or counseling patient: Coding Level of Care Code 07342 Subseq Hosp Care Lvl 3 Diagnoses Pneumonia J18.9 Laterality: right Lung location: lower lobe of lung Pneumonia type: due to unspecified organism Back pain M54.9 Aspiration into respiratory tract T17.908A Hyponatremia E87.1 Severe protein-calorie malnutrition E43 Metastatic renal cell carcinoma C64.9 Laterality: unspecified laterality Hypothyroid E03.9 Pulmonary nodules R91.8 Hypophosphatemia E83.39 Hypoxia R09.02 Anemia D64.9 Antineoplastic chemotherapy induced pancytopenia D61.810; T45.1X5A Pulmonary embolism I26.99 Constipation K59.00 (1) Metastatic renal cell carcinoma Laterality: unspecified laterality Qualified Code(s): C64.9 - Malignant neoplasm of unspecified kidney, except renal pelvis (2) Pneumonia Laterality: right Lung location: lower lobe of lung Pneumonia type: due to unspecified organism Qualified Code(s): J18.9 - Pneumonia, unspecified organism
[2021-03-26] MEDS: HEPARIN 100 UNIT/ML 5ML FLUSH FLUSH PRN (19:47)
[2021-03-26] MEDS: ONDANSETRON INJ 2 MG/ML 2 ML VIAL IV PRN (19:47)
--- NOTE | 2021-03-26 20:46 | XRay Report ---
XR chest 1V portable CLINICAL HISTORY: new oxygen requirement. COMPARISON STUDY: 03/16/2021 TECHNIQUE: 1 view of the chest FINDINGS: Single frontal view of the chest demonstrates the cardiomediastinal silhouette to be within normal li mits. A Port-A-Cath is in place. Compared to previous examination, there has been interval developmen t of a small to moderate size right pleural effusion with right lower lobe atelectasis/collapse. Is a lso evidence for underlying right lower lobe airspace opacity. There is no evidence for left pleural effusion. There is no evidence for vascular congestion. There is no acute osseous pathology. IMPRESSION: Interval development of [id number] size right pleural effusion with right lower lo be atelectasis/collapse. There is again alveolar opacity at the right lung base as well. ACT 112: Negative or not required by law. Electronically signed by: Manny Connosr M.D. 03/26/2021 8:45 PM
--- NOTE | 2021-03-26 21:27 | XRay Report ---
XR KUB/Abdomen 1 view CLINICAL HISTORY: emesis, G tube. COMPARISON STUDY: 03/24/2021 TECHNIQUE: Single view of the abdomen. FINDINGS: Compared to previous examination, there has been relief of fecal stasis with only mild fecal material seen in the sigmoid colon. There is now gaseous distention of the colon. No definite small bowel dil atation or evidence for obstruction is seen. However, it should be noted that the stomach and hemidia phragms were not included on this radiograph. There is no evidence for organomegaly or gross intra-ab dominal mass. No abnormal calcifications are seen along the course of the urinary tracts bilaterally. No acute osseous pathology. Degenerative changes are seen within the spine. IMPRESSION: 1.Release of fecal stasis with gaseous distention of the colon. No definite bowel loop obstruction. T he stomach and G-tube were not included on this study. ACT 112: Negative or not required by law. Electronically signed by: Manny Connors M.D. 03/26/2021 9:26 PM
[2021-03-26] MEDS: LACTULOSE SYRUP 30 GM/45 ML UDP PEG SCH (21:56)
[2021-03-27 05:41] LABS: Hematocrit (blood only) 25.8 % (42-52); Hemoglobin 8.5 g/dL (14.0-18.0)
[2021-03-27] MEDS: LEVOTHYROXINE SODIUM 112 MCG TABLET GT SCH (06:33)
[2021-03-27] MEDS: FAMOTIDINE SUSP 40 MG/5 ML UDP PO SCH (08:26)
[2021-03-27] MEDS: levoFLOXacin ORAL SOLN 25MG/ML BTL PEG SCH (08:26)
[2021-03-27] MEDS: SENNA 8.6 MG TAB PO SCH ×2 (08:27→20:35)
[2021-03-27] MEDS: DOCUSATE SODIUM SYRUP 100 MG/10 ML UDC GT SCH ×2 (08:27→20:34)
[2021-03-27] MEDS: LACTULOSE SYRUP 30 GM/45 ML UDP PEG SCH (08:28)
[2021-03-27] MEDS: LIDOCAINE 5% 1 PATCH TD SCH (08:28)
--- NOTE | 2021-03-27 13:43 | Electrocardiogram Report ---
Test Reason : Blood Pressure : / mmHG Vent. Rate : 095 BPM Atrial Rate : 095 BPM P-R Int : 156 ms QRS Dur : 092 ms QT Int : 376 ms P-R-T Axes : 016 019 054 degrees QTc Int : 472 ms Normal sinus rhythm Normal ECG When compared with ECG of 11-MAR-2021 18:48, Nonspecific T wave abnormality no longer evident in Anterolateral leads Confirmed by Fitz Ibarra ([id number]) on 03/27/2021 1:43:23 PM Referred By: REFERRED SELF Confirmed By:Fitz Ibarra
--- NOTE | 2021-03-27 18:31 | Hospitalist Progress Note ---
Date of Service March 27, 2021 Assessment & Plan (1) Pneumonia: Plan: Secondary to aspiration pneumonia on admission CT chest with progressive right greater than left bibasilar consolidative opacities also with trace left and small right pleural effusions (on admission) CT chest also with numerous bilateral pulmonary nodules re-demonstrated, several which are cavitary and suggestive of pulmonary metastases. Also with 2.6 cm thick-walled cavitary nodule the right lower lobe which has decreased in size from 02/23/2021 suggestive of resolving superimposed infection versus pulmonary infarct - Repeat CXR (03/26) shows further development of small to moderate R pleural effusion with RLL atelectasis/collapse -- Did discuss consideration for Pleur-X and will discuss with Pulmonology for placement Appreciate speech therapy consultation-had video swallow study on 03/16 which showed severe aspiration with all consistencies-patient was presented with options for moving forward and he had a PEG tube placed. He understands that this will not necessarily prevent all aspiration but is hopeful that it will provide him with nutrition as he has had significant weight loss and has very poor nutritional status. Does feel that he continues to aspirate a bit since starting tube feeds- recommended to him and nursing to always have the head of the bed at least up at 30 degrees Needs a hospital bed at home: The beneficiary requires the head of the bed be elevated more than 30 degrees most of the time due to having aspiration problems and feeding tube. Weaned off oxygen but still requires intermittently and suspect will need it more with worsening of the pleural effusion-will perform 2 step prior to discharge -Continue Duonebs as needed -continue strict n.p.o. except allow ice chips for comfort at pt's request -completed 8 days of antibiotics for aspiration pneumonia -had green sputum production on 03/22 but remains afebrile--> sputum cx with pseudomonas - added Levaquin via PEG as initial treatment would not have covered pseudomonas -Given multiple pulmonary nodules that could be metastases versus infection recommend repeat imaging and follow-up with pulmonology as an outpatient-he is already established with pulmonology in [place] -now s/p PEG tube on 03/19 (2) Back pain: Plan: With some tenderness to palpation at the site on back, likely MSK in nature; seems to have improved with BMs and requiring less pain medication Improved with morphine IV--> now converted to enteral morphine per GT and titrating for pain control -continue lidocaine patch -continue morphine IR 15 mg q4h prn per G-tube crush and mix with water -Appreciate palliative care consultation - discussed with Dr. Lopez today (3) Aspiration into respiratory tract: Plan: now s/p PEG tube placement 03/19 Appreciate GI consultation - dietary consultation for tube feed recommendations appreciated- started Fibersource HN 120mL 6x/day pm 03/20--> now tolerating--> increase to 180mL 6x/day on 03/22 and was largely tolerating until unable to move bowels but given the emesis/phlegm we are considering moving to continuous feeds but will hold TF overnight at least - GOAL of 250mL 6x/day bolus feeds with 60mL H2O flushes before and after (if we stay on bolus) - Did finally move bowels on 03/27 - will monitor and maintain appropriate bowel regimen - did utilize Relistor 2 days ago but likely Lactulose assisted -registered nurse hh case manager setting up home tube feeds and sister will help manage as pt has some intermittent confusion while on opioids -follow daily labs (4) Hyponatremia: Plan: - STABLE - a little lower today Could be secondary to pulmonary process with pneumonia and pulmonary nodules/SIADH Could also be some component of dehydration as really not had much p.o. intake prior to admission -dc IVFs -continue to increase TFs as above; but also added more fluid flushes Follow BMP in the morning (5) Severe protein-calorie malnutrition: Plan: BMI low at 18.1, albumin severely low at 1.5 Has had weight loss over the last several months due to cancer treatments With significant aspiration and no longer can take p.o. Now s/p PEG tube -replace lytes as needed -as above, TFs slowly titrating up to goal - follow CMP, Mag, Phos in the morning This is his limiting factor in discharge now is getting to and tolerating goal TFs and not having lyte abnormalities; now with further development of pleural effusion (6) Metastatic renal cell carcinoma: Plan: Initially was considering hospice per CM, he had hospice nurses visit him on 03/10/2021, and at that time had switched his mind and refused hospice. - Palliative and CM following - However, he now has a goal of eventually moving into a Skilled Nursing type apartment once stronger with functional status -PT/OT consulted-does not need rehab -Follow-up with oncology on 03/[address] Machuca in [place] -Reports that he has been receiving oral chemotherapy With possible metastases to the lungs (7) Hypothyroid: Plan: TSH of 26 in 01/2021. Unclear if he has been taking his levothyroxine or not. Dose instructions from med rec are 100 mcg every day but Tuesday when he takes 15 mcg - Repeat TSH here now even worse with TSH being 41 -received levothyroxine 50 mcg IV once daily and now s/p PEG tube--> restarted levothyroxine at increased dose of 112 mcg daily -there is some component of either noncompliance or poor absorption Repeat TSH in 4 weeks (8) Pulmonary nodules: Plan: As above Follow-up with pulmonary and with repeat imaging as an outpatient (9) Hypophosphatemia: Plan: replace with IV Kphos as above follow Phos level (10) Hypoxia: Plan: Acute hypoxic respiratory failure. NC O2. titrate to keep pulse ox > or = to 94%. continues intermittently -Will perform 2 step prior to dc - does have O2 at home (11) Anemia: Plan: Hemoglobin did drop some today but no dizziness and will recheck and monitor Likely anemia of chronic disease and possibly from chemotherapy Follow CBC -continue to improve nutritional status (12) Antineoplastic chemotherapy induced pancytopenia: Plan: With WBC count and platelets borderline low and with anemia as below Unclear what baseline is or what chemotherapy agents he is receiving to see if this could be causing this Follow CBC Follow-up with oncology (13) Pulmonary embolism: Plan: CTA chest on 02/23 showed possible small PE during previous hospitalization. He reports his first VTE was 4 years ago after having his nephrectomy He has been on Eliquis for 4 years Hold Eliquis to monitor blood counts (14) Constipation: Plan: - Finally moved bowels on 03/27 continue docusate 100mg per GT bid; PRN Dulcolax suppository; Senna - Gave Relistor x 1 and added Lactulose - will hold Lactulose for now and monitor Plan: Disposition-continued stay until tolerating tube feeds closer to goal but may need to switch to continuous, make sure pain controlled with morphine per GT, home health and home tube feeds/hospital bed set up already D/C uncertain at this time Admission and Anticipated Discharge Date Admission Date: March 11, 2021 Subjective Mr. Carreno had a rough overnight. He did move his bowels with he reports having better pain control. He also had emesis last night and this AM. He reports that its from coughing. Was present this morning during the episode and his coughing was making him gag, normally he cannot get anything out but was mostly mucous with likely some tube feed component. He reported this afternoon that he felt better from that standpoint. He is still taking in sips/ice even with known risk of aspiration. His CXR does reveal worsening pleural effusion with lung collapse and did discuss with him and his sister about Pleur-X and patient wants to be considered for this. Holding tube feeds for now and considering changing to continuous to try and reduce residuals/etc. Had a long conversation with his sister in regards to long-term prognosis. She is concerned that he is getting to the point of giving up and that ultimately he will not get better from this. Physical Exam Physical Exam: PHYSICAL EXAM General Appearance: frail appearing but nontoxic; A&O x 3 with periods of confusion HEENT: Head is normocephalic/atraumatic; Hearing grossly intact; Mucous membranes moist; voice hoarse Neck: Supple; Trachea midline; Neg JVD Heart: RRR with no M/G/R Lungs: Crackles at bases bilat some rhonchi of L lung solorzano; Respirations mildly labored; Neg accessory muscle use Abdomen: Soft, non-tender, non-distended; Positive BS x 4 quadrants but quite; +PEG placement no drainage or erythema Extremities: Neg cyanosis or edema Neurological: Speech clear but speaks in a whisper; Gross motor/sensory function intact; Neg focal neurologic deficits Psychiatric: Appropriate mood/affect Skin: Normal Color; Warm/Dry Results & Data Results & Data ([facility]) Vital Signs (Past 12 Hours) Vital Signs Temp Pulse Resp BP Pulse Ox 03/27/21 14:46 36.5 C 99 H 17 97/68 L 92 03/27/21 08:09 36.7 C 91 H 16 105/72 92 03/27/21 06:35 88 12 90 03/27/21 06:33 89 86 L PG Care Time/CCT Total # of Minutes Spent Total Time Spent with Patient: Total time spent is greater than 50% in coordination of care (as documented) at patient's floor/unit and/or counseling patient: Coding Level of Care Code 59444 Subseq Hosp Care Lvl 3 Diagnoses Pneumonia J18.9 Laterality: right Lung location: lower lobe of lung Pneumonia type: due to unspecified organism Back pain M54.9 Aspiration into respiratory tract T17.908A Hyponatremia E87.1 Severe protein-calorie malnutrition E43 Metastatic renal cell carcinoma C64.9 Laterality: unspecified laterality Hypothyroid E03.9 Pulmonary nodules R91.8 Hypophosphatemia E83.39 Hypoxia R09.02 Anemia D64.9 Antineoplastic chemotherapy induced pancytopenia D61.810; T45.1X5A Pulmonary embolism I26.99 Constipation K59.00 (1) Pneumonia Laterality: right Lung location: lower lobe of lung Pneumonia type: due to unspecified organism Qualified Code(s): J18.9 - Pneumonia, unspecified organism (2) Metastatic renal cell carcinoma Laterality: unspecified laterality Qualified Code(s): C64.9 - Malignant neoplasm of unspecified kidney, except renal pelvis
[2021-03-28] MEDS: HEPARIN 100 UNIT/ML 5ML FLUSH FLUSH PRN (04:49)
[2021-03-28 05:16] LABS: Hematocrit (blood only) 22.7 % (42-52); Hemoglobin 7.3 g/dL (14.0-18.0); Mean Corpuscular Hemoglobin 30.5 pg (25-34); Mean Corpuscular Hgb Conc 32.2 g/dL (32-36); Mean Platelet Volume 8.3 fL (7.4-10.4); Nucleated RBC # (auto) 0.02 K/uL (0-0); Nucleated RBC % (auto) 0.5 %; Platelet Count 271 K/uL (130-400); RDW Coefficient of Variation 16.8 % (11.5-14.5); RDW Standard Deviation 58.4 fL (36.4-46.3); Red Blood Count 2.39 M/uL (4.7-6.1); White Blood Count 5.03 K/uL (4.8-10.8)
[2021-03-28 05:34] LABS: BUN Creatinine Ratio 23.8 (10-20); Calcium 8.3 mg/dl (8.5-10.1); Est GFR (African American) 110.1 ml/min
[2021-03-28] MEDS: LEVOTHYROXINE SODIUM 112 MCG TABLET GT SCH (06:08)
[2021-03-28] MEDS: DOCUSATE SODIUM SYRUP 100 MG/10 ML UDC GT SCH ×2 (10:11→19:45)
[2021-03-28] MEDS: LIDOCAINE 5% 1 PATCH TD SCH (10:11)
[2021-03-28] MEDS: levoFLOXacin ORAL SOLN 25MG/ML BTL PEG SCH (10:12)
[2021-03-28] MEDS: FAMOTIDINE SUSP 40 MG/5 ML UDP PO SCH (10:12)
[2021-03-28] MEDS: SENNA 8.6 MG TAB PO SCH ×2 (10:12→19:45)
[2021-03-28] MEDS: FIBERSOURCE HN 1.2 CAL 1000 ML BAG GT SCH (18:28)
[2021-03-28] MEDS: TUBE FEEDING WATER FLUSH GT SCH ×2 (18:31→21:01)
--- NOTE | 2021-03-28 18:32 | Hospitalist Progress Note ---
Date of Service March 28, 2021 Assessment & Plan (1) Pneumonia: Plan: Secondary to aspiration pneumonia on admission CT chest with progressive right greater than left bibasilar consolidative opacities also with trace left and small right pleural effusions (on admission) CT chest also with numerous bilateral pulmonary nodules re-demonstrated, several which are cavitary and suggestive of pulmonary metastases. Also with 2.6 cm thick-walled cavitary nodule the right lower lobe which has decreased in size from 02/23/2021 suggestive of resolving superimposed infection versus pulmonary infarct - Repeat CXR (03/26) shows further development of small to moderate R pleural effusion with RLL atelectasis/collapse -- Did discuss consideration for Pleur-X and will discuss with Pulmonology for placement Appreciate speech therapy consultation-had video swallow study on 03/16 which showed severe aspiration with all consistencies-patient was presented with options for moving forward and he had a PEG tube placed. He understands that this will not necessarily prevent all aspiration but is hopeful that it will provide him with nutrition as he has had significant weight loss and has very poor nutritional status. Does feel that he continues to aspirate a bit since starting tube feeds- recommended to him and nursing to always have the head of the bed at least up at 30 degrees Needs a hospital bed at home: The beneficiary requires the head of the bed be elevated more than 30 degrees most of the time due to having aspiration problems and feeding tube. Weaned off oxygen but still requires intermittently and suspect will need it more with worsening of the pleural effusion-will perform 2 step prior to discharge -Continue Duonebs as needed -continue strict n.p.o. except allow ice chips for comfort at pt's request -completed 8 days of antibiotics for aspiration pneumonia -had green sputum production on 03/22 but remains afebrile--> sputum cx with pseudomonas - added Levaquin via PEG as initial treatment would not have covered pseudomonas - will complete 7 day course (Mar 31) -Given multiple pulmonary nodules that could be metastases versus infection recommend repeat imaging and follow-up with pulmonology as an outpatient-he is already established with pulmonology in [place] -now s/p PEG tube on 03/19 (2) Back pain: Plan: With some tenderness to palpation at the site on back, likely MSK in nature; seems to have improved with BMs and requiring less pain medication Improved with morphine IV--> now converted to enteral morphine per GT and titrating for pain control -continue lidocaine patch -continue morphine IR 15 mg q4h prn per G-tube crush and mix with water -Appreciate palliative care consultation - discussed with Dr. Lopez on Tuesday (3) Aspiration into respiratory tract: Plan: now s/p PEG tube placement 03/19 Appreciate GI consultation - dietary consultation for tube feed recommendations appreciated- Started with bolus feeds and was largely tolerating until unable to move bowels but given the emesis/phlegm we will move to continuous feeds and maybe can go back to bolus feeds in the future --- Wonder if Lactulose caused the abdominal upset? emesis was green so probably some feed however most was mucous and caused by his coughing attack - GOAL of 250mL 6x/day bolus feeds with 60mL H2O flushes before and after (if w e stay on bolus) - Continuous feeds started on 03/28 with titration up to goal and discused with RD - Did finally move bowels on 03/27 - will monitor and maintain appropriate bowel regimen - did utilize Relistor 2 days ago but likely Lactulose assisted -keycase assembler setting up home tube feeds and sister will help manage as pt has some intermittent confusion while on opioids -follow daily labs (4) Hyponatremia: Plan: - STABLE - a little lower today Could be secondary to pulmonary process with pneumonia and pulmonary nodules/SIADH Could also be some component of dehydration as really not had much p.o. intake prior to admission -dc IVFs -continue to increase TFs as above; but also added more fluid flushes Follow BMP in the morning (5) Severe protein-calorie malnutrition: Plan: BMI low at 18.1, albumin severely low at 1.5 Has had weight loss over the last several months due to cancer treatments With significant aspiration and no longer can take p.o. Now s/p PEG tube -replace lytes as needed -as above, TFs slowly titrating up to goal - follow CMP, Mag, Phos in the morning This is his limiting factor in discharge now is getting to and tolerating goal TFs and not having lyte abnormalities; now with further development of pleural effusion (6) Metastatic renal cell carcinoma: Plan: Initially was considering hospice per CM, he had hospice nurses visit him on 03/10/2021, and at that time had switched his mind and refused hospice. - Palliative and CM following - However, he now has a goal of eventually moving into a Prison type apartment once stronger with functional status -PT/OT consulted-does not need rehab -Follow-up with oncology on 03/[address] Machuca in [place] -Reports that he has been receiving oral chemotherapy With possible metastases to the lungs (7) Hypothyroid: Plan: TSH of 26 in 01/2021. Unclear if he has been taking his levothyroxine or not. Dose instructions from med rec are 100 mcg every day but Tuesday when he takes 15 mcg - Repeat TSH here now even worse with TSH being 41 -received levothyroxine 50 mcg IV once daily and now s/p PEG tube--> restarted levothyroxine at increased dose of 112 mcg daily -there is some component of either noncompliance or poor absorption Repeat TSH in 4 weeks (8) Pulmonary nodules: Plan: As above Follow-up with pulmonary and with repeat imaging as an outpatient (9) Hypophosphatemia: Plan: replace with IV Kphos as above follow Phos level (10) Hypoxia: Plan: Acute hypoxic respiratory failure. NC O2. titrate to keep pulse ox > or = to 94%. continues intermittently -Will perform 2 step prior to dc - does have O2 at home (11) Anemia: Plan: Hemoglobin did drop some today but no dizziness and will recheck and monitor - would like it discussed with Dr. Machuca before considering transfusion Likely anemia of chronic disease and possibly from chemotherapy Follow CBC -continue to improve nutritional status (12) Antineoplastic chemotherapy induced pancytopenia: Plan: With WBC count and platelets borderline low and with anemia as below Unclear what baseline is or what chemotherapy agents he is receiving to see if this could be causing this Follow CBC Follow-up with oncology (13) Pulmonary embolism: Plan: CTA chest on 02/23 showed possible small PE during previous hospitalization. He reports his first VTE was 4 years ago after having his nephrectomy He has been on Eliquis for 4 years Hold Eliquis to monitor blood counts - will hold with consideration for Pleur-X (14) Constipation: Plan: - Finally moved bowels on 03/27 continue docusate 100mg per GT bid; PRN Dulcolax suppository; Senna - Gave Relistor x 1 and added Lactulose which then was able to move bowels - will hold Lactulose for now and monitor Plan: Disposition-continued stay until tolerating tube feeds and switched to continuous, make sure pain controlled with morphine per GT, Pleur-X placement?; home health and home tube feeds/hospital bed set up already D/C uncertain at this time Admission and Anticipated Discharge Date Admission Date: March 11, 2021 Subjective Reports feeling better today and clinically looks better. Breathing is less labored. Reports a lot of phlegm this AM when first waking up but has improved through the day. No further episodes of emesis. Continues with chronic pain but better since moving bowels. Discussed resuming tube feeds but focusing of continuous. Also discussed his Hgb but he would like to monitor and have discussed with Dr. Machuca his oncologist whether to adjust. Could try to coordinate on Tuesday. Reports a little soreness at site of peg tube when coughing but overall doing well with no signs of infection Review of Systems Review of Systems: All systems reviewed & are unremarkable except as noted in Subjective Physical Exam Physical Exam: PHYSICAL EXAM General Appearance: frail appearing but nontoxic; A&O x 3 HEENT: Head is normocephalic/atraumatic; Hearing grossly intact; Mucous membranes moist; voice hoarse/whispered Neck: Supple; Trachea midline; Neg JVD Heart: RRR with no M/G/R Lungs: Crackles at L base, diminished lower/mid R lung; better aeration today, able to take deeper breaths without coughing; Respirations mildly labored; Neg accessory muscle use Abdomen: Soft, non-tender, non-distended; Positive BS x 4 quadrants but quite; +PEG placement no drainage or erythema Extremities: Neg cyanosis or edema Neurological: Speech clear but speaks in a whisper; Gross motor/sensory function intact; Neg focal neurologic deficits Psychiatric: Appropriate mood/affect Skin: Normal Color; Warm/Dry Results & Data Results & Data ([facility]) Vital Signs (Past 12 Hours) Vital Signs Temp Pulse Resp BP Pulse Ox 03/28/21 16:46 37.0 C 88 16 99/63 L 96 03/28/21 07:17 36.4 C L 94 H 16 99/66 L 96 PG Care Time/CCT Total # of Minutes Spent Total Time Spent with Patient: Total time spent is greater than 50% in coordination of care (as documented) at patient's floor/unit and/or counseling patient: Coding Level of Care Code 07219 Subseq Hosp Care Lvl 3 Diagnoses Pneumonia J18.9 Laterality: right Lung location: lower lobe of lung Pneumonia type: due to unspecified organism Back pain M54.9 Aspiration into respiratory tract T17.908A Hyponatremia E87.1 Severe protein-calorie malnutrition E43 Metastatic renal cell carcinoma C64.9 Laterality: unspecified laterality Hypothyroid E03.9 Pulmonary nodules R91.8 Hypophosphatemia E83.39 Hypoxia R09.02 Anemia D64.9 Antineoplastic chemotherapy induced pancytopenia D61.810; T45.1X5A Pulmonary embolism I26.99 Constipation K59.00 (1) Pneumonia Laterality: right Lung location: lower lobe of lung Pneumonia type: due to unspecified organism Qualified Code(s): J18.9 - Pneumonia, unspecified organism (2) Metastatic renal cell carcinoma Laterality: unspecified laterality Qualified Code(s): C64.9 - Malignant neoplasm of unspecified kidney, except renal pelvis
[2021-03-29] MEDS: TUBE FEEDING WATER FLUSH GT SCH ×6 (01:02→22:18)
[2021-03-29] MEDS: LEVOTHYROXINE SODIUM 112 MCG TABLET GT SCH (06:21)
[2021-03-29] MEDS: DOCUSATE SODIUM SYRUP 100 MG/10 ML UDC GT SCH ×2 (09:41→20:34)
[2021-03-29] MEDS: FAMOTIDINE SUSP 40 MG/5 ML UDP PO SCH (09:42)
[2021-03-29] MEDS: levoFLOXacin ORAL SOLN 25MG/ML BTL PEG SCH (09:42)
[2021-03-29] MEDS: SENNA 8.6 MG TAB PO SCH ×2 (09:43→20:34)
[2021-03-29] MEDS: LIDOCAINE 5% 1 PATCH TD SCH (09:43)
[2021-03-29 10:10] LABS: BUN Creatinine Ratio 23.4 (10-20); Calcium 8.1 mg/dl (8.5-10.1); Creatinine Clr Calc Pharmacy 84.1 ml/min; Est GFR (African American) 114.8 ml/min; Potassium 3.7 mmol/L (3.5-5.1)
[2021-03-29 10:14] LABS: Hematocrit (blood only) 21.6 % (42-52); Hemoglobin 6.9 g/dL (14.0-18.0); Mean Corpuscular Hemoglobin 30.5 pg (25-34); Mean Corpuscular Hgb Conc 31.9 g/dL (32-36); Mean Corpuscular Volume 95.6 fL (80-100); Mean Platelet Volume 8.1 fL (7.4-10.4); Platelet Count 278 K/uL (130-400); RDW Coefficient of Variation 16.9 % (11.5-14.5); RDW Standard Deviation 59.1 fL (36.4-46.3); Red Blood Count 2.26 M/uL (4.7-6.1); White Blood Count 5.42 K/uL (4.8-10.8)
--- NOTE | 2021-03-29 12:57 | Hospitalist Progress Note ---
Date of Service March 29, 2021 Assessment & Plan (1) Pneumonia: Plan: Secondary to aspiration pneumonia on admission CT chest with progressive right greater than left bibasilar consolidative opacities also with trace left and small right pleural effusions (on admission) CT chest also with numerous bilateral pulmonary nodules re-demonstrated, several which are cavitary and suggestive of pulmonary metastases. Also with 2.6 cm thick-walled cavitary nodule the right lower lobe which has decreased in size from 02/23/2021 suggestive of resolving superimposed infection versus pulmonary infarct - Repeat CXR (03/26) shows further development of small to moderate R pleural effusion with RLL atelectasis/collapse -- Did discuss consideration for Pleur-X and will place consultation to see if Pleur-x placement is warranted - patient is agreeing to this Appreciate speech therapy consultation-had video swallow study on 03/16 which showed severe aspiration with all consistencies-patient was presented with options for moving forward and he had a PEG tube placed. He understands that this will not necessarily prevent all aspiration but is hopeful that it will provide him with nutrition as he has had significant weight loss and has very p oor nutritional status. Does feel that he continues to aspirate a bit since starting tube feeds- recommended to him and nursing to always have the head of the bed at least up at 30 degrees Needs a hospital bed at home: The beneficiary requires the head of the bed be elevated more than 30 degrees most of the time due to having aspiration problems and feeding tube. Weaned off oxygen but still requires intermittently and suspect will need it more with worsening of the pleural effusion-will perform 2 step prior to discharge -Continue Duonebs as needed -continue strict n.p.o. except allow ice chips for comfort at pt's request -completed 8 days of antibiotics for aspiration pneumonia -had green sputum production on 03/22 but remains afebrile--> sputum cx with pseudomonas - added Levaquin via PEG as initial treatment would not have covered pseudomonas - will complete 7 day course (Mar 31) -Given multiple pulmonary nodules that could be metastases versus infection recommend repeat imaging and follow-up with pulmonology as an outpatient-he is already established with pulmonology in [place] -now s/p PEG tube on 03/19 (2) Back pain: Plan: With some tenderness to palpation at the site on back, likely MSK in nature; seems to have improved with BMs and requiring less pain medication Improved with morphine IV--> now converted to enteral morphine per GT and titrating for pain control -continue lidocaine patch -continue morphine IR 15 mg q4h prn per G-tube crush and mix with water -Appreciate palliative care consultation - discussed with Dr. Lopez on 03/27 (3) Aspiration into respiratory tract: Plan: now s/p PEG tube placement 03/19 Appreciate GI consultation - dietary consultation for tube feed recommendations appreciated- Started with bolus feeds and was largely tolerating until unable to move bowels but given the emesis/phlegm we will move to continuous feeds and maybe can go back to bolus feeds in the future --- Wonder if Lactulose caused the abdominal upset? emesis was green so probably some feed however most was mucous and caused by his coughing attack - GOAL of 250mL 6x/day bolus feeds with 60mL H2O flushes before and after (if we stay on bolus) - Continuous feeds started on 03/28 with titration up to goal and discused with RD on 03/28 - will hit goal rate of 60 mL/hr today recommend talking to RD tomorrow to see if further increase in rate to allow maybe 16 hrs on/8 hours off - Did finally move bowels on 03/27 - will monitor and maintain appropriate bowel regimen - did utilize Relistor 2 days ago but likely Lactulose assisted -oil field caser setting up home tube feeds and sister will help manage as pt has some intermittent confusion while on opioids -follow daily labs (4) Hyponatremia: Plan: - STABLE - at 134 currently Could be secondary to pulmonary process with pneumonia and pulmonary nodules/SIADH Could also be some component of dehydration as really not had much p.o. intake prior to admission -continue to increase TFs as above; but also added more fluid flushes - Routine lab monitoring (5) Severe protein-calorie malnutrition: Plan: BMI low at 18.1, albumin severely low at 1.5 Has had weight loss over the last several months due to cancer treatments With significant aspiration and no longer can take p.o. - Now s/p PEG tube -replace lytes as needed -as above, TFs slowly titrating up to goal - follow CMP, Mag, Phos in the morning This is his limiting factor in discharge now is getting to and tolerating goal TFs and not having lyte abnormalities; now with further development of pleural effusion (6) Metastatic renal cell carcinoma: Plan: - With possible metastases to the lungs Initially was considering hospice per CM, he had hospice nurses visit him on 03/10/2021, and at that time had switched his mind and refused hospice. - Palliative and CM following - However, he now has a goal of eventually moving into a Intermediate type apartment once stronger with functional status -PT/OT consulted-does not need rehab -Follow-up with oncology on 03/[address] Machuca in [place] - sister reported she will get this moved -Reports that he has been receiving oral chemotherapy - talked with him on 03/29 as he would like to follow-up with Dr. Machuca as he intends to continue active treatment (7) Hypothyroid: Plan: TSH of 26 in 01/2021. Unclear if he has been taking his levothyroxine or not. Dose instructions from med rec are 100 mcg every day but Tuesday when he takes 15 mcg - Repeat TSH here now even worse with TSH being 41 - Continue levothyroxine at increased dose of 112 mcg daily -there is some component of either noncompliance or poor absorption Repeat TSH in 4 weeks (8) Pulmonary nodules: Plan: As above Follow-up with pulmonary and with repeat imaging as an outpatient (9) Hypophosphatemia: Plan: replace with IV Kphos as above follow Phos level (10) Hypoxia: Plan: Acute hypoxic respiratory failure. NC O2. titrate to keep pulse ox > or = to 94%. continues intermittently -Will perform 2 step prior to dc - does have O2 at home (11) Anemia: Plan: Hemoglobin did drop today but no dizziness, has had normal low BPs, and will recheck and monitor - would like it discussed with Dr. Machuca before considering transfusion but now Hgb is lower and Dr. Machuca's office closed for weekend. Discussed blood transfusion but has opted for recheck this afternoon and to talk with his sister first - will re-assess this afternoon Likely anemia of chronic disease and possibly from chemotherapy; check fecal occ ult Follow CBC -continue to improve nutritional status (12) Antineoplastic chemotherapy induced pancytopenia: Plan: With WBC count and platelets borderline low and with anemia as below Unclear what baseline is or what chemotherapy agents he is receiving to see if this could be causing this Follow CBC Follow-up with oncology (13) Pulmonary embolism: Plan: CTA chest on 02/23 showed possible small PE during previous hospitalization. He reports his first VTE was 4 years ago after having his nephrectomy He has been on Eliquis for 4 years Hold Eliquis to monitor blood counts - will hold with consideration for Pleur-X (14) Constipation: Plan: - Finally moved bowels on 03/27 continue docusate 100mg per GT bid; PRN Dulcolax suppository; Senna - Gave Relistor x 1 and added Lactulose which then was able to move bowels - will hold Lactulose for now and monitor Plan: Disposition-continued stay until tolerating tube feeds, make sure pain controlled with morphine per GT (doing well with this), Pleur-X placement?; home health and home tube feeds/hospital bed set up already D/C uncertain at this time Admission and Anticipated Discharge Date Admission Date: March 11, 2021 Subjective Reports doing well today. Some sputum this AM but reports mucous control is getting better. Tolerating tube feeds without nausea or vomiting. Hgb is reduced but he would like it to be rechecked and talk with his sister before considering transfusion. He is still interested in Pleur-X if warranted. Currently no SOB and appropriate saturations on RA. Reports his breathing feels better over the past couple days. Review of Systems Review of Systems: All systems reviewed & are unremarkable except as noted in Subjective Physical Exam Physical Exam: PHYSICAL EXAM General Appearance: frail appearing but nontoxic; A&O x 3 HEENT: Head is normocephalic/atraumatic; Hearing grossly intact; Mucous membranes moist; voice hoarse/whispered Neck: Supple; Trachea midline; Neg JVD Heart: RRR with no M/G/R Lungs: Crackles at L base, diminished lower/mid R lung; better aeration today, able to take deeper breaths without coughing; Respirations unlabored; Neg accessory muscle use Abdomen: Soft, non-tender, non-distended; Positive BS x 4 quadrants but quite; +PEG placement no drainage or erythema Extremities: Neg cyanosis or edema Neurological: Speech clear but speaks in a whisper; Gross motor/sensory function intact; Neg focal neurologic deficits Psychiatric: Appropriate mood/affect Skin: Normal Color; Warm/Dry Results & Data Results & Data ([facility]) Vital Signs (Past 12 Hours) Vital Signs Temp Pulse Resp BP Pulse Ox 03/29/21 07:53 36.8 C 93 H 16 92/62 L 91 PG Care Time/CCT Total # of Minutes Spent Total Time Spent with Patient: Total time spent is greater than 50% in coordination of care (as documented) at patient's floor/unit and/or counseling patient: Coding Level of Care Code 45609 Subseq Hosp Care Lvl 3 Diagnoses Pneumonia J18.9 Laterality: right Lung location: lower lobe of lung Pneumonia type: due to unspecified organism Back pain M54.9 Aspiration into respiratory tract T17.908A Hyponatremia E87.1 Severe protein-calorie malnutrition E43 Metastatic renal cell carcinoma C64.9 Laterality: unspecified laterality Hypothyroid E03.9 Pulmonary nodules R91.8 Hypophosphatemia E83.39 Hypoxia R09.02 Anemia D64.9 Antineoplastic chemotherapy induced pancytopenia D61.810; T45.1X5A Pulmonary embolism I26.99 Constipation K59.00 (1) Pneumonia Laterality: right Lung location: lower lobe of lung Pneumonia type: due to unspecified organism Qualified Code(s): J18.9 - Pneumonia, unspecified organism (2) Metastatic renal cell carcinoma Laterality: unspecified laterality Qualified Code(s): C64.9 - Malignant neoplasm of unspecified kidney, except renal pelvis
[2021-03-29 14:40] LABS: Hemoglobin 6.7 g/dL (14.0-18.0)
[2021-03-29] MEDS ORDERED: SODIUM CHLORIDE 0.9% 250 ML IV PRN (15:32)
[2021-03-29] MEDS: FIBERSOURCE HN 1.2 CAL 1000 ML BAG GT SCH (18:25)
[2021-03-30] MEDS: TUBE FEEDING WATER FLUSH GT SCH ×6 (00:47→21:08)
[2021-03-30] MEDS: LEVOTHYROXINE SODIUM 112 MCG TABLET GT SCH (05:40)
[2021-03-30 06:43] LABS: Hematocrit (blood only) 26.8 % (42-52); Hemoglobin 8.7 g/dL (14.0-18.0); Mean Corpuscular Hemoglobin 30.4 pg (25-34); Mean Corpuscular Hgb Conc 32.5 g/dL (32-36); Mean Corpuscular Volume 93.7 fL (80-100); Platelet Count 272 K/uL (130-400); RDW Coefficient of Variation 16.7 % (11.5-14.5); RDW Standard Deviation 57.2 fL (36.4-46.3); Red Blood Count 2.86 M/uL (4.7-6.1); White Blood Count 7.08 K/uL (4.8-10.8)
[2021-03-30 07:15] LABS: BUN Creatinine Ratio 18.2 (10-20); Creatinine Clr Calc Pharmacy 84.1 ml/min; Est GFR (African American) 114.8 ml/min; Potassium 3.8 mmol/L (3.5-5.1)
[2021-03-30] MEDS: DOCUSATE SODIUM SYRUP 100 MG/10 ML UDC GT SCH ×2 (08:55→20:28)
[2021-03-30] MEDS: LIDOCAINE 5% 1 PATCH TD SCH (08:55)
[2021-03-30] MEDS: FAMOTIDINE SUSP 40 MG/5 ML UDP PO SCH (08:56)
[2021-03-30] MEDS: levoFLOXacin ORAL SOLN 25MG/ML BTL PEG SCH (08:56)
[2021-03-30] MEDS: SENNA 8.6 MG TAB PO SCH ×2 (11:47→20:28)
--- NOTE | 2021-03-30 13:30 | XRay Report ---
SINGLE VIEW CHEST CLINICAL HISTORY: Pleural effusion. FINDINGS: An AP, portable, upright chest radiograph is compared to study dated 05/26/2020 and correlat ed with chest CT dated 03/12/2021. A right internal jugular central venous infusion port is in place. The heart is mildly enlarged. The pulmonary vasculature is noncongested. Emphysema and chronic inter stitial thickening is similar to previous. There is a layering right pleural effusion with associated right basilar consolidation. Bladder lung appears clear. No pneumothorax is seen. The skeletal struc tures are osteopenic. There are healed bilateral rib fractures. There is chronic posttraumatic deform ity of the left clavicle. IMPRESSION: No 1. Cardiomegaly and emphysema. 2. A layering right pleural effusion with associated right basilar consolidation is unchanged to slig htly increased in size as compared to 03/26/2021. ACT 112: Negative or not required by law. Electronically signed by: Jakob Hay M.D. 03/30/2021 1:29 PM
[2021-03-30] MEDS: FIBERSOURCE HN 1.2 CAL 1000 ML BAG GT SCH (13:37)
--- NOTE | 2021-03-30 16:27 | Palliative Care Progress Note ---
Date of Service March 30, 2021 Assessment & Plan (1) Palliative care encounter: Plan: I talked with Bean about his comment about the cancer. He tells me that there is nothing else to be done which is a change from his previous statements about wanting to talk with Dr. Machuca about further therapy options. I asked him what was most important to him and he wants to get into his new apartment which will be assisted living. We talked about support and he said that he has people who will help him out, including his sister and brother. I asked him if he was considering shift of focus to comfort directed care and he indicated that he was. I spoke with his sister, Christine, on the phone and reviewed our conversation. Christine also noted the change in his approach to care. He has talked about continuing treatment but has been refusing PT. She is unsure about what he really wants. Recommend family meeting with Christine Del Angel, Bean's son, Saurav and palliative care to discuss further. Christine is recovering from a sinus infection. Meeting scheduled for 04/01 at [facility]/ (2) Aspiration into respiratory tract: (3) Severe protein-calorie malnutrition: (4) Laryngeal cancer: (5) Metastatic renal cell carcinoma: Admission and Anticipated Discharge Date Admission Date: March 11, 2021 Subjective Relaxing in bed. Smiling. When I asked him how he was doing he told me "I have Stage IV cancer" He denies pain or dyspnea. Review of Systems Review of Systems: [place] Symptom Assessment Scale Pain 0/3 Dyspnea 0/3 Drowsiness 0/3 Palliative Performance Score 50% Physical Exam Constitutional: no acute distress Respiratory: normal respiratory effort; no labored breathing Cardiovascular: Rate/Rhythm: regular rate and regular rhythm Gastrointestinal (Abdomen): nondistended, nontender, PEG tube Musculoskeletal: Extremities: + muscle atrophy Neurologic: Speech / Cognition: normal cognition Results & Data ([facility]) Vital Signs (Past 12 Hours) Vital Signs Temp Pulse Pulse Resp BP BP Pulse Ox 03/30/21 16:10 98.4 F 87 14 95/62 L 96 03/30/21 11:22 98.6 F 94 H 22 95/75 L 96 03/30/21 08:36 98.1 F 95 H 22 98/70 L 96 03/30/21 07:09 98.6 F 99 H 14 93/57 L 93 PG Care Time/CCT Total # of Minutes Spent Total Time Spent: 35 Total Time Spent with Patient: Total time spent is greater than 50% in coordination of care (as documented) at patient's floor/unit and/or counseling patient: goals of care, family update and support Coding Level of Care Code 48424 Subseq Hosp Care Lvl 3 Diagnoses Palliative care encounter Z51.5 Aspiration into respiratory tract T17.908A Severe protein-calorie malnutrition E43 Laryngeal cancer C32.9 Metastatic renal cell carcinoma C64.9 Laterality: unspecified laterality (1) Metastatic renal cell carcinoma Laterality: unspecified laterality Qualified Code(s): C64.9 - Malignant neoplasm of unspecified kidney, except renal pelvis
--- NOTE | 2021-03-30 17:15 | Pulmonary Consultation ---
Date of Consultation March 30, 2021 Assessment & Plan (1) Pulmonary nodules: (2) Aspiration into respiratory tract: (3) Pulmonary embolism: CT chest 03/04/2021 personally reviewed: Centrilobular emphysema appreciated bilaterally Small right-sided pleural effusion Cavitary lesion right lower lobe with consolidative process right lower lobe as well as left lower lobe Multiple small pulmonary nodules bilaterally Elevated right hemidiaphragm No significant mediastinal lymphadenopathy --Right lower lobe pneumonia High likelihood of aspiration pneumonia There is also cavitary lesion in the right lower lobe Continue with broad-spectrum antibiotics with anaerobic coverage Bedside ultrasound 03/30/2021: Right lung: Very minimal pleural effusion appreciated, questionable complex effusion but patient had layering of consolidative lung right above the diaphragm, no clear pocket for thoracentesis Left lung: No pleural effusion, minimal B-lines posteriorly --Multiple pulmonary nodules Small bilaterally With one cavitary lesion in the right lower lobe could be cavitated previous pulmonary nodule Could be metastatic renal cell carcinoma --COPD with emphysema Not on any inhalers at home --Metastatic renal cell carcinoma Plan: Patient if any seems to have complex effusion on the right side He might end up needing a chest tube with mist protocol. Unfortunately not a TPA and missed protocol has not been studied with any other thing but TPA My need to consider the patient to be transferred for VATS if he is agreeable to it I will order CT chest with contrast to see if I am able to look at the right- sided effusion with loculations I am going to add Flagyl to cover for anaerobes on top of levofloxacin Patient's apixaban has been held since the . I would continue holding the apixaban to be have definite plan of whether to do thoracentesis/chest tube versus sending the patient for VATS Case was discussed with Dr. Suero Please note the above document was generated using voice recognition software. It may contain grammatical, syntax or spelling errors.Any formal questions or concerns about the content, text or information contained within the body of this dictation should be directly addressed to the provider for clarification. History of Present Illness Attending Physician: Conchis Suero MD History of Present Illness 60-year-old male past medical history of metastatic renal cell carcinoma, PE, laryngeal CA, hypothyroidism presented to the hospital with complaints of worsening shortness of breath and lethargy He was found to have right lower lobe pneumonia Patient chest x-ray showed small pleural effusion right lower lobe cavitary lesion Pulmonary consult for possible thoracentesis At the time of examination patient denies any issues with his breathing He denies any chest pain No headache, no nausea, no vomiting He does complain of cough but is not bringing up any phlegm No dysuria, no diarrhea No blurry vision Social history: [id number] smoking history quit approximately a year ago Allergies Allergy/AdvReac Type Severity Reaction Status Date / Time No Known Allergies Allergy Verified 03/11/21 20:58 Home Medications Medication Instructions Recorded Confirmed Type Magic Mouth 1 dose PO DIRECTED PRN 02/23/21 03/11/21 History apixaban 5 mg tablet (Eliquis) 5 mg PO BID 02/23/21 03/11/21 History cabozantinib 40 mg tablet 40 mg PO .HS @ 2230 02/23/21 03/11/21 History (Cabometyx) colchicine 0.6 mg tablet 0.6 mg PO DIRECTED PRN 02/23/21 03/11/21 History diphenhydramine HCl 25 mg capsule 25 mg PO DIRECTED PRN 02/23/21 03/11/21 History (Benadryl) famotidine 20 mg tablet (Pepcid) 20 mg PO DIRECTED PRN 02/23/21 03/11/21 History famotidine 40 mg tablet 40 mg PO DAILYBB 02/23/21 03/11/21 History levothyroxine 100 mcg tablet See Rx Instructions .ROUTE .COMPLEX 02/23/21 03/11/21 History (Synthroid) propranolol 20 mg tablet 20 mg PO BID 02/23/21 03/11/21 History amoxicillin 875 mg-potassium 1 tab PO BID #8 tab 02/28/21 03/11/21 Rx clavulanate 125 mg tablet (Augmentin) hydrocodone 5 mg-acetaminophen 325 1 - 2 tab PO Q6H PRN #30 tab 02/28/21 03/11/21 Rx mg tablet Patient History Medical History (Updated 03/25/21 @ 12:29 by Sanjuana Lopez MD) Aspiration into respiratory tract Hypothyroid Social History Smoking Status: Former smoker Smoking End Date: 09/09/20 (pt states quit 6 months ago); Hx Alcohol Use: Yes Alcohol type: beer and wine Hx Substance Use: Yes Preferred Language: Ivorian Communication Ability: Impaired Die Developer Required: No Beliefs That Will Affect Care: None marital status: Single Current Living Situation: Alone Current Living Situation Comment: Home alone in [place], sister in [place] How many Children do You have: 0 Feels Safe at Home: Yes Assistive Devices: Glasses Assistive Devices Comment: 2L O2 HS Review of Systems Review of Systems: All systems reviewed & are unremarkable except as noted in HPI & below Physical Exam Physical Exam: Constitutional: No acute distress, frail-appearing HEENT: EOMI, PERRLA, hoarse voice Respiratory system: Decreased air entry bilaterally, no wheeze, rhonchi, positive crackles bilaterally CVS: S1-S2 positive, no murmurs or gallops Abdomen: Soft, nontender, nondistended, positive bowel sounds x4, positive PEG Extremities: +2 pulses bilaterally radialis/ dorsalis pedis, no cyanosis, no edema Neuro: Awake alert oriented x3 Psych: Normal mood and affect G/U: No Nava Skin: no rashes, warm and dry Lymphatic: no cervical or axillary lymphadenopathy Results & Data Results & Data ([facility]) Vital Signs (Past 12 Hours) Vital Signs Temp Pulse Pulse Resp BP BP Pulse Ox 03/30/21 16:10 36.9 C 87 14 95/62 L 96 03/30/21 11:22 37 C 94 H 22 95/75 L 96 03/30/21 08:36 36.7 C 95 H 22 98/70 L 96 03/30/21 07:09 37.0 C 99 H 14 93/57 L 93 03/30/21 06:16 03/30/21 06:16 PG Care Time/CCT Total # of Minutes Spent Total Time Spent with Patient: Total time spent is greater than 50% in coordination of care (as documented) at patient's floor/unit and/or counseling patient: Coding Level of Care Code 17888 Initial Inpt Care Lvl 3 Diagnoses Pulmonary nodules R91.8 Aspiration into respiratory tract T17.908A Pulmonary embolism I26.99
--- NOTE | 2021-03-30 17:36 | Procedure Note ---
Procedure Note Date of Service March 30, 2021 Note Bedside ultrasound 03/30/2021: Right lung: Very minimal pleural effusion appreciated, questionable complex effusion but patient had layering of consolidative lung right above the diaphragm, no clear pocket for thoracentesis Left lung: No pleural effusion, minimal B-lines posteriorly Please note the above document was generated using voice recognition software. It may contain grammatical, syntax or spelling errors.Any formal questions or concerns about the content, text or information contained within the body of this dictation should be directly addressed to the provider for clarification. Coding CPT Codes Pulmonary/Thoracic - Pulmonary and Thoracic: 47007 US, Chest, real time with imaging documentation ([id number]) [facility] [place] Procedure Codes (Charges) Pulmonary/Thoracic Procedure 1: Pulmonary and Thoracic: 81502 US, Chest, real time with imaging documentation
--- NOTE | 2021-03-30 17:37 | Hospitalist Progress Note ---
Date of Service March 30, 2021 Assessment & Plan (1) Pneumonia: Plan: Secondary to aspiration pneumonia on admission CT chest with progressive right greater than left bibasilar consolidative opacities also with trace left and small right pleural effusions (on admission) CT chest also with numerous bilateral pulmonary nodules re-demonstrated, several which are cavitary and suggestive of pulmonary metastases. Also with 2.6 cm thick-walled cavitary nodule the right lower lobe which has decreased in size from 02/23/2021 suggestive of resolving superimposed infection versus pulmonary infarct Repeat CXR (03/26) shows further development of small to moderate R pleural effusion with RLL atelectasis/collapse Appreciate speech therapy consultation-had video swallow study on 03/16 which showed severe aspiration with all consistencies-patient was presented with o ptions for moving forward and he had a PEG tube placed. He understands that this will not necessarily prevent all aspiration but is hopeful that it will provide him with nutrition as he has had significant weight loss and has very poor nutritional status. Must always have the head of the bed at least up at 30 degrees Needs a hospital bed at home: The beneficiary requires the head of the bed be elevated more than 30 degrees most of the time due to having aspiration problems and feeding tube. Repeat chest CT planned for 03/30 as per pulmonology Ultrasound at the bedside shows possible complex fluid collection -Await further pulmonology opinion after CT chest with contrast performed on 03/30 Weaned off oxygen -Continue Duonebs as needed -continue strict n.p.o. except allow ice chips for comfort at pt's request -completed 8 days of antibiotics for aspiration pneumonia, but now back on Levaquin for Pseudomonas in sputum and pulmonology added metronidazole on 03/30 for anaerobic coverage -now s/p PEG tube on 03/19 -Pulmonary nodules need to be followed-repeating chest CT 03/30 and pulmonology her seen him. -Patient also follows with pulmonology in [place] (2) Back pain: Plan: With some tenderness to palpation at the site on back, likely MSK in nature; seems to have improved with BMs and requiring less pain medication -continue lidocaine patch -continue morphine IR 15 mg q4h prn per G-tube crush and mix with water -Appreciate palliative care consultation- -Continue bowel regimen (3) Aspiration into respiratory tract: Plan: now s/p PEG tube placement 03/19 Appreciate GI consultation - dietary consultation for tube feed recommendations appreciated- Started with bolus feeds and was largely tolerating until unable to move bowels and had emesis -Now tolerating goal continuous feeds-plan to switch back to bolus in the near future - GOAL of 250mL 6x/day bolus feeds with 60mL H2O flushes before and after (if we stay on bolus) -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 intake prior to admission -May need to decrease free water flush volume - Routine lab monitoring (5) Severe protein-calorie malnutrition: Plan: BMI low at 18.1, albumin severely low at 1.5 Has had weight loss over the last several months due to cancer treatments With significant aspiration and no longer can take p.o. - Now s/p PEG tube -replace lytes as needed -as above, TFs slowly titrating up to goal - follow CMP, Mag, Phos in the morning This is his limiting factor in discharge now is getting to and tolerating goal TFs and not having lyte abnormalities; now with further development of pleural effusion (6) Metastatic renal cell carcinoma: Plan: - With possible metastases to the lungs Initially was considering hospice per CM, he had hospice nurses visit him on 03/10/2021, and at that time had switched his mind and refused hospice. - Palliative and CM following - However, he now has a goal of eventually moving into a Prison type apartment once stronger with functional status -PT/OT consulted-does not need rehab -Follow-up was planned with oncology on 03/[address] Machuca in [place] -his sister will change this appointment as he is still in the hospital -Reports that he has been receiving oral chemotherapy - talked with him on 03/29 as he would like to follow-up with Dr. Machuca as he intends to continue active treatment (7) Hypothyroid: Plan: TSH of 26 in 01/2021. Unclear if he has been taking his levothyroxine or not. Dose instructions from med rec are 100 mcg every day but Tuesday when he takes 15 mcg - Repeat TSH here now even worse with TSH being 41 - Continue levothyroxine at increased dose of 112 mcg daily -there is some component of either noncompliance or poor absorption Repeat TSH in 4 weeks from the last (8) Pulmonary nodules: Plan: As above Follow-up with pulmonary and with repeat imaging as an outpatient (9) Hypophosphatemia: Plan: Replace as needed follow Phos level (10) Hypoxia: Plan: Acute hypoxic respiratory failure. NC O2. titrate to keep pulse ox > or = to 94%. continues intermittently -Will perform 2 step prior to dc - does have O2 at home (11) Anemia: Plan: Hemoglobin did drop to 6.7 on 03/29 for no apparent reason He has no melena, no hematuria, no hematochezia or epistaxis Repeat hemoglobin later that same day confirmed hemoglobin was still low Received 1 unit PRBCs on 03/29 Hemoglobin now improved up to 8.7 Likely anemia of chronic disease and possibly from chemotherapy; check fecal occult Follow CBC -continue to improve nutritional status (12) Antineoplastic chemotherapy induced pancytopenia: Plan: With WBC count and platelets borderline low and with anemia as below Unclear what baseline is or what chemotherapy agents he is receiving to see if this could be causing this Follow CBC Follow-up with oncology (13) Pulmonary embolism: Plan: CTA chest on 02/23 showed possible small PE during previous hospitalization. He reports his first VTE was 4 years ago after having his nephrectomy He has been on Eliquis for 4 years Continue to hold Eliquis for possible chest tube versus VATS as per pulmonology (14) Constipation: Plan: - Finally moved bowels on 03/27 continue docusate 100mg per GT bid; PRN Dulcolax suppository; Senna - Gave Relistor x 1 and added Lactulose which then was able to move bowels - will hold Lactulose for now and monitor Plan: Disposition-continued stay for further pulmonology evaluation, although he is tolerating tube feeds and pain is controlled-he really wants to go home in the very near future Home health and home tube feeds/hospital bed set up already Admission and Anticipated Discharge Date Admission Date: March 11, 2021 Subjective Pt tired of being in the hospital. Says he just wants out of here as soon as possible. He denies any nausea and is tolerating his continuous tube feeds at the goal rate. No abdominal pain. He is now moving his bowels and taking less pain medication. He has no pain in the back anymore. He says he is anxious to get back to see his oncologist as he missed the appointment today. I discussed his care with palliative medicine as well as with pulmonology Review of Systems Review of Systems: All systems reviewed & are unremarkable except as noted in HPI & below Physical Exam Constitutional: + thin, + cachectic, + frail appearing and cooperative; no acute distress Eyes: + anicteric sclerae ENMT: external ear and nose normal, oropharynx normal Neck: trachea midline, no thyromegaly Respiratory: normal respiratory effort Auscultation: + crackles (At right base) and + rhonchi (left base); no wheezes Cardiovascular: RRR, no murmur, no edema Chest (Breasts): Chest: normal inspection of chest Gastrointestinal (Abdomen): normal bowel sounds, soft, nontender, no hepatosplenomegaly (PEG tube in place without any drainage or erythema around it) Musculoskeletal: Extremities: extremities normal to inspection; no cyanosis and no clubbing Skin: no rashes, warm and dry Neurologic: moves all extremities and awake; no focal motor deficits Psychiatric: Orientation: alert, oriented x 3 and cooperative Lymphatic: no lymphedema Results & Data Results & Data ([facility]) Vital Signs (Past 12 Hours) Vital Signs Temp Pulse Pulse Resp BP BP Pulse Ox 03/30/21 16:10 36.9 C 87 14 95/62 L 96 03/30/21 11:22 37 C 94 H 22 95/75 L 96 03/30/21 08:36 36.7 C 95 H 22 98/70 L 96 03/30/21 07:09 37.0 C 99 H 14 93/57 L 93 Laboratory Results 03/30/21 06:16 03/30/21 06:16 PG Care Time/CCT Total # of Minutes Spent Total Time Spent with Patient: Total time spent is greater than 50% in coordination of care (as documented) at patient's floor/unit and/or counseling patient: Coding Level of Care Code 69589 Subseq Hosp Care Lvl 2 Diagnoses Pneumonia J18.9 Laterality: right Lung location: lower lobe of lung Pneumonia type: due to unspecified organism Back pain M54.9 Aspiration into respiratory tract T17.908A Hyponatremia E87.1 Severe protein-calorie malnutrition E43 Metastatic renal cell carcinoma C64.9 Laterality: unspecified laterality Hypothyroid E03.9 Pulmonary nodules R91.8 Hypophosphatemia E83.39 Hypoxia R09.02 Anemia D64.9 Antineoplastic chemotherapy induced pancytopenia D61.810; T45.1X5A Pulmonary embolism I26.99 Constipation K59.00 (1) Metastatic renal cell carcinoma Laterality: unspecified laterality Qualified Code(s): C64.9 - Malignant neoplasm of unspecified kidney, except renal pelvis (2) Pneumonia Laterality: right Lung location: lower lobe of lung Pneumonia type: due to unspecified organism Qualified Code(s): J18.9 - Pneumonia, unspecified organism
[2021-03-30] MEDS ORDERED: OPTIRAY 320 100ml IV ONE (18:15)
--- NOTE | 2021-03-30 19:03 | CT Scan Report ---
CHEST CT WITH CONTRAST CT DOSE: 300.10 mGy.cm HISTORY: Followup study in a patient with right pleural effusion. r/o complex effusion right sided TECHNIQUE: Multiaxial CT images of the chest were performed following the IV administration of 60 cc of Optiray. A dose lowering technique was utilized adhering to the principles of ALARA. COMPARISON: Chest radiograph of same day, chest CT 03/12/2021, chest CT 03/26/2021. FINDINGS: No thyroid nodule identified. Prominent and mildly enlarged paratracheal lymph nodes measur e up to 10 mm. Mild cardiomegaly with small pericardial effusion. Right IJ central venous catheter te rminates within the right atrium. Moderate coronary artery calcifications. Trace left pleural effusion. Moderate-sized right pleural effusion. Mild associated pleural thickenin g. Focus of air within the pleural fluid is noted on image 235, possibly from recent instrumentation. No pneumothorax. Emphysema. Numerous bilateral pulmonary nodules are suboptimally evaluated secondar y to respiratory motion artifact. 11 mm nodular opacity of the left lower lobe on image 188 previousl y was noted to be cavitary. Bronchial wall thickening with bibasilar mucous plugging. Patchy deep and bibasilar consolidation. The large cavitary nodule of the right lower lobe previously described rupa uring up to 2.6 cm is obscured by the basilar consolidation and is likely present on image 168 measur ing 2.2 cm. 12 mm linear nodular opacity of the right upper lobe on image 82 is suggestive of mucous plugging. 11 mm nodule left upper lobe on image 93 is again noted. Mild wall thickening of the distal esophagus. Absent left kidney. Unremarkable soft tissues. Degenera tive changes of the shoulders and spine. No acute fracture identified. Healed chronic left-sided rib fractures. IMPRESSION: 1. Moderate-sized right pleural effusion appears stable in size from 03/26/2021 however, has increase d in size from the 03/12/[address] Mild associated pleural thickening. Focus of air within the p leural fluid may be secondary to recent instrumentation. 2. Trace left pleural effusion is unchanged in size. 3. Numerous bilateral pulmonary nodules are redemonstrated, several of which are cavitary. 4. Bronchial wall thickening with bibasilar mucous plugging and dependent predominant consolidative o pacities are suggestive of an infectious or inflammatory pneumonitis. 5. Additional findings as above. ACT 112: Negative or not required by law. Dictated: 03/30/2021 6:32 PM Transcribed: 03/30/2021 6:56 PM Ella [id number] [email or web address] Electronically signed by: Basilio Sandoval M.D. 03/30/2021 7:02 PM
[2021-03-30] MEDS: metroNIDAZOLE 500 MG TAB PO SCH (20:28)
[2021-03-31] MEDS: TUBE FEEDING WATER FLUSH GT SCH ×7 (00:45→23:44)
[2021-03-31] MEDS: LEVOTHYROXINE SODIUM 112 MCG TABLET GT SCH (05:54)
[2021-03-31] MEDS: FIBERSOURCE HN 1.2 CAL 1000 ML BAG GT SCH ×3 (06:01→23:37)
[2021-03-31 07:59] LABS: Basophils # (auto) 0.02 K/uL (0-0.2); Basophils % (auto) 0.3 %; Eosinophils # (auto) 0.08 K/uL (0-0.5); Hematocrit (blood only) 28.1 % (42-52); Hemoglobin 9.1 g/dL (14.0-18.0); Immature Granulocytes # (auto) 0.13 K/uL (0.00-0.02); Immature Granulocytes % (auto) 1.7 %; Lymphocytes # (auto) 0.54 K/uL (1.2-3.4); Lymphocytes % (auto) 6.9 %; Mean Corpuscular Hemoglobin 30.2 pg (25-34); Mean Corpuscular Hgb Conc 32.4 g/dL (32-36); Mean Corpuscular Volume 93.4 fL (80-100); Mean Platelet Volume 7.6 fL (7.4-10.4); Monocytes # (auto) 0.72 K/uL (0.11-0.59); Monocytes % (auto) 9.3 %; Neutrophils # (auto) 6.29 K/uL (1.4-6.5); Neutrophils % (auto) 80.8 %; Platelet Count 265 K/uL (130-400); RDW Coefficient of Variation 16.8 % (11.5-14.5); RDW Standard Deviation 56.8 fL (36.4-46.3); Red Blood Count 3.01 M/uL (4.7-6.1); White Blood Count 7.78 K/uL (4.8-10.8)
[2021-03-31] MEDS: DOCUSATE SODIUM SYRUP 100 MG/10 ML UDC GT SCH ×2 (08:28→20:35)
[2021-03-31] MEDS: LIDOCAINE 5% 1 PATCH TD SCH (08:28)
[2021-03-31 08:29] LABS: BUN Creatinine Ratio 16.9 (10-20); Creatinine Clr Calc Pharmacy 95.6 ml/min; Est GFR (African American) 120.9 ml/min; Est GFR (Non-African American) 104.3 ml/min; Magnesium 1.9 mg/dl (1.8-2.4); Phosphorus 2.5 mg/dl (2.5-4.9); Potassium 4.1 mmol/L (3.5-5.1)
[2021-03-31] MEDS: SENNA 8.6 MG TAB PO SCH ×2 (08:29→20:35)
[2021-03-31] MEDS: metroNIDAZOLE 500 MG TAB PO SCH ×3 (08:29→20:35)
[2021-03-31] MEDS: FAMOTIDINE SUSP 40 MG/5 ML UDP PO SCH (08:29)
[2021-03-31] MEDS ORDERED: LIDOCAINE 1% LOCAL 20 ML VIAL INJ ONE (10:46)
--- NOTE | 2021-03-31 11:00 | Pulmonology Progress Note ---
Date of Service March 31, 2021 Assessment & Plan (1) Pulmonary nodules: (2) Aspiration into respiratory tract: (3) Pulmonary embolism: Plan: CT chest 03/04/2021 personally reviewed: Centrilobular emphysema appreciated bilaterally Small right-sided pleural effusion Cavitary lesion right lower lobe with consolidative process right lower lobe as well as left lower lobe Multiple small pulmonary nodules bilaterally Elevated right hemidiaphragm No significant mediastinal lymphadenopathy --Right lower lobe pneumonia High likelihood of aspiration pneumonia There is also cavitary lesion in the right lower lobe Continue with broad-spectrum antibiotics with anaerobic coverage Bedside ultrasound 03/30/2021: Right lung: Very minimal pleural effusion appreciated, questionable complex effusion but patient had layering of consolidative lung right above the diaphragm, no clear pocket for thoracentesis Left lung: No pleural effusion, minimal B-lines posteriorly --Multiple pulmonary nodules Small bilaterally With one cavitary lesion in the right lower lobe could be cavitated previous pulmonary nodule Could be metastatic renal cell carcinoma --COPD with emphysema Not on any inhalers at home --Metastatic renal cell carcinoma Plan: We will plan to put pigtail catheter on the right side Will need mist-2 protocol Patient is agreeable for the procedure. Please note the above document was generated using voice recognition software. It may contain grammatical, syntax or spelling errors.Any formal questions or concerns about the content, text or information contained within the body of this dictation should be directly addressed to the provider for clarification. Admission and Anticipated Discharge Date Admission Date: March 11, 2021 Subjective Patient seen and examined at bedside. No acute distress. No adverse events overnight Patient did have a CT chest done yesterday which showed increasing left pleural effusion on the right side Denies any chest pain, no cough, no fever or chills No headache, no dizziness Review of Systems Review of Systems: All systems reviewed & are unremarkable except as noted in Subjective Physical Exam Physical Exam: Constitutional: No acute distress, frail-appearing HEENT: EOMI, PERRLA, hoarse voice Respiratory system: Decreased air entry bilaterally, no wheeze, rhonchi, positive crackles bilaterally CVS: S1-S2 positive, no murmurs or gallops Abdomen: Soft, nontender, nondistended, positive bowel sounds x4, positive PEG Extremities: +2 pulses bilaterally radialis/ dorsalis pedis, no cyanosis, no edema Neuro: Awake alert oriented x3 Psych: Normal mood and affect G/U: No Nava Skin: no rashes, warm and dry Lymphatic: no cervical or axillary lymphadenopathy Results & Data Results & Data ([facility]) Vital Signs (Past 12 Hours) Vital Signs Temp Pulse Resp BP Pulse Ox 03/31/21 07:00 36.9 C 77 16 112/74 97 03/31/21 00:10 36.5 C 84 16 93/57 L 96 03/31/21 07:38 03/31/21 07:38 PG Care Time/CCT Total # of Minutes Spent Total Time Spent with Patient: Total time spent is greater than 50% in coordination of care (as documented) at patient's floor/unit and/or counseling patient: Coding [place] [address] Subseq Hosp Care Lvl 3 Patient Type Established Diagnoses Pulmonary nodules R91.8 Aspiration into respiratory tract T17.908A Pulmonary embolism I26.99
--- NOTE | 2021-03-31 11:04 | Hospitalist Progress Note ---
Date of Service March 31, 2021 Assessment & Plan (1) Pneumonia: Plan: Secondary to aspiration pneumonia on admission CT chest with progressive right greater than left bibasilar consolidative opacities also with trace left and small right pleural effusions (on admission) CT chest also with numerous bilateral pulmonary nodules re-demonstrated, several which are cavitary and suggestive of pulmonary metastases. Also with 2.6 cm thick-walled cavitary nodule the right lower lobe which has decreased in size from 02/23/2021 suggestive of resolving superimposed infection versus pulmonary infarct Repeat CXR (03/26) shows further development of small to moderate R pleural effusion with RLL atelectasis/collapse Appreciate speech therapy consultation-had video swallow study on 03/16 which showed severe aspiration with all consistencies-patient was presented with o ptions for moving forward and he had a PEG tube placed. He understands that this will not necessarily prevent all aspiration but is hopeful that it will provide him with nutrition as he has had significant weight loss and has very poor nutritional status. Must always have the head of the bed at least up at 30 degrees Needs a hospital bed at home: The beneficiary requires the head of the bed be elevated more than 30 degrees most of the time due to having aspiration problems and feeding tube. PULM consulted 03/30 Ultrasound at the bedside shows possible complex fluid collection CT CHest with IV contrast shows pleural effusion on right with gas--> PULM recommends chest tube and MIST-2 protocol -Chest tube placed 03/31 and fluid consistent with empyema with pH 6.99, LDH 1200 -start MIST-2 protocol x 5 days, if not improving, consider VATS -continue Levaquin and Flagyl (did receive 8 days of abx previously with Zosyn and Unasyn earlier in course) -Weaned off oxygen -Continue Duonebs as needed -continue strict n.p.o. except allow ice chips for comfort at pt's request, PEG tube in place with feeds (2) Empyema lung: Plan: as above (3) Back pain: Plan: With some tenderness to palpation at the site on back, likely MSK in nature; seems to have improved with BMs and requiring less pain medication -continue lidocaine patch -continue morphine IR 15 mg q4h prn per G-tube crush and mix with water -Appreciate palliative care consultation- -Continue bowel regimen-add lactulose back on once daily (4) Aspiration into respiratory tract: Plan: now s/p PEG tube placement 03/19 Appreciate GI consultation - dietary consultation for tube feed recommendations appreciated- Started with bolus feeds and was largely tolerating until unable to move bowels and had emesis -Now tolerating goal continuous feeds-plan to switch back to bolus in the near future - GOAL of 250mL 6x/day bolus feeds with 60mL H2O flushes before and after -clinical case manager setting up home tube feeds and sister will help manage as pt has some intermittent confusion while on opioids -follow daily labs (5) Hyponatremia: Plan: Stable today at 131 Could be secondary to pulmonary process with pneumonia and pulmonary nodules/SIADH ALso with significant hypothyroidism-treating with increased dose of synthroid -will decrease free water flush volume to 75mL q4h (from 100mL) - Routine lab monitoring (6) Severe protein-calorie malnutrition: Plan: BMI low at 18.1, albumin severely low at 1.5 Has had weight loss over the last several months due to cancer treatments With significant aspiration and no longer can take p.o. - Now s/p PEG tube -replace lytes as needed -as above, TFs at goal - follow CMP, Mag, Phos in the morning (7) Metastatic renal cell carcinoma: Plan: - With possible metastases to the lungs Initially was considering hospice per CM, he had hospice nurses visit him on 03/10/2021, and at that time had switched his mind and refused hospice. - Palliative and CM following - However, he now has a goal of eventually moving into a [place] type apartment once stronger with functional status -PT/OT consulted-does not need rehab -Follow-up was planned with oncology on 03/[address] Machuca in [place] -his sister will change this appointment as he is still in the hospital -Reports that he has been receiving oral chemotherapy - talked with him on 03/29 as he would like to follow-up with Dr. Machuca as he intends to continue active treatment (8) Hypothyroid: Plan: TSH of 26 in 01/2021. Unclear if he has been taking his levothyroxine or not. Dose instructions from med rec are 100 mcg every day but Tuesday when he takes 15 mcg - Repeat TSH here now even worse with TSH being 41 - Continue levothyroxine at increased dose of 112 mcg daily -there is some component of either noncompliance or poor absorption Repeat TSH in 4 weeks from the last (9) Pulmonary nodules: Plan: As above Follow-up with pulmonary and with repeat imaging as an outpatient (10) Hypophosphatemia: Plan: Replace as needed follow Phos level-normal now (11) Hypoxia: Plan: Acute hypoxic respiratory failure. NC O2. titrate to keep pulse ox > or = to 94%. continues intermittently -Will perform 2 step prior to dc - does have O2 at home (12) Anemia: Plan: Hemoglobin did drop to 6.7 on 03/29 for no apparent reason He has no melena, no hematuria, no hematochezia or epistaxis Repeat hemoglobin later that same day confirmed hemoglobin was still low Received 1 unit PRBCs on 03/29 Hemoglobin now improved up to 9.1 Likely anemia of chronic disease and possibly from chemotherapy; check fecal occult-still pending Follow CBC -continue to improve nutritional status (13) Antineoplastic chemotherapy induced pancytopenia: Plan: With WBC count and platelets borderline low and with anemia as below Unclear what baseline is or what chemotherapy agents he is receiving to see if this could be causing this Follow CBC Follow-up with oncology (14) Pulmonary embolism: Plan: CTA chest on 02/23 showed possible small PE during previous hospitalization. He reports his first VTE was 4 years ago after having his nephrectomy He has been on Eliquis for 4 years Continue to hold Eliquis for chest tube placement and MIST-2 protocol ongoing (15) Constipation: Plan: - Finally moved bowels on 03/27 continue docusate 100mg per GT bid; PRN Dulcolax suppository; Senna - Gave Relistor x 1 and added Lactulose which then was able to move bowels -restart lactulose once daily as no BM since then again Plan: Disposition-continued stay for chest tube/empyema treatment-he really wants to go home in the very near future Home health and home tube feeds/hospital bed set up already Plan is to go home with sister and she has found a private Home Hospice and 06/12 caregiver organization that is covered by his insurance Admission and Anticipated Discharge Date Admission Date: March 11, 2021 Subjective Patient seen this morning prior to his chest tube placement he is agreeable for the procedure. He is still quite anxious to leave the hospital but wants to stay to have the procedure done to help him treat his infection around the lung. He denies any nausea or abdominal pains. His back pain is controlled. He states that he looks forward to getting home as soon as possible. He also is very anxious to see his oncologist again as he missed his appointment yesterday. I discussed his care with pulmonology and palliative medicine today. Review of Systems Review of Systems: All systems reviewed & are unremarkable except as noted in HPI & below Physical Exam Constitutional: + thin, + cachectic, + frail appearing and cooperative; no acute distress Eyes: + anicteric sclerae Neck: trachea midline, no thyromegaly Respiratory: normal respiratory effort Auscultation: + crackles (At right base) and + rhonchi (left base); no wheezes Cardiovascular: RRR, no murmur, no edema Chest (Breasts): Chest: normal inspection of chest Gastrointestinal (Abdomen): normal bowel sounds, soft, nontender, no hepatosplenomegaly (PEG tube in place without any drainage or erythema around it) Musculoskeletal: Extremities: extremities normal to inspection; no cyanosis and no clubbing Skin: no rashes, warm and dry Neurologic: moves all extremities and awake; no focal motor deficits Psychiatric: Orientation: alert, oriented x 3 and cooperative Lymphatic: no lymphedema Results & Data Results & Data ([facility]) Vital Signs (Past 12 Hours) Vital Signs Temp Pulse Resp BP Pulse Ox 03/31/21 07:00 36.9 C 77 16 112/74 97 03/31/21 00:10 36.5 C 84 16 93/57 L 96 Laboratory Results 03/31/21 03/31/21 03/31/21 Range/Units 13:28 13:28 12:45 WBC (4.8-10.8) K/uL RBC (4.7-6.1) M/uL Hgb (14.0-18.0) g/dL Hct (42-52) % MCV (80-100) fL MCH (25-34) pg MCHC (32-36) g/dL RDW Std Deviation (36.4-46.3) fL RDW Coeff of Delphine (11.5-14.5) % Plt Count (130-400) K/uL MPV (7.4-10.4) fL Immature Gran % (Auto) % Neut % (Auto) % Lymph % (Auto) % Oliver % (Auto) % Eos % (Auto) % Baso % (Auto) % Neut # (Auto) (1.4-6.5) K/uL Lymph # (Auto) (1.2-3.4) K/uL Oliver # (Auto) (0.11-0.59) K/uL Eos # (Auto) (0-0.5) K/uL Baso # (Auto) (0-0.2) K/uL Immature Gran # (Auto) (0.00-0.02) K/uL Sodium (136-145) mmol/L Potassium (3.5-5.1) mmol/L Chloride (98-107) mmol/L Carbon Dioxide (21-32) mmol/L Anion Gap (3-11) BUN (7-18) mg/dl Creatinine (0.6-1.4) mg/dl Est Cr Clr Drug Dosing ml/min Est GFR ( Amer) ml/min Est GFR (Non-Af Amer) ml/min BUN/Creatinine Ratio (10-20) Glucose (70-99) mg/dl Calcium (8.5-10.1) mg/dl Phosphorus (2.5-4.9) mg/dl Magnesium (1.8-2.4) mg/dl Total Bilirubin 0.4 (0.2-1) mg/dl Lactate Dehydrogenase 167 (87-241) U/L Total Protein 5.7 L (6.4-8.2) gm/dl Albumin 1.7 L (3.4-5.0) gm/dl Fluid Neutrophils % % Fluid Lymphocytes % % Fluid Eosinophils % % Fluid Basophils % % Fluid Meso/Macro/Oliver % % Fluid Comment Pleural Fluid Source Pleural Color Pleural Appearance Pleural pH (7.3-7.4) Pleural WBC /uL Pleural RBC /uL Pleural Total Protein g/dl Pleural LDH U/L Pleural Glucose mg/dl Pleural Amylase U/L Pleural Cholesterol Pending 03/31/21 03/31/21 03/31/21 Range/Units 12:45 12:45 07:38 WBC (4.8-10.8) K/uL RBC (4.7-6.1) M/uL Hgb (14.0-18.0) g/dL Hct (42-52) % MCV (80-100) fL MCH (25-34) pg MCHC (32-36) g/dL RDW Std Deviation (36.4-46.3) fL RDW Coeff of Delphine (11.5-14.5) % Plt Count (130-400) K/uL MPV (7.4-10.4) fL Immature Gran % (Auto) % Neut % (Auto) % Lymph % (Auto) % Oliver % (Auto) % Eos % (Auto) % Baso % (Auto) % Neut # (Auto) (1.4-6.5) K/uL Lymph # (Auto) (1.2-3.4) K/uL Oliver # (Auto) (0.11-0.59) K/uL Eos # (Auto) (0-0.5) K/uL Baso # (Auto) (0-0.2) K/uL Immature Gran # (Auto) (0.00-0.02) K/uL Sodium 131 L (136-145) mmol/L Potassium 4.1 (3.5-5.1) mmol/L Chloride 100 (98-107) mmol/L Carbon Dioxide 21 (21-32) mmol/L Anion Gap 10.0 (3-11) BUN 11 (7-18) mg/dl Creatinine 0.66 (0.6-1.4) mg/dl Est Cr Clr Drug Dosing 95.6 ml/min Est GFR ( Amer) 120.9 ml/min Est GFR (Non-Af Amer) 104.3 ml/min BUN/Creatinine Ratio 16.9 (10-20) Glucose 99 (70-99) mg/dl Calcium 8.0 L (8.5-10.1) mg/dl Phosphorus 2.5 (2.5-4.9) mg/dl Magnesium 1.9 (1.8-2.4) mg/dl Total Bilirubin (0.2-1) mg/dl Lactate Dehydrogenase (87-241) U/L Total Protein (6.4-8.2) gm/dl Albumin (3.4-5.0) gm/dl Fluid Neutrophils % 98 % Fluid Lymphocytes % 0 % Fluid Eosinophils % 1 % Fluid Basophils % 0 % Fluid Meso/Macro/Oliver % 1 % Fluid Comment Pleural Fluid Source RIGHT LUNG Pleural Color KIMBER Pleural Appearance CLOUDY Pleural pH 6.99 L (7.3-7.4) Pleural WBC 1586 /uL Pleural RBC 9000 /uL Pleural Total Protein 3.2 g/dl Pleural LDH 1297 U/L Pleural Glucose 21 mg/dl Pleural Amylase 34 U/L Pleural Cholesterol 03/31/ Range/Units 07:38 WBC 7.78 (4.8-10.8) K/uL RBC 3.01 L (4.7-6.1) M/uL Hgb 9.1 L (14.0-18.0) g/dL Hct 28.1 L (42-52) % MCV 93.4 (80-100) fL MCH 30.2 (25-34) pg MCHC 32.4 (32-36) g/dL RDW Std Deviation 56.8 H (36.4-46.3) fL RDW Coeff of Delphine 16.8 H (11.5-14.5) % Plt Count 265 (130-400) K/uL MPV 7.6 (7.4-10.4) fL Immature Gran % (Auto) 1.7 % Neut % (Auto) 80.8 % Lymph % (Auto) 6.9 % Oliver % (Auto) 9.3 % Eos % (Auto) 1.0 % Baso % (Auto) 0.3 % Neut # (Auto) 6.29 (1.4-6.5) K/uL Lymph # (Auto) 0.54 L (1.2-3.4) K/uL Oliver # (Auto) 0.72 H (0.11-0.59) K/uL Eos # (Auto) 0.08 (0-0.5) K/uL Baso # (Auto) 0.02 (0-0.2) K/uL Immature Gran # (Auto) 0.13 H (0.00-0.02) K/uL Sodium (136-145) mmol/L Potassium (3.5-5.1) mmol/L Chloride (98-107) mmol/L Carbon Dioxide (21-32) mmol/L Anion Gap (3-11) BUN (7-18) mg/dl Creatinine (0.6-1.4) mg/dl Est Cr Clr Drug Dosing ml/min Est GFR ( Amer) ml/min Est GFR (Non-Af Amer) ml/min BUN/Creatinine Ratio (10-20) Glucose (70-99) mg/dl Calcium (8.5-10.1) mg/dl Phosphorus (2.5-4.9) mg/dl Magnesium (1.8-2.4) mg/dl Total Bilirubin (0.2-1) mg/dl Lactate Dehydrogenase (87-241) U/L Total Protein (6.4-8.2) gm/dl Albumin (3.4-5.0) gm/dl Fluid Neutrophils % % Fluid Lymphocytes % % Fluid Eosinophils % % Fluid Basophils % % Fluid Meso/Macro/Oliver % % Fluid Comment Pleural Fluid Source Pleural Color Pleural Appearance Pleural pH (7.3-7.4) Pleural WBC /uL Pleural RBC /uL Pleural Total Protein g/dl Pleural LDH U/L Pleural Glucose mg/dl Pleural Amylase U/L Pleural Cholesterol PG Care Time/CCT Total # of Minutes Spent Total Time Spent with Patient: Total time spent is greater than 50% in coordination of care (as documented) at patient's floor/unit and/or counseling patient: Coding Level of Care Code 83531 Subseq Hosp Care Lvl 3 Diagnoses Pneumonia J18.9 Laterality: right Lung location: lower lobe of lung Pneumonia type: due to unspecified organism Back pain M54.9 Aspiration into respiratory tract T17.908A Hyponatremia E87.1 Severe protein-calorie malnutrition E43 Metastatic renal cell carcinoma C64.9 Laterality: unspecified laterality Hypothyroid E03.9 Pulmonary nodules R91.8 Hypophosphatemia E83.39 Hypoxia R09.02 Anemia D64.9 Antineoplastic chemotherapy induced pancytopenia D61.810; T45.1X5A Pulmonary embolism I26.99 Constipation K59.00 Empyema lung J86.9 (1) Metastatic renal cell carcinoma Laterality: unspecified laterality Qualified Code(s): C64.9 - Malignant neoplasm of unspecified kidney, except renal pelvis (2) Pneumonia Laterality: right Lung location: lower lobe of lung Pneumonia type: due to unspecified organism Qualified Code(s): J18.9 - Pneumonia, unspecified organism
--- NOTE | 2021-03-31 13:10 | Procedure Note ---
Procedure Note Date of Service March 31, 2021 Note Procedure: Pigtail chest tube insertion Dice Table Person: Dr. Chema Echols Indication: Complicated right-sided pleural effusion Consent: Signed by patient and verified with timeout prior to procedure Anesthesia: 1% lidocaine without epinephrine local Procedure: Consent was verified and timeout performed. Appropriate imaging studies were reviewed prior to the procedure. Patient was placed in a seated position. Appropriate site above the diaphragm on the right mid scapular line fourth intercostal space for chest tube insertion was selected. The skin was prepped and draped in normal sterile fashion. Lidocaine was used for local analgesia. Fluid was aspirated via the finder needle. A small skin christal was made with the scalpel and the catheter over the needle apparatus was advanced over the rib into the pleural space. With the help of guidewire and Seldinger technique, 14 [place] pigtail catheter was inserted and connected to Pleur-evac. No air leak appreciated after that. Serosanguineous pleural fluid was aspirated Chest x-ray to follow Fluid was sent for labs, culture and cytology. The patient tolerated the procedure without obvious complication Complications: None Blood loss: Less than 2 cc. Comment: Multiple loculations were appreciated on the right side Coding CPT Codes Pulmonary/Thoracic - Pulmonary and Thoracic: 09634 Tube thoracostomy ([id number]) Pulmonary/Thoracic - Pulmonary and Thoracic: 28173 [place] chest fibrin initial day ([id number]) Pulmonary/Thoracic - Pulmonary and Thoracic: 13317 US, Chest, real time with imaging documentation ([id number]) [facility] [place] (Charges) Pulmonary/Thoracic Procedure 1: Pulmonary and Thoracic: 86082 Tube thoracostomy Procedure 2: Pulmonary and Thoracic: 35885 [place] chest fibrin initial day Procedure 3: Pulmonary and Thoracic: 62189 US, Chest, real time with imaging documentation
[2021-03-31] MEDS ORDERED: ALTEPLASE, RECOMBINANT 10 MG in SYRINGE 50 ML IPL ONE (13:15)
--- NOTE | 2021-03-31 13:30 | XRay Report ---
XR chest 1V portable HISTORY: post chest tube placement COMPARISON: Chest CT 03/30/2021. FINDINGS: There is a small right pleural effusion which is decreased in size status post right chest tube placement. A chest tube is likely within the posterior medial pleural cavity. No pneumothorax. T he heart is normal in size. Right jugular Port-A-Cath terminates at the superior cava show junction. This remains unchanged. Scattered pulmonary nodules are better appreciated on the prior chest CT. Old , healed left-sided rib fractures. Right basilar densities persist. IMPRESSION: 1. Decrease in size in the small right pleural effusion status post right chest tube placement. No pn eumothorax. 2. Patchy right basilar densities and scattered pulmonary nodules persist. ACT 112: Negative or not required by law. Electronically signed by: Brant Mendiola M.D. 03/31/2021 1:28 PM
[2021-03-31] MEDS: MoRPHine SULFATE IR 15 MG TAB (IMMEDIATE RELEASE) PO PRN ×2 (13:32→18:23)
[2021-03-31 13:58] LABS: Albumin Level 1.7 gm/dl (3.4-5.0); Bilirubin,Total 0.4 mg/dl (0.2-1); Total Protein 5.7 gm/dl (6.4-8.2)
[2021-03-31] MEDS ORDERED: DORNASE ALFA 5 ML in SYRINGE 25 ML IPL ONE (14:15)
[2021-03-31 14:32] LABS: Amylase Pleural Fluid 34 U/L; Glucose Pleural Fluid 21 mg/dl; Total Protein Pleural Fluid 3.2 g/dl
[2021-03-31 14:40] LABS: LDH Pleural Fluid 1297 U/L
[2021-03-31 14:47] LABS: Appearance Pleural Fluid CLOUDY; Basophils, Fluid 0 %; Color Pleural Fluid AMBER; Eosinophils, Fluid 1 %; Lymphocytes, Fluid 0 %; Mono,Macrophage,Mesothelial 1 %; Neutrophils, Fluid 98 %; RBC Pleural Fluid (A) 9000 /uL; Source Pleural Fluid RIGHT LUNG; WBC Pleural Fluid (A) 1586 /uL
[2021-04-01] MEDS: ALTEPLASE, RECOMBINANT 10 MG in SYRINGE 50 ML IPL SCH ×3 (00:11→22:16)
[2021-04-01] MEDS: MoRPHine SULFATE IR 15 MG TAB (IMMEDIATE RELEASE) PO PRN ×5 (00:23→21:26)
[2021-04-01] MEDS: DORNASE ALFA 5 ML in SYRINGE 25 ML IPL SCH ×3 (01:19→23:25)
[2021-04-01] MEDS: TUBE FEEDING WATER FLUSH GT SCH ×5 (03:54→20:34)
[2021-04-01] MEDS: LEVOTHYROXINE SODIUM 112 MCG TABLET GT SCH (05:51)
[2021-04-01] MEDS: LIDOCAINE 5% 1 PATCH TD SCH (08:28)
[2021-04-01 08:36] LABS: Hematocrit (blood only) 32.6 % (42-52); Hemoglobin 10.6 g/dL (14.0-18.0); Mean Corpuscular Hemoglobin 30.5 pg (25-34); Mean Corpuscular Hgb Conc 32.5 g/dL (32-36); Mean Corpuscular Volume 93.7 fL (80-100); Mean Platelet Volume 8.4 fL (7.4-10.4); Platelet Count 306 K/uL (130-400); RDW Coefficient of Variation 16.9 % (11.5-14.5); RDW Standard Deviation 57.3 fL (36.4-46.3); Red Blood Count 3.48 M/uL (4.7-6.1); White Blood Count 12.45 K/uL (4.8-10.8)
--- NOTE | 2021-04-01 08:54 | XRay Report ---
XR chest 1V portable HISTORY: Right pleural effusion with chest tube placement. Follow-up. COMPARISON: Chest 03/31/2021. FINDINGS: Right sided chest tube is unchanged in position. Small right pleural effusion and right bas ilar densities persist. No definite pneumothorax. The heart is stable in size. Right jugular Port-A-C ath terminates at the right atrium. There are old, healed left-sided rib fractures. Scattered pulmona ry nodules are better appreciated on the prior chest CT. IMPRESSION: 1. No change in position of the right-sided chest tube. 2. Small right pleural effusion and right basilar densities persist. ACT 112: Negative or not required by law. Electronically signed by: Brant Mendiola M.D. 04/01/2021 8:52 AM
[2021-04-01 09:06] LABS: Basophils # (auto) 0.01 K/uL (0-0.2); Basophils % (auto) 0.1 %; Eosinophils # (auto) 0.07 K/uL (0-0.5); Eosinophils % (auto) 0.6 %; Immature Granulocytes # (auto) 0.25 K/uL (0.00-0.02); Lymphocytes # (auto) 0.57 K/uL (1.2-3.4); Lymphocytes % (auto) 4.6 %; Monocytes # (auto) 0.85 K/uL (0.11-0.59); Monocytes % (auto) 6.8 %; Neutrophils % (auto) 85.9 %
[2021-04-01] MEDS: LACTULOSE SYRUP 30 GM/45 ML UDP PEG SCH (09:20)
[2021-04-01] MEDS: DOCUSATE SODIUM SYRUP 100 MG/10 ML UDC GT SCH ×2 (09:20→20:34)
[2021-04-01] MEDS: metroNIDAZOLE 500 MG TAB PO SCH ×3 (09:21→20:35)
[2021-04-01] MEDS: FAMOTIDINE SUSP 40 MG/5 ML UDP PO SCH (09:21)
[2021-04-01] MEDS: SENNA 8.6 MG TAB PO SCH ×2 (09:21→20:35)
[2021-04-01 09:50] LABS: BUN Creatinine Ratio 18.1 (10-20); Calcium 8.4 mg/dl (8.5-10.1); Creatinine Clr Calc Pharmacy 81.9 ml/min; Est GFR (African American) 113.5 ml/min; Est GFR (Non-African American) 97.9 ml/min; Magnesium 1.9 mg/dl (1.8-2.4); Phosphorus 3.1 mg/dl (2.5-4.9); Potassium 4.3 mmol/L (3.5-5.1)
[2021-04-01] MEDS: levoFLOXacin ORAL SOLN 25MG/ML BTL PEG SCH (10:50)
[2021-04-01] MEDS: LANSOPRAZOLE 30 MG SOLTAB PEG SCH (14:10)
[2021-04-01] MEDS ORDERED: Nursing to Pharmacy Communication SCH (14:15)
[2021-04-01] MEDS ORDERED: SODIUM CHLORIDE 0.9% 1000ML 1,000 ML IV SCH (14:15)
[2021-04-01 16:15] LABS: Chloride Random Urine 82 mmol/L; Sodium Random Urine 14 mmol/L
--- NOTE | 2021-04-01 16:47 | Pulmonology Progress Note ---
Date of Service April 01, 2021 Assessment & Plan (1) Pulmonary nodules: (2) Aspiration into respiratory tract: (3) Pulmonary embolism: (4) Parapneumonic effusion: Plan: CT chest 03/04/2021 personally reviewed: Centrilobular emphysema appreciated bilaterally Small right-sided pleural effusion Cavitary lesion right lower lobe with consolidative process right lower lobe as well as left lower lobe Multiple small pulmonary nodules bilaterally Elevated right hemidiaphragm No significant mediastinal lymphadenopathy --Right lower lobe pneumonia with parapneumonic effusion High likelihood of aspiration pneumonia There is also cavitary lesion in the right lower lobe Continue with broad-spectrum antibiotics with anaerobic coverage S/p pigtail catheter placement 03/31/2021, exudative as per lights criteria Pleural fluid: LDH 1297, protein 3.2, glucose 21, pH 6.99 Serum: LDH 167, protein 5.7 Continue with mist-2 protocol --Multiple pulmonary nodules Small bilaterally With one cavitary lesion in the right lower lobe could be cavitated previous pulmonary nodule Could be metastatic renal cell carcinoma --COPD with emphysema Not on any inhalers at home --Metastatic renal cell carcinoma Plan: Pigtail catheter drainage level 1110 mL Chest x-ray shows improvement in the right-sided pleural effusion Continue with mist-2 protocol Pain medications for the right-sided pain at the site of the chest tube Okay to resume apixaban Please note the above document was generated using voice recognition software. It may contain grammatical, syntax or spelling errors.Any formal questions or concerns about the content, text or information contained within the body of this dictation should be directly addressed to the provider for clarification. Admission and Anticipated Discharge Date Admission Date: March 11, 2021 Subjective Patient seen and examined at bedside. No acute distress, no results Patient is a lady gets sometimes pain on the right side around the chest to especially when he is coughing Denies any shortness of breath Fair appetite. No nausea vomiting Review of Systems Review of Systems: All systems reviewed & are unremarkable except as noted in Subjective Physical Exam Physical Exam: Constitutional: No acute distress, frail-appearing HEENT: EOMI, PERRLA, hoarse voice Respiratory system: Decreased air entry bilaterally, no wheeze, rhonchi, positive crackles bilaterally CVS: S1-S2 positive, no murmurs or gallops Abdomen: Soft, nontender, nondistended, positive bowel sounds x4, positive PEG Extremities: +2 pulses bilaterally radialis/ dorsalis pedis, no cyanosis, no edema Neuro: Awake alert oriented x3 Psych: Normal mood and affect G/U: No Nava Right-sided pigtail catheter in place Skin: no rashes, warm and dry Lymphatic: no cervical or axillary lymphadenopathy Results & Data Results & Data ([facility]) Vital Signs (Past 12 Hours) Vital Signs Temp Pulse Pulse Resp BP Pulse Ox 04/01/21 16:20 37.5 C 101 H 16 91/61 L 92 04/01/21 06:37 91 H 92 04/01/21 06:29 106/64 04/01/21 07:56 04/01/21 07:56 PG Care Time/CCT Total # of Minutes Spent Total Time Spent with Patient: Total time spent is greater than 50% in coordination of care (as documented) at patient's floor/unit and/or counseling patient: Coding Level of Care Code 02764 Subseq Hosp Care Lvl 2 Diagnoses Pulmonary nodules R91.8 Aspiration into respiratory tract T17.908A Pulmonary embolism I26.99 Parapneumonic effusion J18.9; J91.8
[2021-04-01] MEDS: FIBERSOURCE HN 1.2 CAL 1000 ML BAG GT SCH (17:33)
--- NOTE | 2021-04-01 19:11 | Hospitalist Progress Note ---
Date of Service April 01, 2021 Assessment & Plan (1) Pneumonia: Plan: Secondary to aspiration pneumonia on admission CT chest with progressive right greater than left bibasilar consolidative opacities also with trace left and small right pleural effusions (on admission) CT chest also with numerous bilateral pulmonary nodules re-demonstrated, several which are cavitary and suggestive of pulmonary metastases. Also with 2.6 cm thick-walled cavitary nodule the right lower lobe which has decreased in size from 02/23/2021 suggestive of resolving superimposed infection versus pulmonary infarct Repeat CXR (03/26) shows further development of small to moderate R pleural effusion with RLL atelectasis/collapse Appreciate speech therapy consultation-had video swallow study on 03/16 which showed severe aspiration with all consistencies-patient was presented with o ptions for moving forward and he had a PEG tube placed. He understands that this will not necessarily prevent all aspiration but is hopeful that it will provide him with nutrition as he has had significant weight loss and has very poor nutritional status. Must always have the head of the bed at least up at 30 degrees Needs a hospital bed at home: The beneficiary requires the head of the bed be elevated more than 30 degrees most of the time due to having aspiration problems and feeding tube. PULM consulted 03/30 Ultrasound at the bedside shows possible complex fluid collection CT CHest with IV contrast shows pleural effusion on right with gas--> PULM recommends chest tube and MIST-2 protocol -Chest tube placed 03/31 and fluid consistent with empyema, exudatative effusion, with pH 6.99, LDH 1200 -started MIST-2 protocol 03/31 x 5 days, if not improving, consider VATS -continue Levaquin and Flagyl (did receive 8 days of abx previously with Zosyn and Unasyn earlier in course) -Weaned off oxygen -Continue Duonebs as needed -continue strict n.p.o. except allow ice chips for comfort at pt's request, PEG tube in place with feeds (2) Empyema lung: Plan: as above follow pleural fluid culture and AFB chest tube in place, draining over 1 L so far (3) Back pain: Plan: With some tenderness to palpation at the site on back, likely MSK in nature; seems to have improved with BMs and requiring less pain medication -continue lidocaine patch -continue morphine IR 15 mg q4h prn per G-tube crush and mix with water -Appreciate palliative care consultation- -Continue bowel regimen-continue lactulose once daily (4) Aspiration into respiratory tract: Plan: now s/p PEG tube placement 03/19 Appreciate GI consultation - dietary consultation for tube feed recommendations appreciated- Started with bolus feeds and was largely tolerating until unable to move bowels and had emesis -Now tolerating goal continuous feeds-plan to switch back to bolus in the near future - GOAL of 250mL 6x/day bolus feeds with 60mL H2O flushes before and after -child support case officer setting up home tube feeds and sister will help manage as pt has some intermittent confusion while on opioids -follow daily labs (5) Hyponatremia: Plan: Worse today at 129 Could be secondary to pulmonary process with pneumonia and pulmonary nodules/SIADH but with high output from chest tube, could be dehydration now -give 1L NS now, check Ur Na+ and Ur Osm and Ur Cl ALso with significant hypothyroidism-treating with increased dose of synthroid - decreased free water flush volume to 75mL q4h (from 100mL) - Routine lab monitoring (6) Severe protein-calorie malnutrition: Plan: BMI low at 18.1, albumin severely low at 1.5 and now improved to 1.7 Has had weight loss over the last several months due to cancer treatments With significant aspiration and no longer can take p.o. - Now s/p PEG tube -replace lytes as needed -as above, TFs at goal - follow CMP, Mag, Phos in the morning (7) Metastatic renal cell carcinoma: Plan: - With possible metastases to the lungs Initially was considering hospice per CM, he had hospice nurses visit him on 03/10/2021, and at that time had switched his mind and refused hospice. - Palliative and CM following - However, he now has a goal of eventually moving into a Senior [facility] type apartment once stronger with functional status -PT/OT consulted-does not need rehab -Follow-up was planned with oncology on 03/[address] Machuca in [place] -his sister will change this appointment as he is still in the hospital -Reports that he has been receiving oral chemotherapy - talked with him on 03/29 as he would like to follow-up with Dr. Machuca as he intends to continue active treatment (8) Hypothyroid: Plan: TSH of 26 in 01/2021. Unclear if he has been taking his levothyroxine or not. Dose instructions from med rec are 100 mcg every day but Tuesday when he takes 15 mcg - Repeat TSH here now even worse with TSH being 41 - Continue levothyroxine at increased dose of 112 mcg daily -there is some component of either noncompliance or poor absorption Repeat TSH in 4 weeks from the last (9) Pulmonary nodules: Plan: As above Follow-up with pulmonary and with repeat imaging as an outpatient (10) Hypophosphatemia: Plan: Replace as needed follow Phos level-normal now (11) Hypoxia: Plan: Acute hypoxic respiratory failure. NC O2. titrate to keep pulse ox > or = to 94%. continues intermittently -Will perform 2 step prior to dc - does have O2 at home (12) Anemia: Plan: Hemoglobin did drop to 6.7 on 03/29 for no apparent reason He has no melena, no hematuria, no hematochezia or epistaxis Repeat hemoglobin later that same day confirmed hemoglobin was still low Received 1 unit PRBCs on 03/29 Hemoglobin now improved up to 9.1 Likely anemia of chronic disease and possibly from chemotherapy; check fecal oc cult-still pending Follow CBC -continue to improve nutritional status (13) Antineoplastic chemotherapy induced pancytopenia: Plan: With WBC count and platelets borderline low and with anemia as below Unclear what baseline is or what chemotherapy agents he is receiving to see if this could be causing this Follow CBC Follow-up with oncology (14) Pulmonary embolism: Plan: CTA chest on 02/23 showed possible small PE during previous hospitalization. He reports his first VTE was 4 years ago after having his nephrectomy He has been on Eliquis for 4 years ok to restart Eliquis now s/p chest tube placement and MIST-2 protocol as per PULM (15) Constipation: Plan: - Finally moved bowels on 03/27 continue docusate 100mg per GT bid; PRN Dulcolax suppository; Senna - Gave Relistor x 1 and added Lactulose which then was able to move bowels -restarted lactulose once daily as no BM since then again Plan: Disposition-continued stay for chest tube/empyema treatment-he really wants to go home in the very near future Home health and home tube feeds/hospital bed set up already Plan is to go home with sister and she has found a private Home Hospice and 06/12 caregiver organization that is covered by his insurance Admission and Anticipated Discharge Date Admission Date: March 11, 2021 Subjective Pt felt some heartburn earlier when TFs at 65mL/hr and asked for TFs to be turned down to 60mL and received Prevacid-sxs now resolved. Has some pain at chest tube site with deep inspiration. Otherwise doing ok, no SOB. Does feel like he is dehydrated and his mouth is very dry Review of Systems Review of Systems: All systems reviewed & are unremarkable except as noted in HPI & below Physical Exam Constitutional: + thin, + cachectic, + frail appearing and cooperative; no acute distress Eyes: + anicteric sclerae ENMT: external ear and nose normal, oropharynx normal Neck: trachea midline, no thyromegaly Respiratory: normal respiratory effort Auscultation: + crackles (At right base) and + rhonchi (left base); no wheezes Cardiovascular: RRR, no murmur, no edema Chest (Breasts): Chest: normal inspection of chest Gastrointestinal (Abdomen): normal bowel sounds, soft, nontender, no hepatosplenomegaly (PEG tube in place without any drainage or erythema around it) Musculoskeletal: Extremities: extremities normal to inspection; no cyanosis and no clubbing Skin: no rashes, warm and dry Neurologic: moves all extremities and awake; no focal motor deficits Psychiatric: Orientation: alert, oriented x 3 and cooperative Lymphatic: no lymphedema Results & Data Results & Data ([facility]) Vital Signs (Past 12 Hours) Vital Signs Temp Pulse Resp BP Pulse Ox 04/01/21 16:20 37.5 C 101 H 16 91/61 L 92 04/01/21 12:30 37.3 C 100 H 18 91/64 L 90 Laboratory Results 04/01/21 04/01/21 04/01/21 Range/Units 15:30 15:30 15:30 WBC (4.8-10.8) K/uL RBC (4.7-6.1) M/uL Hgb (14.0-18.0) g/dL Hct (42-52) % MCV (80-100) fL MCH (25-34) pg MCHC (32-36) g/dL RDW Std Deviation (36.4-46.3) fL RDW Coeff of Delphine (11.5-14.5) % Plt Count (130-400) K/uL MPV (7.4-10.4) fL Immature Gran % (Auto) % Neut % (Auto) % Lymph % (Auto) % Parke % (Auto) % Eos % (Auto) % Baso % (Auto) % Neut # (Auto) (1.4-6.5) K/uL Lymph # (Auto) (1.2-3.4) K/uL Parke # (Auto) (0.11-0.59) K/uL Eos # (Auto) (0-0.5) K/uL Baso # (Auto) (0-0.2) K/uL Immature Gran # (Auto) (0.00-0.02) K/uL Sodium (136-145) mmol/L Potassium (3.5-5.1) mmol/L Chloride (98-107) mmol/L Carbon Dioxide (21-32) mmol/L Anion Gap (3-11) BUN (7-18) mg/dl Creatinine (0.6-1.4) mg/dl Est Cr Clr Drug Dosing ml/min Est GFR ( Amer) ml/min Est GFR (Non-Af Amer) ml/min BUN/Creatinine Ratio (10-20) Glucose (70-99) mg/dl Calcium (8.5-10.1) mg/dl Phosphorus (2.5-4.9) mg/dl Magnesium (1.8-2.4) mg/dl Urine Osmolality 733 (500-800) mOsm/kg Ur Random Sodium 14 mmol/L Ur Random Chloride 82 Cancelled 04/01/21 04/01/21 Range/Units 07:56 07:56 WBC 12.45 H (4.8-10.8) K/uL RBC 3.48 L (4.7-6.1) M/uL Hgb 10.6 L (14.0-18.0) g/dL Hct 32.6 L (42-52) % MCV 93.7 (80-100) fL MCH 30.5 (25-34) pg MCHC 32.5 (32-36) g/dL RDW Std Deviation 57.3 H (36.4-46.3) fL RDW Coeff of Delphine 16.9 H (11.5-14.5) % Plt Count 306 (130-400) K/uL MPV 8.4 (7.4-10.4) fL Immature Gran % (Auto) 2.0 % Neut % (Auto) 85.9 % Lymph % (Auto) 4.6 % Parke % (Auto) 6.8 % Eos % (Auto) 0.6 % Baso % (Auto) 0.1 % Neut # (Auto) 10.70 H (1.4-6.5) K/uL Lymph # (Auto) 0.57 L (1.2-3.4) K/uL Parke # (Auto) 0.85 H (0.11-0.59) K/uL Eos # (Auto) 0.07 (0-0.5) K/uL Baso # (Auto) 0.01 (0-0.2) K/uL Immature Gran # (Auto) 0.25 H (0.00-0.02) K/uL Sodium 129 L (136-145) mmol/L Potassium 4.3 (3.5-5.1) mmol/L Chloride 99 (98-107) mmol/L Carbon Dioxide 23 (21-32) mmol/L Anion Gap 7.0 (3-11) BUN 14 (7-18) mg/dl Creatinine 0.77 (0.6-1.4) mg/dl Est Cr Clr Drug Dosing 81.9 ml/min Est GFR ( Amer) 113.5 ml/min Est GFR (Non-Af Amer) 97.9 ml/min BUN/Creatinine Ratio 18.1 (10-20) Glucose 140 H (70-99) mg/dl Calcium 8.4 L (8.5-10.1) mg/dl Phosphorus 3.1 (2.5-4.9) mg/dl Magnesium 1.9 (1.8-2.4) mg/dl Urine Osmolality (500-800) mOsm/kg Ur Random Sodium mmol/L Ur Random Chloride PG Care Time/CCT Total # of Minutes Spent Total Time Spent with Patient: Total time spent is greater than 50% in coordination of care (as documented) at patient's floor/unit and/or counseling patient: Coding Level of Care Code 27639 Subseq Hosp Care Lvl 3 Diagnoses Pneumonia J18.9 Laterality: right Lung location: lower lobe of lung Pneumonia type: due to unspecified organism Empyema lung J86.9 Back pain M54.9 Aspiration into respiratory tract T17.908A Hyponatremia E87.1 Severe protein-calorie malnutrition E43 Metastatic renal cell carcinoma C64.9 Laterality: unspecified laterality Hypothyroid E03.9 Pulmonary nodules R91.8 Hypophosphatemia E83.39 Hypoxia R09.02 Anemia D64.9 Antineoplastic chemotherapy induced pancytopenia D61.810; T45.1X5A Pulmonary embolism I26.99 Constipation K59.00 (1) Metastatic renal cell carcinoma Laterality: unspecified laterality Qualified Code(s): C64.9 - Malignant neoplasm of unspecified kidney, except renal pelvis (2) Pneumonia Laterality: right Lung location: lower lobe of lung Pneumonia type: due to unspecified organism Qualified Code(s): J18.9 - Pneumonia, unspecified organism
[2021-04-01] MEDS: APIXABAN 5 MG TABLET PO SCH (20:34)
[2021-04-01] MEDS: HEPARIN 100 UNIT/ML 5ML FLUSH FLUSH PRN (22:15)
[2021-04-02] MEDS: TUBE FEEDING WATER FLUSH GT SCH ×6 (00:14→20:26)
[2021-04-02] MEDS ORDERED: SODIUM CHLORIDE 0.9% 1000ML 1,000 ML IV SCH (00:30)
[2021-04-02] MEDS: ONDANSETRON INJ 2 MG/ML 2 ML VIAL IV PRN ×2 (02:09→19:16)
[2021-04-02] MEDS: LEVOTHYROXINE SODIUM 112 MCG TABLET GT SCH (04:28)
--- NOTE | 2021-04-02 07:52 | XRay Report ---
XR chest 1V portable HISTORY: 60 years-old Male f/u follow-up study in a patient with right-sided pleural drainage cathet er COMPARISON: Chest radiograph 04/01/2021 TECHNIQUE: Portable AP view of the chest FINDINGS: Cardiomediastinal and hilar silhouettes are within normal limits. Right IJ [id number] catheter dis alex tip projects over the right atrium. The right pigtail pleural drainage catheter has been slightly pulled back and overlies the mid right lung base. Small right pleural effusion with right midlung an d right lung base airspace opacities redemonstrated. No pneumothorax. Unchanged minimal left lung bas e opacities. Degenerative changes of the shoulders and spine. Healed chronic left-sided rib fractures with chronic left clavicular fracture. IMPRESSION: 1. Small right pleural effusion with persistent right midlung and right basilar consolidation. 2. Pigtail drainage catheter overlies the right lung base. 3. No pneumothorax. ACT 112: Negative or not required by law. The above report was generated using voice recognition software. It may contain grammatical, syntax o r spelling errors. Electronically signed by: Basilio Sandoval M.D. 04/02/2021 7:50 AM
[2021-04-02] MEDS: MoRPHine SULFATE IR 15 MG TAB (IMMEDIATE RELEASE) PO PRN ×4 (08:28→21:57)
[2021-04-02 08:37] LABS: Hemoglobin 9.6 g/dL (14.0-18.0); Mean Corpuscular Hemoglobin 30.4 pg (25-34); Mean Corpuscular Volume 94.9 fL (80-100); Mean Platelet Volume 7.9 fL (7.4-10.4); Platelet Count 259 K/uL (130-400); RDW Coefficient of Variation 16.6 % (11.5-14.5); RDW Standard Deviation 58.2 fL (36.4-46.3); Red Blood Count 3.16 M/uL (4.7-6.1); White Blood Count 13.68 K/uL (4.8-10.8)
[2021-04-02] MEDS: APIXABAN 5 MG TABLET PO SCH ×2 (08:39→20:26)
[2021-04-02] MEDS: LANSOPRAZOLE 30 MG SOLTAB PEG SCH (08:47)
[2021-04-02] MEDS: DOCUSATE SODIUM SYRUP 100 MG/10 ML UDC GT SCH ×2 (08:48→20:26)
[2021-04-02] MEDS: LIDOCAINE 5% 1 PATCH TD SCH (08:54)
[2021-04-02] MEDS: metroNIDAZOLE 500 MG TAB PO SCH ×3 (08:55→20:27)
[2021-04-02] MEDS: SENNA 8.6 MG TAB PO SCH ×2 (08:56→20:27)
[2021-04-02] MEDS: LACTULOSE SYRUP 30 GM/45 ML UDP PEG SCH ×2 (09:01→20:26)
[2021-04-02 09:12] LABS: Basophils # (auto) 0.01 K/uL (0-0.2); Basophils % (auto) 0.1 %; Eosinophils # (auto) 0.04 K/uL (0-0.5); Eosinophils % (auto) 0.3 %; Immature Granulocytes # (auto) 0.26 K/uL (0.00-0.02); Immature Granulocytes % (auto) 1.9 %; Lymphocytes # (auto) 0.49 K/uL (1.2-3.4); Lymphocytes % (auto) 3.6 %; Monocytes # (auto) 1.52 K/uL (0.11-0.59); Monocytes % (auto) 11.1 %; Neutrophils # (auto) 11.36 K/uL (1.4-6.5)
[2021-04-02 09:16] LABS: Calcium 7.3 mg/dl (8.5-10.1); Creatinine Clr Calc Pharmacy 95.6 ml/min; Est GFR (African American) 120.9 ml/min; Est GFR (Non-African American) 104.3 ml/min; Potassium 4.7 mmol/L (3.5-5.1)
[2021-04-02] MEDS: ALTEPLASE, RECOMBINANT 10 MG in SYRINGE 50 ML IPL SCH ×2 (10:45→21:53)
[2021-04-02] MEDS: FAMOTIDINE SUSP 40 MG/5 ML UDP PO SCH (10:51)
[2021-04-02] MEDS: levoFLOXacin ORAL SOLN 25MG/ML BTL PEG SCH (10:57)
[2021-04-02] MEDS: DORNASE ALFA 5 ML in SYRINGE 25 ML IPL SCH ×2 (12:12→22:52)
--- NOTE | 2021-04-02 14:14 | Pulmonology Progress Note ---
Date of Service April 02, 2021 Assessment & Plan (1) Pulmonary nodules: (2) Aspiration into respiratory tract: (3) Pulmonary embolism: (4) Parapneumonic effusion: Plan: CT chest 03/04/2021 personally reviewed: Centrilobular emphysema appreciated bilaterally Small right-sided pleural effusion Cavitary lesion right lower lobe with consolidative process right lower lobe as well as left lower lobe Multiple small pulmonary nodules bilaterally Elevated right hemidiaphragm No significant mediastinal lymphadenopathy --Right lower lobe pneumonia with parapneumonic effusion High likelihood of aspiration pneumonia There is also cavitary lesion in the right lower lobe Continue with broad-spectrum antibiotics with anaerobic coverage S/p pigtail catheter placement 03/31/2021, exudative as per lights criteria Pleural fluid: LDH 1297, protein 3.2, glucose 21, pH 6.99 Serum: LDH 167, protein 5.7 Continue with mist-2 protocol Cytology negative for malignancy --Multiple pulmonary nodules Small bilaterally With one cavitary lesion in the right lower lobe could be cavitated previous pulmonary nodule Could be metastatic renal cell carcinoma --COPD with emphysema Not on any inhalers at home --Metastatic renal cell carcinoma Plan: Patient just got a new canister for the drainage. Output in the last 24 hours 900 mL Please note the above document was generated using voice recognition software. It may contain grammatical, syntax or spelling errors.Any formal questions or concerns about the content, text or information contained within the body of this dictation should be directly addressed to the provider for clarification. Admission and Anticipated Discharge Date Admission Date: March 11, 2021 Review of Systems Review of Systems: All systems reviewed & are unremarkable except as noted in Subjective Physical Exam Physical Exam: Constitutional: No acute distress, frail-appearing HEENT: EOMI, PERRLA, hoarse voice Respiratory system: Decreased air entry bilaterally, no wheeze, rhonchi, positive crackles bilaterally CVS: S1-S2 positive, no murmurs or gallops Abdomen: Soft, nontender, nondistended, positive bowel sounds x4, positive PEG Extremities: +2 pulses bilaterally radialis/ dorsalis pedis, no cyanosis, no edema Neuro: Awake alert oriented x3 Psych: Normal mood and affect G/U: No Nava Right-sided pigtail catheter in place Skin: no rashes, warm and dry Lymphatic: no cervical or axillary lymphadenopathy Results & Data Results & Data ([facility]) Vital Signs (Past 12 Hours) Vital Signs Temp Pulse Resp BP Pulse Ox 04/02/21 07:45 36.7 C 103 H 18 93/65 L 90 04/02/21 08:05 04/02/21 08:05 PG Care Time/CCT Total # of Minutes Spent Total Time Spent with Patient: Total time spent is greater than 50% in coordination of care (as documented) at patient's floor/unit and/or counseling patient: Coding Level of Care Code 11257 Subseq Hosp Care Lvl 2 Diagnoses Pulmonary nodules R91.8 Aspiration into respiratory tract T17.908A Pulmonary embolism I26.99 Parapneumonic effusion J18.9; J91.8
[2021-04-02] MEDS ORDERED: SODIUM CHLORIDE 0.9% 1000ML 1,000 ML IV ONE (15:36)
[2021-04-02] MEDS ORDERED: MoRPHine SULFATE 2 MG/ML CARP IV STA (18:18)
--- NOTE | 2021-04-02 18:20 | Hospitalist Progress Note ---
Date of Service April 02, 2021 Assessment & Plan (1) Pneumonia: Plan: Secondary to aspiration pneumonia on admission CT chest with progressive right greater than left bibasilar consolidative opacities also with trace left and small right pleural effusions (on admission) CT chest also with numerous bilateral pulmonary nodules re-demonstrated, several which are cavitary and suggestive of pulmonary metastases. Also with 2.6 cm thick-walled cavitary nodule the right lower lobe which has decreased in size from 02/23/2021 suggestive of resolving superimposed infection versus pulmonary infarct Repeat CXR (03/26) shows further development of small to moderate R pleural effusion with RLL atelectasis/collapse Appreciate speech therapy consultation-had video swallow study on 03/16 which showed severe aspiration with all consistencies-patient was presented with o ptions for moving forward and he had a PEG tube placed. He understands that this will not necessarily prevent all aspiration but is hopeful that it will provide him with nutrition as he has had significant weight loss and has very poor nutritional status. Must always have the head of the bed at least up at 30 degrees Needs a hospital bed at home: The beneficiary requires the head of the bed be elevated more than 30 degrees most of the time due to having aspiration problems and feeding tube. PULM consulted 03/30 Ultrasound at the bedside shows possible complex fluid collection CT CHest with IV contrast shows pleural effusion on right with gas--> PULM recommends chest tube and MIST-2 protocol -Chest tube placed 03/31 and fluid consistent with empyema, exudative effusion, with pH 6.99, LDH 1200. Cytology negative, culture no growth to date -started MIST-2 protocol 03/31 x 3 days, if not improving, consider VATS -Possibly remove chest tube tomorrow -Daily chest x-ray -continue Levaquin and Flagyl (did receive 8 days of abx previously with Zosyn and Unasyn earlier in course -Continue supplemental oxygen as needed keep pulse ox greater than 90-92% -Continue Duonebs as needed -continue strict n.p.o. except allow ice chips for comfort at pt's request, PEG tube in place with feeds (2) Empyema lung: Plan: as above follow pleural fluid culture and AFB chest tube in place, draining quite a bit With some mild hypotension likely related to hypovolemia on 04/02-gave 1 L normal saline bolus and will continue normal saline at 80 mL's per hour -Add on IV morphine now for significant pain related chest tube (3) Back pain: Plan: With some tenderness to palpation at the site on back, likely MSK in nature; seems to have improved with BMs and requiring less pain medication -continue lidocaine patch -continue morphine IR 15 mg q4h prn per G-tube crush and mix with water -Appreciate palliative care consultation- -Continue bowel regimen-continue lactulose once daily (4) Aspiration into respiratory tract: Plan: now s/p PEG tube placement 03/19 Appreciate GI consultation - dietary consultation for tube feed recommendations appreciated- Started with bolus feeds and was largely tolerating until unable to move bowels and had emesis -Now tolerating goal continuous feeds-will keep continuous feeds upon discharge but try to trim down to 16 hours/day -case management coordinator setting up home tube feeds and sister will help manage as pt has some intermittent confusion while on opioids -follow daily labs (5) Hyponatremia: Plan: down to 129 at lowest, but now improved with IV NS to 133 Could be secondary to pulmonary process with pneumonia and pulmonary nodules/SIADH but with high output from chest tube, could be dehydration now Urine awesome high and urine sodium low, consistent with hypovolemia ALso with significant hypothyroidism-treating with increased dose of synthroid - decreased free water flush volume to 75mL q4h (from 100mL) - Routine lab monitoring -Continue normal saline as above (6) Severe protein-calorie malnutrition: Plan: BMI low at 18.1, albumin severely low at 1.5 and now improved to 1.7 Has had weight loss over the last several months due to cancer treatments With significant aspiration and no longer can take p.o. - Now s/p PEG tube -replace lytes as needed -as above, TFs at goal - follow CMP, Mag, Phos in the morning (7) Metastatic renal cell carcinoma: Plan: - With possible metastases to the lungs although cytology negative on pleural fluid Initially was considering hospice per CM, he had hospice nurses visit him on , and at that time had switched his mind and refused hospice. - Palliative and CM following - However, he now has a goal of eventually moving into a Intermediate type apartment once stronger with functional status -PT/OT consulted-does not need rehab -Follow-up was planned with oncology on 03/[address] Machuca in [place] -his sister will change this appointment as he is still in the hospital -Reports that he has been receiving oral chemotherapy - talked with him on 03/29 as he would like to follow-up with Dr. Machuca as he intends to continue active treatment (8) Hypothyroid: Plan: TSH of 26 in 01/2021. Unclear if he has been taking his levothyroxine or not. Dose instructions from med rec are 100 mcg every day but Tuesday when he takes 15 mcg - Repeat TSH here now even worse with TSH being 41 - Continue levothyroxine at increased dose of 112 mcg daily -there is some component of either noncompliance or poor absorption Repeat TSH in 4 weeks from the last (9) Pulmonary nodules: Plan: As above Follow-up with pulmonary and with repeat imaging as an outpatient (10) Hypophosphatemia: Plan: Replace as needed follow Phos level-normal now (11) Hypoxia: Plan: Acute hypoxic respiratory failure. NC O2. titrate to keep pulse ox > or = to 94%. continues intermittently -Will perform 2 step prior to dc - does have O2 at home (12) Anemia: Plan: Hemoglobin did drop to 6.7 on 03/29 for no apparent reason He has no melena, no hematuria, no hematochezia or epistaxis Repeat hemoglobin later that same day confirmed hemoglobin was still low Received 1 unit PRBCs on 03/29 Hemoglobin now improved up to 9.6 Likely anemia of chronic disease and possibly from chemotherapy; check fecal occult-still pending Follow CBC -continue to improve nutritional status (13) Antineoplastic chemotherapy induced pancytopenia: Plan: With WBC count and platelets borderline low and with anemia as below Unclear what baseline is or what chemotherapy agents he is receiving to see if this could be causing this Follow CBC Follow-up with oncology (14) Pulmonary embolism: Plan: CTA chest on 02/23 showed possible small PE during previous hospitalization. He reports his first VTE was 4 years ago after having his nephrectomy He has been on Eliquis for 4 years Have since restarted Eliquis now s/p chest tube placement and MIST-2 protocol as per PULM (15) Constipation: Plan: - Finally moved bowels on 03/27, but not again since then continue docusate 100mg per GT bid; PRN Dulcolax suppository; Senna twice daily - Gave Relistor x 1 and added Lactulose which then was able to move bowels -increase lactulose to twice daily -If no bowel movement by tomorrow, will give another dose of Relistor Plan: Disposition-continued stay for chest tube/empyema treatment-he really wants to go home in the very near future, hopeful for discharge to home either through the weekend or early next week Home health and home tube feeds/hospital bed set up already Plan is to go home with sister and she has found a private Home Hospice and 06/12 caregiver organization that is covered by his insurance Admission and Anticipated Discharge Date Admission Date: March 11, 2021 Subjective Patient having a lot of pain in the right side of the chest from the chest tube. Seems to be coughing more today. Tolerating tube feeds, no nausea. Still no bowel movement in 4 to 5 days. He still is adamant about getting in here soon as possible and is looking forward having the chest tube removed hopefully tomorrow. Chest tube put out 900 mL in 24 hours Patient had some blood pressures in the 80s today but was asymptomatic, mildly tachycardic. Improved with normal saline bolus I discussed his care with his sister on the phone. She has 06/12 hospice care set up for when he is ready to come home as per patient's request. Review of Systems Review of Systems: All systems reviewed & are unremarkable except as noted in HPI & below Physical Exam 2 Constitutional: + thin, + cachectic, + frail appearing and cooperative; no acute distress Eyes: + anicteric sclerae ENMT: external ear and nose normal, oropharynx normal Neck: trachea midline, no thyromegaly Respiratory: normal respiratory effort Auscultation: + crackles (At right base) and + rhonchi (left base); no wheezes Chest tube coming out from right posterior chest Cardiovascular: RRR, no murmur, no edema Chest (Breasts): Chest: normal inspection of chest Gastrointestinal (Abdomen): normal bowel sounds, soft, nontender, no hepatosplenomegaly (PEG tube in place without any drainage or erythema around it) Musculoskeletal: Extremities: extremities normal to inspection; no cyanosis and no clubbing Skin: no rashes, warm and dry Neurologic: moves all extremities and awake; no focal motor deficits Psychiatric: Orientation: alert, oriented x 3 and cooperative Lymphatic: no lymphedema Results & Data Results & Data ([facility]) Vital Signs (Past 12 Hours) Vital Signs Temp Pulse Resp BP Pulse Ox 04/02/21 15:26 36.7 C 114 H 16 87/62 L 92 04/02/21 07:45 36.7 C 103 H 18 93/65 L 90 Laboratory Results 04/02/21 04/02/21 Range/Units 08:05 08:05 WBC 13.68 H (4.8-10.8) K/uL RBC 3.16 L (4.7-6.1) M/uL Hgb 9.6 L (14.0-18.0) g/dL Hct 30.0 L (42-52) % MCV 94.9 (80-100) fL MCH 30.4 (25-34) pg MCHC 32.0 (32-36) g/dL RDW Std Deviation 58.2 H (36.4-46.3) fL RDW Coeff of Delphine 16.6 H (11.5-14.5) % Plt Count 259 (130-400) K/uL MPV 7.9 (7.4-10.4) fL Immature Gran % (Auto) 1.9 % Neut % (Auto) 83.0 % Lymph % (Auto) 3.6 % H[place] % (Auto) 11.1 % Eos % (Auto) 0.3 % Baso % (Auto) 0.1 % Neut # (Auto) 11.36 H (1.4-6.5) K/uL Lymph # (Auto) 0.49 L (1.2-3.4) K/uL [place] # (Auto) 1.52 H (0.11-0.59) K/uL Eos # (Auto) 0.04 (0-0.5) K/uL Baso # (Auto) 0.01 (0-0.2) K/uL Immature Gran # (Auto) 0.26 H (0.00-0.02) K/uL Sodium 133 L (136-145) mmol/L Potassium 4.7 (3.5-5.1) mmol/L Chloride 103 (98-107) mmol/L Carbon Dioxide 21 (21-32) mmol/L Anion Gap 9.0 (3-11) BUN 19 H (7-18) mg/dl Creatinine 0.66 (0.6-1.4) mg/dl Est Cr Clr Drug Dosing 95.6 ml/min Est GFR ( Amer) 120.9 ml/min Est GFR (Non-Af Amer) 104.3 ml/min BUN/Creatinine Ratio 28.0 H (10-20) Glucose 133 H (70-99) mg/dl Calcium 7.3 L (8.5-10.1) mg/dl PG Care Time/CCT Total # of Minutes Spent Total Time Spent with Patient: Total time spent is greater than 50% in coordination of care (as documented) at patient's floor/unit and/or counseling patient: Coding Level of Care Code 47523 Subseq Hosp Care Lvl 3 Diagnoses Pneumonia J18.9 Laterality: right Lung location: lower lobe of lung Pneumonia type: due to unspecified organism Empyema lung J86.9 Back pain M54.9 Aspiration into respiratory tract T17.908A Hyponatremia E87.1 Severe protein-calorie malnutrition E43 Metastatic renal cell carcinoma C64.9 Laterality: unspecified laterality Hypothyroid E03.9 Pulmonary nodules R91.8 Hypophosphatemia E83.39 Hypoxia R09.02 Anemia D64.9 Antineoplastic chemotherapy induced pancytopenia D61.810; T45.1X5A Pulmonary embolism I26.99 Constipation K59.00 (1) Metastatic renal cell carcinoma Laterality: unspecified laterality Qualified Code(s): C64.9 - Malignant neoplasm of unspecified kidney, except renal pelvis (2) Pneumonia Laterality: right Lung location: lower lobe of lung Pneumonia type: due to unspecified organism Qualified Code(s): J18.9 - Pneumonia, unspecified organism
[2021-04-02] MEDS: SODIUM CHLORIDE 0.9% 1000ML 1,000 ML IV SCH (19:13)
[2021-04-03] MEDS: TUBE FEEDING WATER FLUSH GT SCH ×6 (00:24→20:12)
[2021-04-03] MEDS: FIBERSOURCE HN 1.2 CAL 1000 ML BAG GT SCH ×2 (02:33→15:27)
[2021-04-03] MEDS: ONDANSETRON INJ 2 MG/ML 2 ML VIAL IV PRN (05:20)
[2021-04-03] MEDS: MoRPHine SULFATE IR 15 MG TAB (IMMEDIATE RELEASE) PO PRN ×2 (06:11→10:21)
[2021-04-03] MEDS: LEVOTHYROXINE SODIUM 112 MCG TABLET GT SCH (06:11)
[2021-04-03] MEDS: SODIUM CHLORIDE 0.9% 1000ML 1,000 ML IV SCH ×2 (08:06→19:47)
--- NOTE | 2021-04-03 08:06 | XRay Report ---
XR chest 1V portable HISTORY: Chest tube. Follow-up right pleural effusion. COMPARISON: Chest 04/02/2021. FINDINGS: Right basilar chest tube is unchanged in position. Trace right pleural effusion is again no phan and not significantly changed. No pneumothorax. Improved aeration within the right lung base. Old , healed left-sided rib fractures. The heart remains mildly enlarged. Gaseous distention of the bowel is partially visualized. This is also unchanged. A right jugular Port-A-Cath terminates in the right atrium, unchanged. IMPRESSION: 1. Right basilar chest tube is unchanged in position. No pneumothorax. 2. Improved aeration within the right lung base with a trace right pleural effusion. 3. Persistent gaseous distention of the colon. ACT 112: Negative or not required by law. Electronically signed by: Brant Mendiola M.D. 04/03/2021 8:04 AM
[2021-04-03] MEDS: metroNIDAZOLE 500 MG TAB PO SCH ×3 (08:32→21:41)
[2021-04-03] MEDS: LACTULOSE SYRUP 30 GM/45 ML UDP PEG SCH ×2 (08:33→21:39)
[2021-04-03] MEDS: SENNA 8.6 MG TAB PO SCH ×2 (08:34→21:41)
[2021-04-03] MEDS: APIXABAN 5 MG TABLET PO SCH ×2 (08:34→21:40)
[2021-04-03] MEDS: DOCUSATE SODIUM SYRUP 100 MG/10 ML UDC GT SCH ×2 (08:34→21:40)
[2021-04-03] MEDS: LANSOPRAZOLE 30 MG SOLTAB PEG SCH (08:34)
[2021-04-03] MEDS: LIDOCAINE 5% 1 PATCH TD SCH (08:35)
[2021-04-03] MEDS: FAMOTIDINE SUSP 40 MG/5 ML UDP PO SCH (08:37)
--- NOTE | 2021-04-03 09:33 | Pulmonology Progress Note ---
Date of Service April 03, 2021 Assessment & Plan (1) Pulmonary nodules: (2) Aspiration into respiratory tract: (3) Pulmonary embolism: (4) Parapneumonic effusion: Plan: CT chest 03/04/2021 personally reviewed: Centrilobular emphysema appreciated bilaterally Small right-sided pleural effusion Cavitary lesion right lower lobe with consolidative process right lower lobe as well as left lower lobe Multiple small pulmonary nodules bilaterally Elevated right hemidiaphragm No significant mediastinal lymphadenopathy --Right lower lobe pneumonia with parapneumonic effusion High likelihood of aspiration pneumonia There is also cavitary lesion in the right lower lobe Continue with broad-spectrum antibiotics with anaerobic coverage S/p pigtail catheter placement 03/31/2021, exudative as per lights criteria Pleural fluid: LDH 1297, protein 3.2, glucose 21, pH 6.99 Serum: LDH 167, protein 5.7 Continue with mist-2 protocol Cytology negative for malignancy --Multiple pulmonary nodules Small bilaterally With one cavitary lesion in the right lower lobe could be cavitated previous pulmonary nodule Could be metastatic renal cell carcinoma --COPD with emphysema Not on any inhalers at home --Metastatic renal cell carcinoma Plan: Chest tube drainage 850 mL. Drainage in the last 24 hours 850 mL I will clamp the chest tube around 4 AM tomorrow If there is no pneumothorax on the chest x-ray in the morning we will plan to take the chest tube out. Please note the above document was generated using voice recognition software. It may contain grammatical, syntax or spelling errors.Any formal questions or concerns about the content, text or information contained within the body of this dictation should be directly addressed to the provider for clarification. Admission and Anticipated Discharge Date Admission Date: March 11, 2021 Subjective Patient seen and examined at bedside. No acute distress, no delusions overnight Patient does complain of some chest discomfort at the site of the chest tube No nausea or vomiting Has been getting feeding through PEG tube Overall feeling better. Review of Systems Review of Systems: All systems reviewed & are unremarkable except as noted in Subjective Physical Exam Physical Exam: Constitutional: No acute distress, frail-appearing HEENT: EOMI, PERRLA, hoarse voice Respiratory system: Decreased air entry bilaterally, no wheeze, rhonchi, positive crackles bilaterally CVS: S1-S2 positive, no murmurs or gallops Abdomen: Soft, nontender, nondistended, positive bowel sounds x4, positive PEG Extremities: +2 pulses bilaterally radialis/ dorsalis pedis, no cyanosis, no edema Neuro: Awake alert oriented x3 Psych: Normal mood and affect G/U: No Nava Right-sided pigtail catheter in place Skin: no rashes, warm and dry Lymphatic: no cervical or axillary lymphadenopathy Results & Data Results & Data ([facility]) Vital Signs (Past 12 Hours) Vital Signs Temp Pulse Pulse Resp BP BP Pulse Ox 04/03/21 08:00 37.3 C 87 20 90/60 L 90 04/02/21 22:27 37.4 C 95 H 16 97/66 L 91 04/02/21 08:05 04/02/21 08:05 PG Care Time/CCT Total # of Minutes Spent Total Time Spent with Patient: Total time spent is greater than 50% in coordination of care (as documented) at patient's floor/unit and/or counseling patient: Coding Level of Care Code 37568 Subseq Hosp Care Lvl 2 Diagnoses Pulmonary nodules R91.8 Aspiration into respiratory tract T17.908A Pulmonary embolism I26.99 Parapneumonic effusion J18.9; J91.8
[2021-04-03] MEDS: levoFLOXacin ORAL SOLN 25MG/ML BTL PEG SCH (10:18)
[2021-04-03 10:49] LABS: Hematocrit (blood only) 27.4 % (42-52); Hemoglobin 8.5 g/dL (14.0-18.0); Mean Corpuscular Hemoglobin 29.7 pg (25-34); Mean Corpuscular Volume 95.8 fL (80-100); Mean Platelet Volume 8.4 fL (7.4-10.4); Platelet Count 232 K/uL (130-400); RDW Coefficient of Variation 16.7 % (11.5-14.5); RDW Standard Deviation 58.5 fL (36.4-46.3); Red Blood Count 2.86 M/uL (4.7-6.1); White Blood Count 11.23 K/uL (4.8-10.8)
[2021-04-03] MEDS ORDERED: bisacodyL 10 MG SUPP PR STA (10:55)
[2021-04-03 11:15] LABS: Basophils # (auto) 0.01 K/uL (0-0.2); Basophils % (auto) 0.1 %; Eosinophils # (auto) 0.04 K/uL (0-0.5); Eosinophils % (auto) 0.4 %; Immature Granulocytes # (auto) 0.24 K/uL (0.00-0.02); Immature Granulocytes % (auto) 2.1 %; Lymphocytes # (auto) 0.84 K/uL (1.2-3.4); Lymphocytes % (auto) 7.5 %; Monocytes # (auto) 0.57 K/uL (0.11-0.59); Monocytes % (auto) 5.1 %; Neutrophils # (auto) 9.53 K/uL (1.4-6.5); Neutrophils % (auto) 84.8 %; Polychromasia 1+
[2021-04-03 11:20] LABS: Albumin Level 1.4 gm/dl (3.4-5.0); BUN Creatinine Ratio 27.6 (10-20); Calcium 7.5 mg/dl (8.5-10.1); Creatinine Clr Calc Pharmacy 101.7 ml/min; Est GFR (African American) 119.5 ml/min; Est GFR (Non-African American) 103.1 ml/min; Magnesium 1.8 mg/dl (1.8-2.4); Potassium 4.5 mmol/L (3.5-5.1)
[2021-04-03 11:23] LABS: Albumin Globulin Ratio 0.4 (0.9-2); Bilirubin,Total 0.2 mg/dl (0.2-1); Globulin 3.2 gm/dl (2.5-4.0); Total Protein 4.6 gm/dl (6.4-8.2)
[2021-04-03] MEDS ORDERED: MoRPHine SULFATE 2 MG/ML CARP IV STA (15:10)
--- NOTE | 2021-04-03 15:11 | Hospitalist Progress Note ---
Date of Service April 03, 2021 Assessment & Plan (1) Pneumonia: Plan: Secondary to aspiration pneumonia on admission CT chest with progressive right greater than left bibasilar consolidative opacities also with trace left and small right pleural effusions (on admission) CT chest also with numerous bilateral pulmonary nodules re-demonstrated, several which are cavitary and suggestive of pulmonary metastases. Also with 2.6 cm thick-walled cavitary nodule the right lower lobe which has decreased in size from 02/23/2021 suggestive of resolving superimposed infection versus pulmonary infarct Repeat CXR (03/26) shows further development of small to moderate R pleural effusion with RLL atelectasis/collapse Appreciate speech therapy consultation-had video swallow study on 03/16 which showed severe aspiration with all consistencies-patient was presented with o ptions for moving forward and he had a PEG tube placed. He understands that this will not necessarily prevent all aspiration but is hopeful that it will provide him with nutrition as he has had significant weight loss and has very poor nutritional status. Must always have the head of the bed at least up at 30 degrees Needs a hospital bed at home: The beneficiary requires the head of the bed be elevated more than 30 degrees most of the time due to having aspiration problems and feeding tube. PULM consulted 03/30 Ultrasound at the bedside shows possible complex fluid collection CT CHest with IV contrast shows pleural effusion on right with gas--> PULM recommends chest tube and MIST-2 protocol -Chest tube placed 03/31 and fluid consistent with empyema, exudative effusion, with pH 6.99, LDH 1200. Cytology negative, culture no growth to date -started MIST-2 protocol 03/31 x 3 days, if not improving, consider VATS -Possibly remove chest tube tomorrow -Daily chest [id number] with less effusion -continue Levaquin and Flagyl (did receive 8 days of abx previously with Zosyn and Unasyn earlier in course -Continue supplemental oxygen as needed keep pulse ox greater than 90-92% -Continue Duonebs as needed -continue strict n.p.o. except allow ice chips for comfort at pt's request, PEG tube in place with feeds (2) Empyema lung: Plan: as above follow pleural fluid culture and AFB chest tube in place, draining quite a bit With some mild hypotension likely related to hypovolemia on 11/18-gave 1 L normal saline bolus and will continue normal saline at 80 mL's per hour -Continue IV morphine as needed pain related chest tube (3) Back pain: Plan: With some tenderness to palpation at the site on back, likely MSK in nature; seems to have improved with BMs and requiring less pain medication -continue lidocaine patch -continue morphine IR 15 mg q4h prn per G-tube crush and mix with water -Appreciate palliative care consultation- -Continue bowel regimen (4) Aspiration into respiratory tract: Plan: now s/p PEG tube placement 03/19 Appreciate GI consultation - dietary consultation for tube feed recommendations appreciated- Started with bolus feeds and was largely tolerating until unable to move bowels and had emesis -Now tolerating goal continuous feeds-will keep continuous feeds upon discharge, can try to make continuous feeds 16 hours of the day -case finisher setting up home tube feeds and sister will help manage as pt has some intermittent confusion while on opioids -follow daily labs (5) Hyponatremia: Plan: down to 129 at lowest, but now improved with IV NS to 134 Could be secondary to pulmonary process with pneumonia and pulmonary nodules/SIADH but with high output from chest tube, could be dehydration now Urine awesome high and urine sodium low, consistent with hypovolemia ALso with significant hypothyroidism-treating with increased dose of synthroid - decreased free water flush volume to 75mL q4h (from 100mL) - Routine lab monitoring -Continue normal saline as above (6) Severe protein-calorie malnutrition: Plan: BMI low at 18.1, albumin severely low at 1.5 and now improved to 1.7 Has had weight loss over the last several months due to cancer treatments With significant aspiration and no longer can take p.o. - Now s/p PEG tube -replace lytes as needed -as above, TFs at goal - follow CMP, Mag, Phos periodically (7) Metastatic renal cell carcinoma: Plan: - With possible metastases to the lungs although cytology negative on pleural fluid Initially was considering hospice per CM, he had hospice nurses visit him on 03/10/2021, and at that time had switched his mind and refused hospice. - Palliative and CM following - However, he now has a goal of eventually moving into a Long-Term type apartment once stronger with functional status -PT/OT consulted-does not need rehab -Follow-up was planned with oncology on 03/[address] Sven siddiqi Alhambra -his sister will change this appointment as he is still in the hospital -Reports that he has been receiving oral chemotherapy - talked with him on 03/29 as he would like to follow-up with Dr. Machuca to discuss any future treatment although he is also considering enrolling in hospice again (8) Hypothyroid: Plan: TSH of 26 in 01/2021. Unclear if he has been taking his levothyroxine or not. Dose instructions from med rec are 100 mcg every day but Tuesday when he takes 15 mcg - Repeat TSH here now even worse with TSH being 41 - Continue levothyroxine at increased dose of 112 mcg daily -there is some component of either noncompliance or poor absorption Repeat TSH in 4 weeks from the last (9) Pulmonary nodules: Plan: As above Follow-up with pulmonary and with repeat imaging as an outpatient (10) Hypophosphatemia: Plan: Replace as needed follow Phos level-normal now (11) Hypoxia: Plan: Acute hypoxic respiratory failure. NC O2. titrate to keep pulse ox > or = to 94%. continues intermittently -Will perform 2 step prior to dc - does have O2 at home (12) Anemia: Plan: Hemoglobin did drop to 6.7 on 03/29 for no apparent reason He has no melena, no hematuria, no hematochezia or epistaxis Repeat hemoglobin later that same day confirmed hemoglobin was still low Received 1 unit PRBCs on 03/29 Hemoglobin now improved up to 8.5-9.6 Likely anemia of chronic disease and possibly from chemotherapy; check fecal occult-still pending Follow CBC -continue to improve nutritional status (13) Antineoplastic chemotherapy induced pancytopenia: Plan: Now resolved (14) Pulmonary embolism: Plan: CTA chest on 02/23 showed possible small PE during previous hospitalization. He reports his first VTE was 4 years ago after having his nephrectomy He has been on Eliquis for 4 years Have since restarted Eliquis now s/p chest tube placement and MIST-2 protocol as per PULM (15) Constipation: Plan: - Finally moved bowels on 03/27, but not again since then continue docusate 100mg per GT bid; PRN Dulcolax suppository; Senna twice daily - Gave Relistor x 1 and added Lactulose which then was able to move bowels -increased lactulose to twice daily -Give bisacodyl suppository today -If no bowel movement by tomorrow, will give another dose of Relistor Plan: Disposition-continued stay for chest tube/empyema treatment-he really wants to go home in the very near future, hopeful for discharge to home either through the weekend or early next week Home health and home tube feeds/hospital bed set up already Plan is to go home with sister and she has found a private Home Hospice and 06/12 caregiver organization that is covered by his insurance Admission and Anticipated Discharge Date Admission Date: March 11, 2021 Subjective Patient continues to be very frustrated that the chest tube is still in place, he was hoping it would come out today. Still having pain at the chest wall site and would like IV morphine ordered. Still no bowel movement today., Is passing gas. Does not feel nauseated, no vomiting. He is still coughing. Blood pressure still remain soft. Review of Systems Review of Systems: All systems reviewed & are unremarkable except as noted in HPI & below Physical Exam 2 Constitutional: + thin, + cachectic, + frail appearing and cooperative; no acute distress Eyes: + anicteric sclerae Neck: trachea midline, no thyromegaly Respiratory: normal respiratory effort Auscultation: + crackles (At right base) and + rhonchi (left base); no wheezes Cardiovascular: RRR, no murmur, no edema Chest (Breasts): Chest: + abnormal inspection of chest (chest tube in place) Gastrointestinal (Abdomen): normal bowel sounds, soft, nontender, no hepatosplenomegaly (PEG tube in place without any drainage or erythema around it) Musculoskeletal: Extremities: extremities normal to inspection; no cyanosis and no clubbing Skin: no rashes, warm and dry Neurologic: moves all extremities and awake; no focal motor deficits Psychiatric: Orientation: alert, oriented x 3 and cooperative Lymphatic: no lymphedema Results & Data Results & Data ([facility]) Vital Signs (Past 12 Hours) Vital Signs Temp Pulse Resp BP Pulse Ox 04/03/21 08:00 37.3 C 87 20 90/60 L 90 Laboratory Results 04/03/21 10:37 04/03/21 10:37 PG Care Time/CCT Total # of Minutes Spent Total Time Spent with Patient: Total time spent is greater than 50% in coordination of care (as documented) at patient's floor/unit and/or counseling patient: Coding Level of Care Code 61709 Subseq Hosp Care Lvl 3 Diagnoses Pneumonia J18.9 Laterality: right Lung location: lower lobe of lung Pneumonia type: due to unspecified organism Empyema lung J86.9 Back pain M54.9 Aspiration into respiratory tract T17.908A Hyponatremia E87.1 Severe protein-calorie malnutrition E43 Metastatic renal cell carcinoma C64.9 Laterality: unspecified laterality Hypothyroid E03.9 Pulmonary nodules R91.8 Hypophosphatemia E83.39 Hypoxia R09.02 Anemia D64.9 Antineoplastic chemotherapy induced pancytopenia D61.810; T45.1X5A Pulmonary embolism I26.99 Constipation K59.00 (1) Metastatic renal cell carcinoma Laterality: unspecified laterality Qualified Code(s): C64.9 - Malignant neoplasm of unspecified kidney, except renal pelvis (2) Pneumonia Laterality: right Lung location: lower lobe of lung Pneumonia type: due to unspecified organism Qualified Code(s): J18.9 - Pneumonia, unspecified organism
[2021-04-03] MEDS: MoRPHine SULFATE 2 MG/ML CARP IV PRN (19:45)
[2021-04-04] MEDS: TUBE FEEDING WATER FLUSH GT SCH ×6 (00:06→20:44)
[2021-04-04] MEDS: MoRPHine SULFATE 2 MG/ML CARP IV PRN ×4 (05:18→20:49)
[2021-04-04 05:48] LABS: Hematocrit (blood only) 23.3 % (42-52); Hemoglobin 7.2 g/dL (14.0-18.0); Mean Corpuscular Hemoglobin 29.9 pg (25-34); Mean Corpuscular Hgb Conc 30.9 g/dL (32-36); Mean Corpuscular Volume 96.7 fL (80-100); Mean Platelet Volume 8.1 fL (7.4-10.4); Platelet Count 244 K/uL (130-400); RDW Coefficient of Variation 16.8 % (11.5-14.5); RDW Standard Deviation 58.8 fL (36.4-46.3); Red Blood Count 2.41 M/uL (4.7-6.1); White Blood Count 8.23 K/uL (4.8-10.8)
[2021-04-04] MEDS ORDERED: GLYCOPYRROLATE 1 MG TAB PO ONE (06:00)
[2021-04-04] MEDS: LEVOTHYROXINE SODIUM 112 MCG TABLET GT SCH (06:10)
[2021-04-04] MEDS ORDERED: SODIUM CHLORIDE 0.9% 250 ML IV PRN (06:12)
[2021-04-04 06:19] LABS: BUN Creatinine Ratio 27.3 (10-20); Calcium 7.5 mg/dl (8.5-10.1); Creatinine Clr Calc Pharmacy 130.4 ml/min; Est GFR (African American) 132.4 ml/min; Est GFR (Non-African American) 114.2 ml/min; Magnesium 1.8 mg/dl (1.8-2.4)
[2021-04-04 06:30] LABS: Basophils # (auto) 0.01 K/uL (0-0.2); Basophils % (auto) 0.1 %; Eosinophils # (auto) 0.06 K/uL (0-0.5); Eosinophils % (auto) 0.7 %; Immature Granulocytes # (auto) 0.13 K/uL (0.00-0.02); Immature Granulocytes % (auto) 1.6 %; Lymphocytes # (auto) 0.37 K/uL (1.2-3.4); Lymphocytes % (auto) 4.5 %; Monocytes # (auto) 0.77 K/uL (0.11-0.59); Monocytes % (auto) 9.4 %; Neutrophils # (auto) 6.89 K/uL (1.4-6.5); Neutrophils % (auto) 83.7 %; Polychromasia 1+
[2021-04-04] MEDS: DOCUSATE SODIUM SYRUP 100 MG/10 ML UDC GT SCH ×2 (08:37→20:42)
[2021-04-04] MEDS: SENNA 8.6 MG TAB PO SCH ×2 (08:41→20:44)
[2021-04-04] MEDS: FAMOTIDINE SUSP 40 MG/5 ML UDP PO SCH (08:46)
[2021-04-04] MEDS: LIDOCAINE 5% 1 PATCH TD SCH (08:46)
[2021-04-04] MEDS: LANSOPRAZOLE 30 MG SOLTAB PEG SCH (08:46)
[2021-04-04] MEDS ORDERED: MAGNESIUM SULFATE / D5W 1 GM/100 ML BAG IV ONE (08:46)
[2021-04-04] MEDS: LACTULOSE SYRUP 30 GM/45 ML UDP PEG SCH ×2 (08:46→20:44)
[2021-04-04] MEDS: metroNIDAZOLE 500 MG TAB PO SCH ×3 (08:47→20:42)
--- NOTE | 2021-04-04 09:44 | XRay Report ---
XR chest 1V portable CLINICAL HISTORY: f/u TECHNIQUE: Single frontal radiograph of the chest was obtained. Comparison: Comparison is made to chest one view 04/03/2021 FINDINGS: Lines and tubes are stable. The cardiomediastinal silhouette is normal. Right lung base opacities are slightly increased from prior exam. Slight increase in right pleural effusion. IMPRESSION: 1. Slight interval increase in right pleural effusion. No pneumothorax in this patient with a right chest tube. 2. Slight interval increase in right lung base opacities which may reflect atelectasis, pneumonia, a nd/or aspiration. ACT 112: Negative or not required by law. Electronically signed by: Sascha Bear M.D. 04/04/2021 9:43 AM
[2021-04-04] MEDS: FIBERSOURCE HN 1.2 CAL 1000 ML BAG GT SCH (10:42)
[2021-04-04] MEDS: SODIUM CHLORIDE 0.9% 1000ML 1,000 ML IV SCH ×2 (10:48→20:42)
[2021-04-04] MEDS: levoFLOXacin ORAL SOLN 25MG/ML BTL PEG SCH (11:00)
--- NOTE | 2021-04-04 12:05 | Pulmonology Progress Note ---
Date of Service April 04, 2021 Assessment & Plan (1) Pulmonary nodules: (2) Aspiration into respiratory tract: (3) Pulmonary embolism: (4) Parapneumonic effusion: Plan: CT chest 03/04/2021 personally reviewed: Centrilobular emphysema appreciated bilaterally Small right-sided pleural effusion Cavitary lesion right lower lobe with consolidative process right lower lobe as well as left lower lobe Multiple small pulmonary nodules bilaterally Elevated right hemidiaphragm No significant mediastinal lymphadenopathy --Right lower lobe pneumonia with parapneumonic effusion High likelihood of aspiration pneumonia There is also cavitary lesion in the right lower lobe Sputum culture growing pansensitive Pseudomonas aeruginosa Continue with broad-spectrum antibiotics with anaerobic coverage S/p pigtail catheter placement 03/31/2021, exudative as per lights criteria Pleural fluid: LDH 1297, protein 3.2, glucose 21, pH 6.99 Serum: LDH 167, protein 5.7 Continue with mist-2 protocol Cytology negative for malignancy --Multiple pulmonary nodules Small bilaterally With one cavitary lesion in the right lower lobe could be cavitated previous pulmonary nodule Could be metastatic renal cell carcinoma --COPD with emphysema Not on any inhalers at home --Metastatic renal cell carcinoma Plan: Chest x-ray from today on a clamp chest tube does not show any signs of pneumothorax Plan will be to remove the chest tube today Patient will likely reaccumulate some fluid in the near future Recommend total 3-4 weeks of antibiotics of levofloxacin and Flagyl Repeat CT chest in 6 weeks No further recommendations from pulmonary perspective. Will sign off Please call directly with any questions Please note the above document was generated using voice recognition software. It may contain grammatical, syntax or spelling errors.Any formal questions or concerns about the content, text or information contained within the body of this dictation should be directly addressed to the provider for clarification. Admission and Anticipated Discharge Date Admission Date: March 11, 2021 Subjective Patient seen and examined at bedside. No acute distress, no adverse events overnight Still complains of mild right-sided chest discomfort at the site of the chest tube Denies any shortness of breath Overall states that she is feeling better No headache, no dizziness Has been getting feedings through the PEG tube Review of Systems Review of Systems: All systems reviewed & are unremarkable except as noted in HPI & below Physical Exam Physical Exam: Constitutional: No acute distress, frail-appearing HEENT: EOMI, PERRLA, hoarse voice Respiratory system: Decreased air entry bilaterally, no wheeze, rhonchi, positive crackles bilaterally CVS: S1-S2 positive, no murmurs or gallops Abdomen: Soft, nontender, nondistended, positive bowel sounds x4, positive PEG Extremities: +2 pulses bilaterally radialis/ dorsalis pedis, no cyanosis, no edema Neuro: Awake alert oriented x3 Psych: Normal mood and affect G/U: No Nava Right-sided pigtail catheter in place Skin: no rashes, warm and dry Lymphatic: no cervical or axillary lymphadenopathy Results & Data Results & Data ([facility]) Vital Signs (Past 12 Hours) Vital Signs Temp Pulse Pulse Resp BP BP Pulse Ox 04/04/21 09:59 36.5 C 87 16 94/62 L 94 04/04/21 09:00 36.7 C 87 16 91/58 L 94 04/04/21 08:30 37 C 78 15 96/57 L 93 04/04/21 08:15 36.6 C 83 16 94/54 L 92 04/04/21 07:58 36.3 C L 90 16 87/58 L 97 04/04/21 05:11 04/04/21 05:11 PG Care Time/CCT Total # of Minutes Spent Total Time Spent with Patient: Total time spent is greater than 50% in coordination of care (as documented) at patient's floor/unit and/or counseling patient: Coding Level of Care Code 00185 Subseq Hosp Care Lvl 2 Diagnoses Pulmonary nodules R91.8 Aspiration into respiratory tract T17.908A Pulmonary embolism I26.99 Parapneumonic effusion J18.9; J91.8
--- NOTE | 2021-04-04 12:07 | Procedure Note ---
Procedure Note Date of Service April 04, 2021 Note Procedure: Pigtail chest tube removal Radiator Specialist: Dr. Chema Echols Indication: Resolvent of right-sided pleural effusion Consent: Verbal consent was obtained Anesthesia: None Procedure: Under aseptic measures patient's right-sided pigtail catheter was removed upon examination. The catheter was intact Vaseline gauze was applied and dressed with 4 x 4 and silicone tape Patient tolerated the procedure well Complications: None Blood loss: None Coding CPT Codes Pulmonary/Thoracic - Pulmonary and Thoracic: 62682 Remove lung catheter ([id number]) [facility] [place] Procedure Codes (Charges) Pulmonary/Thoracic Procedure 1: Pulmonary and Thoracic: 70446 Remove lung catheter
--- NOTE | 2021-04-04 16:01 | Hospitalist Progress Note ---
Date of Service April 04, 2021 Assessment & Plan (1) Pneumonia: Plan: Secondary to aspiration pneumonia on admission CT chest with progressive right greater than left bibasilar consolidative opacities also with trace left and small right pleural effusions (on admission) CT chest also with numerous bilateral pulmonary nodules re-demonstrated, several which are cavitary and suggestive of pulmonary metastases. Also with 2.6 cm thick-walled cavitary nodule the right lower lobe which has decreased in size from 02/23/2021 suggestive of resolving superimposed infection versus pulmonary infarct Repeat CXR (03/26) shows further development of small to moderate R pleural effusion with RLL atelectasis/collapse Appreciate speech therapy consultation-had video swallow study on 03/16 which showed severe aspiration with all consistencies-patient was presented with o ptions for moving forward and he had a PEG tube placed. He understands that this will not necessarily prevent all aspiration but is hopeful that it will provide him with nutrition as he has had significant weight loss and has very poor nutritional status. Must always have the head of the bed at least up at 30 degrees Needs a hospital bed at home: The beneficiary requires the head of the bed be elevated more than 30 degrees most of the time due to having aspiration problems and feeding tube. PULM consulted 03/30 Ultrasound at the bedside shows possible complex fluid collection CT CHest with IV contrast shows pleural effusion on right with gas--> PULM recommends chest tube and MIST-2 protocol -Chest tube placed 03/31 and fluid consistent with empyema, exudative effusion, with pH 6.99, LDH 1200. Cytology negative, culture no growth to date -started MIST-2 protocol 03/31 x 3 days, now chest tube removed on 04/04 -continue Levaquin and Flagyl x3 more weeks -Repeat chest CT in 6 weeks as outpatient with pulmonology follow-up -No longer requiring supplemental oxygen -Continue Duonebs as needed -continue strict n.p.o. except allow ice chips for comfort at pt's request, PEG tube in place with feeds (2) Empyema lung: Plan: as above, with parapneumonic effusion requiring chest tube and MIST-2 protocol follow pleural fluid culture and AFB-no growth to date and AFB negative on smear Antibiotics as above, repeat chest CT 6 weeks (3) Back pain: Plan: With some tenderness to palpation at the site on back, likely MSK in nature; seems to have improved with BMs and requiring less pain medication -continue lidocaine patch -continue morphine IR 15 mg q4h prn per G-tube crush and mix with water -Appreciate palliative care consultation- -Continue bowel regimen (4) Aspiration into respiratory tract: Plan: now s/p PEG tube placement 03/19 Appreciate GI consultation - dietary consultation for tube feed recommendations appreciated- Started with bolus feeds and was largely tolerating until unable to move bowels and had emesis -Now tolerating goal continuous feeds-will keep continuous feeds upon discharge, can try to make continuous feeds 16 hours of the day-continue at 60 mL/h over 16 hours and titrate up by 10 mL/h every 2 days until at goal of 90 mL/h -case work aide setting up home tube feeds and sister will help manage as pt has some intermittent confusion while on opioids (5) Hyponatremia: Plan: down to 129 at lowest, but now improved with IV NS to 134 Could be secondary to pulmonary process with pneumonia and pulmonary nodules/SIADH but with high output from chest tube, also some component of hypovolemia Urine awesome high and urine sodium low, consistent with hypovolemia ALso with significant hypothyroidism-treating with increased dose of synthroid -Continue free water flushes at 100 mL every 6 hours upon discharge Follow BMP as an outpatient (6) Severe protein-calorie malnutrition: Plan: BMI low at 18.1, albumin severely low at 1.5 and now improved to 1.7 Has had weight loss over the last several months due to cancer treatments With significant aspiration and no longer can take p.o. - Now s/p PEG tube -replace lytes as needed -as above, TFs at goal - follow CMP, Mag, Phos, CBC periodically after discharge while on tube feeds (7) Metastatic renal cell carcinoma: Plan: - With possible metastases to the lungs although cytology negative on pleural fluid Initially was considering hospice per CM, he had hospice nurses visit him on 03/10/2021, and at that time had switched his mind and refused hospice. - Palliative and CM following - However, he now has a goal of eventually moving into a [facility] type apartment once stronger with functional status -PT/OT consulted-does not need rehab -Follow-up was planned with oncology on 03/[address] Sven siddiqi [place] -his sister will change this appointment as he is still in the hospital -Reports that he has been receiving oral chemotherapy - talked with him on 03/29 as he would like to follow-up with Dr. Machuca to discuss any future treatment although he is also considering enrolling in hospice again (8) Hypothyroid: Plan: TSH of 26 in 01/2021. Unclear if he has been taking his levothyroxine or not. Dose instructions from med rec are 100 mcg every day but Tuesday when he takes 15 mcg - Repeat TSH here now even worse with TSH being 41 - Continue levothyroxine at increased dose of 112 mcg daily -there is some component of either noncompliance or poor absorption Repeat TSH in 4 weeks from the last-around the first week of April (9) Pulmonary nodules: Plan: As above Follow-up with pulmonary and with repeat imaging as an outpatient with chest CT in 6 weeks (10) Hypophosphatemia: Plan: Replaced and resolved (11) Hypoxia: Plan: Resolved (12) Anemia: Plan: Hemoglobin did drop to 6.7 on 03/29 for no apparent reason He has no melena, no hematuria, no hematochezia or epistaxis Repeat hemoglobin later that same day confirmed hemoglobin was still low Received 1 unit PRBCs on 03/29 Hemoglobin then improved up to 8.5-9.6, but all of a sudden dropped to 7.2 on 04/04-again, no evidence of bleeding from anywhere Was given 1 unit PRBCs on 04/04 Follow CBC in the morning (13) Antineoplastic chemotherapy induced pancytopenia: Plan: Now resolved (14) Pulmonary embolism: Plan: CTA chest on 02/23 showed possible small PE during previous hospitalization. He reports his first VTE was 4 years ago after having his nephrectomy He has been on Eliquis for 4 years Have since restarted Eliquis now s/p chest tube placement and MIST-2 protocol as per PULM (15) Constipation: Plan: - Finally moved bowels on 03/27, and again on 04/03 continue docusate 100mg per GT bid; PRN Dulcolax suppository; Senna twice daily - Gave Relistor x 1 and added Lactulose which then was able to move bowels -increased lactulose to twice daily -Give bisacodyl suppository daily as needed Will be following up with palliative medicine after discharge Plan: Disposition-plan to discharge to home tomorrow if remains stable Home health and home tube feeds/hospital bed set up already Plan is to go home with sister and she has found a private Home Hospice and 06/12 caregiver organization that is covered by his insurance Admission and Anticipated Discharge Date Admission Date: March 11, 2021 Subjective Patient reports feeling much better since having the chest tube removed earlier today. His hemoglobin was curiously down to 7.2 this morning despite no evidence of bleeding from anywhere. He had a bowel movement yesterday that had no blood in it, he denies hematuria or hematemesis. There is no blood coming on the chest tube prior to it being discontinued. The overnight physician was contacted and he was transfused 1 unit of PRBCs He reports the pain in the right side of his chest is improved after removal of the CT of the chest. He remains quite anxious to go home as soon as possible and is hoping for today or tomorrow. I discussed his care with the administrative support associate as well as the case work aide. Review of Systems Review of Systems: All systems reviewed & are unremarkable except as noted in HPI & below Physical Exam Constitutional: + thin, + cachectic, + frail appearing and cooperative; no acute distress Eyes: + anicteric sclerae Neck: trachea midline, no thyromegaly Respiratory: normal respiratory effort Auscultation: + diminished lung sounds (At right base) Cardiovascular: RRR, no murmur, no edema Gastrointestinal (Abdomen): normal bowel sounds, soft, nontender, no hepatosplenomegaly (PEG tube in place without any drainage or erythema around it) Musculoskeletal: Extremities: extremities normal to inspection; no cyanosis and no clubbing Skin: no rashes, warm and dry Neurologic: moves all extremities and awake; no focal motor deficits Psychiatric: Orientation: alert, oriented x 3 and cooperative Lymphatic: no lymphedema Results & Data Results & Data ([facility]) Vital Signs (Past 12 Hours) Vital Signs Temp Pulse Pulse Resp BP BP Pulse Ox 04/04/21 09:59 36.5 C 87 16 94/62 L 94 04/04/21 09:00 36.7 C 87 16 91/58 L 94 04/04/21 08:30 37 C 78 15 96/57 L 93 04/04/21 08:15 36.6 C 83 16 94/54 L 92 04/04/21 07:58 36.3 C L 90 16 87/58 L 97 Laboratory Results 04/04/21 05:11 04/04/21 05:11 Diagnostic Findings Chest X-Ray 04/04/21 07:00 XR chest 1V portable CLINICAL HISTORY: f/u TECHNIQUE: Single frontal radiograph of the chest was obtained. Comparison: Comparison is made to chest one view 04/03/2021 FINDINGS: Lines and tubes are stable. The cardiomediastinal silhouette is normal. Right lung base opacities are slightly increased from prior exam. Slight increase in right pleural effusion. IMPRESSION: 1. Slight interval increase in right pleural effusion. No pneumothorax in this patient with a right chest tube. 2. Slight interval increase in right lung base opacities which may reflect atelectasis, pneumonia, and/or aspiration. ACT 112: Negative or not required by law. Electronically signed by: Sascha Bear M.D. 04/04/2021 9:43 AM PG Care Time/CCT Total # of Minutes Spent Total Time Spent with Patient: Total time spent is greater than 50% in coordination of care (as documented) at patient's floor/unit and/or counseling patient: Coding Level of Care Code 97247 Subseq Hosp Care Lvl 3 Diagnoses Pneumonia J18.9 Laterality: right Lung location: lower lobe of lung Pneumonia type: due to unspecified organism Empyema lung J86.9 Back pain M54.9 Aspiration into respiratory tract T17.908A Hyponatremia E87.1 Severe protein-calorie malnutrition E43 Metastatic renal cell carcinoma C64.9 Laterality: unspecified laterality Hypothyroid E03.9 Pulmonary nodules R91.8 Hypophosphatemia E83.39 Hypoxia R09.02 Anemia D64.9 Antineoplastic chemotherapy induced pancytopenia D61.810; T45.1X5A Pulmonary embolism I26.99 Constipation K59.00 (1) Metastatic renal cell carcinoma Laterality: unspecified laterality Qualified Code(s): C64.9 - Malignant neoplasm of unspecified kidney, except renal pelvis (2) Pneumonia Laterality: right Lung location: lower lobe of lung Pneumonia type: due to unspecified organism Qualified Code(s): J18.9 - Pneumonia, unspecified organism
[2021-04-05] MEDS: TUBE FEEDING WATER FLUSH GT SCH ×4 (00:49→11:27)
[2021-04-05] MEDS: LEVOTHYROXINE SODIUM 112 MCG TABLET GT SCH (05:31)
[2021-04-05] MEDS: FIBERSOURCE HN 1.2 CAL 1000 ML BAG GT SCH (05:31)
[2021-04-05 06:09] LABS: Hemoglobin 9.8 g/dL (14.0-18.0); Mean Corpuscular Hemoglobin 30.4 pg (25-34); Mean Corpuscular Hgb Conc 32.7 g/dL (32-36); Mean Corpuscular Volume 93.2 fL (80-100); Mean Platelet Volume 8.3 fL (7.4-10.4); Platelet Count 260 K/uL (130-400); RDW Coefficient of Variation 16.1 % (11.5-14.5); RDW Standard Deviation 54.8 fL (36.4-46.3); Red Blood Count 3.22 M/uL (4.7-6.1); White Blood Count 9.87 K/uL (4.8-10.8)
[2021-04-05 06:40] LABS: Albumin Level 1.4 gm/dl (3.4-5.0); BUN Creatinine Ratio 17.4 (10-20); Bilirubin,Total 0.4 mg/dl (0.2-1); Est GFR (African American) 122.5 ml/min; Est GFR (Non-African American) 105.7 ml/min; Magnesium 1.9 mg/dl (1.8-2.4); Potassium 4.5 mmol/L (3.5-5.1)
[2021-04-05 06:42] LABS: Albumin Globulin Ratio 0.4 (0.9-2); Globulin 3.4 gm/dl (2.5-4.0); Phosphorus 2.7 mg/dl (2.5-4.9); Total Protein 4.8 gm/dl (6.4-8.2)
[2021-04-05 06:49] LABS: Basophils # (auto) 0.02 K/uL (0-0.2); Basophils % (auto) 0.2 %; Eosinophils # (auto) 0.05 K/uL (0-0.5); Eosinophils % (auto) 0.5 %; Immature Granulocytes # (auto) 0.31 K/uL (0.00-0.02); Immature Granulocytes % (auto) 3.1 %; Lymphocytes # (auto) 0.55 K/uL (1.2-3.4); Lymphocytes % (auto) 5.6 %; Monocytes # (auto) 0.98 K/uL (0.11-0.59); Monocytes % (auto) 9.9 %; Neutrophils # (auto) 7.96 K/uL (1.4-6.5); Neutrophils % (auto) 80.7 %
[2021-04-05] MEDS: MoRPHine SULFATE 2 MG/ML CARP IV PRN (08:26)
[2021-04-05] MEDS: metroNIDAZOLE 500 MG TAB PO SCH (08:27)
[2021-04-05] MEDS: LACTULOSE SYRUP 30 GM/45 ML UDP PEG SCH (08:27)
[2021-04-05] MEDS: LIDOCAINE 5% 1 PATCH TD SCH (08:28)
[2021-04-05] MEDS: SENNA 8.6 MG TAB PO SCH (08:28)
[2021-04-05] MEDS: APIXABAN 5 MG TABLET PO SCH (08:29)
[2021-04-05] MEDS: LANSOPRAZOLE 30 MG SOLTAB PEG SCH (08:29)
[2021-04-05] MEDS: DOCUSATE SODIUM SYRUP 100 MG/10 ML UDC GT SCH (08:30)
[2021-04-05] MEDS: FAMOTIDINE SUSP 40 MG/5 ML UDP PO SCH (11:26)
[2021-04-05] MEDS: levoFLOXacin ORAL SOLN 25MG/ML BTL PEG SCH (11:27)
--- NOTE | 2021-04-05 13:07 | Discharge Summary ---
Date of Service April 05, 2021 Admission HPI Per Admitting Provider The patient is a 60-year-old male with a past medical history including antineoplastic chemotherapy induced pancytopenia, pulmonary embolism, laryngeal cancer, metastatic renal cell carcinoma, gout, GERD, hypothyroidism and hypertension. He presents to the emergency department with symptoms as noted above. The subject of comfort care was brought up by the ED physician with the patient, and I continued this discussion on a palliative basis. The patient was given the option of treating his right lower lobe pneumonia as if it were related to aspiration, which is likely the cause, and will consult palliative c are to talk with them tomorrow about long-term directions. He has opted to be treated for his right lower lobe pneumonia, and will see palliative care tomorrow. Discharge Exam Constitutional + thin, + cachectic, + frail appearing and cooperative; no acute distress Eyes + anicteric sclerae ENMT external ear and nose normal, oropharynx normal Neck trachea midline, no thyromegaly Respiratory normal respiratory effort Auscultation: + diminished lung sounds (At right base) Cardiovascular RRR, no murmur, no edema Chest (Breasts) Chest: + abnormal inspection of chest (chest tube in place) Gastrointestinal (Abdomen) normal bowel sounds, soft, nontender, no hepatosplenomegaly (PEG tube in place without any drainage or erythema around it) Musculoskeletal Extremities: extremities normal to inspection; no cyanosis and no clubbing Skin no rashes, warm and dry Neurologic moves all extremities and awake; no focal motor deficits Psychiatric Orientation: alert, oriented x 3 and cooperative Lymphatic no lymphedema Discharge Data Allergies Allergy/AdvReac Type Severity Reaction Status Date / Time No Known Allergies Allergy Verified 03/11/21 20:58 Consultations 03/11/21 20:26 ED Decision to Admit Stat 03/11/21 21:31 Consult Palliative Care Routine 03/16/21 13:42 Consult Gastroenterology Routine 03/29/21 18:31 Consult Pulmonology Routine Procedures Performed Operation Date: 03/19/21 16:30 Actual Procedures p PEG Tube Placement - Wing Canada MD s Esophagogastroduodenoscopy - Wing Canada MD Ordered Studies 03/12/21 08:20 CT chest diagnostic wo con Routine 03/16/21 13:30 FL video swallow Routine 03/30/21 16:12 US point of care ultrasound Urgent 03/30/21 17:14 CT chest diagnostic w con Routine 03/31/21 11:00 US point of care ultrasound Urgent Hospital Course (1) Pneumonia: Secondary to aspiration pneumonia on admission CT chest with progressive right greater than left bibasilar consolidative opacities also with trace left and small right pleural effusions (on admission) CT chest also with numerous bilateral pulmonary nodules re-demonstrated, several which are cavitary and suggestive of pulmonary metastases. Also with 2.6 cm thick-walled cavitary nodule the right lower lobe which has decreased in size from 02/23/2021 suggestive of resolving superimposed infection versus pulmonary infarct Repeat CXR (03/26) shows further development of small to moderate R pleural effusion with RLL atelectasis/collapse Appreciate speech therapy consultation-had video swallow study on 03/16 which showed severe aspiration with all consistencies-patient was presented with options for moving forward and he had a PEG tube placed. He understands that this will not necessarily prevent all aspiration but is hopeful that it will provide him with nutrition as he has had significant weight loss and has very poor nutritional status. Must always have the head of the bed at least up at 30 degrees Needs a hospital bed at home: The beneficiary requires the head of the bed be elevated more than 30 degrees most of the time due to having aspiration problems and feeding tube. PULM consulted 03/30 Ultrasound at the bedside shows possible complex fluid collection CT CHest with IV contrast shows pleural effusion on right with gas--> PULM recommends chest tube and MIST-2 protocol -Chest tube placed 03/31 and fluid consistent with empyema, exudative effusion, with pH 6.99, LDH 1200. Cytology negative, culture no growth to date -started MIST-2 protocol 03/31 x 3 days, now chest tube removed on 04/04 -continue Levaquin and Flagyl x3 more weeks -Repeat chest CT in 6 weeks as outpatient with pulmonology follow-up -No longer requiring supplemental oxygen -Continue Duonebs as needed -continue strict n.p.o. except allow ice chips for comfort at pt's request, PEG tube in place with feeds (2) Empyema lung: as above, with parapneumonic effusion requiring chest tube and MIST-2 protocol follow pleural fluid culture and AFB-no growth to date and AFB negative on smear Antibiotics as above, repeat chest CT 6 weeks (3) Back pain: With some tenderness to palpation at the site on back, likely MSK in nature; seems to have improved with BMs and requiring less pain medication -continue lidocaine patch -continue morphine IR 15 mg q4h prn per G-tube crush and mix with water -Appreciate palliative care consultation- -Continue bowel regimen (4) Aspiration into respiratory tract: now s/p PEG tube placement 03/19 Appreciate GI consultation - dietary consultation for tube feed recommendations appreciated- Started with bolus feeds and was largely tolerating until unable to move bowels and had emesis -Now tolerating goal continuous feeds-will keep continuous feeds upon discharge, can try to make continuous feeds 16 hours of the day-continue at 60 mL/h over 16 hours and titrate up by 10 mL/h every 2 days until at goal of 90 mL/h -rehabilitation case coordinator setting up home tube feeds and sister will help manage as pt has some intermittent confusion while on opioids (5) Hyponatremia: down to 129 at lowest, but now improved with IV NS to 134 Could be secondary to pulmonary process with pneumonia and pulmonary nodules/SIADH but with high output from chest tube, also some component of hypovolemia Urine awesome high and urine sodium low, consistent with hypovolemia ALso with significant hypothyroidism-treating with increased dose of synthroid -Continue free water flushes at 100 mL every 6 hours upon discharge Follow BMP as an outpatient (6) Severe protein-calorie malnutrition: BMI low at 18.1, albumin severely low at 1.5 and now improved to 1.7 Has had weight loss over the last several months due to cancer treatments With significant aspiration and no longer can take p.o. - Now s/p PEG tube -replace lytes as needed -as above, TFs at goal - follow CMP, Mag, Phos, CBC periodically after discharge while on tube feeds (7) Metastatic renal cell carcinoma: - With possible metastases to the lungs although cytology negative on pleural fluid Initially was considering hospice per CM, he had hospice nurses visit him on 03/10/2021, and at that time had switched his mind and refused hospice. - Palliative and CM following - However, he now has a goal of eventually moving into a [place] type apartment once stronger with functional status -PT/OT consulted-does not need rehab -Follow-up was planned with oncology on 03/[address] Machuca in [place] -his sister will change this appointment as he is still in the hospital -Reports that he has been receiving oral chemotherapy - talked with him on 03/29 as he would like to follow-up with Dr. Machuca to discuss any future treatment although he is also considering enrolling in hospice again (8) Hypothyroid: TSH of 26 in 01/2021. Unclear if he has been taking his levothyroxine or not. Dose instructions from med rec are 100 mcg every day but Tuesday when he takes 15 mcg - Repeat TSH here now even worse with TSH being 41 - Continue levothyroxine at increased dose of 112 mcg daily -there is some component of either noncompliance or poor absorption Repeat TSH in 4 weeks from the last-around the first week of April (9) Pulmonary nodules: As above Follow-up with pulmonary and with repeat imaging as an outpatient with chest CT in 6 weeks (10) Hypophosphatemia: Replaced and resolved (11) Hypoxia: Resolved (12) Anemia: Hemoglobin did drop to 6.7 on 03/29 for no apparent reason He has no melena, no hematuria, no hematochezia or epistaxis Repeat hemoglobin later that same day confirmed hemoglobin was still low Received 1 unit PRBCs on 03/29 Hemoglobin then improved up to 8.5-9.6, but all of a sudden dropped to 7.2 on 04/04-again, no evidence of bleeding from anywhere Was given 1 unit PRBCs on 04/04 Follow CBC in the morning (13) Antineoplastic chemotherapy induced pancytopenia: Now resolved (14) Pulmonary embolism: CTA chest on 02/23 showed possible small PE during previous hospitalization. He reports his first VTE was 4 years ago after having his nephrectomy He has been on Eliquis for 4 years Have since restarted Eliquis now s/p chest tube placement and MIST-2 protocol as per PULM (15) Constipation: - Finally moved bowels on 03/27, and again on 04/03 continue docusate 100mg per GT bid; PRN Dulcolax suppository; Senna twice daily - Gave Relistor x 1 and added Lactulose which then was able to move bowels -increased lactulose to twice daily -Give bisacodyl suppository daily as needed Will be following up with palliative medicine after discharge Disposition-plan to discharge to home tomorrow if remains stable Home health and home tube feeds/hospital bed set up already Plan is to go home with sister and she has found a private Home Hospice and 06/12 caregiver organization that is covered by his insurance Discharge Plan Discharge Items Patient Disposition: Home - Home Health Services Reason For Visit: PNEUMONIA, DEHYDRATION Discharge Diagnosis: Aspiration pneumonia with parapneumonic effusion requiring chest tube, severe protein calorie malnutrition, severe dysphagia requiring PEG tube placement, Anemia, Constipation, Electrolyte abnormalities, Renal cell carcinoma, Chronic back pain Condition on Discharge: Fair Activity: As commented below Lifting: Gradually increase as tolerated Bathing: No limitations Bathing Comment: Except no soaking in tub with PEG tube site Exercise/Sports: Gradually increase as tolerated Driving/Machine Use: No driving Weightbearing: Full weightbearing Non-emergency contact: Primary Care Provider, Oncologist and Ore Crusher Call non-emergency contact if: you have any medication questions, your symptoms worsen and your pain is not controlled Follow-up/Referrals: Migdalia Valenzuela MD [Outside Practitioners] - None (Please call to reschedule your previous appointment) Pineda Heck DO [Primary Care Provider] - (Follow up within 1-2 weeks) Ebenezer Gipson MD [Outside Practitioners] - 04/15/21 11:15 am (Pulmonology) Diet: Nothing by Mouth and Other - See Diet Comment Diet Comment: Tube feeds Addtl Attending Provider Instructions: Please continue tube feeds at home as prescribed. Have your PCP check once weekly labs to include a CBC, CMP, Magnesium, phosphorus, and triglycerides for the first 4 weeks. You can continue to take the morphine as needed for pain. Continue to take the laxatives to prevent constipation. Continue the antibiotics called levofloxacin and metronidazole for 2.5 more weeks for your lung infection. You will need a chest CT scan in 6 weeks and follow up with Pulmonology at that time. Follow up with your Oncologist and your PCP within 1 week after discharge. Pending Studies at Discharge: Yes (AFB from pleural fluid,final pleural fluid culture) Stand-Alone Forms: [facility] [employer] [facility], Opioid Pain Management Medications and DC Order Prescriptions: New levofloxacin 250 mg/10 mL Solution 750 mg PEG DAILY@1100 17 Days Qty: 510 RF: 0 metronidazole 500 mg Tablet 500 mg feeding tube TID 17 Days Qty: 51 RF: 0 lactulose 20 gram/30 mL Solution 30 g PEG BID 30 Days Qty: 2700 RF: 0 Fibersource HN 0.05 gram- 1.2 kcal/mL Liquid See Rx Instructions .ROUTE .COMPLEX Qty: 6000 RF: 0 bisacodyl 10 mg Suppository 10 mg [place] DAILY PRN (Reason: constipation) Qty: 12 RF: 0 docusate sodium 60 mg/15 mL Syrup 100 mg G-tube BID Qty: 480 RF: 0 sennosides [Senokot] 8.6 mg Tablet 17.2 mg feeding tube BID Qty: 60 RF: 0 lansoprazole [Prevacid SoluTab] 30 mg Tablet,Disintegrat, Delay Rel 30 mg PEG QAM Qty: 30 RF: 0 levothyroxine [Synthroid] 112 mcg Tablet 112 mcg G-tube DAILYBB Qty: 30 RF: 0 lidocaine 5 % Adhesive Patch,Medicated 1 patch transdermal QAM Qty: 30 RF: 0 morphine 15 mg tablet 15 mg PO TID PRN (Reason: pain) Qty: 90 RF: 0 Continued colchicine 0.6 mg Tablet 0.6 mg PO DIRECTED PRN (Reason: FLARE UPS) RF: 0 Changed famotidine 40 mg tablet 40 mg feeding tube DAILYBB Qty: 0 RF: 0 Eliquis 5 mg tablet 5 mg feeding tube BID Qty: 0 RF: 0 Discontinued levothyroxine [Synthroid] 100 mcg tablet See Rx Instructions .ROUTE .COMPLEX RF: 0 famotidine [Pepcid] 20 mg Tablet 20 mg PO DIRECTED PRN (Reason: HEARTBURN/INDIGESTION) RF: 0 diphenhydramine HCl [Benadryl] 25 mg Capsule 25 mg PO DIRECTED PRN (Reason: Sleep) RF: 0 propranolol 20 mg tablet 20 mg PO BID RF: 0 Cabometyx 40 mg tablet 40 mg PO .HS @ 2230 RF: 0 Magic Mouth 1 dose PO DIRECTED PRN (Reason: THRUSH) RF: 0 hydrocodone-acetaminophen 5-325 mg Tablet 1 - 2 tab PO Q6H PRN (Reason: pain) Qty: 30 RF: 0 amoxicillin-pot clavulanate [Augmentin] 875-125 mg tablet 1 tab PO BID Qty: 8 RF: 0 Discharge Orders: Discharge Order (Routine); Ordered 04/05/21 Ordered By: Conchis Suero Admission Data Admit Date/Time: 03/11/21 21:31 Attending Provider: Conchis Suero Admit Provider: Miguel A Barnes Primary Care Provider: Pineda Heck Other Providers: Connor Beard ; [facility] ; Miguel A Barnes ; Sanjuana Lopez ; Wing Canada ; Kendrick Ty Other Interventions: Discharge Summary Assessment (RN) Last Done: 03/19/21 11:31 Coding Diagnoses Pneumonia J18.9 Laterality: right Lung location: lower lobe of lung Pneumonia type: due to unspecified organism Empyema lung J86.9 Back pain M54.9 Aspiration into respiratory tract T17.908A Hyponatremia E87.1 Severe protein-calorie malnutrition E43 Metastatic renal cell carcinoma C64.9 Laterality: unspecified laterality Hypothyroid E03.9 Pulmonary nodules R91.8 Hypophosphatemia E83.39 Hypoxia R09.02 Anemia D64.9 Antineoplastic chemotherapy induced pancytopenia D61.810; T45.1X5A Pulmonary embolism I26.99 Constipation K59.00
[2021-04-05] MEDS ORDERED: MoRPHine SULFATE IR 15 MG TAB (IMMEDIATE RELEASE) PO PRN (13:13)
== END 2021-04-05 15:48 | disposition home health service (06) | DRG 177 ==
LOC: ED 17:58 → SUATTDRO 21:31 → 2N 21:31 → 2W 03-13 13:04 → 3N 03-20 16:27